=== PATIENT | female | born 1940 | race Caucasian/White ===

== ENCOUNTER → 2018-01-31 10:32 | Outpatient (CLI) | payer OTHER, SELFPAY ==
[2018-01-31 10:51] LABS: Add Manual Diff / Slide Review NO; Basophils Percent Auto 0.5 % (0-2); Hematocrit 33.6 % (36-46); Hemoglobin 11.3 g/dL (12.0-16.0); Lymphocytes Percent Auto 32.7 % (25-40); Mean Corpuscular HGB Conc 33.8 % (30-36); Mean Corpuscular Volume 94.7 fL (80-100); Neutrophils Absolute Auto 1600 /uL (3000-5900); Neutrophils Percent Auto 50.8 % (50-75); Platelet Count 86 X10^3/uL (150-400); Red Blood Cell Count 3.54 X10^6/uL (4.0-5.2); Red Cell Distribution Width 16.9 % (11.6-14.8); White Blood Cell Count 3.1 X10^3/uL (4.5-11.0)
[2018-01-31 10:58] LABS: Prothrombin Time 22.2 SECONDS (10.1-12.7)
[2018-01-31 11:03] LABS: Alanine Aminotransferase 43 IU/L (9-52); Albumin Globulin Ratio 1.6 (1.0-2.8); Alkaline Phosphatase 77 U/L (38-126); Aspartate Aminotransferase 31 IU/L (14-36); Bilirubin Total 0.5 mg/dL (0.2-1.3); Blood Urea Nitrogen 23 mg/dL (7-17); Calcium 9.4 mg/dL (8.4-10.2); Carbon Dioxide 28 mmol/L (22-32); Chloride 105 mmol/L (98-107); Estimated Glomerular Filt Rate 53.5 mL/min (>60); Globulin 2.5 g/dL (1.7-4.1); Glucose 138 mg/dL (80-110); HEMOLYSIS < 15 (0-50); Potassium 4.8 mmol/L (3.4-5.1); Sodium 140 mmol/L (137-145); Total Protein 6.5 g/dL (6.3-8.2)
== END ==
PROVIDERS: Visit Provider Nurse Practitioner Gerontology
DX: I82.409 Acute embolism and thrombosis of unspecified deep veins of unspecified lower extremity (principal); D69.6 Thrombocytopenia, unspecified
CPT/HCPCS: 36415; 80053; 85025; 85610

== ENCOUNTER → 2018-07-03 14:33 | Outpatient (CLI) | payer OTHER, SELFPAY | PROVIDERS: Family Provider Student in an Organized Health Care Education/Training Program; PCP Student in an Organized Health Care Education/Training Program; Visit Provider Student in an Organized Health Care Education/Training Program | DX: Z13.820 Encounter for screening for osteoporosis (principal); Z78.0 Asymptomatic menopausal state; E07.9 Disorder of thyroid, unspecified; Z85.6 Personal history of leukemia; Z87.891 Personal history of nicotine dependence | CPT/HCPCS: 77080 ==

== ENCOUNTER 2018-09-08 17:57 | Emergency (ER) | payer OTHER, SELFPAY ==
[2018-09-08 18:03] VITALS: BP 189/75; PULSE 70; RESP 18; TEMP 36.8; O2SAT 97; BMI 39.1
--- NOTE | 2018-09-08 18:33 | ED_ITS ---
HPI - Female Genitourinary General Chief complaint: Urogenital-Female Stated complaint: blood in urine Time Seen by Provider: 09/08/18 18:22 Source: patient and old records reviewed Mode of arrival: ambulatory Limitations: no limitations History of Present Illness HPI Narrative: Patient is an 78-year-old female who presents with hematuria. She said she woke up from a nap she had some very mild left lower quadrant pain is went to the restroom and noticed some hematuria. She is on Coumadin and has a history of ITP and DVT. She no longer has left lower quadrant pain. She said she felt a little nauseous when she urinated but did not vomit. She has not had any fever body aches. She was feeling well until about an hour ago. With her history of ITP and Coumadin as she wanted to be checked. Onset (ago): hour(s) (1) Related Data Home Medications Medication Instructions Recorded Confirmed cholecalciferol (vitamin D3) 2,000 unit PO Q DAY #0 cap 03/24/16 07/26/18 [Vitamin D3] blood sugar diagnostic [Blood 12/20/17 07/26/18 Glucose Test] multivitamin tablet 1 tab PO DAILY 06/26/18 07/26/18 Disabled Parking Permit 1 ea MISCELLANEOUS DAILY 07/26/18 07/26/18 warfarin [Coumadin] 5.5 mg PO QDAY 07/26/18 07/26/18 Previous Rx's Medication Instructions Recorded pioglitazone 30 mg tablet 30 mg PO DAILY #30 tab 07/15/18 carvedilol 6.25 mg tablet 6.25 mg PO BID #180 tab 07/23/18 warfarin [Coumadin] 0.5 mg PO DAILY #15 tab 07/26/18 glipizide 10 mg tablet 10 mg PO BID #180 tab 08/13/18 pioglitazone 30 mg tablet 30 mg PO DAILY #90 tab 08/19/18 losartan 50 mg tablet 50 mg PO BID #180 tab 08/23/18 levothyroxine 100 mcg tablet 100 mcg PO QAM #90 tab 08/29/18 Allergies Allergy/AdvReac Type Severity Reaction Status Date / Time barium sulfate Allergy Severe SENSITIVITY Verified 09/08/18 18:03 TO ELECTRICAL CURRENT, SEIZURES Sulfa (Sulfonamide Allergy Intermediate HIVES Verified 09/08/18 18:03 Antibiotics) adhesive Allergy Mild RASH Verified 09/08/18 18:03 Review of Systems Review of Systems ROS Unobtainable: All systems reviewed & are unremarkable except as noted in HPI and below Constitutional Denies chills, Denies fever(s), Denies lethargy and Denies weakness Eyes Denies change in vision, Denies eye discharge, Denies irritation and Denies loss of vision ENT Ears, Nose, Mouth, and Throat: Denies change in voice, Denies neck pain and Denies sore throat Cardiovascular Denies dyspnea and Denies dyspnea on exertion Respiratory Denies cough, Denies dyspnea, Denies dyspnea on exertion and Denies wheezing Gastrointestinal Gastrointestinal: Reports abdominal pain (Now resolved) and Reports nausea Genitourinary Reports as per HPI and Reports hematuria Musculoskeletal Denies neck pain Integumentary/Breasts Denies pruritus, Denies erythema, Denies rash and Denies wounds Neurologic Denies loss of vision and Denies weakness Allergic/Immunologic Denies wheezing PFSH Medical History Chronic ITP (idiopathic thrombocytopenic purpura) (Acute) Hypothyroid (Acute) DVT (deep venous thrombosis) (Resolved) Surgical History Status post appendectomy Status post tonsillectomy and adenoidectomy Social History Smoking Status: Former smoker Social History Smoking Status: Former smoker Exam Initial Vital Signs Initial Vital Signs: Vital Signs Temperature 98.3 F 09/08/18 18:03 Pulse Rate 70 09/08/18 18:03 Respiratory Rate 18 09/08/18 18:03 Blood Pressure 189/75 H 09/08/18 18:03 Pulse Oximetry 97 09/08/18 18:03 GENERAL: Alert overweight female well-appearing no acute distress HEENT: Head atraumatic,EOMI, pupils reactive, face symmetric, [moist] mucous membranes CARDIOVASCULAR: Regular rate and rhythm without murmurs, rubs or gallops. RESPIRATORY: Breath sounds equal bilaterally, no wheezes rales or rhonchi. ABDOMEN: Soft, nontender. Normoactive bowel sounds all 4 quadrants. No guarding or rebound. : No CVA tenderness EXTREMITIES: Normal range of motion, no clubbing or edema. Neurovascularly intact NEUROLOGICAL: Alert and oriented x4.Normal gait and speech. SKIN: Warm, dry, no laceration, no petechiae, no rashes or lesions. Course Orders Ordered: ED Orders 09/08/18 18:40 Basic Metabolic Panel Stat Complete Blood Count AUTO DIFF Stat Partial Thromboplastin Time Stat Prothrombin Time INR Stat 09/08/18 19:10 Urinalysis and Microscopic Stat Vital Signs - 8 hr 09/08/18 18:03 09/08/18 19:55 Temperature 98.3 F Pulse Rate 70 88 Respiratory Rate 18 16 Blood Pressure 189/75 H Blood Pressure [Right Arm] 172/86 H Pulse Oximetry 97 98 MDM - Female Genitourinary Medical Records Attestation: I reviewed the patient's medical records. Lab Data Attestation: I reviewed the patient's lab results. Result diagrams: 09/08/18 18:40 09/08/18 18:40 Lab Results 09/08/18 09/08/18 09/08/18 Range/Units 18:40 18:40 18:40 WBC 2.7 L (4.5-11.0) X10^3/uL RBC 3.46 L (4.0-5.2) X10^6/uL Hgb 10.6 L (12.0-16.0) g/dL Hct 32.9 L (36-46) % MCV 94.9 (80-100) fL MCH 30.5 (26-34) PG MCHC 32.1 (30-36) % RDW 18.1 H (11.6-14.8) % Plt Count 66 L (150-400) X10^3/uL Neut % (Auto) Not Reportable Lymph % (Auto) Not Reportable [place] % (Auto) Not Reportable Eos % (Auto) Not Reportable Baso % (Auto) Not Reportable Lymph # (Auto) Not Reportable [place] # (Auto) Not Reportable Baso # (Auto) Not Reportable Total Counted 100 Seg Neutrophils % 45.0 (38-70) % Band Neutrophils % 3.0 (3-7) % Lymphocytes % (Manual) 33.0 (25-45) % Atypical Lymphs % 3.0 H ( - 0) % Monocytes % (Manual) 16.0 H (2-11) % Neutrophils # (Manual) 1296 L (9543-7055) /uL RBC Morphology See below Poikilocytosis 1+ H Anisocytosis 1+ H Schistocytes 1+ H PT 18.7 H (10.1-12.7) SECONDS INR 1.6 H (0.9-1.3) APTT 32 (26.4-36.2) SECONDS Sodium 136 L (137-145) mmol/L Potassium 4.5 (3.4-5.1) mmol/L Chloride 101 (98-107) mmol/L Carbon Dioxide 26 (22-32) mmol/L BUN 28 H (7-17) mg/dL Creatinine 1.10 H (0.52-1.04) mg/dL Estimated GFR 47.8 L (>60) mL/min BUN/Creatinine Ratio 25.5 H (6-22) Glucose 100 (80-110) mg/dL Calcium 9.0 (8.4-10.2) mg/dL Urine Color Urine Appearance Urine pH (4.5-8.0) Ur Specific [place] (1.000-1.035) Urine Protein (Negative) Urine Glucose (UA) (Negative) g/dL Urine Ketones (NEGATIVE) Urine Occult Blood (Negative) Urine Nitrate (Negative) Urine Bilirubin (NEGATIVE) Urine Urobilinogen (0.2) E.U./dL Ur Leukocyte Esterase (NEGATIVE) Urine RBC (0-5/HPF) Urine WBC (0-5/HPF) Ur Squamous Epith Cells Urine Bacteria (None) Ur Culture Indicated? 09/08/18 Range/Units 19:10 WBC (4.5-11.0) X10^3/uL RBC (4.0-5.2) X10^6/uL Hgb (12.0-16.0) g/dL Hct (36-46) % MCV (80-100) fL MCH (26-34) PG MCHC (30-36) % RDW (11.6-14.8) % Plt Count (150-400) X10^3/uL Neut % (Auto) Lymph % (Auto) [place] % (Auto) Eos % (Auto) Baso % (Auto) Lymph # (Auto) [place] # (Auto) Baso # (Auto) Total Counted Seg Neutrophils % (38-70) % Band Neutrophils % (3-7) % Lymphocytes % (Manual) (25-45) % Atypical Lymphs % ( - 0) % Monocytes % (Manual) (2-11) % Neutrophils # (Manual) (5521-4170) /uL RBC Morphology Poikilocytosis Anisocytosis Schistocytes PT (10.1-12.7) SECONDS INR (0.9-1.3) APTT (26.4-36.2) SECONDS Sodium (137-145) mmol/L Potassium (3.4-5.1) mmol/L Chloride (98-107) mmol/L Carbon Dioxide (22-32) mmol/L BUN (7-17) mg/dL Creatinine (0.52-1.04) mg/dL Estimated GFR (>60) mL/min BUN/Creatinine Ratio (6-22) Glucose (80-110) mg/dL Calcium (8.4-10.2) mg/dL Urine Color Yellow Urine Appearance Clear Urine pH 5.0 (4.5-8.0) Ur Specific [place] 1.015 (1.000-1.035) Urine Protein Negative (Negative) Urine Glucose (UA) Negative (Negative) g/dL Urine Ketones Negative (NEGATIVE) Urine Occult Blood 3+ H (Negative) Urine Nitrate Negative (Negative) Urine Bilirubin Negative (NEGATIVE) Urine Urobilinogen 0.2 (0.2) E.U./dL Ur Leukocyte Esterase Negative (NEGATIVE) Urine RBC 5-10/hpf H (0-5/HPF) Urine WBC None seen (0-5/HPF) Ur Squamous Epith Cells 0-1 /hpf Urine Bacteria None seen (None) Ur Culture Indicated? Cult not indicated MDM Narrative Medical decision making narrative: At this time the patient has no sign of a UTI. She does have hematuria his platelets are 66 slightly lower than her normal. INR is actually subtherapeutic. at this time she is will be discha rged. I think hematuria is likely from thrombocytopenia Not infection. sHe has appointment with her oncologist tomorrow. Discharge Plan Departure Patient Disposition: Home Clinical Impression: Benign hematuria Discharge Date/Time: 09/08/18 20:04 Interventions: ED Discharge Assessment Last Done: 09/08/18 20:03 Instructions: Blood in Urine Activity Restrictions/Additional Instructions: *You have been diagnosed with hematuria *What to do: Platelets are 66, INR 1.6. At this time there is no sign of infection. *Continue to take medications as directed *Follow up with your primary care provider in 2-3 days *Return to ER if you should have fever, painful or frequent urination, gross of blood, blood clots in urine or any new, worsening or concerning symptoms Prescriptions: No Action cholecalciferol (vitamin D3) [Vitamin D3] 2,000 UNIT capsule 2,000 unit PO Q DAY Qty: 0 RF: 0 pioglitazone 30 mg tablet 30 mg PO DAILY Qty: 30 RF: 0 carvedilol 6.25 mg tablet 6.25 mg PO BID Qty: 180 RF: 3 glipizide 10 mg tablet 10 mg PO BID Qty: 180 RF: 1 pioglitazone [Actos] 30 mg tablet 30 mg PO DAILY Qty: 90 RF: 1 losartan 50 mg tablet 50 mg PO BID Qty: 180 RF: 3 levothyroxine 100 mcg tablet 100 mcg PO QAM Qty: 90 RF: 3 multivitamin [Daily Multi-Vitamin] tablet 1 tab PO DAILY RF: 0 Blood Glucose Test strip .ROUTE .MEDSUPPLY RF: 0 warfarin [Coumadin] 5 mg tablet 5.5 mg PO QDAY RF: 0 Disabled Parking Permit sheet 1 ea miscellaneous DAILY RF: 0 warfarin [Coumadin] 1 mg Tablet 0.5 mg PO DAILY Qty: 15 RF: 0 Referrals: Gamal Orosco MD [Primary Care Provider] -
[2018-09-08 18:50] LABS: Hematocrit 32.9 % (36-46); Hemoglobin 10.6 g/dL (12.0-16.0); Mean Corpuscular HGB Conc 32.1 % (30-36); Mean Corpuscular Hemoglobin 30.5 PG (26-34); Mean Corpuscular Volume 94.9 fL (80-100); Platelet Count 66 X10^3/uL (150-400); Red Blood Cell Count 3.46 X10^6/uL (4.0-5.2); Red Cell Distribution Width 18.1 % (11.6-14.8); White Blood Cell Count 2.7 X10^3/uL (4.5-11.0)
[2018-09-08 18:54] LABS: INR 1.6 (0.9-1.3); Prothrombin Time 18.7 SECONDS (10.1-12.7)
[2018-09-08 18:57] LABS: PTT Partial Thromboplastin Tim 32 SECONDS (26.4-36.2)
[2018-09-08 18:58] LABS: BUN Creatinine Ratio 25.5 (6-22); Blood Urea Nitrogen 28 mg/dL (7-17); Carbon Dioxide 26 mmol/L (22-32); Chloride 101 mmol/L (98-107); Estimated Glomerular Filt Rate 47.8 mL/min (>60); Glucose 100 mg/dL (80-110); HEMOLYSIS < 15 (0-50); Potassium 4.5 mmol/L (3.4-5.1); Sodium 136 mmol/L (137-145)
[2018-09-08 19:10] LABS: Add Manual Diff / Slide Review YES
[2018-09-08 19:16] LABS: Neutrophils Absolute Manual 1296 /uL (3000-5900); Total Cells Counted 100
[2018-09-08 19:18] LABS: Bacteria Urine None Seen; WBC Urine None Seen (0-5/HPF)
[2018-09-08 19:18] LABS: Poikilocytosis 1+
[2018-09-08 19:19] LABS: Anisocytosis 1+; Schistocytes 1+
[2018-09-08 19:19] LABS: Appearance Urine UA CLEAR; Bilirubin Urine UA NEGATIVE (NEGATIVE); Color Urine UA YELLOW; Glucose Urine UA NEGATIVE (Negative); Ketones Urine UA NEGATIVE (NEGATIVE); Leukocyte Esterase Urine UA NEGATIVE (NEGATIVE); Nitrite Urine UA NEGATIVE (Negative); Occult Blood Urine UA 3+ (Negative); Protein Urine UA NEGATIVE (Negative); Specific Gravity Urine UA 1.015 (1.000-1.035); Urobilinogen Urine UA 0.2 E.U./dL (0.2)
[2018-09-08 19:39] LABS: RBC Urine 5-10/HPF (0-5/HPF); Squamous Epithelial Cell Urine 0-1 /HPF
[2018-09-08 19:40] LABS: Culture Indicated Urine Cult Not Indicated
--- NOTE | 2018-09-08 19:52 | PC.NURSE ---
Pt requested that we look at void because she felt that it was more red than the previous void. this is true the pt's urine did apeer to be red colored
[2018-09-08 19:55] VITALS: BP 172/86; PULSE 88; RESP 16; O2SAT 98
== END 2018-09-08 20:04 | disposition home or self-care (01) ==
PROVIDERS: Emergency Provider Emergency Medicine; Family Provider Student in an Organized Health Care Education/Training Program; PCP Student in an Organized Health Care Education/Training Program
DX: N02.9 Recurrent and persistent hematuria with unspecified morphologic changes (principal)
CPT/HCPCS: 36591; 80048; 81001; 85025; 85610; 85730; 99283

== ENCOUNTER → 2018-09-23 09:26 | Outpatient (CLI) | payer OTHER, SELFPAY ==
--- NOTE | 2018-09-23 09:39 | DI.CT.S_ITS ---
PROCEDURE: CT ABDOMEN PELVIS WO CON INDICATIONS: hematuria TECHNIQUE: Noncontrast 5 mm thick sections acquired from the diaphragms to the symphysis. 5 mm thick coronal and sagittal reformats were then performed. For radiation dose reduction, the following was used: automated exposure control, adjustment of mA and/or kV according to patient size. COMPARISON: [facility], [place], ABDOMEN COMPLETE, 03/07/2016, 10:10. [facility], CT, CHEST/ABD/PEL WITHOUT CONTRAST, 03/08/2016, 7:19. [facility], CT, CHEST/ABD/PEL WITHOUT CONTRAST, 08/01/2016, 13:21. FINDINGS: Image quality: Excellent. Lung bases: There is mild linear scarring in the lung bases. Heart size is normal. Urinary system: There is a small nonobstructing stone within the left kidney measuring up to 2 mm. No hydronephrosis. There is mild nonspecific left perinephric stranding. Both ureters appear non-dilated throughout their expected courses. Bladder wall thickness is normal; no calcified bladder stones. Other solid organs: Noncontrast evaluation of the liver demonstrates no focal hepatic lesions. There is nondistention and wall thickening of the gallbladder fundus redemonstrated with indistinct increased attenuation in the gallbladder lumen more proximally. No pericholecystic fat stranding or fluid. Pancreas is normal in contours. Spleen is normal in size. There is a stable small left adrenal nodule measuring up to 2.3 x 1.5 cm with attenuation values of less than 0. 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 Peritoneum and bowel: Unenhanced bowel loops demonstrate normal wall thickness and caliber. No evidence of appendicitis. There is colonic diverticulosis without acute diverticulitis. No free fluid or air. Nodes and vessels: No retroperitoneal or mesenteric adenopathy by size criteria. Aorta and inferior vena cava are normal in caliber. An IVC filter is noted within the inferior vena cava. Abdominal wall: No ventral hernias. Pelvis: No free pelvic fluid. No inguinal hernias or adenopathy. Bones: No suspicious bony lesions. No vertebral body compression fractures. IMPRESSION: 1. Left nephrolithiasis without evidence of hydronephrosis. 2. Nondistended gallbladder fundus with gallbladder wall thickening and suggestion of an internal filling defect in the lumen. The findings are similar to the prior studies and the differential includes adenomyomatosis or a possible phrygian cap. 3. Colonic diverticulosis without acute diverticulitis. Dictated by: Aaron Verdugo M.D. on 09/23/2018 at 14:01 Approved by: Aaron Verdugo M.D. on 09/23/2018 at 14:10
[2018-09-23 09:58] LABS: INR 2.3 (0.9-1.3); Prothrombin Time 27.4 SECONDS (10.1-12.7)
== END ==
PROVIDERS: Internal Medicine Hematology & Oncology; Family Provider Student in an Organized Health Care Education/Training Program; PCP Student in an Organized Health Care Education/Training Program; Visit Provider Internal Medicine
DX: D46.9 Myelodysplastic syndrome, unspecified (principal)
CPT/HCPCS: 36415; 74176; 85610

== ENCOUNTER → 2018-10-07 13:21 | Outpatient (CLI) | payer OTHER, SELFPAY ==
[2018-10-07 14:13] LABS: INR 2.5 (0.9-1.3); Prothrombin Time 29.7 SECONDS (10.1-12.7)
== END ==
PROVIDERS: PCP Student in an Organized Health Care Education/Training Program; Visit Provider Internal Medicine Hematology & Oncology
DX: D46.9 Myelodysplastic syndrome, unspecified (principal); D69.3 Immune thrombocytopenic purpura
CPT/HCPCS: 36415; 85610

== ENCOUNTER → 2018-11-25 07:40 | Outpatient (CLI) | payer OTHER, SELFPAY ==
[2018-11-25 09:06] LABS: Hematocrit 32.1 % (36-46); Hemoglobin 10.6 g/dL (12.0-16.0); Mean Corpuscular Hemoglobin 31.2 PG (26-34); Mean Corpuscular Volume 94.4 fL (80-100); Platelet Count 69 X10^3/uL (150-400); White Blood Cell Count 2.3 X10^3/uL (4.5-11.0)
[2018-11-25 09:15] LABS: Add Manual Diff / Slide Review YES
[2018-11-25 09:26] LABS: Alanine Aminotransferase 16 IU/L (9-52); Albumin 3.8 g/dL (3.5-5.0); Albumin Globulin Ratio 1.4 (1.0-2.8); Alkaline Phosphatase 68 U/L (38-126); Aspartate Aminotransferase 25 IU/L (14-36); Bilirubin Total 0.5 mg/dL (0.2-1.3); Blood Urea Nitrogen 27 mg/dL (7-17); Calcium 9.4 mg/dL (8.4-10.2); Carbon Dioxide 28 mmol/L (22-32); Chloride 105 mmol/L (98-107); Estimated Glomerular Filt Rate 53.3 mL/min (>60); Globulin 2.7 g/dL (1.7-4.1); Glucose 96 mg/dL (80-110); HEMOLYSIS < 15 (0-50); Potassium 4.5 mmol/L (3.4-5.1); Sodium 138 mmol/L (137-145); Total Protein 6.5 g/dL (6.3-8.2)
[2018-11-25 09:30] LABS: Neutrophils Absolute Manual 1173 /uL (3000-5900); Total Cells Counted 100
[2018-11-25 09:35] LABS: Anisocytosis 1+; Poikilocytosis 1+
[2018-11-25 09:59] LABS: Prothrombin Time 23.5 SECONDS (10.1-12.7)
== END ==
PROVIDERS: Family Provider Student in an Organized Health Care Education/Training Program; PCP Student in an Organized Health Care Education/Training Program; Visit Provider Internal Medicine Hematology & Oncology
DX: D46.9 Myelodysplastic syndrome, unspecified (principal); Z95.828 Presence of other vascular implants and grafts
CPT/HCPCS: 36415; 80053; 85025; 85610

== ENCOUNTER → 2018-12-23 11:19 | Outpatient (CLI) | payer OTHER, SELFPAY ==
[2018-12-23 12:11] LABS: Add Manual Diff / Slide Review NO; Basophils Absolute Auto 0 /uL (0-100); Basophils Percent Auto 0.1 % (0-2); Eosinophils Absolute Auto 0 /uL (0-450); Hematocrit 31.7 % (36-46); Hemoglobin 10.4 g/dL (12.0-16.0); Lymphocytes Absolute Auto 900 /uL (1100-4500); Lymphocytes Percent Auto 36.5 % (25-40); Mean Corpuscular Hemoglobin 31.2 PG (26-34); Mean Corpuscular Volume 94.6 fL (80-100); Monocytes Absolute Auto 400 /uL (0-900); Monocytes Percent Auto 17.3 % (3-14); Neutrophils Absolute Auto 1100 /uL (1500-7000); Neutrophils Percent Auto 46.1 % (50-75); Platelet Count 62 X10^3/uL (150-400); Red Blood Cell Count 3.35 X10^6/uL (4.0-5.2); Red Cell Distribution Width 17.7 % (11.6-14.8); White Blood Cell Count 2.4 X10^3/uL (4.5-11.0)
[2018-12-23 12:17] LABS: INR 1.6 (0.9-1.3); Prothrombin Time 18.5 SECONDS (10.1-12.7)
[2018-12-23 12:22] LABS: Alanine Aminotransferase 16 IU/L (9-52); Albumin 3.9 g/dL (3.5-5.0); Albumin Globulin Ratio 1.4 (1.0-2.8); Alkaline Phosphatase 101 U/L (38-126); Aspartate Aminotransferase 24 IU/L (14-36); Bilirubin Total 0.4 mg/dL (0.2-1.3); Blood Urea Nitrogen 32 mg/dL (7-17); Carbon Dioxide 25 mmol/L (22-32); Chloride 104 mmol/L (98-107); Estimated Glomerular Filt Rate 53.3 mL/min (>60); Globulin 2.8 g/dL (1.7-4.1); Glucose 139 mg/dL (80-110); HEMOLYSIS < 15 (0-50); Potassium 4.8 mmol/L (3.4-5.1); Sodium 138 mmol/L (137-145); Total Protein 6.7 g/dL (6.3-8.2)
[2018-12-23 12:24] LABS: Hemoglobin A1C% w Est Avg Glu 6.5 % (4.0-6.0)
== END ==
PROVIDERS: PCP Student in an Organized Health Care Education/Training Program; Visit Provider Internal Medicine Hematology & Oncology
DX: Z95.828 Presence of other vascular implants and grafts (principal); E11.9 Type 2 diabetes mellitus without complications; D46.9 Myelodysplastic syndrome, unspecified
CPT/HCPCS: 80053; 83036; 85025; 85610

== ENCOUNTER → 2019-01-06 10:56 | Outpatient (CLI) | payer OTHER, SELFPAY ==
[2019-01-06 12:03] LABS: Prothrombin Time 23.7 SECONDS (10.1-12.7)
== END ==
PROVIDERS: PCP Student in an Organized Health Care Education/Training Program; Visit Provider Student in an Organized Health Care Education/Training Program
DX: Z95.828 Presence of other vascular implants and grafts (principal)
CPT/HCPCS: 36415; 85610

== ENCOUNTER → 2019-01-27 11:27 | Outpatient (CLI) | payer OTHER, SELFPAY ==
[2019-01-27 12:30] LABS: INR 2.7 (0.9-1.3); Prothrombin Time 32.5 SECONDS (10.1-12.7)
== END ==
PROVIDERS: Family Provider Student in an Organized Health Care Education/Training Program; PCP Student in an Organized Health Care Education/Training Program; Visit Provider Student in an Organized Health Care Education/Training Program
DX: Z95.828 Presence of other vascular implants and grafts (principal)
CPT/HCPCS: 36415; 85610

== ENCOUNTER → 2019-02-10 11:30 | Outpatient (CLI) | payer OTHER, SELFPAY ==
[2019-02-10 12:15] LABS: INR 3.3 (0.9-1.3); Prothrombin Time 38.6 SECONDS (10.1-12.7)
== END ==
PROVIDERS: PCP Student in an Organized Health Care Education/Training Program; Visit Provider Student in an Organized Health Care Education/Training Program
DX: Z51.81 Encounter for therapeutic drug level monitoring (principal); Z79.01 Long term (current) use of anticoagulants; Z86.718 Personal history of other venous thrombosis and embolism
CPT/HCPCS: 36415; 85610

== ENCOUNTER → 2019-02-25 13:32 | Outpatient (CLI) | payer OTHER, SELFPAY ==
[2019-02-25 14:33] LABS: Add Manual Diff / Slide Review NO; Basophils Absolute Auto 0 /uL (0-100); Basophils Percent Auto 0.4 % (0-2); Eosinophils Absolute Auto 0 /uL (0-450); Hematocrit 29.6 % (36-46); Lymphocytes Absolute Auto 800 /uL (1100-4500); Lymphocytes Percent Auto 28.9 % (25-40); Mean Corpuscular HGB Conc 33.7 % (30-36); Mean Corpuscular Hemoglobin 31.6 PG (26-34); Mean Corpuscular Volume 93.6 fL (80-100); Monocytes Absolute Auto 400 /uL (0-900); Monocytes Percent Auto 16.6 % (3-14); Neutrophils Absolute Auto 1400 /uL (1500-7000); Neutrophils Percent Auto 54.1 % (50-75); Platelet Count 72 X10^3/uL (150-400); Red Blood Cell Count 3.17 X10^6/uL (4.0-5.2); Red Cell Distribution Width 18.4 % (11.6-14.8); White Blood Cell Count 2.6 X10^3/uL (4.5-11.0)
[2019-02-25 14:37] LABS: INR 3.3 (0.9-1.3); Prothrombin Time 39.3 SECONDS (10.1-12.7)
[2019-02-25 14:52] LABS: Alanine Aminotransferase 10 IU/L (9-52); Albumin 3.6 g/dL (3.5-5.0); Albumin Globulin Ratio 1.2 (1.0-2.8); Alkaline Phosphatase 64 U/L (38-126); Aspartate Aminotransferase 25 IU/L (14-36); BUN Creatinine Ratio 31.1 (6-22); Bilirubin Total 0.4 mg/dL (0.2-1.3); Blood Urea Nitrogen 28 mg/dL (7-17); Calcium 9.2 mg/dL (8.4-10.2); Carbon Dioxide 25 mmol/L (22-32); Chloride 107 mmol/L (98-107); Estimated Glomerular Filt Rate > 60.0 mL/min (>60); Globulin 2.9 g/dL (1.7-4.1); Glucose 117 mg/dL (80-110); HEMOLYSIS < 15 (0-50); Potassium 4.1 mmol/L (3.4-5.1); Sodium 140 mmol/L (137-145); Total Protein 6.5 g/dL (6.3-8.2)
== END ==
PROVIDERS: Internal Medicine Hematology & Oncology; PCP Student in an Organized Health Care Education/Training Program; Visit Provider Student in an Organized Health Care Education/Training Program
DX: D46.9 Myelodysplastic syndrome, unspecified (principal); Z51.81 Encounter for therapeutic drug level monitoring; Z79.01 Long term (current) use of anticoagulants; Z95.828 Presence of other vascular implants and grafts
CPT/HCPCS: 36415; 80053; 85025; 85610

== ENCOUNTER → 2019-03-10 13:53 | Outpatient (CLI) | payer OTHER, SELFPAY ==
[2019-03-10 14:26] LABS: Add Manual Diff / Slide Review NO; Basophils Absolute Auto 0 /uL (0-100); Basophils Percent Auto 0.2 % (0-2); Eosinophils Absolute Auto 0 /uL (0-450); Hematocrit 30.1 % (36-46); Hemoglobin 10.2 g/dL (12.0-16.0); Lymphocytes Absolute Auto 700 /uL (1100-4500); Lymphocytes Percent Auto 30.7 % (25-40); Mean Corpuscular HGB Conc 33.8 % (30-36); Mean Corpuscular Hemoglobin 31.6 PG (26-34); Mean Corpuscular Volume 93.4 fL (80-100); Monocytes Absolute Auto 300 /uL (0-900); Monocytes Percent Auto 14.6 % (3-14); Neutrophils Absolute Auto 1200 /uL (1500-7000); Neutrophils Percent Auto 54.5 % (50-75); Platelet Count 77 X10^3/uL (150-400); Red Blood Cell Count 3.23 X10^6/uL (4.0-5.2); Red Cell Distribution Width 18.2 % (11.6-14.8); White Blood Cell Count 2.3 X10^3/uL (4.5-11.0)
[2019-03-10 14:29] LABS: INR 2.8 (0.9-1.3); Prothrombin Time 32.8 SECONDS (10.1-12.7)
[2019-03-10 14:32] LABS: HEMOLYSIS < 15 (0-50); Sodium 140 mmol/L (137-145)
[2019-03-10 14:35] LABS: Alanine Aminotransferase 20 IU/L (9-52); Albumin 3.8 g/dL (3.5-5.0); Albumin Globulin Ratio 1.4 (1.0-2.8); Alkaline Phosphatase 60 U/L (38-126); Aspartate Aminotransferase 27 IU/L (14-36); BUN Creatinine Ratio 24.4 (6-22); Bilirubin Total 0.6 mg/dL (0.2-1.3); Blood Urea Nitrogen 22 mg/dL (7-17); Calcium 9.2 mg/dL (8.4-10.2); Carbon Dioxide 26 mmol/L (22-32); Chloride 104 mmol/L (98-107); Estimated Glomerular Filt Rate > 60.0 mL/min (>60); Globulin 2.8 g/dL (1.7-4.1); Glucose 208 mg/dL (80-110); Potassium 4.3 mmol/L (3.4-5.1); Total Protein 6.6 g/dL (6.3-8.2)
== END ==
PROVIDERS: Internal Medicine Hematology & Oncology; PCP Student in an Organized Health Care Education/Training Program; Visit Provider Student in an Organized Health Care Education/Training Program
DX: I48.91 Unspecified atrial fibrillation (principal); Z79.01 Long term (current) use of anticoagulants; D46.9 Myelodysplastic syndrome, unspecified
CPT/HCPCS: 80053; 85025; 85610

== ENCOUNTER → 2019-03-24 11:41 | Outpatient (CLI) | payer OTHER, SELFPAY ==
[2019-03-24 12:46] LABS: INR 3.6 (0.9-1.3)
== END ==
PROVIDERS: PCP Student in an Organized Health Care Education/Training Program; Visit Provider Student in an Organized Health Care Education/Training Program
DX: I48.91 Unspecified atrial fibrillation (principal); Z79.01 Long term (current) use of anticoagulants
CPT/HCPCS: 36415; 85610

== ENCOUNTER → 2019-04-07 11:15 | Outpatient (CLI) | payer OTHER, SELFPAY ==
[2019-04-07 12:32] LABS: INR 1.9 (0.9-1.3); Prothrombin Time 22.4 SECONDS (10.1-12.7)
== END ==
PROVIDERS: PCP Student in an Organized Health Care Education/Training Program; Visit Provider Student in an Organized Health Care Education/Training Program
DX: Z79.01 Long term (current) use of anticoagulants (principal); Z95.828 Presence of other vascular implants and grafts
CPT/HCPCS: 36415; 85610

== ENCOUNTER → 2019-04-21 12:10 | Outpatient (CLI) | payer OTHER, SELFPAY ==
[2019-04-21 12:33] LABS: INR 2.1 (0.9-1.3)
== END ==
PROVIDERS: PCP Student in an Organized Health Care Education/Training Program; Visit Provider Student in an Organized Health Care Education/Training Program
DX: Z79.01 Long term (current) use of anticoagulants (principal); Z86.718 Personal history of other venous thrombosis and embolism
CPT/HCPCS: 36415; 85610

== ENCOUNTER → 2019-05-12 08:58 | Outpatient (CLI) | payer OTHER, SELFPAY ==
[2019-05-12 09:42] LABS: INR 2.6 (0.9-1.3)
[2019-05-12 09:47] LABS: Hematocrit 29.6 % (36-46); Hemoglobin 9.9 g/dL (12.0-16.0); Mean Corpuscular HGB Conc 33.3 % (30-36); Mean Corpuscular Hemoglobin 31.9 PG (26-34); Mean Corpuscular Volume 95.6 fL (80-100); Platelet Count 66 X10^3/uL (150-400); Red Blood Cell Count 3.09 X10^6/uL (4.0-5.2); White Blood Cell Count 2.6 X10^3/uL (4.5-11.0)
[2019-05-12 09:48] LABS: Alanine Aminotransferase 16 IU/L (<35); Albumin 3.9 g/dL (3.5-5.0); Albumin Globulin Ratio 1.4 (1.0-2.8); Alkaline Phosphatase 67 U/L (38-126); Aspartate Aminotransferase 26 IU/L (14-36); Bilirubin Total 0.5 mg/dL (0.2-1.3); Blood Urea Nitrogen 29 mg/dL (7-17); Calcium 9.1 mg/dL (8.4-10.2); Carbon Dioxide 28 mmol/L (22-32); Chloride 109 mmol/L (98-107); Estimated Glomerular Filt Rate 53.3 mL/min (>60); Globulin 2.7 g/dL (1.7-4.1); Glucose 118 mg/dL (80-110); HEMOLYSIS < 15 (0-50); Potassium 4.4 mmol/L (3.4-5.1); Sodium 144 mmol/L (137-145); Total Protein 6.6 g/dL (6.3-8.2)
[2019-05-12 09:49] LABS: Add Manual Diff / Slide Review YES
[2019-05-12 10:25] LABS: Neutrophils Absolute Manual 1638 /uL (3000-5900); Total Cells Counted 100
[2019-05-12 10:26] LABS: Anisocytosis 2+; Poikilocytosis 1+
== END ==
PROVIDERS: PCP Student in an Organized Health Care Education/Training Program; Visit Provider Internal Medicine Hematology & Oncology
DX: D46.9 Myelodysplastic syndrome, unspecified (principal); Z79.01 Long term (current) use of anticoagulants; Z86.718 Personal history of other venous thrombosis and embolism
CPT/HCPCS: 36415; 80053; 85025; 85610

== ENCOUNTER → 2019-06-09 11:43 | Outpatient (CLI) | payer OTHER, SELFPAY ==
[2019-06-09 12:19] LABS: INR 2.5 (0.9-1.3); Prothrombin Time 29.3 SECONDS (10.1-12.7)
[2019-06-09 12:23] LABS: Alanine Aminotransferase 16 IU/L (<35); Albumin 3.9 g/dL (3.5-5.0); Albumin Globulin Ratio 1.4 (1.0-2.8); Alkaline Phosphatase 65 U/L (38-126); Aspartate Aminotransferase 29 IU/L (14-36); BUN Creatinine Ratio 25.5 (6-22); Bilirubin Total 0.7 mg/dL (0.2-1.3); Blood Urea Nitrogen 28 mg/dL (7-17); Calcium 9.2 mg/dL (8.4-10.2); Carbon Dioxide 27 mmol/L (22-32); Chloride 108 mmol/L (98-107); Estimated Glomerular Filt Rate 47.8 mL/min (>60); Globulin 2.7 g/dL (1.7-4.1); Glucose 138 mg/dL (80-110); HEMOLYSIS < 15 (0-50); Potassium 4.8 mmol/L (3.4-5.1); Sodium 142 mmol/L (137-145); Total Protein 6.6 g/dL (6.3-8.2)
[2019-06-09 12:24] LABS: Add Manual Diff / Slide Review NO; Basophils Absolute Auto 0 /uL (0-100); Basophils Percent Auto 0.4 % (0-2); Eosinophils Absolute Auto 0 /uL (0-450); Hematocrit 30.3 % (36-46); Hemoglobin 10.2 g/dL (12.0-16.0); Lymphocytes Absolute Auto 700 /uL (1100-4500); Lymphocytes Percent Auto 28.9 % (25-40); Mean Corpuscular HGB Conc 33.5 % (30-36); Mean Corpuscular Hemoglobin 32.4 PG (26-34); Mean Corpuscular Volume 96.6 fL (80-100); Monocytes Absolute Auto 400 /uL (0-900); Monocytes Percent Auto 15.3 % (3-14); Neutrophils Absolute Auto 1400 /uL (1500-7000); Neutrophils Percent Auto 55.4 % (50-75); Platelet Count 59 X10^3/uL (150-400); Red Blood Cell Count 3.14 X10^6/uL (4.0-5.2); Red Cell Distribution Width 19.1 % (11.6-14.8); White Blood Cell Count 2.5 X10^3/uL (4.5-11.0)
--- NOTE | 2019-09-17 09:28 | DI.RAD.S_ITS ---
PROCEDURE: XR CHEST 2V INDICATIONS: Cough TECHNIQUE: 2 views of the chest were acquired. COMPARISON: [facility], CT, CHEST/ABD/PEL WITHOUT CONTRAST, 08/01/2016, 13:21. [facility], CR, CHEST 2 VIEW, 10/08/2012, 12:08. FINDINGS: Surgical changes and devices: None. Lungs and pleura: Lungs are clear aside from mild bibasilar airspace opacities. No pleural effusions or pneumothorax. Mediastinum: Mediastinal contours are normal. Heart size is normal. Bones and chest wall: No suspicious bony abnormalities. Soft tissues appear unremarkable. IMPRESSION: Bibasilar atelectasis versus aspiration or pneumonia. Correlate clinically. Dictated by: Rishi Viramontes RRA Interpreted: Sajan Cerda MD on 09/17/2019 at 9:54 Approved by: Sajan Cerda M.D. on 09/17/2019 at 11:00
== END ==
PROVIDERS: PCP Student in an Organized Health Care Education/Training Program; Visit Provider Internal Medicine Hematology & Oncology
DX: Z79.01 Long term (current) use of anticoagulants (principal); D46.9 Myelodysplastic syndrome, unspecified
CPT/HCPCS: 36415; 80053; 85025; 85610

== ENCOUNTER → 2019-10-28 10:45 | Outpatient (CLI) | payer OTHER, SELFPAY ==
[2019-10-28 11:06] LABS: Hematocrit 30.3 % (36-46); Mean Corpuscular HGB Conc 33.1 % (30-36); Mean Corpuscular Hemoglobin 31.4 PG (26-34); Mean Corpuscular Volume 94.9 fL (80-100); Platelet Count 79 X10^3/uL (150-400); Red Blood Cell Count 3.19 X10^6/uL (4.0-5.2); Red Cell Distribution Width 19.2 % (11.6-14.8); White Blood Cell Count 2.5 X10^3/uL (4.5-11.0)
[2019-10-28 11:07] LABS: Add Manual Diff / Slide Review YES
[2019-10-28 11:13] LABS: Alanine Aminotransferase 14 IU/L (<35); Albumin 3.7 g/dL (3.5-5.0); Albumin Globulin Ratio 1.2 (1.0-2.8); Alkaline Phosphatase 70 U/L (38-126); Aspartate Aminotransferase 28 IU/L (14-36); BUN Creatinine Ratio 31.9 (6-22); Bilirubin Total 0.5 mg/dL (0.2-1.3); Blood Urea Nitrogen 29 mg/dL (7-17); Calcium 8.8 mg/dL (8.4-10.2); Carbon Dioxide 24 mmol/L (22-32); Chloride 107 mmol/L (98-107); Estimated Glomerular Filt Rate 59.3 mL/min (>60); Globulin 3.1 g/dL (1.7-4.1); Glucose 141 mg/dL (80-110); HEMOLYSIS < 15 (0-50); Lactate Dehydrogenase 852 U/L (313-618); Potassium 4.8 mmol/L (3.4-5.1); Sodium 137 mmol/L (137-145); Total Protein 6.8 g/dL (6.3-8.2)
[2019-10-28 11:40] LABS: INR 2.3 (0.9-1.3); Prothrombin Time 25.9 SECONDS (10.1-12.7)
[2019-10-28 11:49] LABS: Neutrophils Absolute Manual 1500 /uL (3000-5900); Total Cells Counted 100
[2019-10-28 11:51] LABS: Anisocytosis 1+; Ovalocytes 1+; Platelet Estimate Decreased on smear
== END ==
PROVIDERS: PCP Student in an Organized Health Care Education/Training Program; Referring Provider Internal Medicine Hematology & Oncology; Visit Provider Internal Medicine Hematology & Oncology
DX: I82.409 Acute embolism and thrombosis of unspecified deep veins of unspecified lower extremity (principal); D46.9 Myelodysplastic syndrome, unspecified
CPT/HCPCS: 36415; 80053; 83615; 85025; 85610

== ENCOUNTER → 2019-11-18 11:15 | Outpatient (CLI) | payer OTHER, SELFPAY ==
[2019-11-18 12:52] LABS: Platelet Count 76 X10^3/uL (150-400)
== END ==
PROVIDERS: Internal Medicine Hematology & Oncology; PCP Student in an Organized Health Care Education/Training Program; Referring Provider Internal Medicine Hematology & Oncology; Visit Provider Internal Medicine Hematology & Oncology
DX: D46.9 Myelodysplastic syndrome, unspecified (principal)
CPT/HCPCS: 36415; 85049

== ENCOUNTER → 2019-12-02 09:54 | Outpatient (CLI) | payer OTHER, SELFPAY ==
[2019-12-02 10:32] LABS: Add Manual Diff / Slide Review NO; Basophils Absolute Auto 0 /uL (0-100); Basophils Percent Auto 0.2 % (0-2); Eosinophils Absolute Auto 0 /uL (0-450); Hematocrit 30.2 % (36-46); Hemoglobin 10.1 g/dL (12.0-16.0); Lymphocytes Absolute Auto 700 /uL (1100-4500); Lymphocytes Percent Auto 29.4 % (25-40); Mean Corpuscular HGB Conc 33.4 % (30-36); Mean Corpuscular Hemoglobin 31.6 PG (26-34); Mean Corpuscular Volume 94.6 fL (80-100); Monocytes Absolute Auto 500 /uL (0-900); Monocytes Percent Auto 21.7 % (3-14); Neutrophils Absolute Auto 1200 /uL (1500-7000); Neutrophils Percent Auto 48.7 % (50-75); Platelet Count 83 X10^3/uL (150-400); Red Cell Distribution Width 18.6 % (11.6-14.8); White Blood Cell Count 2.4 X10^3/uL (4.5-11.0)
== END ==
PROVIDERS: PCP Student in an Organized Health Care Education/Training Program; Referring Provider Internal Medicine Hematology & Oncology; Visit Provider Internal Medicine Hematology & Oncology
DX: D46.9 Myelodysplastic syndrome, unspecified (principal)
CPT/HCPCS: 36415; 85025

== ENCOUNTER → 2019-12-09 10:02 | Outpatient (CLI) | payer OTHER, SELFPAY ==
[2019-12-09 10:19] LABS: Hematocrit 31.7 % (36-46); Hemoglobin 10.7 g/dL (12.0-16.0); Mean Corpuscular HGB Conc 33.6 % (30-36); Mean Corpuscular Hemoglobin 31.9 PG (26-34); Mean Corpuscular Volume 94.8 fL (80-100); Platelet Count 83 X10^3/uL (150-400); Red Blood Cell Count 3.35 X10^6/uL (4.0-5.2); Red Cell Distribution Width 18.2 % (11.6-14.8); White Blood Cell Count 2.5 X10^3/uL (4.5-11.0)
[2019-12-09 10:20] LABS: Add Manual Diff / Slide Review YES
[2019-12-09 10:42] LABS: Neutrophils Absolute Manual 1200 /uL (3000-5900); Total Cells Counted 100
[2019-12-09 10:43] LABS: Anisocytosis 2+; Poikilocytosis 1+
== END ==
PROVIDERS: PCP Student in an Organized Health Care Education/Training Program; Referring Provider Internal Medicine Hematology & Oncology; Visit Provider Internal Medicine Hematology & Oncology
DX: D46.9 Myelodysplastic syndrome, unspecified (principal)
CPT/HCPCS: 36415; 85025

== ENCOUNTER → 2019-12-22 09:50 | Outpatient (CLI) | payer OTHER, SELFPAY ==
[2019-12-22 10:52] LABS: Hematocrit 31.9 % (36-46); Hemoglobin 10.6 g/dL (12.0-16.0); Mean Corpuscular HGB Conc 33.1 % (30-36); Mean Corpuscular Hemoglobin 31.6 PG (26-34); Mean Corpuscular Volume 95.5 fL (80-100); Platelet Count 87 X10^3/uL (150-400); Red Blood Cell Count 3.34 X10^6/uL (4.0-5.2); Red Cell Distribution Width 18.6 % (11.6-14.8); White Blood Cell Count 2.4 X10^3/uL (4.5-11.0)
[2019-12-22 10:54] LABS: INR 1.6 (0.9-1.3); Prothrombin Time 18.6 SECONDS (10.1-12.7)
[2019-12-22 10:55] LABS: Add Manual Diff / Slide Review YES
[2019-12-22 10:59] LABS: Alanine Aminotransferase 13 IU/L (<35); Albumin 3.7 g/dL (3.5-5.0); Albumin Globulin Ratio 1.4 (1.0-2.8); Alkaline Phosphatase 61 U/L (38-126); Aspartate Aminotransferase 28 IU/L (14-36); BUN Creatinine Ratio 29.2 (6-22); Bilirubin Total 0.5 mg/dL (0.2-1.3); Blood Urea Nitrogen 26 mg/dL (7-17); Calcium 9.4 mg/dL (8.4-10.2); Carbon Dioxide 28 mmol/L (22-32); Chloride 105 mmol/L (98-107); Estimated Glomerular Filt Rate > 60.0 mL/min (>60); Globulin 2.7 g/dL (1.7-4.1); Glucose 109 mg/dL (80-110); HEMOLYSIS < 15 (0-50); Lactate Dehydrogenase 810 U/L (313-618); Potassium 4.9 mmol/L (3.4-5.1); Sodium 137 mmol/L (137-145); Total Protein 6.4 g/dL (6.3-8.2)
[2019-12-22 11:37] LABS: Anisocytosis 1+; Basophilic Stippling 1+; Macrocytosis 1+; Neutrophils Absolute Manual 1008 /uL (3000-5900); Platelet Estimate Decreased on smear; Polychromasia 1+; Total Cells Counted 100
== END ==
PROVIDERS: PCP Student in an Organized Health Care Education/Training Program; Referring Provider Internal Medicine Hematology & Oncology; Visit Provider Student in an Organized Health Care Education/Training Program
DX: I82.409 Acute embolism and thrombosis of unspecified deep veins of unspecified lower extremity (principal); D46.9 Myelodysplastic syndrome, unspecified
CPT/HCPCS: 36415; 80053; 83615; 85025; 85610

== ENCOUNTER → 2020-01-05 11:57 | Outpatient (CLI) | payer OTHER, SELFPAY ==
[2020-01-05 13:04] LABS: INR 2.3 (0.9-1.3); Prothrombin Time 26.8 SECONDS (10.1-12.7)
== END ==
PROVIDERS: PCP Student in an Organized Health Care Education/Training Program; Referring Provider Student in an Organized Health Care Education/Training Program; Visit Provider Student in an Organized Health Care Education/Training Program
DX: I82.409 Acute embolism and thrombosis of unspecified deep veins of unspecified lower extremity (principal)
CPT/HCPCS: 36415; 85610

== ENCOUNTER → 2020-03-02 07:10 | Outpatient (CLI) | payer OTHER, SELFPAY ==
[2020-03-02 08:44] LABS: INR 2.5 (0.9-1.3); Prothrombin Time 28.1 SECONDS (10.1-12.7)
== END ==
PROVIDERS: PCP Student in an Organized Health Care Education/Training Program; Referring Provider Student in an Organized Health Care Education/Training Program; Visit Provider Student in an Organized Health Care Education/Training Program
DX: I82.409 Acute embolism and thrombosis of unspecified deep veins of unspecified lower extremity (principal); Z79.01 Long term (current) use of anticoagulants
CPT/HCPCS: 36415; 85610

== ENCOUNTER → 2020-06-14 10:54 | Outpatient (CLI) | payer OTHER, SELFPAY ==
[2020-06-14 11:18] LABS: Hemoglobin 10.1 g/dL (12.0-16.0)
[2020-06-14 11:23] LABS: Hematocrit 30.7 % (36-46); Mean Corpuscular HGB Conc 32.9 % (30-36); Mean Corpuscular Volume 94.4 fL (80-100); Platelet Count 94 X10^3/uL (150-400); Red Blood Cell Count 3.25 X10^6/uL (4.0-5.2); Red Cell Distribution Width 19.3 % (11.6-14.8); White Blood Cell Count 3.1 X10^3/uL (4.5-11.0)
[2020-06-14 11:24] LABS: Add Manual Diff / Slide Review YES
[2020-06-14 11:48] LABS: INR 2.7 (0.9-1.3); Prothrombin Time 30.4 SECONDS (10.1-12.7)
[2020-06-14 12:05] LABS: Neutrophils Absolute Manual 1395 /uL (3000-5900); Total Cells Counted 100
[2020-06-14 12:06] LABS: Anisocytosis 2+
[2020-06-14 12:07] LABS: Poikilocytosis 1+
== END ==
PROVIDERS: Internal Medicine Hematology & Oncology; PCP Student in an Organized Health Care Education/Training Program; Referring Provider Student in an Organized Health Care Education/Training Program; Visit Provider Student in an Organized Health Care Education/Training Program
DX: I82.409 Acute embolism and thrombosis of unspecified deep veins of unspecified lower extremity (principal); D46.9 Myelodysplastic syndrome, unspecified
CPT/HCPCS: 36415; 85007; 85025; 85610

== ENCOUNTER → 2020-07-12 11:04 | Outpatient (CLI) | payer OTHER, SELFPAY ==
[2020-07-12 11:28] LABS: Hematocrit 33.4 % (36-46); Hemoglobin 10.9 g/dL (12.0-16.0); Mean Corpuscular HGB Conc 32.7 % (30-36); Mean Corpuscular Hemoglobin 31.2 PG (26-34); Mean Corpuscular Volume 95.3 fL (80-100); Red Cell Distribution Width 19.5 % (11.6-14.8); White Blood Cell Count 3.2 X10^3/uL (4.5-11.0)
[2020-07-12 11:30] LABS: Add Manual Diff / Slide Review YES
[2020-07-12 11:38] LABS: INR 2.2 (0.9-1.3); Prothrombin Time 25.7 SECONDS (10.1-12.7)
[2020-07-12 11:40] LABS: Hemoglobin A1C% w Est Avg Glu 6.7 % (4.0-6.0)
[2020-07-12 11:54] LABS: Neutrophils Absolute Manual 1824 /uL (3000-5900); Total Cells Counted 100
[2020-07-12 11:55] LABS: Anisocytosis 2+; Poikilocytosis 2+
[2020-07-12 11:56] LABS: Microcytosis 1+
[2020-07-12 11:57] LABS: Platelet Count 87 X10^3/uL (150-400)
[2020-07-12 12:02] LABS: Creatinine Urine Random 102.9 mg/dL
[2020-07-12 12:07] LABS: Microalbumin Urine Random < 0.6 mg/dL (0-1.6)
== END ==
PROVIDERS: Internal Medicine Hematology & Oncology; PCP Student in an Organized Health Care Education/Training Program; Referring Provider Student in an Organized Health Care Education/Training Program; Visit Provider Student in an Organized Health Care Education/Training Program
DX: E11.9 Type 2 diabetes mellitus without complications (principal); I82.409 Acute embolism and thrombosis of unspecified deep veins of unspecified lower extremity; D46.9 Myelodysplastic syndrome, unspecified
CPT/HCPCS: 36415; 82043; 82570; 83036; 85007; 85025; 85610

== ENCOUNTER → 2020-11-08 10:44 | Outpatient (CLI) | payer OTHER, SELFPAY ==
[2020-11-08 11:29] LABS: Hematocrit 29.1 % (36-46); Hemoglobin 9.4 g/dL (12.0-16.0); Mean Corpuscular HGB Conc 32.4 % (30-36); Mean Corpuscular Volume 92.4 fL (80-100); Platelet Count 106 X10^3/uL (150-400); Red Blood Cell Count 3.15 X10^6/uL (4.0-5.2); Red Cell Distribution Width 19.6 % (11.6-14.8); White Blood Cell Count 3.3 X10^3/uL (4.5-11.0)
[2020-11-08 11:35] LABS: Add Manual Diff / Slide Review YES
[2020-11-08 11:36] LABS: INR 3.1 (0.9-1.3); Prothrombin Time 35.4 SECONDS (10.1-12.7)
[2020-11-08 11:53] LABS: Neutrophils Absolute Manual 1848 /uL (3000-5900); Total Cells Counted 50
[2020-11-08 11:54] LABS: Anisocytosis 1+; Ovalocytes 1+
== END ==
PROVIDERS: PCP Student in an Organized Health Care Education/Training Program; Referring Provider Internal Medicine Hematology & Oncology; Visit Provider Internal Medicine Hematology & Oncology
DX: D69.3 Immune thrombocytopenic purpura (principal)
CPT/HCPCS: 36415; 85007; 85025; 85610

== ENCOUNTER → 2020-11-15 15:09 | Outpatient (CLI) | payer OTHER, SELFPAY ==
[2020-11-15 15:58] LABS: INR 3.3 (0.9-1.3); Prothrombin Time 38.7 SECONDS (10.1-12.7)
== END ==
PROVIDERS: PCP Student in an Organized Health Care Education/Training Program; Referring Provider Student in an Organized Health Care Education/Training Program; Visit Provider Student in an Organized Health Care Education/Training Program
DX: I82.409 Acute embolism and thrombosis of unspecified deep veins of unspecified lower extremity (principal); Z79.01 Long term (current) use of anticoagulants
CPT/HCPCS: 36415; 85610

== ENCOUNTER → 2020-11-17 13:20 | Outpatient (CLI) | payer OTHER, SELFPAY ==
--- NOTE | 2020-11-17 13:20 | DI.RAD.S_ITS ---
PROCEDURE: XR DEXA AXIAL SKELETON INDICATIONS: SCREENING DEXA COMPARISON: [facility], CR, XR DEXA AXIAL SKELETON, 07/03/2018, 14:59. FINDINGS: This blank DEXA report has been sent in error by the PACS system. The correct and complete report will be forthcoming in 1-2 days. Thank you for your patience and understanding. Dictated by: Helga Leahy MD, PhD on 11/18/2020 at 7:01 Approved by: Helga Leahy MD, PhD on 11/18/2020 at 7:01
== END ==
PROVIDERS: PCP Student in an Organized Health Care Education/Training Program; Referring Provider Student in an Organized Health Care Education/Training Program; Visit Provider Student in an Organized Health Care Education/Training Program
DX: Z78.0 Asymptomatic menopausal state (principal); Z91.89 Other specified personal risk factors, not elsewhere classified; E11.9 Type 2 diabetes mellitus without complications; E07.9 Disorder of thyroid, unspecified; Z87.891 Personal history of nicotine dependence
CPT/HCPCS: 77080

== ENCOUNTER → 2020-11-23 14:47 | Outpatient (CLI) | payer OTHER, SELFPAY ==
[2020-11-23 16:15] LABS: INR 2.8 (0.9-1.3); Prothrombin Time 32.5 SECONDS (10.1-12.7)
== END ==
PROVIDERS: PCP Student in an Organized Health Care Education/Training Program; Referring Provider Student in an Organized Health Care Education/Training Program; Visit Provider Student in an Organized Health Care Education/Training Program
DX: I82.409 Acute embolism and thrombosis of unspecified deep veins of unspecified lower extremity (principal); Z79.01 Long term (current) use of anticoagulants
CPT/HCPCS: 36415; 85610

== ENCOUNTER → 2020-11-29 15:22 | Outpatient (CLI) | payer OTHER, SELFPAY ==
[2020-11-29 16:22] LABS: INR 2.6 (0.9-1.3); Prothrombin Time 30.2 SECONDS (10.1-12.7)
== END ==
PROVIDERS: PCP Student in an Organized Health Care Education/Training Program; Referring Provider Student in an Organized Health Care Education/Training Program; Visit Provider Student in an Organized Health Care Education/Training Program
DX: D69.3 Immune thrombocytopenic purpura (principal)
CPT/HCPCS: 36415; 85610

== ENCOUNTER → 2020-12-20 13:03 | Outpatient (CLI) | payer OTHER, SELFPAY ==
[2020-12-20 15:22] LABS: Prothrombin Time 22.1 SECONDS (10.1-12.7)
== END ==
PROVIDERS: PCP Student in an Organized Health Care Education/Training Program; Referring Provider Student in an Organized Health Care Education/Training Program; Visit Provider Student in an Organized Health Care Education/Training Program
DX: I82.409 Acute embolism and thrombosis of unspecified deep veins of unspecified lower extremity (principal); Z79.01 Long term (current) use of anticoagulants
CPT/HCPCS: 36415; 85610

== ENCOUNTER → 2021-01-10 11:58 | Outpatient (CLI) | payer OTHER, SELFPAY ==
[2021-01-10 13:01] LABS: INR 4.2 (0.9-1.3); Prothrombin Time 48.1 SECONDS (10.1-12.7)
== END ==
PROVIDERS: PCP Student in an Organized Health Care Education/Training Program; Referring Provider Student in an Organized Health Care Education/Training Program; Visit Provider Student in an Organized Health Care Education/Training Program
DX: Z79.01 Long term (current) use of anticoagulants (principal)
CPT/HCPCS: 36415; 85610

== ENCOUNTER → 2021-01-17 11:29 | Outpatient (CLI) | payer OTHER, SELFPAY ==
[2021-01-17 11:51] LABS: INR 2.2 (0.9-1.3); Prothrombin Time 25.5 SECONDS (10.1-12.7)
[2021-01-17 11:52] LABS: Hematocrit 29.5 % (36-46); Hemoglobin 9.5 g/dL (12.0-16.0); Mean Corpuscular HGB Conc 32.2 % (30-36); Mean Corpuscular Hemoglobin 29.2 PG (26-34); Mean Corpuscular Volume 90.7 fL (80-100); Platelet Count 129 X10^3/uL (150-400); Red Blood Cell Count 3.25 X10^6/uL (4.0-5.2); Red Cell Distribution Width 21.5 % (11.6-14.8); White Blood Cell Count 4.5 X10^3/uL (4.5-11.0)
[2021-01-17 11:55] LABS: Add Manual Diff / Slide Review YES
[2021-01-17 12:57] LABS: Neutrophils Absolute Manual 2250 /uL (3000-5900); Total Cells Counted 100
[2021-01-17 12:58] LABS: Anisocytosis 3+
== END ==
PROVIDERS: Internal Medicine Hematology & Oncology; PCP Student in an Organized Health Care Education/Training Program; Referring Provider Student in an Organized Health Care Education/Training Program; Visit Provider Student in an Organized Health Care Education/Training Program
DX: Z79.01 Long term (current) use of anticoagulants (principal); D46.9 Myelodysplastic syndrome, unspecified
CPT/HCPCS: 36415; 85007; 85025; 85610

== ENCOUNTER → 2021-01-31 10:14 | Outpatient (CLI) | payer OTHER, SELFPAY ==
[2021-01-31 12:04] LABS: INR 2.3 (0.9-1.3); Prothrombin Time 27.2 SECONDS (10.1-12.7)
== END ==
PROVIDERS: PCP Student in an Organized Health Care Education/Training Program; Referring Provider Student in an Organized Health Care Education/Training Program; Visit Provider Student in an Organized Health Care Education/Training Program
DX: Z79.01 Long term (current) use of anticoagulants (principal)
CPT/HCPCS: 36415; 85610

== ENCOUNTER → 2021-03-01 11:44 | Outpatient (CLI) | payer OTHER, SELFPAY ==
[2021-03-01 12:36] LABS: INR 1.8 (0.9-1.3); Prothrombin Time 20.3 SECONDS (10.1-12.7)
== END ==
PROVIDERS: PCP Student in an Organized Health Care Education/Training Program; Referring Provider Student in an Organized Health Care Education/Training Program; Visit Provider Student in an Organized Health Care Education/Training Program
DX: Z79.01 Long term (current) use of anticoagulants (principal)
CPT/HCPCS: 36415; 85610

== ENCOUNTER → 2021-03-07 11:32 | Outpatient (CLI) | payer OTHER, SELFPAY ==
[2021-03-07 12:46] LABS: INR 1.8 (0.9-1.3); Prothrombin Time 20.6 SECONDS (10.1-12.7)
== END ==
PROVIDERS: PCP Student in an Organized Health Care Education/Training Program; Referring Provider Student in an Organized Health Care Education/Training Program; Visit Provider Student in an Organized Health Care Education/Training Program
DX: Z79.01 Long term (current) use of anticoagulants (principal)
CPT/HCPCS: 36415; 85610

== ENCOUNTER → 2021-03-14 14:21 | Outpatient (CLI) | payer OTHER, SELFPAY ==
[2021-03-14 15:38] LABS: INR 1.9 (0.9-1.3); Prothrombin Time 21.4 SECONDS (10.1-12.7)
[2021-03-14 15:44] LABS: BUN Creatinine Ratio 30.1 (6-22); Blood Urea Nitrogen 47 mg/dL (7-17); Estimated Glomerular Filt Rate 31.8 mL/min (>60)
== END ==
PROVIDERS: PCP Student in an Organized Health Care Education/Training Program; Referring Provider Student in an Organized Health Care Education/Training Program; Visit Provider Student in an Organized Health Care Education/Training Program
DX: E11.9 Type 2 diabetes mellitus without complications (principal); Z79.01 Long term (current) use of anticoagulants; I10 Essential (primary) hypertension
CPT/HCPCS: 36415; 82565; 83036; 84520; 85610

== ENCOUNTER → 2021-03-28 12:10 | Outpatient (CLI) | payer OTHER, SELFPAY ==
[2021-03-28 13:38] LABS: INR 3.6 (0.9-1.3)
[2021-03-28 14:32] LABS: Appearance Urine UA SL CLOUDY; Bilirubin Urine UA NEGATIVE (NEGATIVE); Color Urine UA YELLOW; Glucose Urine UA NEGATIVE (Negative); Ketones Urine UA NEGATIVE (NEGATIVE); Leukocyte Esterase Urine UA TRACE (NEGATIVE); Nitrite Urine UA NEGATIVE (Negative); Occult Blood Urine UA NEGATIVE (Negative); Protein Urine UA NEGATIVE (Negative); Urobilinogen Urine UA 0.2 E.U./dL (0.2)
[2021-03-28 14:54] LABS: pH Urine UA 5.5 (4.5-8.0)
[2021-03-28 14:55] LABS: Bacteria Urine Many (>30); Culture Indicated Urine Specimen Cultured; RBC Urine 0-1/HPF (0-5/HPF); Squamous Epithelial Cell Urine 1-5 /HPF (0-5/HPF); WBC Urine 10-30/HPF (0-5/HPF)
== END ==
PROVIDERS: PCP Student in an Organized Health Care Education/Training Program; Referring Provider Student in an Organized Health Care Education/Training Program; Visit Provider Student in an Organized Health Care Education/Training Program
DX: Z79.01 Long term (current) use of anticoagulants (principal); N39.0 Urinary tract infection, site not specified
CPT/HCPCS: 36415; 81001; 85610; 87077; 87086; 87186

== ENCOUNTER → 2021-04-04 12:36 | Outpatient (CLI) | payer OTHER, SELFPAY ==
[2021-04-04 13:14] LABS: INR 2.3 (0.9-1.3); Prothrombin Time 25.7 SECONDS (10.1-12.7)
== END ==
PROVIDERS: PCP Student in an Organized Health Care Education/Training Program; Referring Provider Student in an Organized Health Care Education/Training Program; Visit Provider Student in an Organized Health Care Education/Training Program
DX: Z79.01 Long term (current) use of anticoagulants (principal)
CPT/HCPCS: 36415; 85610

== ENCOUNTER → 2021-04-25 09:53 | Outpatient (CLI) | payer OTHER, SELFPAY ==
[2021-04-25 11:37] LABS: Prothrombin Time 22.6 SECONDS (10.1-12.7)
== END ==
PROVIDERS: PCP Student in an Organized Health Care Education/Training Program; Referring Provider Student in an Organized Health Care Education/Training Program; Visit Provider Student in an Organized Health Care Education/Training Program
DX: Z79.01 Long term (current) use of anticoagulants (principal)
CPT/HCPCS: 36415; 85610

== ENCOUNTER → 2021-04-27 11:34 | Outpatient (CLI) | payer OTHER, SELFPAY ==
[2021-04-27 12:56] LABS: Hematocrit 25.5 % (36-46); Hemoglobin 8.3 g/dL (12.0-16.0)
[2021-04-27 13:22] LABS: BUN Creatinine Ratio 24.5 (6-22); Blood Urea Nitrogen 27 mg/dL (7-17); Calcium 8.9 mg/dL (8.4-10.2); Carbon Dioxide 26 mmol/L (22-32); Chloride 103 mmol/L (98-107); Estimated Glomerular Filt Rate 47.6 mL/min (>60); Glucose 46 mg/dL (80-110); HEMOLYSIS < 15 (0-50); Potassium 4.7 mmol/L (3.4-5.1); Sodium 135 mmol/L (137-145)
[2021-04-27 15:21] LABS: Creatinine Urine Random 82.1 mg/dL; Protein (Total) Urine Random 7 mg/dL (0-12); Protein Creatinine Ratio Urine 0.08 GRAM/24H
== END ==
PROVIDERS: PCP Student in an Organized Health Care Education/Training Program; Referring Provider Student in an Organized Health Care Education/Training Program; Visit Provider Student in an Organized Health Care Education/Training Program
DX: N05.9 Unspecified nephritic syndrome with unspecified morphologic changes (principal); D64.9 Anemia, unspecified
CPT/HCPCS: 36415; 80048; 82570; 84156; 85014; 85018

== ENCOUNTER → 2021-05-30 10:10 | Outpatient (CLI) | payer OTHER, SELFPAY ==
--- NOTE | 2021-05-30 | DI.US.S_ITS ---
PROCEDURE: US RENAL COMPLETE INDICATIONS: Chronic kidney disease, stage 3a TECHNIQUE: Real-time scanning was performed of the kidneys and bladder, with image documentation. COMPARISON: [facility], CT, CT ABDOMEN PELVIS WO CON, 09/23/2018, 9:38. [facility], US, RENAL COMPLETE, 07/17/2011, 13:11. FINDINGS: Kidneys: Kidneys are normal in size. Right kidney measures 11.6 cm long; left kidney measures 10.7 cm long. Right renal cortical thickness is 1.2 cm; left renal cortical thickness is 1.1 cm. Renal cortical echotexture is normal. No hydronephrosis or nephrolithiasis. No suspicious solid mass lesions. Multiple right cortical hypoechoic lesions are seen, measuring up to 2.3 cm, most consistent with cysts. Bladder: Not well distended. Pre-void bladder volume is 35 mL. Post-void residual is 0 mL. Pre-void images demonstrate no intraluminal masses or stones. On pre-void images, left ureteral jet is noted with color Doppler interrogation. (Of note, ureteral jets may not be detectable in up to 25% of cases due to insufficient differences in specific gravity between ureteral and bladder urine). Miscellaneous: No free pelvic fluid. IMPRESSION: No significant abnormality. Dictated by: Solomon Fairbanks M.D. on 05/30/2021 at 11:16 Approved by: Solomon Fairbanks M.D. on 05/30/2021 at 11:21
== END ==
PROVIDERS: PCP Student in an Organized Health Care Education/Training Program; Referring Provider Student in an Organized Health Care Education/Training Program; Visit Provider Student in an Organized Health Care Education/Training Program
DX: N18.31 Chronic kidney disease, stage 3a (principal)
CPT/HCPCS: 76770

== ENCOUNTER → 2021-06-13 10:15 | Outpatient (CLI) | payer OTHER, SELFPAY ==
[2021-06-13 12:11] LABS: INR 2.1 (0.9-1.3); Prothrombin Time 24.3 SECONDS (10.1-12.7)
[2021-06-13 12:18] LABS: Hematocrit 25.9 % (36-46); Hemoglobin 8.5 g/dL (12.0-16.0); Mean Corpuscular HGB Conc 32.8 % (30-36); Mean Corpuscular Hemoglobin 28.9 PG (26-34); Mean Corpuscular Volume 88.1 fL (80-100); Red Blood Cell Count 2.94 X10^6/uL (4.0-5.2); Red Cell Distribution Width 23.5 % (11.6-14.8); White Blood Cell Count 6.4 X10^3/uL (4.5-11.0)
[2021-06-13 12:19] LABS: Add Manual Diff / Slide Review YES
[2021-06-13 12:24] LABS: Hemoglobin A1C% w Est Avg Glu 5.8 % (4.0-6.0)
[2021-06-13 13:19] LABS: Neutrophils Absolute Manual 3456 /uL (3000-5900); Total Cells Counted 100
[2021-06-13 13:21] LABS: Anisocytosis 3+; Poikilocytosis 2+; Tear Drop Cells 2+
[2021-06-13 13:22] LABS: Hypochromasia 1+; Platelet Count 87 X10^3/uL (150-400)
== END ==
PROVIDERS: Internal Medicine Hematology & Oncology; PCP Student in an Organized Health Care Education/Training Program; Referring Provider Student in an Organized Health Care Education/Training Program; Visit Provider Student in an Organized Health Care Education/Training Program
DX: D46.9 Myelodysplastic syndrome, unspecified (principal); E11.9 Type 2 diabetes mellitus without complications; I82.409 Acute embolism and thrombosis of unspecified deep veins of unspecified lower extremity; Z79.01 Long term (current) use of anticoagulants
CPT/HCPCS: 36415; 83036; 85007; 85025; 85610

== ENCOUNTER → 2021-06-15 08:36 | Outpatient (CLI) | payer OTHER, SELFPAY ==
--- NOTE | 2021-06-15 08:38 | DI.RAD.S_ITS ---
PROCEDURE: XR FOOT LT MIN 3V INDICATIONS: foot infection TECHNIQUE: 3 views of the foot were acquired. COMPARISON: None. FINDINGS: Bones: No fractures or dislocations. No suspicious bony lesions. Soft tissues: No tibiotalar joint effusion. Achilles tendon appears normal. There is a metallic linear radiodensity within the plantar soft tissues between the proximal 1st and 2nd digits. IMPRESSION: 1. Radiopaque foreign body. 2. No acute fracture. No osseous lesion. If symptoms and/or clinical suspicion for pathology persist, further assessment with repeat, or advanced imaging (e.g., CT, MRI, or bone scan) may be helpful for further assessment. Dictated by: Tam Gaona M.D. on 06/15/2021 at 9:10 Approved by: Tam Gaona M.D. on 06/15/2021 at 9:12
== END ==
PROVIDERS: PCP Student in an Organized Health Care Education/Training Program; Referring Provider Nurse Practitioner Family; Visit Provider Nurse Practitioner Family
DX: L03.90 Cellulitis, unspecified (principal); M79.5 Residual foreign body in soft tissue
CPT/HCPCS: 73630

== ENCOUNTER 2021-06-16 11:35 | Inpatient (IN) | payer OTHER, SELFPAY ==
[2021-06-16 11:40] VITALS: BP 131/62; PULSE 65; RESP 17; TEMP 36.8; O2SAT 98; BMI 33.9
--- NOTE | 2021-06-16 11:53 | ED_ITS ---
HPI - Wound/Laceration General Chief Complaint: Wound/Laceration Stated Complaint: Left foot injury Time Seen by Provider: 06/16/21 11:40 Source: patient Mode of arrival: Wheelchair History of Present Illness HPI narrative: 80F former smoker diabetic coma history of DVT, chronic kidney disease, on anticoagulation presents with family in the chief complaint of a presumed infection to her left foot. She has neuropathy and denies any known injury but had been having increasing pain, redness and swelling over the past few days and went to see the walk-in clinic. They evaluated her and ordered an x-ray that was performed upon leaving. Later last evening she received a call stating there was a foreign body noted on the x-ray. She states a wound on her foot started spontaneously draining blood and purulence material and since then she feels much better. She talked with her primary care office today and was encouraged to come see us for definitive management. She denies any systemic findings such as fever, chills nor nausea or vomiting. She last ate about 2 hours prior to her arrival. Related Data Home Medications Medication Instructions Recorded Confirmed cholecalciferol (vitamin D3) 50 2,000 unit PO Q OTHER DAY #0 cap 01/13/21 06/16/21 mcg (2,000 unit) capsule (Vitamin D3) methylsulfonylmethane 1,000 mg 1,000 mg PO DAILY cap 01/13/21 06/16/21 capsule (MSM) multivitamin (Daily Multi-Vitamin) 1 tab PO Q OTHER DAY tab 01/13/21 06/16/21 ascorbic acid (vitamin C) 250 mg 282 mg PO DAILY 02/21/21 06/16/21 tablet losartan 50 mg tablet 25 mg PO DAILY 05/09/21 06/16/21 vit C 250 mg-vit E 90 mg-zinc 40 1 tab PO BID 05/16/21 06/16/21 mg-copper 1 [id number] capsule (PreserVision AREDS-2) carvedilol 3.125 mg tablet 3.125 mg PO BID 06/13/21 06/16/21 glipizide 5 mg tablet 5 mg PO DAILY tab 06/13/21 06/16/21 Previous Rx's Medication Instructions Recorded blood sugar diagnostic (OneTouch See Rx Instructions .ROUTE 08/07/19 Verio test strips) .COMPLEX #100 each warfarin 5 mg tablet 5 mg PO DAILY #30 tab 01/13/21 furosemide 20 mg tablet (Lasix) 20 mg PO DAILY #1 tab 05/05/21 levothyroxine 100 mcg tablet 100 mcg PO QAM #90 tab 05/23/21 warfarin 6 mg tablet 6 mg PO DAILY #100 tab 05/25/21 clindamycin HCl 300 mg capsule 300 mg PO TID 7 Days #21 cap 06/15/21 mupirocin 2 % topical ointment 1 applic TOPICAL TID #22 g 06/15/21 Allergies Allergy/AdvReac Type Severity Reaction Status Date / Time barium sulfate Allergy Severe SENSITIVITY Verified 06/16/21 11:44 TO ELECTRICAL CURRENT, SEIZURES Sulfa (Sulfonamide Allergy Intermediate HIVES Verified 06/16/21 11:44 Antibiotics) adhesive Allergy Mild RASH Verified 06/16/21 11:44 Review of Systems Review of Systems Narrative: GENERAL: Denies chills, fatigue, malaise, fever, sweats. HEENT: Denies sinus pain, ear pain, sore throat, difficulty swallowing, dizziness. RESPIRATORY: Denies dyspnea, cough, wheezing, hemoptysis, sputum. CARDIOVASCULAR: Denies chest pain, palpitations, orthopnea, edema, GASTROINTESTINAL: Denies nausea, vomiting, abdominal pain, diarrhea, constipation, melena. : Denies dysuria, frequency, incontinence, hematuria, urinary retention. MUSCULOSKELETAL: See HPI SKIN: See HPI NEUROLOGIC: Denies weakness, headache, numbness, change in speech, confusion, seizures, incoordination. PSYCHIATRIC: No concerning psychosocial issues. 12 point review of systems is negative except for those stated above Patient History Medical History Chronic ITP (idiopathic thrombocytopenic purpura) DVT (deep venous thrombosis) Essential hypertension Hypothyroid Type II diabetes mellitus Warfarin anticoagulation Surgical History Status post appendectomy (~2005) Status post tonsillectomy and adenoidectomy (~1942) Social History household members: none Smoking Status: Former smoker Smoking Status: Former smoker alcohol intake frequency: holidays/special occasions only Substance Use Type: does not use Exam Narrative Exam Narrative: GENERAL: [80] year old patient appears stated age. Well-developed patient, in mild distress. HEAD: Atraumatic. Normocephalic. EYES: Pupils equal round and reactive. Extraocular motions intact. No scleral icterus. No injection or drainage. ENT: Nose without bleeding, purulent drainage. Throat without erythema, tonsillar hypertrophy or exudate. Airway patent. NECK: Trachea midline. Non tender CARDIOVASCULAR: Regular rate and rhythm without murmurs, gallops, or rubs. RESPIRATORY: Clear to auscultation. Breath sounds equal bilaterally. No wheezes, rales, or rhonchi. GASTROINTESTINAL: Abdomen soft, non-tender, nondistended. EXTREMITIES: Pain, swelling and redness of left anterior forefoot largely at the base of the 2nd toe with some discoloration, there is an open minimally draining lesion that has been cultured. There is a puncture wound noted on the plantar surface overlying the 2nd metatarsophalangeal joint. There is minimal lymphangitis. BACK: Nontender without deformity or crepitance. No flank tenderness. NEURO: AOx3. SKIN: No rash or erythema of visible areas Initial Vital Signs Initial Vital Signs: Vital Signs Temperature 98.2 F 06/16/21 11:40 Pulse Rate 65 06/16/21 11:40 Respiratory Rate 17 06/16/21 11:40 Blood Pressure 131/62 06/16/21 11:40 Pulse Oximetry 98 06/16/21 11:40 Course Orders Ordered: ED Orders 06/16/21 11:45 Wound Culture and Gram Stain Stat 06/16/21 12:00 Basic Metabolic Panel Stat Complete Blood Count AUTO DIFF Stat 06/16/21 12:11 COVID19 - ADMIT (TUBE BLOWER swab/PCR) Stat 06/16/21 13:07 Blood Culture Stat Acetaminophen (Acetaminophen 325 Mg Tablet) 650 mg PO Q6HR PRN PRN Reason: Fever/Mild Pain (1-3) Last Admin: 06/16/21 13:43 Dose: 650 mg Documented by: SHERRY Ascorbic Acid (Ascorbic Acid 500 Mg Tablet) 250 mg PO DAILY HUGO Carvedilol (Carvedilol 3.125 Mg Tablet) 3.125 mg PO BID HUGO Dextrose (Dextrose 50 % In Water 25 Gm/50 Ml Syringe) 25 gm IV PRN PRN; Protocol PRN Reason: Hypoglycemia Famotidine (Famotidine 20 Mg Tablet) 20 mg PO DAILY HUGO Glipizide (Glipizide 5 Mg Tablet) 5 mg PO DAILY [facility] Hydralazine HCl (Hydralazine 20 Mg/Ml Vial) 10 mg IV Q6HR PRN PRN Reason: Hypertension; SBP>170 Ampicillin Sodium/Sulbactam (Sodium 3 gm/ Sodium Chloride) 100 mls @ 100 mls/hr IV Q8H [facility] Last Infusion: 06/16/21 15:04 Dose: 0 mls/hr Documented by: Admin: 06/16/21 13:11 Dose: 100 mls/hr Documented by: COY Sodium Chloride (Normal Saline 0.9%) 1,000 mls @ 50 mls/hr IV CONT HUGO Last Infusion: 06/16/21 15:04 Dose: 0 mls/hr Documented by: Admin: 06/16/21 13:09 Dose: 40 mls/hr Documented by: COY Doxycycline Hyclate 100 mg/ (Sodium Chloride) 100 mls @ 100 mls/hr IV Q12H [facility] Last Admin: 06/16/21 16:25 Dose: 100 mls/hr Documented by: COY Insulin Human Lispro (Insulin Lispro 100 Unit/Ml 3ml Vial) 0 unit SUBCUT ACHS [facility]; Protocol Last Admin: 06/16/21 16:28 Dose: Not Given Documented by: SHERRY Lactobacillus Acidophilus (Lactobacillus Acidophilus Tablet) 1 each PO TIDWM [facility] Levothyroxine Sodium (Levothyroxine 100 Mcg Tablet) 100 mcg PO DAILY@0600 [facility] Losartan Potassium (Losartan 50 Mg Tablet) 25 mg PO DAILY [facility] Lutein (Vit C/E/Zn/Coppr/Lutein/Zeaxan Capsule) 1 cap PO BID [facility] Morphine Sulfate (Morphine 2 Mg/Ml Inj) 2 mg IV Q4HR PRN PRN Reason: Pain, Moderate (4-6) Mupirocin (Mupirocin 22 Gm Oint) 1 applic TOP TID [facility] Last Admin: 06/16/21 16:00 Dose: 1 applic Documented by: COY Naloxone HCl (Naloxone 0.4 Mg/Ml Vial) 0.2 mg IV Q2MIN PRN PRN Reason: Opiate Reversal Ondansetron HCl (Ondansetron 4 Mg/2 Ml Inj) 4 mg IV Q4HR [facility] Vitamin D (Cholecalciferol (Vitamin D3) 1,000 Unit Tablet) 2,000 unit PO QOD [facility] Discontinued Medications Famotidine (Famotidine 20 Mg Tablet) 40 mg PO BID HUGO Ondansetron HCl (Ondansetron 4 Mg/2 Ml Inj) 4 mg IV Q8HR PRN PRN Reason: Nausea And Vomiting Consultations Consultation #1: Discussed with on-call Orthopedics, they have reviewed imaging and I have evaluated patient at the bedside. Given her NPO and complexity of her medical history status they request patient be admitted to the hospitalist for medical management, request for MRI antibiotics to hospitalist. Consultation #2: Hospitalist happy to accept Vital Signs Vital signs: Vital Signs - 8 hr 06/16/21 11:40 Temperature 98.2 F Pulse Rate 65 Respiratory Rate 17 Blood Pressure 131/62 Pulse Oximetry 98 MDM - Wound/Laceration Lab Data Result diagrams: 06/16/21 12:00 06/16/21 12:00 Labs: Lab Results 06/16/21 06/16/21 06/16/21 Range/Units 12:00 12:00 12:11 WBC 15.0 H (4.5-11.0) X10^3/uL RBC 2.77 L (4.0-5.2) X10^6/uL Hgb 7.8 L (12.0-16.0) g/dL Hct 23.8 L (36-46) % MCV 86.0 (80-100) fL MCH 28.1 (26-34) PG MCHC 32.7 (30-36) % RDW 23.1 H (11.6-14.8) % Plt Count 88 L (150-400) X10^3/uL Neut % (Auto) Not Reportable Lymph % (Auto) Not Reportable [place] % (Auto) Not Reportable Eos % (Auto) Not Reportable Baso % (Auto) Not Reportable Lymph # (Auto) Not Reportable [place] # (Auto) Not Reportable Baso # (Auto) Not Reportable Total Counted 100 Seg Neutrophils % 79.0 H (38-70) % Band Neutrophils % 5.0 (3-7) % Lymphocytes % (Manual) 6.0 L (25-45) % Monocytes % (Manual) 10.0 (2-11) % Neutrophils # (Manual) 28889 H (2243-8300) /uL RBC Morphology See below Poikilocytosis 4+ H D Anisocytosis 2+ H Tear Drop Cells 1+ H Ovalocytes 2+ H Acanthocytes (Spur) 1+ H Schistocytes 1+ H Sodium 130 L (137-145) mmol/L Potassium 3.6 (3.4-5.1) mmol/L Chloride 100 (98-107) mmol/L Carbon Dioxide 24 (22-32) mmol/L BUN 38 H (7-17) mg/dL Creatinine 1.31 H (0.52-1.04) mg/dL Estimated GFR 38.9 L (>60) mL/min BUN/Creatinine Ratio 29.0 H (6-22) Glucose 62 L (80-110) mg/dL Calcium 8.3 L (8.4-10.2) mg/dL SARS-CoV-2 (PCR) Negative (Negative) Imaging Data Extremity x-ray #1: Radiologist's Impression: [address] [address] XRay Report Signed Patient: Catarina Charles MR#: [id number] : 1940 Acct:[id number] Age/Sex: 80 / F Date of Service: 06/15/21 Loc: [facility] Accession Number: [id number] ?? Procedure: XR foot LT min 3V Ordering Provider: Marci Telles PROCEDURE:? XR FOOT LT MIN 3V ? INDICATIONS:? foot infection ? TECHNIQUE:? 3 views of the foot were acquired.? ? COMPARISON:? None. ? FINDINGS:? ? Bones:? No fractures or dislocations.? No suspicious bony lesions.? ? Soft tissues:? No tibiotalar joint effusion.? Achilles tendon appears normal.? There is a metallic linear radiodensity within the plantar soft tissues between the proximal 1st and 2nd digits. ? ? IMPRESSION:? 1. Radiopaque foreign body. 2. No acute fracture. No osseous lesion. If symptoms and/or clinical suspicion for pathology persist, further assessment with repeat, or advanced imaging (e.g., CT, MRI, or bone scan) may be helpful for further assessment. ? ? Dictated by: Tam Gaona M.D. on 06/15/2021 at 9:10 ? ? Approved by: Tam Gaona M.D. on 06/15/2021 at 9:12? Discharge Plan Departure Patient Disposition: Admitted As Inpatient Clinical Impression: Abscess of left foot, Retained foreign body Admit Date/Time: 06/16/21 12:24 Admit Provider: Aidan Pradhan
[2021-06-16 12:18] LABS: Hemoglobin 7.8 g/dL (12.0-16.0); Mean Corpuscular HGB Conc 32.7 % (30-36); Mean Corpuscular Hemoglobin 28.1 PG (26-34); Red Blood Cell Count 2.77 X10^6/uL (4.0-5.2); Red Cell Distribution Width 23.1 % (11.6-14.8)
[2021-06-16 12:20] LABS: Add Manual Diff / Slide Review YES; Hematocrit 23.8 % (36-46)
[2021-06-16 12:22] LABS: Blood Urea Nitrogen 38 mg/dL (7-17); Calcium 8.3 mg/dL (8.4-10.2); Carbon Dioxide 24 mmol/L (22-32); Chloride 100 mmol/L (98-107); Estimated Glomerular Filt Rate 38.9 mL/min (>60); Glucose 62 mg/dL (80-110); HEMOLYSIS < 15 (0-50); Potassium 3.6 mmol/L (3.4-5.1); Sodium 130 mmol/L (137-145)
[2021-06-16 12:34] LABS: Neutrophils Absolute Manual 12600 /uL (3000-5900); Total Cells Counted 100
[2021-06-16 12:35] LABS: Anisocytosis 2+; Ovalocytes 2+; Tear Drop Cells 1+
[2021-06-16 12:36] LABS: Poikilocytosis 4+; Schistocytes 1+
[2021-06-16 12:37] LABS: Acanthocytes 1+
[2021-06-16 12:39] LABS: Platelet Count 88 X10^3/uL (150-400)
--- NOTE | 2021-06-16 12:50 | DI.MRI.S_ITS ---
PROCEDURE: MR FOOT LT WO/W CON INDICATIONS: rule out osteomyelitis of left foot TECHNIQUE: Noncontrast sagittal T1 spin echo and T2 fast spin echo with fat saturation, long-axis T1 spin echo and T2 fast spin echo with fat saturation; short-axis T1 spin echo, proton density fast spin echo, and T2 fast spin echo with fat saturation through the forefoot. Post-contrast short axis, long axis, and sagittal T1 spin echo with fat saturation through the forefoot. COMPARISON: [facility], CR, XR FOOT LT MIN 3V, 06/15/2021, 8:33. FINDINGS: Image quality: Diagnostic. Patient motion is noted during the study. Bones and joints: Osteoarthritic changes are noted throughout midfoot and forefoot joints. No marrow edema is seen. No fracture or dislocation. No evidence of metatarsal stress fractures. There is no bony erosion or cortical destruction is seen to suggest osteomyelitis. Soft tissues: There is marked soft tissue swelling and edema over dorsum of midfoot and forefoot and show heterogeneous contrast enhancement consistent with extensive cellulitis. No discrete drainable abscess collection is seen. Atrophy of visualized left foot muscles are seen with fatty infiltration. No intramuscular mass or abnormal enhancement. Extensor and flexor tendons of forefoot and midfoot are grossly intact. Visualized portion of plantar fascia is also intact. IMPRESSION: 1. Suggestion of extensive cellulitis in midfoot and forefoot with significant dorsal soft tissue swelling and edema. No skin defect or discrete drainable abscess collection is seen. No enhancing soft tissue mass is seen. 2. Osteoarthritic changes are noted in midfoot and forefoot. No evidence of osteomyelitis. No fracture or dislocation. No abnormal intraosseous enhancement. Dictated by: Eligio Bell M.D. on 06/16/2021 at 16:47 Approved by: Eligio Bell M.D. on 06/16/2021 at 16:53
[2021-06-16 12:57] VITALS: BMI 33.9
[2021-06-16 13:00] VITALS: BP 126/47; PULSE 59; RESP 18; TEMP 35.7; O2SAT 98
[2021-06-16] MEDS: SODIUM CHLORIDE 0.9% 1,000 ML 40 ML IV (13:09)
[2021-06-16] MEDS: AMPICILLIN/SULBACTAM 3 GM 3 GM in SODIUM CHLORIDE 0.9% 100 ML IV ×2 (13:11→21:10)
[2021-06-16 13:17] LABS: COVID19 - ADMIT (NP swab/PCR) Negative (Negative)
--- NOTE | 2021-06-16 13:36 | OT.IPNOTE ---
Per nursing ok for OT to hold OT eval until after sx and to also await for any possible change in weight bearing status after sx.
[2021-06-16] MEDS: ACETAMINOPHEN 325 MG TABLET 650 MG PO (13:43)
--- NOTE | 2021-06-16 14:15 | P.HP_ITS ---
History of Present Illness History of Present Illness Date Patient Seen: 06/16/21 Chief complaint: Left foot injury Narrative: THIS IS A VERY PLEASANT 80-YEAR-OLD FEMALE WITH A PAST MEDICAL HISTORY SIGNIFICANT FOR NON INSULIN-DEPENDENT DIABETES TYPE 2. PATIENT ALSO IS ON CHRONIC ANTICOAGULANT THERAPY WITH COUMADIN. THIS IS REPORTEDLY PER PATIENT DUE TO HER ITP HOWEVER PER RECORDS FROM THE ONCOLOGY TEAM, SHE IS ON ANTICOAGULANT THERAPY DUE TO CHRONIC DVT. SHE ALSO HAS AN IVC FILTER IN ANY CASE, SHE PRESENTED TO THE HOSPITAL WITH PAIN TO THE LEFT LOWER EXTREMITY. THE LEFT 2ND TOE BEING HURTING HER FOR LAST FEW DAYS. SHE DENIES ANY INJURY TO THE FOOT. SHE DOES NOT RECALL STEPPING ON ANY SHARP OBJECTS HOWEVER SHE REPORTED SIGNIFICANT NEUROPATHY ALSO TO THE BILATERAL LOWER EXTREMITIES. DENIES ANY FEVER OR CHILLS. IN THE ER, WORKUP SO FAR SHOWING SIGNIFICANT LEUKOCYTOSIS. ANEMIA NOTED WELL. DECREASE KIDNEY FUNCTION APPRECIATED THE GFR OF 39 WITH A BASELINE NOTED TO BE AROUND 50 VITAL SIGNS FAIRLY STABLE FOOT X-RAY SHOWING A POSSIBLE FOR AN OBJECT. NO FRACTURE. MRI OR CT RECOMMENDED. Patient History Medical History (Updated 06/16/21 @ 12:26 by Jus Mcclain DO) Chronic ITP (idiopathic thrombocytopenic purpura) DVT (deep venous thrombosis) Essential hypertension Hypothyroid Type II diabetes mellitus Warfarin anticoagulation Surgical History Status post appendectomy (~2005) Status post tonsillectomy and adenoidectomy (~194) Family & Social History Social History: household members none Prior Living Arrangements House Safety & Behavioral: Feels Safe in Current Yes Environment Been Physically Hurt or No Threatened By a Person Tobacco & Substance use: Smoking Status Former smoker alcohol intake frequency holiday/special occasion Substance Use Type does not use Meds Home Medications and Allergies Home Medications Medication Instructions Recorded Confirmed Type blood sugar diagnostic (OneTouch See Rx Instructions .ROUTE 08/07/19 06/16/21 Rx Verio test strips) .COMPLEX #100 each cholecalciferol (vitamin D3) 50 2,000 unit PO Q OTHER DAY #0 cap 01/13/21 06/16/21 History mcg (2,000 unit) capsule (Vitamin D3) methylsulfonylmethane 1,000 mg 1,000 mg PO DAILY cap 01/13/21 06/16/21 History capsule (MSM) multivitamin (Daily Multi-Vitamin) 1 tab PO Q OTHER DAY tab 01/13/21 06/16/21 History warfarin 5 mg tablet 5 mg PO DAILY #30 tab 01/13/21 06/16/21 Rx ascorbic acid (vitamin C) 250 mg 282 mg PO DAILY 02/21/21 06/16/21 History tablet furosemide 20 mg tablet (Lasix) 20 mg PO DAILY #1 tab 05/05/21 06/16/21 Rx losartan 50 mg tablet 25 mg PO DAILY 05/09/21 06/16/21 History vit C 250 mg-vit E 90 mg-zinc 40 1 tab PO BID 05/16/21 06/16/21 History mg-copper 1 [id number] capsule (PreserVision AREDS-2) levothyroxine 100 mcg tablet 100 mcg PO QAM #90 tab 05/23/21 06/16/21 Rx warfarin 6 mg tablet 6 mg PO DAILY #100 tab 05/25/21 06/16/21 Rx carvedilol 3.125 mg tablet 3.125 mg PO BID 06/13/21 06/16/21 History glipizide 5 mg tablet 5 mg PO DAILY tab 06/13/21 06/16/21 History clindamycin HCl 300 mg capsule 300 mg PO TID 7 Days #21 cap 06/15/21 06/16/21 Rx mupirocin 2 % topical ointment 1 applic TOPICAL TID #22 g 06/15/21 06/16/21 Rx Allergies Allergy/AdvReac Type Severity Reaction Status Date / Time barium sulfate Allergy Severe SENSITIVITY Verified 06/16/21 11:44 TO ELECTRICAL CURRENT, SEIZURES Sulfa (Sulfonamide Allergy Intermediate HIVES Verified 06/16/21 11:44 Antibiotics) adhesive Allergy Mild RASH Verified 06/16/21 11:44 Review of Systems Review of Systems Narrative: ALL SYSTEM REVIEWED. NEGATIVE UNLESS NOTED ABOVE IN HPI Exam Vital Signs (past 8 hours): - 06/16/21 11:40 06/16/21 13:00 Temperature 98.2 F 96.2 F L Pulse Rate 65 59 L Respiratory Rate 17 18 Blood Pressure 131/62 126/47 L Pulse Oximetry 98 98 Oxygen Delivery Method Room Air Oxygen Flow Rate 0 Narrative Exam Narrative: NO ACUTE DISTRESS. PATIENT IS ALERT ORIENTED X3. OBESE VITAL SIGNS STABLE HEAD ATRAUMATIC NORMOCEPHALIC NECK : SUPPLE WITHOUT ADENOPATHY NO CAROTID BRUITS EYE: EOMI, PERRLA, NORMAL CONJUNCTIVA; NO JAUNDICE CHEST: REGULAR RATE. NO RUBS. PMI IS NON DISPLACED. NO MURMURS; NORMAL S1- S2 PULMONARY: DECREASED BS OVER THE BASES. MILD BIBASILAR CRACKLES NOTED; NO INCREASED DULLNESS TO PERCUSSION ABDOMEN: SOFT. NONTENDER. NONDISTENDED. BOWEL SOUNDS ARE PRESENT IN ALL 4 QUADRANTS. NO MASS. EXTREMITIES: 2+ PITTING EDEMA.. NO CYANOSIS CLUBBING NOTED. NEURO: CRANIAL NERVES 2-12 GROSSLY INTACT. NO FOCAL NEUROLOGICAL DEFICIT NOTED. MSK: NORMAL RANGE OF MOTION FOR AGE. NO JOINT EFFUSION. SKIN: NO OPEN WOUNDS. DARK AREA NOTED TO THE PLANTAR OF THE 2ND TOE ON THE LEFT. NO INCREASED REDNESS. SWELLING APPRECIATED. : NORMAL EXTERNAL GENITALIA. PSYCH : APPROPRIATE MOOD AND AFFECT. ALERT AWAKE ORIENTED X3 Objective Labs Result Diagrams: 06/16/21 12:00 06/16/21 12:00 Labs: Laboratory Results - last 24 hr 06/16/21 06/16/21 06/16/21 12:00 12:00 12:11 WBC 15.0 H RBC 2.77 L Hgb 7.8 L Hct 23.8 L MCV 86.0 MCH 28.1 MCHC 32.7 RDW 23.1 H Plt Count 88 L Neut % (Auto) Not Reportable Lymph % (Auto) Not Reportable [place] % (Auto) Not Reportable Eos % (Auto) Not Reportable Baso % (Auto) Not Reportable Lymph # (Auto) Not Reportable [place] # (Auto) Not Reportable Baso # (Auto) Not Reportable Total Counted 100 Seg Neutrophils % 79.0 H Band Neutrophils % 5.0 Lymphocytes % (Manual) 6.0 L Monocytes % (Manual) 10.0 Neutrophils # (Manual) 80575 H RBC Morphology See below Poikilocytosis 4+ H D Anisocytosis 2+ H Tear Drop Cells 1+ H Ovalocytes 2+ H Acanthocytes (Spur) 1+ H Schistocytes 1+ H Sodium 130 L Potassium 3.6 Chloride 100 Carbon Dioxide 24 BUN 38 H Creatinine 1.31 H Estimated GFR 38.9 L BUN/Creatinine Ratio 29.0 H Glucose 62 L Calcium 8.3 L SARS-CoV-2 (PCR) Negative Assessment & Plan Assessment & Plan narrative: PROBLEM LIST POSSIBLE LEFT 2ND TOE ABSCESS VERSUS GANGRENE RELATED TO DIABETES SEPSIS WITH ACUTE ORGAN DYSFUNCTION. ON ANTIBIOTICS ACUTE KIDNEY INJURY ON POSSIBLE CHRONIC KIDNEY DISEASE STAGE III LEUKOCYTOSIS ANEMIA CHRONIC DISEASE ITP FOR HISTORY/ WITH THROMBOCYTOPENIA EXHIBITED TODAY OBESITY. BMI OF 34 HYPONATREMIA. MILD. MONITOR FOR NOW DIABETES TYPE 2. [id number]. PATIENT REPORTED RECENT HEMOGLOBIN A1C OF 5.8 HYPOTHYROIDISM. ACQUIRED REPORTED CHRONIC DVT. STORY OF IVC FILTER HYPERLIPIDEMIA PER HISTORY COUMADIN COAGULOPATHY. HOLD COUMADIN FOR NOW PLAN PATIENT STATED THAT SHE HAS NOT TAKEN ANY OF HER MEDICATIONS SINCE SUNDAY LAST REPORTED COUMADIN DOSE WAS ON WEDNESDAY 06/13 RECHECK A PT- INR LAST PT AND INR WAS ON Mondays. 2.1 WAS REPORTED AROUND 2.1 HOLD ALL ANTICOAGULANT FOR NOW KARTHIK HOSE WILL BE ORDERED FOR LOWER EXTREMITIES ON ANY DUE TO SIGNIFICANT SWELLING NOTED ON EXAMINATION. AGAIN, PATIENT HAS AN IVC FILTER. PATIENT'S ANTIBIOTICS PER ORTHOPEDIC TEAM WHICH HAD BEEN CONSULTED SHE IS ON AMPICILLIN /SULBACTAM WILL ADD DOXYCYCLINE FOR NOW CONSIDER VANCOMYCIN WELL WATCH FOR C DIFF COLITIS ADDED ACIDOSIS STRICT BLOOD PRESSURE AND WAS SUGAR CONTROL PATIENT IS ON HOME MEDS WELL ISS AVOID ALL NEPHROTOXINS. WILL HOLD PATIENT'S LOSARTAN FOR NOW CONSIDER OTHER ANTIHYPERTENSIVE AGENT IF INDICATED PHARMACY TO DOSE ALL MEDICATIONS FOR GFR STRICT INPUT AND OUTPUT DAILY LAB TO FOLLOW PATIENT HAS AN OUTPATIENT CONSULT TO NEPHROLOGY NOTED IN THE CHART. ADDITIONAL WORK COULD BE DONE OUTPATIENT MONITOR INPUT OUTPUT CLOSELY DAILY WEIGHT WITH SAME SCALE ADDITIONAL MANAGEMENT PER CLINICAL COURSE DISCHARGE PER SURGICAL TEAM CLEARANCE STAY POSSIBLY BETWEEN 3-5 DAYS Time Spent With Patient Critical Care time: I spent a total of [] minutes of critical care time on this patient's care today; this time is exclusive of procedural time.
--- NOTE | 2021-06-16 15:15 | PT-IP ANOTE ---
Received PT eval. Reviewed EMR and talked with nurse Dominguez. pt admitted for L foot abscess and is scheduled for surgery tomorrow. Will d/c PT eval order at this time and will await for new PT eval order after pt has her surgery procedure for appropriateness for PT intervention and for other precautions needed for safe pt care. Nurse agreed and stated that he will let the doctor know.
[2021-06-16] MEDS: MUPIROCIN 22 GM OINT 1 APPLIC TOP ×2 (16:00→21:10)
[2021-06-16] MEDS: DOXYCYCLINE 100 MG in SODIUM CHLORIDE 0.9% 100 ML IV (16:25)
--- NOTE | 2021-06-16 16:30 | PC.NURSE ---
snacks given for cbg of 55 after MRI
[2021-06-16 16:58] LABS: Prothrombin Time 47.5 SECONDS (10.1-12.7)
[2021-06-16] MEDS: LACTOBACILLUS ACIDOPHILUS TABLET 1 EACH PO (17:49)
--- NOTE | 2021-06-16 18:14 | P.CONS_ITS ---
History of Present Illness Consult details Date Patient Seen: 06/16/21 Time Patient Seen: 18:14 Chief complaint: Left foot injury Reason for consult: Left foot diabetic foot infection and foreign body Requesting provider: Jus Mcclain Narrative: The patient is a pleasant 80-year-old woman with diabetes mellitus and peripheral neuropathy which is particularly pronounced in her left foot. She noticed swelling of the foot and redness yesterday and was seen in urgent care where radiographs were obtained. These showed soft tissue swelling and what appeared to be a small needle in the plantar aspect of the foot between the 1st and 2nd metatarsal heads. She was contacted and told to go to the emergency room to have the needle removed. The emergency room subsequently contacted me as the orthopedist material control supervisor to address this. Meds Home Medications and Allergies Home Medications Medication Instructions Recorded Confirmed Type blood sugar diagnostic (OneTouch See Rx Instructions .ROUTE 08/07/19 06/16/21 Rx Verio test strips) .COMPLEX #100 each cholecalciferol (vitamin D3) 50 2,000 unit PO Q OTHER DAY #0 cap 01/13/21 06/16/21 History mcg (2,000 unit) capsule (Vitamin D3) methylsulfonylmethane 1,000 mg 1,000 mg PO DAILY cap 01/13/21 06/16/21 History capsule (MSM) multivitamin (Daily Multi-Vitamin) 1 tab PO Q OTHER DAY tab 01/13/21 06/16/21 History warfarin 5 mg tablet 5 mg PO DAILY #30 tab 01/13/21 06/16/21 Rx ascorbic acid (vitamin C) 250 mg 282 mg PO DAILY 02/21/21 06/16/21 History tablet furosemide 20 mg tablet (Lasix) 20 mg PO DAILY #1 tab 05/05/21 06/16/21 Rx losartan 50 mg tablet 25 mg PO DAILY 05/09/21 06/16/21 History vit C 250 mg-vit E 90 mg-zinc 40 1 tab PO BID 05/16/21 06/16/21 History mg-copper 1 [id number] capsule (PreserVision AREDS-2) levothyroxine 100 mcg tablet 100 mcg PO QAM #90 tab 05/23/21 06/16/21 Rx warfarin 6 mg tablet 6 mg PO DAILY #100 tab 05/25/21 06/16/21 Rx carvedilol 3.125 mg tablet 3.125 mg PO BID 06/13/21 06/16/21 History glipizide 5 mg tablet 5 mg PO DAILY tab 06/13/21 06/16/21 History clindamycin HCl 300 mg capsule 300 mg PO TID 7 Days #21 cap 06/15/21 06/16/21 Rx mupirocin 2 % topical ointment 1 applic TOPICAL TID #22 g 06/15/21 06/16/21 Rx Allergies Allergy/AdvReac Type Severity Reaction Status Date / Time barium sulfate Allergy Severe SENSITIVITY Verified 06/16/21 11:44 TO ELECTRICAL CURRENT, SEIZURES Sulfa (Sulfonamide Allergy Intermediate HIVES Verified 06/16/21 11:44 Antibiotics) adhesive Allergy Mild RASH Verified 06/16/21 11:44 Review of Systems Review of Systems Narrative: She reports no changes in her health currently. Exam Vital Signs (past 8 hours): - 06/16/21 11:40 06/16/21 13:00 Temperature 98.2 F 96.2 F L Pulse Rate 65 59 L Respiratory Rate 17 18 Blood Pressure 131/62 126/47 L Pulse Oximetry 98 98 Oxygen Delivery Method Room Air Oxygen Flow Rate 0 Narrative Exam Narrative: Left foot is notable for swelling throughout the forefoot. The base of the 2nd toe is ringed with purulence subcutaneously. The tip of the toe is apparently vascular. There is a small ulcer between the 1st and 2nd metatarsal heads on the plantar aspect which does not appear to be infected but could potentially be the entrance wound from the foreign body. There is moderate swelling of the dorsum of the foot. She has trace positive dorsalis pedis and posterior tibial pulses. Objective Labs Result Diagrams: 06/16/21 12:00 06/16/21 12:00 Labs: Laboratory Results - last 24 hr 06/16/21 06/16/21 06/16/21 12:00 12:00 12:00 WBC 15.0 H RBC 2.77 L Hgb 7.8 L Hct 23.8 L MCV 86.0 MCH 28.1 MCHC 32.7 RDW 23.1 H Plt Count 88 L Neut % (Auto) Not Reportable Lymph % (Auto) Not Reportable [place] % (Auto) Not Reportable Eos % (Auto) Not Reportable Baso % (Auto) Not Reportable Lymph # (Auto) Not Reportable [place] # (Auto) Not Reportable Baso # (Auto) Not Reportable Total Counted 100 Seg Neutrophils % 79.0 H Band Neutrophils % 5.0 Lymphocytes % (Manual) 6.0 L Monocytes % (Manual) 10.0 Neutrophils # (Manual) 18717 H RBC Morphology See below Poikilocytosis 4+ H D Anisocytosis 2+ H Tear Drop Cells 1+ H Ovalocytes 2+ H Acanthocytes (Spur) 1+ H Schistocytes 1+ H PT 47.5 H D INR 4.0 H Sodium 130 L Potassium 3.6 Chloride 100 Carbon Dioxide 24 BUN 38 H Creatinine 1.31 H Estimated GFR 38.9 L BUN/Creatinine Ratio 29.0 H Glucose 62 L Calcium 8.3 L SARS-CoV-2 (PCR) 06/16/21 12:11 WBC RBC Hgb Hct MCV MCH MCHC RDW Plt Count Neut % (Auto) Lymph % (Auto) Morris % (Auto) Eos % (Auto) Baso % (Auto) Lymph # (Auto) Morris # (Auto) Baso # (Auto) Total Counted Seg Neutrophils % Band Neutrophils % Lymphocytes % (Manual) Monocytes % (Manual) Neutrophils # (Manual) RBC Morphology Poikilocytosis Anisocytosis Tear Drop Cells Ovalocytes Acanthocytes (Spur) Schistocytes PT INR Sodium Potassium Chloride Carbon Dioxide BUN Creatinine Estimated GFR BUN/Creatinine Ratio Glucose Calcium SARS-CoV-2 (PCR) Negative Radiographs from June 15, 2021 reviewed independently and interpreted. These show no signs of bony infection. They do show soft tissue swelling and a retained metallic foreign body in the plantar aspect of the foot in the 1st web space at the base of the proximal phalanges of the great and 2nd toe. The MRI scan from June 16, 2021 is reviewed and independently interpreted. This shows significant soft tissue edema around the forefoot consistent with cellulitis. There does not appear to be any evidence of osteomyelitis. [facility] Medical History Chronic ITP (idiopathic thrombocytopenic purpura) DVT (deep venous thrombosis) Essential hypertension Hypothyroid Type II diabetes mellitus Warfarin anticoagulation Surgical History Status post appendectomy (~2005) Status post tonsillectomy and adenoidectomy (~194) Social History household members: none caregiver/support person: Yes (She is accompanied by her daughter.) Tobacco & Substance Use Smoking Status: Former smoker Assessment & Plan Assessment & Plan narrative: The patient has a diabetic forefoot infection. This largely appears to be cellulitic but there may be a small abscess at the base of the 2nd toe. It is not clear on physical examination whether this communicates with the small metallic foreign body in the plantar aspect of the foot as most of the swelling and purulence is dorsal. The MRI does not show signs of infectious involvement of bone. The plan is to take her to the operating room tomorrow and drained the small purulent fluid collections around the base of the 2nd toe and determine whether there is communication with the plantar aspect of the foot. If it appears that the plantar aspect is involved, an incision in that region will be performed we will attempt to remove the small foreign body. She will then likely be returned to the floor for dressing changes and healing by secondary intention. She will eventually be referred to [facility] to complete this. She likely will need several days of IV antibiotics to start the chanel atment for the generalized diabetic cellulitis. I have discussed the risks benefits and alternatives of the incision and drainage with her. She agrees after this discussion. Risks discussed included but were not limited to: Failure to improve, stiffness, infection, nerve damage, deep venous thrombosis, pulmonary embolism, stroke, myocardial infarction, permanent paralysis and . In addition, we did discuss the possibility of later need for amputation. COVID-19 COVID-19 status: Negative Result date/Date tested (Pos, Neg/Pending): 06/16/21 Time Spent With Patient Critical Care time: I spent a total of [] minutes of critical care time on this patient's care today; this time is exclusive of procedural time.
[2021-06-16] MEDS: PHYTONADIONE (VIT K1) 5 MG TABLET PO (18:56)
[2021-06-16 20:45] VITALS: BP 138/43; PULSE 60; RESP 20; TEMP 37.2; O2SAT 96
[2021-06-16 21:00] VITALS: O2SAT 95
[2021-06-16 21:10] VITALS: BP 148/43; PULSE 60
[2021-06-16] MEDS: carvediloL 3.125 MG TABLET PO (21:10)
[2021-06-16] MEDS: VIT C/E/ZN/COPPR/LUTEIN/ZEAXAN CAPSULE 1 CAP PO (21:10)
[2021-06-16] MEDS: ONDANSETRON 4 MG/2 ML INJ IV (21:10)
[2021-06-17] VITALS (28 sets, daily range): BP systolic 110–151; BP diastolic 32–78; PULSE 54–88; RESP 12–20; TEMP 35.6–37.2; O2SAT 88–100; BMI 33.9
[2021-06-17] MEDS: DEXTROSE 50 % IN WATER 25 GM/50 ML SYRINGE IV (00:36)
[2021-06-17] MEDS: ONDANSETRON 4 MG/2 ML INJ IV (00:36)
[2021-06-17] MEDS: DEXTROSE 5%-0.9% NS 1,000 ML 50 ML IV (01:06)
[2021-06-17] MEDS: DOXYCYCLINE 100 MG in SODIUM CHLORIDE 0.9% 100 ML IV (03:24)
[2021-06-17] MEDS: AMPICILLIN/SULBACTAM 3 GM 3 GM in SODIUM CHLORIDE 0.9% 100 ML IV (04:53)
[2021-06-17 06:15] LABS: INR 2.6 (0.9-1.3)
[2021-06-17 06:21] LABS: Alanine Aminotransferase 12 IU/L (<35); Albumin 2.8 g/dL (3.5-5.0); Alkaline Phosphatase 65 U/L (38-126); Aspartate Aminotransferase 28 IU/L (14-36); BUN Creatinine Ratio 32.1 (6-22); Bilirubin Total 0.6 mg/dL (0.2-1.3); Blood Urea Nitrogen 34 mg/dL (7-17); Carbon Dioxide 24 mmol/L (22-32); Chloride 105 mmol/L (98-107); Estimated Glomerular Filt Rate 49.6 mL/min (>60); Globulin 2.7 g/dL (1.7-4.1); Glucose 88 mg/dL (80-110); HEMOLYSIS < 15 (0-50); Phosphorous 3.9 mg/dL (2.8-4.1); Potassium 3.6 mmol/L (3.4-5.1); Sodium 133 mmol/L (137-145); Total Protein 5.5 g/dL (6.3-8.2)
[2021-06-17 06:25] LABS: Hematocrit 22.6 % (36-46); Hemoglobin 7.5 g/dL (12.0-16.0); Mean Corpuscular HGB Conc 33.3 % (30-36); Mean Corpuscular Hemoglobin 28.8 PG (26-34); Mean Corpuscular Volume 86.6 fL (80-100); Platelet Count 73 X10^3/uL (150-400); Red Blood Cell Count 2.61 X10^6/uL (4.0-5.2); Red Cell Distribution Width 23.7 % (11.6-14.8); White Blood Cell Count 10.4 X10^3/uL (4.5-11.0)
[2021-06-17] MEDS: LEVOTHYROXINE 100 MCG TABLET PO (06:29)
[2021-06-17 06:50] LABS: Add Manual Diff / Slide Review YES
[2021-06-17 08:07] LABS: Neutrophils Absolute Manual 8528 /uL (3000-5900); Total Cells Counted 100
[2021-06-17 08:08] LABS: Anisocytosis 3+
[2021-06-17 08:09] LABS: Ovalocytes 2+; Schistocytes 1+; Tear Drop Cells 1+
[2021-06-17] MEDS: carvediloL 3.125 MG TABLET PO (08:17)
--- NOTE | 2021-06-17 08:33 | OT.IPNOTE ---
Pt to have surgery today, therefore to discharge OT eval order at this time. Nursing aware.
--- NOTE | 2021-06-17 09:28 | CM.DANOTE ---
Patient is an 80 yo female who was admitted on 06/16/21 for Left Foot Injury. Pt has [facility] ADV for insurance and her PCP is Dr. Gamal Orosco. EMR was reviewed. Per , pt with diabetes and chronic DVT at baseline and goes to [facility] at [facility] for infusion at baseline and admitted for foreign body in the foot, cellulitis and possible abscess but no sign of osteomyelitis. Per RN, pt scheduled for I&D today around 1245 and currently on IV-Abx and Ortho anticipates at least a couple days IV-Abx and pending progress possible transition to oral abx. SW met bedside with pt and adult Dtr/DPOA Ashley and explained role and pt confirms that she lives in [place] technically alone but Dtr Ashley has been staying with pt for assist for 10 months and can stay however long is needed. Dtr Ashley states she also has a home in [facility] but is primarily staying in [place] with pt as it seems to go better when I'm here helping out. Pt is alert and oriented and mostly independent with ADL's but has not been driving. Pt has once weekly (on Mondays) an outpt appointment at the [facility] due to her IVC for the past almost 5 years. Pt is aware that she will likely have outpt f/u with [facility] and is aware that it is located near Infusion Clinic as well. SW discussed potential for IV-Abx at d/c pending her progress and cultures and how I&D goes and potential option of HH, home infusion through her [facility], or SNF. Pt and Dtr confirm that their preference is home if possible with Dtr staying for assist. SW discussed likely PT/OT eval and recommendations after I&D and weight baring status recommendations for Ortho to determine mobility and needs. Dtr states she plans to go by [employer] today to get potential DME needed like walker, w/c in case pt non-weight baring, and bedside commode to prepare for plan of home at d/c. Pt and Dtr state house only has one step to enter and then all one level. Plan: SW to follow closely after I&D and eventual PT/OT eval and recommendations to determine if home with Dtr assist is feasible and r/o IV-Abx at d/c and if HH needed. ANU Fajardo Discharge Planning/Care Management CM Discharge Assessment Start: 06/17/21 09:24 Freq: Status: Active Protocol: Document 06/17/21 09:24 BF (Rec: 06/17/21 09:28 BF [id number]) Discharge Planning Assessment Assigned Rig Mechanic ANU Harrell DPOA/Assigned Designee Name Dtr Ashley Solorzano Contact Information [phone] Advance Directives? No Advance Directives on File No History Provided By Patient,Family Member,Medical Record Has Patient been admitted in last 30 No days? Prior Living Arrangements House Household Members children Comment Dtr Ashley stays with pt half the year and half year in [place] and is currently here and will stay as long as needed for assist at d/c Type of transporation used prior to Relies on Others admit Independent with ADL's Yes Is patient alert and oriented? Yes Needs Assistance With Meal Prep,Home Chores / Shopping Caregiver for Another No Community Services used prior to IV Therapy admission: Comment Established at [facility] for once a week infusion Patient/Family Preference Home with Home Health Comment Pending IV-Abx needs and mobility post I&D Barriers to Discharge No Discharge Plan Home with Home Health Community Services IV Therapy Transportation Arrangement Dtr bedside and agreeable with transport home when stable Additional Comment Pending eventual PT/OT eval and abx needs Whiteboard Updated in Patient Room with Yes name and ext. # of Rig Mechanic Review Status In Process Please Provide Date Initial DC 06/17/21 Assessment Was Performed Next Review Type Continued Stay Review
[2021-06-17] MEDS: PIPERACILLIN/TAZO 4.5 GM in SODIUM CHLORIDE 0.9% 100 ML 200 ML IV (10:13)
--- NOTE | 2021-06-17 10:58 | PC.NURSE ---
Patient taken to the OR.
--- NOTE | 2021-06-17 11:10 | PM.PREOP ---
Pre-operative Note COVID-19 COVID-19 status: Negative Result date/Date tested (Pos, Neg/Pending): 06/16/21 Interval Note History & Physical reviewed/Exam performed by Physician: Yes Changes to H&P: Yes H&P completed within 30 days and has changed as indicated here:: INR improved after vitamin K and FFP.
--- NOTE | 2021-06-17 11:12 | P.PN_ITS ---
Subjective Subjective Date Patient Seen: 06/17/21 Interval history: 81-year-old female with history of chronic ITP, chronic DVT of left lower extremity, on warfarin, history of IVC filter, type 2 diabetes with peripheral neuropathy, admitted due to left foot diabetic ulcer and cellulitis/abscess. Patient has minimal pain. She is NPO and going to OR today for incision and drainage. She got vitamin K and FFP to reverse warfarin. Exam Vital Signs (past 8 hours): - 06/17/21 06:00 06/17/21 07:00 06/17/21 07:55 Temperature 98.2 F 98.2 F Pulse Rate 61 64 Respiratory Rate 18 16 Blood Pressure 144/46 H 139/38 L Pulse Oximetry 92 96 96 06/17/21 07:57 06/17/21 08:13 06/17/21 08:30 Temperature 98.2 F 98.2 F Pulse Rate 64 71 Respiratory Rate 16 16 Blood Pressure 138/39 L 151/49 H Pulse Oximetry 97 06/17/21 08:55 Temperature 97.5 F L Pulse Rate 67 Respiratory Rate 18 Blood Pressure 145/36 H Pulse Oximetry Oxygen Delivery Method Room Air Oxygen Flow Rate 0 Narrative Exam Narrative: General: Alert well oriented and in no distress Lungs: Clear to auscultation Heart: Regular rhythm Extremities: Left foot is swollen and erythematous on the dorsum. The base of 2nd toe is purulent with small ulcer between 1st and 2nd metatarsal heads. Objective Labs Result Diagrams: 06/17/21 05:55 06/17/21 05:55 Labs: Laboratory Results - last 24 hr 06/16/21 06/16/21 06/16/21 12:00 12:00 12:00 WBC 15.0 H RBC 2.77 L Hgb 7.8 L Hct 23.8 L MCV 86.0 MCH 28.1 MCHC 32.7 RDW 23.1 H Plt Count 88 L Neut % (Auto) Not Reportable Lymph % (Auto) Not Reportable [place] % (Auto) Not Reportable Eos % (Auto) Not Reportable Baso % (Auto) Not Reportable Lymph # (Auto) Not Reportable [place] # (Auto) Not Reportable Baso # (Auto) Not Reportable Total Counted 100 Seg Neutrophils % 79.0 H Band Neutrophils % 5.0 Lymphocytes % (Manual) 6.0 L Atypical Lymphs % Monocytes % (Manual) 10.0 Metamyelocytes % Neutrophils # (Manual) 61530 H RBC Morphology See below Poikilocytosis 4+ H D Anisocytosis 2+ H Tear Drop Cells 1+ H Ovalocytes 2+ H Acanthocytes (Spur) 1+ H Schistocytes 1+ H PT 47.5 H D INR 4.0 H Sodium 130 L Potassium 3.6 Chloride 100 Carbon Dioxide 24 BUN 38 H Creatinine 1.31 H Estimated GFR 38.9 L BUN/Creatinine Ratio 29.0 H Glucose 62 L Calcium 8.3 L Phosphorus Total Bilirubin AST ALT Alkaline Phosphatase Total Protein Albumin Globulin Albumin/Globulin Ratio SARS-CoV-2 (PCR) Blood Type Antibody Screen 06/16/21 06/16/21 06/17/21 12:11 18:58 05:55 WBC 10.4 RBC 2.61 L Hgb 7.5 L Hct 22.6 L MCV 86.6 MCH 28.8 MCHC 33.3 RDW 23.7 H Plt Count 73 L Neut % (Auto) Not Reportable Lymph % (Auto) Not Reportable [place] % (Auto) Not Reportable Eos % (Auto) Not Reportable Baso % (Auto) Not Reportable Lymph # (Auto) Not Reportable [place] # (Auto) Not Reportable Baso # (Auto) Not Reportable Total Counted 100 Seg Neutrophils % 79.0 H Band Neutrophils % 3.0 Lymphocytes % (Manual) 5.0 L Atypical Lymphs % 1.0 H Monocytes % (Manual) 11.0 Metamyelocytes % 1.0 H Neutrophils # (Manual) 8528 H RBC Morphology See below Poikilocytosis Anisocytosis 3+ H Tear Drop Cells 1+ H Ovalocytes 2+ H Acanthocytes (Spur) Schistocytes 1+ H PT INR Sodium Potassium Chloride Carbon Dioxide BUN Creatinine Estimated GFR BUN/Creatinine Ratio Glucose Calcium Phosphorus Total Bilirubin AST ALT Alkaline Phosphatase Total Protein Albumin Globulin Albumin/Globulin Ratio SARS-CoV-2 (PCR) Negative Blood Type O Positive Antibody Screen Negative 06/17/21 06/17/21 05:55 05:55 WBC RBC Hgb Hct MCV MCH MCHC RDW Plt Count Neut % (Auto) Lymph % (Auto) [place] % (Auto) Eos % (Auto) Baso % (Auto) Lymph # (Auto) [place] # (Auto) Baso # (Auto) Total Counted Seg Neutrophils % Band Neutrophils % Lymphocytes % (Manual) Atypical Lymphs % Monocytes % (Manual) Metamyelocytes % Neutrophils # (Manual) RBC Morphology Poikilocytosis Anisocytosis Tear Drop Cells Ovalocytes Acanthocytes (Spur) Schistocytes PT 30.0 H D INR 2.6 H Sodium 133 L Potassium 3.6 Chloride 105 Carbon Dioxide 24 BUN 34 H Creatinine 1.06 H Estimated GFR 49.6 L BUN/Creatinine Ratio 32.1 H Glucose 88 Calcium 8.0 L Phosphorus 3.9 Total Bilirubin 0.6 AST 28 ALT 12 Alkaline Phosphatase 65 Total Protein 5.5 L Albumin 2.8 L Globulin 2.7 Albumin/Globulin Ratio 1.0 SARS-CoV-2 (PCR) Blood Type Antibody Screen COUNTS INCLUDE 234 BEDS AT THE [facility] Medical History Chronic ITP (idiopathic thrombocytopenic purpura) DVT (deep venous thrombosis) Essential hypertension Hypothyroid Type II diabetes mellitus Warfarin anticoagulation Surgical History Status post appendectomy (~2005) Status post tonsillectomy and adenoidectomy (~194) Social History household members: children caregiver/support person: Yes (She is accompanied by her daughter.) Smoking Status: Former smoker alcohol intake: never Assessment & Plan Assessment & Plan narrative: 1. Left foot cellulitis/abscess associated with diabetic foot ulcer -imaging showed possible subcutaneous needle between 1st and 2nd metatarsal heads -patient empirically now on Zosyn -appreciate ortho consult Dr. Ashraf 2. Sepsis with acute organ dysfunction, resolved -continue antibiotic management as above -cultures negative to date 3. Acute kidney injury, resolved -continue patient's carvedilol and losartan 4. Chronic ITP -monitor platelets -patient treated with romiplostim weekly on Mondays 5. Type 2 diabetes, well controlled -hold glipizide in hospital and use sliding scale 6. Chronic left lower extremity DVT -resume warfarin postop and check INR in 3 days -received vitamin K and FFP preop Time Spent With Patient Critical Care time: I spent a total of [] minutes of critical care time on this patient's care today; this time is exclusive of procedural time.
--- NOTE | 2021-06-17 12:06 | SUR.OPER ---
Supine on padded OR bed, head on pillow, arms secured on padded arm boards at <90 degrees abduction, legs uncrossed, safety belt at thigh, tape over blanket over lower legs.
--- NOTE | 2021-06-17 13:04 | P.OP_ITS ---
Operative Date/Time/Diagnoses Date of procedure: 06/17/21 Time of procedure: 12:45 Pre-op diagnosis: Left diabetic foot infection with foreign body Post-op diagnosis: same Procedure & Clinicians Procedure: Left foot incision and drainage with removal of foreign body Same procedure as scheduled: Yes Indications: The patient is a pleasant 80-year-old woman who has diabetes mellitus. She was seen 2 days ago for foot swelling in the urgent care. Radiographs were obtained but she was sent home. The radiographs reveal a foreign body. She was instructed to go to the emergency room the following day to have the foreign body removed. The emergency room staff called Orthopedics for definitive management. She has agreed to drainage of her foot infection with removal of foreign body if indicated after discussion the risks benefits and alternatives. Risks discussed included but were not limited to: Potential need for further surgery, potential for lack of improvement of infection, nerve damage, deep venous thrombosis, pulmonary embolism, stroke, myocardial infarction, permanent paralysis and . Surgeon: Erasmo Ashraf Click Yes if Unassisted: Yes Anesthesia Type: General Operative Notes Findings: The purulence on the top of the foot turned out to merely be epidermal lysis with infected bulla fluid. The small punctate hole on the plantar aspect of the foot between the 1st and 2nd metatarsal heads was deep and lead to a small cavity which contained a sliver of metal which was removed. Closure Type: not applicable Specimen(s): other (Two swabs of the deep cavity were sent for culture.) Estimated Blood Loss (mL): 5 Blood products transfused: none (Preoperatively she had received fresh frozen plasma due to her elevated international normalized ratio.) Tourniquet time (min): 25 Procedure in detail: Patient was seen in the preoperative area where she identified the left leg as the operative site and this was marked with my initials. She was already receiving preoperative antibiotics on the floor for treatment of her diabetic foot infections so no additional antibiotics were given. The patient was taken to the operating room and placed on the operating room table in the supine position. A tourniquet was placed around her proximal calf. A motion and time study teacher-out was performed. The leg was prepared with Betadine and draped through sterile drapes. She was administered a sedative as she had stated that she had minimal feeling in her feet. The leg was elevated to exsanguinate it and the tourniquet inflated to 250 mmHg. Immediately upon inflation of the tourniquet however it became obvious that she had enough sensation that a general anesthetic would be required and this was induced. Following the onset of satisfactory anesthesia, the skin on the dorsum of the foot overlying the purulent fluid was unroofed. There was no deep abscess. This continued down between the 1st and 2nd toe and the skin there was also removed with no deep tracking of the base. On the plantar aspect of the foot, what appeared to be a small ulceration was probed and it did go deep towards the metatarsal heads of the 1st and 2nd metatarsals. This was viewed on fluoroscopy and also confirmed to be the area of the small sliver of metal which was the foreign body. Cultures of this abscess cavity were taken. With the assistance of fluoroscopy, the small metal fragment was identified and removed with a mosquito clamp. The cavity was cleaned with both curettage and soft debridement with a sponge. The entire area including the cavity was copiously irrigated with sterile saline solution. A small gauze wick packing was moistened with the saline and placed in the deeper cavity. The area of unroofed blister bases was covered with Xeroform. Sterile gauze was applied followed by Kerlix. The tourniquet was deflated during dressing placement for a total tourniquet time of 25 minutes. The patient was then allowed to awaken from anesthetic and taken to the recovery room in good condition having tolerated the procedure well. Complications: none Post-operative Condition: stable Disposition: PACU Plan for aftercare: The patient will be maintained in the hospital for IV antibiotics due to her ongoing diabetic foot infection. The dressing placed surgery will remain in place until Sunday at which time it will be changed. She will then likely be referred for outpatient wound care at the wound center. Provided her generalized cellulitis of the foot improves with IV antibiotics she should be able to be discharged likely Sunday or Sunday.
[2021-06-17] MEDS: PIPERACILLIN/TAZO 3.375 GM in SODIUM CHLORIDE 0.9% 100 ML 25 ML IV ×2 (13:48→22:49)
[2021-06-17] MEDS: LACTOBACILLUS ACIDOPHILUS TABLET 1 EACH PO (17:31)
[2021-06-17] MEDS: VANCOMYCIN 2,000 MG/400 ML PIGGYBACK 200 MG IV (18:03)
[2021-06-17] MEDS: VIT C/E/ZN/COPPR/LUTEIN/ZEAXAN CAPSULE 1 CAP PO (21:46)
[2021-06-18] VITALS (10 sets, daily range): BP systolic 127–161; BP diastolic 32–56; PULSE 60–71; RESP 15–20; TEMP 36.2–36.8; O2SAT 91–97
[2021-06-18 05:43] LABS: INR 1.6 (0.9-1.3)
[2021-06-18 05:47] LABS: Alanine Aminotransferase 15 IU/L (<35); Albumin 3.2 g/dL (3.5-5.0); Albumin Globulin Ratio 1.1 (1.0-2.8); Alkaline Phosphatase 80 U/L (38-126); Aspartate Aminotransferase 28 IU/L (14-36); BUN Creatinine Ratio 23.9 (6-22); Bilirubin Total 0.6 mg/dL (0.2-1.3); Blood Urea Nitrogen 26 mg/dL (7-17); Calcium 8.3 mg/dL (8.4-10.2); Carbon Dioxide 24 mmol/L (22-32); Chloride 106 mmol/L (98-107); Estimated Glomerular Filt Rate 48.1 mL/min (>60); Globulin 2.9 g/dL (1.7-4.1); Glucose 149 mg/dL (80-110); HEMOLYSIS < 15 (0-50); Phosphorous 3.4 mg/dL (2.8-4.1); Potassium 3.7 mmol/L (3.4-5.1); Sodium 136 mmol/L (137-145); Total Protein 6.1 g/dL (6.3-8.2)
[2021-06-18 05:55] LABS: Hematocrit 22.3 % (36-46); Hemoglobin 7.2 g/dL (12.0-16.0); Mean Corpuscular HGB Conc 32.2 % (30-36); Mean Corpuscular Hemoglobin 28.3 PG (26-34); Platelet Count 101 X10^3/uL (150-400); Red Blood Cell Count 2.53 X10^6/uL (4.0-5.2); Red Cell Distribution Width 23.5 % (11.6-14.8); White Blood Cell Count 12.7 X10^3/uL (4.5-11.0)
[2021-06-18] MEDS: LEVOTHYROXINE 100 MCG TABLET PO (06:05)
[2021-06-18] MEDS: PIPERACILLIN/TAZO 3.375 GM in SODIUM CHLORIDE 0.9% 100 ML 25 ML IV ×3 (06:05→21:58)
[2021-06-18 06:06] LABS: Add Manual Diff / Slide Review YES
[2021-06-18 06:20] LABS: Neutrophils Absolute Manual 9525 /uL (3000-5900); Total Cells Counted 100
[2021-06-18 06:21] LABS: Anisocytosis 3+; Poikilocytosis 2+
[2021-06-18 06:22] LABS: Ovalocytes 2+; Schistocytes 1+; Tear Drop Cells 2+
[2021-06-18] MEDS: SODIUM CHLORIDE 0.9% FLUSH 10 ML IV ×2 (09:00→22:00)
[2021-06-18] MEDS: ASCORBIC ACID 500 MG TABLET 250 MG PO (09:07)
[2021-06-18] MEDS: LACTOBACILLUS ACIDOPHILUS TABLET 1 EACH PO ×3 (09:07→17:42)
[2021-06-18] MEDS: FAMOTIDINE 20 MG TABLET PO (09:07)
[2021-06-18] MEDS: carvediloL 3.125 MG TABLET PO (09:07)
[2021-06-18] MEDS: CHOLECALCIFEROL (VITAMIN D3) 1,000 UNIT TABLET 2000 UNIT PO (09:08)
[2021-06-18] MEDS: VIT C/E/ZN/COPPR/LUTEIN/ZEAXAN CAPSULE 1 CAP PO ×2 (09:08→21:59)
--- NOTE | 2021-06-18 09:29 | P.PN_ITS ---
Subjective Subjective Date Patient Seen: 06/18/21 Time Patient Seen: 09:29 Interval history: Postop day 1 I&D left foot diabetic foot infection with foreign body. Foreign body was removed. Patient on empiric Zosyn and vancomycin. Culture showing Staph aureus. Sensitivities pending. On chronic anticoagulation. Pain controlled. Has peripheral neuropathy. States foot was fine until a few days ago when onset of swelling pain and pressure was sudden States was seen by PCP Dr. Barrera on Sunday for unrelated issues and foot was fine at that time. Hemoglobin A1c was 5.8 Exam Vital Signs (past 8 hours): - 06/18/21 05:00 06/18/21 07:50 Temperature 98.1 F Pulse Rate 66 64 Respiratory Rate 18 15 Blood Pressure 136/37 L 127/32 L Pulse Oximetry 96 91 Oxygen Delivery Method Room Air Oxygen Flow Rate 0 Narrative Exam Narrative: Alert oriented female no acute distress. Pleasant answers questions appropriately Breathing unlabored on room air Left lower extremity dressing removed. Plantar wick maintained. Moderate eryt mckenna and swelling over the dorsum of the foot around the base of the 2nd toe. Areas of epidermolysis have been unroofed. Xeroform in place. No gross fluctuance or purulence. Dense stocking-glove neuropathy. Brisk capillary refill to all toes Objective Labs Result Diagrams: 06/18/21 04:55 06/18/21 04:55 Labs: Laboratory Results - last 24 hr 06/18/21 06/18/21 06/18/21 04:55 04:55 04:55 WBC 12.7 H RBC 2.53 L Hgb 7.2 L Hct 22.3 L MCV 88.0 MCH 28.3 MCHC 32.2 RDW 23.5 H Plt Count 101 L Neut % (Auto) Not Reportable Lymph % (Auto) Not Reportable [place] % (Auto) Not Reportable Eos % (Auto) Not Reportable Baso % (Auto) Not Reportable Lymph # (Auto) Not Reportable [place] # (Auto) Not Reportable Baso # (Auto) Not Reportable Total Counted 100 Seg Neutrophils % 68.0 Band Neutrophils % 7.0 Lymphocytes % (Manual) 4.0 L Atypical Lymphs % 6.0 H Monocytes % (Manual) 13.0 H Metamyelocytes % 2.0 H Neutrophils # (Manual) 9525 H RBC Morphology See below Poikilocytosis 2+ H D Anisocytosis 3+ H Tear Drop Cells 2+ H Ovalocytes 2+ H Schistocytes 1+ H PT 18.0 H D INR 1.6 H Sodium 136 L Potassium 3.7 Chloride 106 Carbon Dioxide 24 BUN 26 H Creatinine 1.09 H Estimated GFR 48.1 L BUN/Creatinine Ratio 23.9 H Glucose 149 H Calcium 8.3 L Phosphorus 3.4 Total Bilirubin 0.6 AST 28 ALT 15 Alkaline Phosphatase 80 Total Protein 6.1 L Albumin 3.2 L Globulin 2.9 Albumin/Globulin Ratio 1.1 PFSH Medical History Chronic ITP (idiopathic thrombocytopenic purpura) DVT (deep venous thrombosis) Essential hypertension Hypothyroid Type II diabetes mellitus Warfarin anticoagulation Surgical History Status post appendectomy (~2005) Status post tonsillectomy and adenoidectomy (~1941) Social History household members: children caregiver/support person: Yes (She is accompanied by her daughter.) Smoking Status: Former smoker alcohol intake: never Assessment & Plan Post-op Postoperative Procedures: Procedures Operation Date: 06/17/21 12:45 Actual Procedure Side Surgeon p I&D foot with removal of foreign body Left Erasmo Ashraf MD Postoperative day: 1 Postoperative status: doing well Postoperative status narrative: Doing well recommend continued IV antibiotics until cultures return. Will monitor for resolving cellulitis. Will keep packing wick in place. Will remove and change dressing tomorrow. Anticipate at least a few more days of IV antibiotics and transition to oral based on sensitivities and clinical improvement. Will evaluate wound again on dressing change tomorrow may require outpatient continued care with wound care. May heel weightbear in a Darco forefoot offloading wedge shoe or postop shoe if wedge shoe not available May restart regular Coumadin. No further surgical indication indicated at this time but will need to monitor for clinical improvement. Time Spent With Patient Time with patient: less than 15 minutes Quality VTE Deep Vein Thrombosis/Pulmonary Embolism Present on Admission: No
--- NOTE | 2021-06-18 10:49 | P.PN_ITS ---
Subjective Subjective Date Patient Seen: 06/18/21 Interval history: 81-year-old female with history of chronic ITP, chronic DVT of left lower extremity, on warfarin, history of IVC filter, type 2 diabetes with peripheral neuropathy, admitted due to left foot diabetic ulcer and cellulitis/abscess. Patient is postop day 1 I and D with removal of foreign body. Wound culture from admission growing Staph aureus. Intraop wound culture g stain with GPC. She is on vancomycin and Zosyn. She has no complaints. Exam Vital Signs (past 8 hours): - 06/18/21 05:00 06/18/21 07:50 06/18/21 09:35 Temperature 98.1 F 97.1 F L Pulse Rate 66 64 66 Respiratory Rate 18 15 16 Blood Pressure 136/37 L 127/32 L 161/56 H Pulse Oximetry 96 91 96 Oxygen Delivery Method Room Air Oxygen Flow Rate 0 Narrative Exam Narrative: General: Alert NAD Lungs: Clear Extremities: Left foot postop dressing in place Objective Labs Result Diagrams: 06/18/21 04:55 06/18/21 04:55 Labs: Laboratory Results - last 24 hr 06/18/21 06/18/21 06/18/21 04:55 04:55 04:55 WBC 12.7 H RBC 2.53 L Hgb 7.2 L Hct 22.3 L MCV 88.0 MCH 28.3 MCHC 32.2 RDW 23.5 H Plt Count 101 L Neut % (Auto) Not Reportable Lymph % (Auto) Not Reportable [place] % (Auto) Not Reportable Eos % (Auto) Not Reportable Baso % (Auto) Not Reportable Lymph # (Auto) Not Reportable [place] # (Auto) Not Reportable Baso # (Auto) Not Reportable Total Counted 100 Seg Neutrophils % 68.0 Band Neutrophils % 7.0 Lymphocytes % (Manual) 4.0 L Atypical Lymphs % 6.0 H Monocytes % (Manual) 13.0 H Metamyelocytes % 2.0 H Neutrophils # (Manual) 9525 H RBC Morphology See below Poikilocytosis 2+ H D Anisocytosis 3+ H Tear Drop Cells 2+ H Ovalocytes 2+ H Schistocytes 1+ H PT 18.0 H D INR 1.6 H Sodium 136 L Potassium 3.7 Chloride 106 Carbon Dioxide 24 BUN 26 H Creatinine 1.09 H Estimated GFR 48.1 L BUN/Creatinine Ratio 23.9 H Glucose 149 H Calcium 8.3 L Phosphorus 3.4 Total Bilirubin 0.6 AST 28 ALT 15 Alkaline Phosphatase 80 Total Protein 6.1 L Albumin 3.2 L Globulin 2.9 Albumin/Globulin Ratio 1.1 [facility] Medical History Chronic ITP (idiopathic thrombocytopenic purpura) DVT (deep venous thrombosis) Essential hypertension Hypothyroid Type II diabetes mellitus Warfarin anticoagulation Surgical History Status post appendectomy (~2005) Status post tonsillectomy and adenoidectomy (~194) Social History household members: children caregiver/support person: Yes (She is accompanied by her daughter.) Smoking Status: Former smoker alcohol intake: never Assessment & Plan Assessment & Plan narrative: 1. Left foot cellulitis/abscess associated with diabetic foot ulcer -s/p I & D 06/17 with removal metal sliver between plantar 1st and 2nd metatarsal heads -imaging showed possible subcutaneous needle between 1st and 2nd metatarsal heads -wound culture from admission growing Staph aureus -continue vancomycin and Zosyn for likely mixed garrison infection pending antibiotic sensitivities -per Ortho, patient may heel weightbear in a Darco forefoot offloading wedge shoe or postop shoe if wedge shoe not available -PT consult 2. Sepsis with acute organ dysfunction, resolved -initial so fall score of 3 based on low platelets and CLEO -continue antibiotic management as above 3. Acute kidney injury, resolved -initial serum creatinine 1.3 addressed with management of sepsis -continue patient's carvedilol and losartan 4. Chronic ITP -monitor platelets -patient treated with romiplostim weekly on Mondays 5. Type 2 diabetes, well controlled -hold glipizide in hospital and use sliding scale 6. Chronic left lower extremity DVT -resumed warfarin postop -received vitamin K and FFP preop -recheck INR 06/21 7. Acute on chronic anemia -hemoglobin drop to < 7.5 due to acute illness, inflammatory block without evidence of acute bleed -baseline hemoglobin is 8.2 -continue trending -transfusion not indicated at this time Time Spent With Patient Critical Care time: I spent a total of [] minutes of critical care time on this patient's care today; this time is exclusive of procedural time. Quality VTE Deep Vein Thrombosis/Pulmonary Embolism Present on Admission: No
[2021-06-18] MEDS: CEFAZOLIN 2 GM/20 ML SYRINGE IV ×2 (13:48→21:58)
--- NOTE | 2021-06-18 14:49 | PT.IIE ---
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 (06/16/21) Surgery Performed Operation Date: 06/17/21 12:45 Actual Procedures p I&D foot with removal of foreign body(Left) - Erasmo Ashraf MD Surgical History (Last Reviewed 06/17/21 @ 12:45 by Esha Moran RN) Status post appendectomy (~2005) Status post tonsillectomy and adenoidectomy (~1942) Medical History (Last Reviewed 06/17/21 @ 12:45 by Esha Moran RN) Chronic ITP (idiopathic thrombocytopenic purpura) DVT (deep venous thrombosis) Essential hypertension Hypothyroid Type II diabetes mellitus Warfarin anticoagulation Physical Therapy Inpatient Evaluation/Re-Eval M1 PT/OT-IP Prior Functional Status Start: 06/18/21 14:22 Freq: NEEDED Status: Active Protocol: Document 06/18/21 14:23 [facility] (Rec: 06/18/21 14:49 [facility] [id number]) Medical Review Prior Functional Status Medical History Reviewed Yes Diet/Fluid Consistency Regular Communication WNL Mobility and Gait pt reports using cane for the last few months to help her balance. Activities of Daily Living and IADL's Pt is indep with all ADLs and IADLs; stopped driving about 1 year ago d/t neuropathy in L foot and couldn't feel if foot was on the brake. Pt notes she always used L foot for the brake Prior Functional Level (Other details) Pt reports her L foot and progressively gotten swollen over last several months, making it more difficult to fit into a shoe. Social History Household Members none Living Arrangements House Number of Floors (Floors) One Floor Number of Stairs To Enter/Railing? 1 COURTNEY w/o rail Home Environment High Toilet,Tub/Shower Home Equipment Front Wheel Walker,Straight Cane,Grab Bars Near Toilet, Grab Bars In Shower Additional Social History Comment Pt has dgt who lives in [facility] and 2 others out of state. 1 of the out of state daughters is now going to be staying with her until she recovers and has gone to [employer] to get her some equipment, but pt unsure what all was gotten. M2 PT-IP Current Condition Start: 06/18/21 14:22 Freq: NEEDED Status: Active Protocol: Document 06/18/21 14:23 [facility] (Rec: 06/18/21 14:49 [facility] [id number]) Physical Therapy Current Condition Current Condition Evaluation Date 06/18/21 Treatment Diagnosis L diabetic foot infection s/p I&D and removal of foreign body Onset Date 06/17/21 M3 PT-IP Subjective Start: 06/18/21 14:22 Freq: NEEDED Status: Active Protocol: Document 06/18/21 14:23 [facility] (Rec: 06/18/21 14:49 [facility] [id number]) Subjective Physical Therapy Visit Type Type Initial Evaluation Visit Start Time 13:45 Visit Stop Time 14:30 Total Visit Minutes 45 Number of REHAB DIRECTOR OCCUPATIONAL THERAPIST Visits 0 Physical Therapy Visit Comments Patient Comments Pt very agreeable to work w/PT M4 PT-IP Mobility and Gait Start: 06/18/21 14:22 Freq: NEEDED Status: Active Protocol: Document 06/18/21 14:23 [facility] (Rec: 06/18/21 14:49 [facility] [id number]) PT-Bed Mobility Assessment Sit to Supine Sit to Supine Standby Assistance,Bedrails Scooting Scooting to Edge of Bed Standby Assistance Scooting Up and Down in Bed Standby Assistance PT-Transfer Assessment Sit to and From Stand Sit to and from Stand Contact Guard Assistance,Use of Upper Extremities Equipment Transfer Assistive Device Gait Belt,Front Wheeled Walker Orthotic/Prosthetic Devices or Brace: Yes Comments Mobility Comments Pt was walking around in room w/SPC upon PT arrival. Pt sat down for PT and was measured and set up for shoe that MD ordered. Pt was instructed on needing shoe for mobility and possible need for FWW also. Pt stood w/SPC CGA then felt unsteady w/new wedge shoe on LLE and her own shoe on RLE so was given FWW which made pt feel more steady. Pt then amb w/FWW and CGA about 10ft then sat at EOB while PT got pt a mask for out of room ambulation. Sit<>stand to/from bed CGA w/FWW . Pt then amb into paez about 140ft w/FWW and CGA then sat on EOB upon return and doffed B shoes SBA. Sit to supine SBA w/use of rails. Pt able to scoot herself in bed SBA. Pt lef twith call light in reach/bed alarm on and insturcted to call if getting up and not to get up alone d/t requiring boot and for safety. Gait Assessment Gait Gait Assistance Required: Contact Guard Assist Distance (Feet) 150 Able to Maintain Weight Bearing Status Yes During Gait Assistive Devices Assistive Device Gait Belt,Front Wheeled Walker Orthotic/Prosthetic Devices or Brace: Yes PT-Balance Assessment Sitting Balance and Reactions Static Sitting Balance Ability Good Dynamic Sitting Balance Ability Good Standing Balance and Reactions Static Standing Balance Ability Fair Dynamic Standing Balance Ability Fair Device Used FWW & L Wedge shoe M5 PT-IP Objective Assessments Start: 06/18/21 14:22 Freq: NEEDED Status: Active Protocol: Document 06/18/21 14:23 [facility] (Rec: 06/18/21 14:49 [facility] [id number]) Orientation Orientation/Cognition Level of Alertness Alert Language Function Ability No Deficits Noted Safety Awareness Understands Safety Issues Memory Description No Deficits Noted Strength Lower Extremity Strength Hip grossly 4/5 B Knee grossly 4/5 B M6 PT-IP Treatment Start: 06/18/21 14:22 Freq: NEEDED Status: Active Protocol: Document 06/18/21 14:23 [facility] (Rec: 06/18/21 14:49 [facility] [id number]) Physical Therapy Treatment Education Education Provided Precautions,Weight Bearing Status,Safety M7 PT-IP Assessment and Plan Start: 06/18/21 14:22 Freq: NEEDED Status: Active Protocol: Document 06/18/21 14:23 [facility] (Rec: 06/18/21 14:49 [facility] [id number]) PT Summary Assessment and Plan Potential Rehabilitation Potential Good Status of Condition at Evaluation Evolving Summary Impairments ROM,Strength,Balance,Bed Mobility,Transfers,Gait, Activity Tolerance Assessment Summary Pt presents 1 day s/p I&D and foreign body removal on L foot w/orders from doctor of WBAT w/wedge shoe. Pt had difficulty with balance once in wedge shoes and required cueing throughout gait activities. She showed unsteadiness and requied PT mod A d/t LOB w/in first few steps when walking w/wedge shoe. Pt is very motivated to recover and she has good family support with a dgt who will be staying with her as she recovers. She would benefit from skilled PT for cont gait training and education w/mobility and safety while hospitalized. Goals Bed Mobility Goal Independent Transfer Goal Standby Assistance Gait Goal Standby Assistance,Front Wheel Walker Gait Distance 150ft w/ L wedge shoe Other Goals up/down 1 step w/FWW SBA Days to Meet Goals 6 Frequency of Treatment Frequency Of Treatment Once a Day Treatment Plan Physical Therapy Treatment Plan Bed Mobility Training,Transfer Training,Gait Training, Therapeutic Exercise,Balance Retraining,Neuromuscular Re-ed Weight Bearing Status Weight Bearing Status Weight Bear as Tolerated Allowed Weight Bearing Amount (enter % w/wedge shoe LLE or #) (%) Recommendations To Nursing Amount of Assist Needed 1 Person Assist Discharge Recommendations PT Discharge Recommendations Home with Assistance,Home Health Transportation Needs at Discharge Private Vehicle
[2021-06-18] MEDS: WARFARIN 5 MG TABLET PO (17:42)
[2021-06-18] MEDS: INSULIN LISPRO 100 UNIT/ML 3ML VIAL SUBCUT (17:42)
[2021-06-19] VITALS (10 sets, daily range): BP systolic 142–177; BP diastolic 38–76; PULSE 62–94; RESP 16–20; TEMP 36.5–37.3; O2SAT 89–99
[2021-06-19 04:55] LABS: Alanine Aminotransferase 15 IU/L (<35); Albumin 3.3 g/dL (3.5-5.0); Albumin Globulin Ratio 1.1 (1.0-2.8); Alkaline Phosphatase 84 U/L (38-126); Aspartate Aminotransferase 31 IU/L (14-36); BUN Creatinine Ratio 18.6 (6-22); Bilirubin Total 0.5 mg/dL (0.2-1.3); Blood Urea Nitrogen 18 mg/dL (7-17); Calcium 8.7 mg/dL (8.4-10.2); Carbon Dioxide 25 mmol/L (22-32); Chloride 107 mmol/L (98-107); Glucose 138 mg/dL (80-110); HEMOLYSIS < 15 (0-50); Potassium 3.6 mmol/L (3.4-5.1); Sodium 138 mmol/L (137-145); Total Protein 6.3 g/dL (6.3-8.2)
[2021-06-19 05:01] LABS: Hematocrit 23.6 % (36-46); Hemoglobin 7.5 g/dL (12.0-16.0); Mean Corpuscular HGB Conc 31.8 % (30-36); Mean Corpuscular Hemoglobin 28.2 PG (26-34); Mean Corpuscular Volume 88.6 fL (80-100); Platelet Count 125 X10^3/uL (150-400); Red Blood Cell Count 2.66 X10^6/uL (4.0-5.2); Red Cell Distribution Width 24.3 % (11.6-14.8); White Blood Cell Count 12.8 X10^3/uL (4.5-11.0)
[2021-06-19 05:05] LABS: Add Manual Diff / Slide Review YES
[2021-06-19 05:25] LABS: Neutrophils Absolute Manual 9088 /uL (3000-5900); Total Cells Counted 100
[2021-06-19 05:26] LABS: Anisocytosis 3+; Poikilocytosis 1+; Tear Drop Cells 2+
[2021-06-19 05:27] LABS: Ovalocytes 1+; Schistocytes 1+
[2021-06-19] MEDS: CEFAZOLIN 2 GM/20 ML SYRINGE IV ×3 (05:37→21:32)
[2021-06-19] MEDS: LEVOTHYROXINE 100 MCG TABLET PO (05:37)
[2021-06-19] MEDS: PIPERACILLIN/TAZO 3.375 GM in SODIUM CHLORIDE 0.9% 100 ML 25 ML IV ×3 (05:37→21:56)
[2021-06-19] MEDS: LACTOBACILLUS ACIDOPHILUS TABLET 1 EACH PO ×3 (08:55→18:54)
[2021-06-19] MEDS: ASCORBIC ACID 500 MG TABLET 250 MG PO (08:55)
[2021-06-19] MEDS: FAMOTIDINE 20 MG TABLET PO (08:55)
[2021-06-19] MEDS: VIT C/E/ZN/COPPR/LUTEIN/ZEAXAN CAPSULE 1 CAP PO ×2 (08:55→20:27)
[2021-06-19] MEDS: SODIUM CHLORIDE 0.9% FLUSH 10 ML IV ×2 (09:11→20:30)
--- NOTE | 2021-06-19 10:34 | P.PN_ITS ---
Subjective Subjective Date Patient Seen: 06/19/21 Time Patient Seen: 10:35 Interval history: 80-year-old female with left foot forefoot infection and metallic foreign body and plantar foot status post I&D and removal of foreign body by Dr. Ashraf on 06/17/2021. Doing okay this morning. Cultures with Staph aureus pansensitive. She was talar down to Ancef Q 8. Has neuropathy. No specific pain. Still some swelling. Has improved some after surgery. Exam Vital Signs (past 8 hours): - 06/19/21 04:00 06/19/21 07:00 06/19/21 07:36 Temperature 97.7 F 97.9 F Pulse Rate 74 67 Respiratory Rate 20 18 Blood Pressure 145/38 H 142/42 H Pulse Oximetry 89 L 94 95 Oxygen Delivery Method Room Air Oxygen Flow Rate 0 Narrative Exam Narrative: Alert oriented female no acute distress sitting at the bedside chair. Left foot is on wrapped. Continues to have dorsal swelling over the forefoot centered over the 2nd metatarsal. A today there is fluctuance in the area of epidermal lysis. No gross drainage. The gauze wick is removed from the plantar wound without any obvious additional purulence. Mild cellulitis over the dorsum of the foot nothing above the ankle. Objective Labs Result Diagrams: 06/19/21 04:20 06/19/21 04:20 Labs: Laboratory Results - last 24 hr 06/19/21 06/19/21 04:20 04:20 WBC 12.8 H RBC 2.66 L Hgb 7.5 L Hct 23.6 L MCV 88.6 MCH 28.2 MCHC 31.8 RDW 24.3 H Plt Count 125 L Neut % (Auto) Not Reportable Lymph % (Auto) Not Reportable [place] % (Auto) Not Reportable Eos % (Auto) Not Reportable Baso % (Auto) Not Reportable Lymph # (Auto) Not Reportable [place] # (Auto) Not Reportable Baso # (Auto) Not Reportable Total Counted 100 Seg Neutrophils % 57.0 Band Neutrophils % 14.0 H Lymphocytes % (Manual) 8.0 L Atypical Lymphs % 3.0 H Monocytes % (Manual) 11.0 Metamyelocytes % 7.0 H Neutrophils # (Manual) 9088 H Plt Morphology Comment . RBC Morphology See below Poikilocytosis 1+ H Anisocytosis 3+ H Tear Drop Cells 2+ H Ovalocytes 1+ H Schistocytes 1+ H Sodium 138 Potassium 3.6 Chloride 107 Carbon Dioxide 25 BUN 18 H Creatinine 0.97 Estimated GFR 55.0 L BUN/Creatinine Ratio 18.6 Glucose 138 H Calcium 8.7 Total Bilirubin 0.5 AST 31 ALT 15 Alkaline Phosphatase 84 Total Protein 6.3 Albumin 3.3 L Globulin 3.0 Albumin/Globulin Ratio 1.1 PFSH Medical History Chronic ITP (idiopathic thrombocytopenic purpura) DVT (deep venous thrombosis) Essential hypertension Hypothyroid Type II diabetes mellitus Warfarin anticoagulation Surgical History Status post appendectomy (~2005) Status post tonsillectomy and adenoidectomy (~194) Social History household members: none caregiver/support person: Yes (She is accompanied by her daughter.) Smoking Status: Former smoker alcohol intake: never Assessment & Plan Post-op Postoperative Procedures: Procedures Operation Date: 06/17/21 12:45 Actual Procedure Side Surgeon p I&D foot with removal of foreign body Left Erasmo Ashraf MD Postoperative day: 2 Postoperative status: doing well Postoperative status narrative: Postop day 2 from left foot infection I&D. Based on the examination today I have a high suspicion for the formation of a dorsal abscess over the 2nd metatarsal. Previous MRI just demonstrated cellulitis in this area without drainable collection. On my exam today she is more fluctuance in this area than she was yesterday. Patient has baseline neuropathy we discussed options. I have recommended a bedside incision and drainage. Consent was obtained. The area was cleansed with chlorhexidine and a 15 blade was used to make a incision directly over the area of maximal fluctuance purulence was immediately encountered the incision was slightly extended. The abscess was drained the area was flushed with saline and then packed with iodoform gauze. An additional packing wick was placed back in the plantar wound. And the dressings replaced. Postoperative plan narrative: She will have daily packing changes. Recommend monitoring with IV antibiotics at least another day or to to make sure her dorsal the cellulitis is improving but I expect now that the abscess has been drained this should improve. Plan will likely include home nursing or wound care packing changes for the next few weeks while the wounds heal by secondary intention. Discussed if she has any worsening appearance may need additional operative debridement but will see how she does over the next couple days with IV antibiotics and daily floor packing changes. Time Spent With Patient Time with patient: less than 15 minutes Quality VTE Deep Vein Thrombosis/Pulmonary Embolism Present on Admission: No
--- NOTE | 2021-06-19 10:40 | P.PCN_ITS ---
Procedures Date/Time Date of procedure: 06/19/21 Time of procedure: 10:40 General Procedure description: Incision and drainage left dorsal foot abscess--area was cleansed with chlorhexidine. Fifteen blade was used to incise directly over the area of maximal fluctuance with the dorsum of the foot centered on the 2nd metatarsal just proximal to the MTP approximately 10 cc of thick purulence fluid was expressed and removed. The wound was then opened with a hemostat further and flushed with saline flushes. Once this was completed iodoform gauze was packed and a dressing was replaced. Patient tolerated the procedure well. There no i mmediate complications. Complications: none Abscess I/D Site: foot (Left foot dorsum) Side (if applicable): left Sedation/analgesia: none Technique: other (Incised with 15 blade) Amount of fluid (mL): 10 Irrigation: Yes Packing used?: iodoform
--- NOTE | 2021-06-19 11:48 | PT.IPTN ---
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) Surgery Performed Operation Date: 06/17/21 12:45 Actual Procedures p I&D foot with removal of foreign body(Left) - Erasmo Ashraf MD Physical Therapy Treatment Note M2 PT-IP Current Condition Start: 06/18/21 14:22 Freq: NEEDED Status: Active Protocol: Document 06/18/21 14:23 [facility] (Rec: 06/18/21 14:49 [facility] [id number]) Physical Therapy Current Condition Current Condition Evaluation Date 06/18/21 Treatment Diagnosis L diabetic foot infection s/p I&D and removal of foreign body Onset Date 06/17/21 M3 PT-IP Subjective Start: 06/18/21 14:22 Freq: NEEDED Status: Active Protocol: Document 06/19/21 10:58 AW (Rec: 06/19/21 11:48 AW [id number]) Subjective Physical Therapy Visit Type Type Treatment Note Visit Start Time 10:27 Visit Stop Time 10:58 Total Visit Minutes 31 Notes Pt's daughter was present throughout this encounter Physical Therapy Visit Comments Patient Comments Pt is willing to participate with PT. Dr. Garcia just cleaned up my dressing. Patient Goals Return home when stable M4 PT-IP Mobility and Gait Start: 06/18/21 14:22 Freq: NEEDED Status: Active Protocol: Document 06/19/21 10:58 AW (Rec: 06/19/21 11:48 AW [id number]) PT-Transfer Assessment Sit to and From Stand Sit to and from Stand Contact Guard Assistance,Use of Upper Extremities Equipment Transfer Assistive Device Gait Belt,Front Wheeled Walker Orthotic/Prosthetic Devices or Brace: Yes Transfers Transfer Destination Bed,Toilet Transfer Technique Stand Step Pivot Transfer Ability Level of Assist Contact Guard Assistance Comments Mobility Comments Pt was sitting up in the chair as PT arrived. PT assisted to don the offloading shoe LLE and pt's own shoe RLE. She stood CGA and used the FWW to ambulate around the room and into the halls 120 feet SBA. Pt needed cues for small steps and to keep her weight on her left heel. Pt agreed to trial platform step with FWW. She needed min assist and cues as well as assist to stabilized the walker. Pt's daughter was attentive but deferred on assisting today. Pt then used FWW to ambulate 120 feet back to her room SBA. She went to the bathroom, transferring to the toilet with heavy use of grab bars and cues to keep the walker in front of her until ready to sit. In standing, she was able to manage her briefs with CGA for balance. In sitting, she needed assist, to change her briefs. Pt stood and ambulated with FWW to the sink, again needing cues to square the walker up with her task. She then walked to the bed, transferring with HOB elevated CGA. She was positioned in bed with call light and tray table in reach. Gait Assessment Gait Gait Assistance Required: Standby Assistance,Contact Guard Assist Distance (Feet) 240 Able to Maintain Weight Bearing Status Yes During Gait Assistive Devices Assistive Device Gait Belt,Front Wheeled Walker Orthotic/Prosthetic Devices or Brace: Yes Gait Deviations General Gait Pattern Antalgic,Decreased Stride Length,Decreased Feet Clearance,Step-to Gait Comments Gait Comments Pt feels more comfortable with the offloading shoe today. PT recommended wearing a shoe on the right foot with a thicker sole if possible. Stair Climbing Assessment Evaluation Level of Assist On Stairs Minimal Assistance,1 Person Assistance Devices Stair Climbing Assistive Devices Front Wheel Walker Technique/Endurance Stair Climbing Direction Ascend and Descend Stair Climbing Technique Step to Step Number of Steps Climbed 1 Stair Climbing Set # Repetitions (reps) 1 Comments Stair Climbing Comments See mobility comments for details. Pt's daughter to provide assist at next visit. PT-Balance Assessment Sitting Balance and Reactions Static Sitting Balance Ability Good Dynamic Sitting Balance Ability Good Standing Balance and Reactions Static Standing Balance Ability Fair Dynamic Standing Balance Ability Fair Device Used FWW & L Wedge shoe M5 PT-IP Objective Assessments Start: 06/18/21 14:22 Freq: NEEDED Status: Active Protocol: Document 06/18/21 14:23 [facility] (Rec: 06/18/21 14:49 [facility] [id number]) Orientation Orientation/Cognition Level of Alertness Alert Language Function Ability No Deficits Noted Safety Awareness Understands Safety Issues Memory Description No Deficits Noted Strength Lower Extremity Strength Hip grossly 4/5 B Knee grossly 4/5 B M6 PT-IP Treatment Start: 06/18/21 14:22 Freq: NEEDED Status: Active Protocol: Document 06/19/21 10:58 AW (Rec: 06/19/21 11:48 AW [id number]) Physical Therapy Treatment Education Education Provided Precautions,Weight Bearing Status,Safety M7 PT-IP Assessment and Plan Start: 06/18/21 14:22 Freq: NEEDED Status: Active Protocol: Document 06/19/21 10:58 AW (Rec: 06/19/21 11:48 AW [id number]) PT Summary Assessment and Plan Summary Progress Towards Goals Progressing Toward Goals Assessment Summary Pt presents with improved stability using wedge shoe LLE and FWW today. Initiated stair training. Will conduct further training with pt's daughter providing assist prior to discharge. Pt anticipates need for outpatient wound care at discharge and would also benefit from outpatient PT for balance and gait training. Goals Bed Mobility Goal Independent Transfer Goal Standby Assistance Gait Goal Standby Assistance,Front Wheel Walker Gait Distance 150ft w/ L wedge shoe Other Goals up/down 1 step w/FWW SBA Days to Meet Goals 6 Frequency of Treatment Frequency Of Treatment Once a Day Treatment Plan Physical Therapy Treatment Plan Bed Mobility Training,Transfer Training,Gait Training, Therapeutic Exercise,Balance Retraining,Neuromuscular Re-ed Weight Bearing Status Weight Bearing Status Weight Bear as Tolerated Allowed Weight Bearing Amount (enter % w/wedge shoe LLE or #) (%) Recommendations To Nursing Amount of Assist Needed 1 Person Assist Discharge Recommendations PT Discharge Recommendations Home with Assistance,Home Health,Outpatient PT Transportation Needs at Discharge Private Vehicle
--- NOTE | 2021-06-19 13:08 | PM.PN.1 ---
Subjective Subjective Date Patient Seen: 06/19/21 Time Patient Seen: 10:00 Interval history: Earlier today she was seen by ortho. She was noted to have a area on the foot with greater fluctuance. This was drained by surgery at bedside. A wick was placed in the wound and dressings were replaced. When I saw her she was feeling well. She had no pain. Exam Vital Signs (past 8 hours): - 06/19/21 07:00 06/19/21 07:36 Temperature 97.9 F Pulse Rate 67 Respiratory Rate 18 Blood Pressure 142/42 H Pulse Oximetry 94 95 Oxygen Delivery Method Room Air Oxygen Flow Rate 0 Narrative Exam Narrative: General:? Alert NAD Lungs:? Clear Extremities:? Left foot dressing in place Objective Labs Result Diagrams: 06/19/21 04:20 06/19/21 04:20 Labs: Laboratory Results - last 24 hr 06/19/21 06/19/21 04:20 04:20 WBC 12.8 H RBC 2.66 L Hgb 7.5 L Hct 23.6 L MCV 88.6 MCH 28.2 MCHC 31.8 RDW 24.3 H Plt Count 125 L Neut % (Auto) Not Reportable Lymph % (Auto) Not Reportable [place] % (Auto) Not Reportable Eos % (Auto) Not Reportable Baso % (Auto) Not Reportable Lymph # (Auto) Not Reportable [place] # (Auto) Not Reportable Baso # (Auto) Not Reportable Total Counted 100 Seg Neutrophils % 57.0 Band Neutrophils % 14.0 H Lymphocytes % (Manual) 8.0 L Atypical Lymphs % 3.0 H Monocytes % (Manual) 11.0 Metamyelocytes % 7.0 H Neutrophils # (Manual) 9088 H Plt Morphology Comment . RBC Morphology See below Poikilocytosis 1+ H Anisocytosis 3+ H Tear Drop Cells 2+ H Ovalocytes 1+ H Schistocytes 1+ H Sodium 138 Potassium 3.6 Chloride 107 Carbon Dioxide 25 BUN 18 H Creatinine 0.97 Estimated GFR 55.0 L BUN/Creatinine Ratio 18.6 Glucose 138 H Calcium 8.7 Total Bilirubin 0.5 AST 31 ALT 15 Alkaline Phosphatase 84 Total Protein 6.3 Albumin 3.3 L Globulin 3.0 Albumin/Globulin Ratio 1.1 PFSH Medical History Chronic ITP (idiopathic thrombocytopenic purpura) DVT (deep venous thrombosis) Essential hypertension Hypothyroid Type II diabetes mellitus Warfarin anticoagulation Surgical History Status post appendectomy (~2005) Status post tonsillectomy and adenoidectomy (~194) Social History household members: none caregiver/support person: Yes (She is accompanied by her daughter.) Smoking Status: Former smoker alcohol intake: never Assessment & Plan Assessment & Plan narrative: 1. Left foot cellulitis/abscess associated with diabetic foot ulcer -s/p I & D 06/17 with removal metal sliver between plantar 1st and 2nd metatarsal heads -had bedside I&D of abscess on 06/19 as well -imaging showed possible subcutaneous needle between 1st and 2nd metatarsal heads -wound culture from admission growing Staph aureus that is pansensitive -vanco dc'd, now on cefazolin, continue zosyn until cultures finalized -per Ortho, patient may heel weightbear in a Darco forefoot offloading wedge shoe or postop shoe if wedge shoe not available -PT consult 2. Sepsis with acute organ dysfunction, resolved -initial so fall score of 3 based on low platelets and CLEO -continue antibiotic management as above 3. Acute kidney injury, resolved -initial serum creatinine 1.3 addressed with management of sepsis -continue patient's carvedilol and losartan 4. Chronic ITP -monitor platelets -patient treated with romiplostim weekly on Mondays 5. Type 2 diabetes, well controlled -hold glipizide in hospital and use sliding scale 6. Chronic left lower extremity DVT -resumed warfarin postop -received vitamin K and FFP preop -recheck INR 06/21 7. Acute on chronic anemia -hemoglobin drop to < 7.5 due to acute illness, inflammatory block without evidence of acute bleed -baseline hemoglobin is 8.2 -continue trending -transfusion not indicated at this time Time Spent With Patient Critical Care time: I spent a total of [] minutes of critical care time on this patient's care today; this time is exclusive of procedural time. Quality VTE Deep Vein Thrombosis/Pulmonary Embolism Present on Admission: No
[2021-06-19] MEDS: carvediloL 3.125 MG TABLET PO (18:53)
[2021-06-19] MEDS: WARFARIN 5 MG TABLET PO (18:54)
[2021-06-19] MEDS: LOSARTAN 50 MG TABLET 25 MG PO (21:56)
[2021-06-20] VITALS (9 sets, daily range): BP systolic 153–167; BP diastolic 43–58; PULSE 58–69; RESP 16–18; TEMP 35.6–37.3; O2SAT 92–98
[2021-06-20 05:20] LABS: Hemoglobin 7.3 g/dL (12.0-16.0); Mean Corpuscular HGB Conc 31.8 % (30-36); Mean Corpuscular Hemoglobin 28.2 PG (26-34); Mean Corpuscular Volume 88.6 fL (80-100); Platelet Count 132 X10^3/uL (150-400); Red Blood Cell Count 2.59 X10^6/uL (4.0-5.2); Red Cell Distribution Width 23.4 % (11.6-14.8); White Blood Cell Count 11.8 X10^3/uL (4.5-11.0)
[2021-06-20 05:22] LABS: Add Manual Diff / Slide Review YES
[2021-06-20 05:25] LABS: BUN Creatinine Ratio 15.9 (6-22); Blood Urea Nitrogen 13 mg/dL (7-17); Calcium 8.8 mg/dL (8.4-10.2); Carbon Dioxide 26 mmol/L (22-32); Chloride 107 mmol/L (98-107); Estimated Glomerular Filt Rate > 60.0 mL/min (>60); Glucose 132 mg/dL (80-110); HEMOLYSIS < 15 (0-50); Potassium 3.6 mmol/L (3.4-5.1); Sodium 137 mmol/L (137-145)
[2021-06-20 05:48] LABS: Neutrophils Absolute Manual 7316 /uL (3000-5900); Total Cells Counted 100
[2021-06-20 05:49] LABS: Anisocytosis 2+; Ovalocytes 2+; Schistocytes 1+; Tear Drop Cells 1+
[2021-06-20] MEDS: CEFAZOLIN 2 GM/20 ML SYRINGE IV ×3 (05:58→21:15)
[2021-06-20] MEDS: PIPERACILLIN/TAZO 3.375 GM in SODIUM CHLORIDE 0.9% 100 ML 25 ML IV ×3 (05:59→21:18)
[2021-06-20] MEDS: LEVOTHYROXINE 100 MCG TABLET PO (06:09)
--- NOTE | 2021-06-20 08:02 | P.PN_ITS ---
Subjective Subjective Date Patient Seen: 06/20/21 Time Patient Seen: 08:02 Interval history: 80-year-old female with left foot forefoot infection and metallic foreign body and plantar foot status post I&D and removal of foreign body by Dr. Ashraf on 06/17/2021.? She also underwent a bedside left foot dorsal I&D with Dr. Garcia on 06/19/21. Cultures with Staph aureus pansensitive.? Patient is complaining of mild left foot pain. She has baseline of neuropathy. Current knee on Ancef and person. She feels much improvement since surgery and her bedside I& D. She is concerned about going home since she lives alone. Exam Vital Signs (past 8 hours): - 06/20/21 06:04 06/20/21 07:09 Temperature 97.3 F L Pulse Rate 67 Respiratory Rate 16 Blood Pressure 161/50 H Pulse Oximetry 92 98 Oxygen Delivery Method Room Air Oxygen Flow Rate 0 Narrative Exam Narrative: Pleasant 80-year-old female, resting in bed, in no acute distress. Left foot is wrapped.? No gross drainage.? The gauze wick is removed from the plantar and dorsal wounds without any obvious additional purulence.? Mild cellulitis over the dorsum of the foot, but nothing above the ankle. The wound was repacked and re-bandaged. Objective Labs Result Diagrams: 06/20/21 04:40 06/20/21 04:40 Labs: Laboratory Results - last 24 hr 06/20/21 06/20/21 04:40 04:40 WBC 11.8 H RBC 2.59 L Hgb 7.3 L Hct 23.0 L MCV 88.6 MCH 28.2 MCHC 31.8 RDW 23.4 H Plt Count 132 L Neut % (Auto) Not Reportable Lymph % (Auto) Not Reportable [place] % (Auto) Not Reportable Eos % (Auto) Not Reportable Baso % (Auto) Not Reportable Lymph # (Auto) Not Reportable [place] # (Auto) Not Reportable Baso # (Auto) Not Reportable Total Counted 100 Seg Neutrophils % 47.0 Band Neutrophils % 15.0 H Lymphocytes % (Manual) 8.0 L Atypical Lymphs % 7.0 H Monocytes % (Manual) 11.0 Metamyelocytes % 9.0 H Myelocytes % 3.0 H Neutrophils # (Manual) 7316 H Plt Morphology Comment . RBC Morphology See below Anisocytosis 2+ H Tear Drop Cells 1+ H Ovalocytes 2+ H Schistocytes 1+ H Sodium 137 Potassium 3.6 Chloride 107 Carbon Dioxide 26 BUN 13 Creatinine 0.82 Estimated GFR > 60.0 BUN/Creatinine Ratio 15.9 Glucose 132 H Calcium 8.8 PFSH Medical History Chronic ITP (idiopathic thrombocytopenic purpura) DVT (deep venous thrombosis) Essential hypertension Hypothyroid Type II diabetes mellitus Warfarin anticoagulation Surgical History Status post appendectomy (~2005) Status post tonsillectomy and adenoidectomy (~194) Social History household members: none caregiver/support person: Yes (She is accompanied by her daughter.) Smoking Status: Former smoker alcohol intake: never Assessment & Plan Post-op Postoperative Procedures: Procedures Operation Date: 06/17/21 12:45 Actual Procedure Side Surgeon p I&D foot with removal of foreign body Left Erasmo Ashraf MD Postoperative day: 3 Postoperative status: doing well Postoperative status narrative: Stable status post left foot I &D with removal of foreign body, additional bedside dorsal I &D on 06/19 Postoperative plan: routine post-op care Postoperative plan narrative: -daily packing changes. -Recommend monitoring with IV antibiotics at least another day or two to make sure her dorsal the cellulitis is improving but I expect now that the abscess has been drained this should improve. -Disposition: [facility] [place] [facility] or daily wound care packing changes for the next few weeks while the wounds heal by secondary intention. -Discussed if she has any worsening appearance may need additional operative debridement but will see how she does over the next couple days with IV antibiotics and daily floor packing changes. Quality VTE Deep Vein Thrombosis/Pulmonary Embolism Present on Admission: No
[2021-06-20] MEDS: LACTOBACILLUS ACIDOPHILUS TABLET 1 EACH PO ×2 (08:27→18:21)
[2021-06-20] MEDS: ASCORBIC ACID 500 MG TABLET 250 MG PO (08:27)
[2021-06-20] MEDS: carvediloL 3.125 MG TABLET PO ×2 (08:28→21:15)
[2021-06-20] MEDS: FAMOTIDINE 20 MG TABLET PO (08:28)
[2021-06-20] MEDS: VIT C/E/ZN/COPPR/LUTEIN/ZEAXAN CAPSULE 1 CAP PO ×2 (08:28→21:15)
--- NOTE | 2021-06-20 09:37 | PM.PN.1 ---
Subjective Subjective Date Patient Seen: 06/20/21 Time Patient Seen: 08:00 Interval history: She had bandage change this morning by ortho. She feels well with no pain. Exam Vital Signs (past 8 hours): - 06/20/21 06:04 06/20/21 07:09 06/20/21 08:00 Temperature 97.3 F L 99.2 F Pulse Rate 67 69 Respiratory Rate 16 16 Blood Pressure 161/50 H 167/52 H Pulse Oximetry 92 98 94 06/20/21 08:28 Temperature Pulse Rate 67 Respiratory Rate Blood Pressure 161/50 H Pulse Oximetry Oxygen Delivery Method Room Air Oxygen Flow Rate 0 Narrative Exam Narrative: General:? Alert NAD Lungs:? Clear Extremities:? Left foot dressing in place Objective Labs Result Diagrams: 06/20/21 04:40 06/20/21 04:40 Labs: Laboratory Results - last 24 hr 06/20/21 06/20/21 04:40 04:40 WBC 11.8 H RBC 2.59 L Hgb 7.3 L Hct 23.0 L MCV 88.6 MCH 28.2 MCHC 31.8 RDW 23.4 H Plt Count 132 L Neut % (Auto) Not Reportable Lymph % (Auto) Not Reportable [place] % (Auto) Not Reportable Eos % (Auto) Not Reportable Baso % (Auto) Not Reportable Lymph # (Auto) Not Reportable [place] # (Auto) Not Reportable Baso # (Auto) Not Reportable Total Counted 100 Seg Neutrophils % 47.0 Band Neutrophils % 15.0 H Lymphocytes % (Manual) 8.0 L Atypical Lymphs % 7.0 H Monocytes % (Manual) 11.0 Metamyelocytes % 9.0 H Myelocytes % 3.0 H Neutrophils # (Manual) 7316 H Plt Morphology Comment . RBC Morphology See below Anisocytosis 2+ H Tear Drop Cells 1+ H Ovalocytes 2+ H Schistocytes 1+ H Sodium 137 Potassium 3.6 Chloride 107 Carbon Dioxide 26 BUN 13 Creatinine 0.82 Estimated GFR > 60.0 BUN/Creatinine Ratio 15.9 Glucose 132 H Calcium 8.8 PFSH Medical History Chronic ITP (idiopathic thrombocytopenic purpura) DVT (deep venous thrombosis) Essential hypertension Hypothyroid Type II diabetes mellitus Warfarin anticoagulation Surgical History Status post appendectomy (~2005) Status post tonsillectomy and adenoidectomy (~194) Social History household members: none caregiver/support person: Yes (She is accompanied by her daughter.) Smoking Status: Former smoker alcohol intake: never Assessment & Plan Assessment & Plan narrative: 1. Left foot cellulitis/abscess associated with diabetic foot ulcer -s/p I & D 06/17 with removal metal sliver between plantar 1st and 2nd metatarsal heads -had bedside I&D of abscess on 06/19 as well -imaging showed possible subcutaneous needle between 1st and 2nd metatarsal heads -wound culture from admission growing Staph aureus that is pansensitive -vanco dc'd, now on cefazolin, continue zosyn until cultures finalized -per Ortho, patient may heel weightbear in a [place] forefoot offloading wedge shoe or postop shoe if wedge shoe not available -PT consult 2. Sepsis with acute organ dysfunction, resolved -initial so fall score of 3 based on low platelets and CLEO -continue antibiotic management as above 3. Acute kidney injury, resolved -initial serum creatinine 1.3 addressed with management of sepsis -continue patient's carvedilol and losartan 4. Chronic ITP -monitor platelets -patient treated with romiplostim weekly on Mondays 5. Type 2 diabetes, well controlled -hold glipizide in hospital and use sliding scale 6. Chronic left lower extremity DVT -resumed warfarin postop -received vitamin K and FFP preop -recheck INR 06/21 7. Acute on chronic anemia -hemoglobin drop to < 7.5 due to acute illness, inflammatory block without evidence of acute bleed -baseline hemoglobin is 8.2 -continue trending -transfusion not indicated at this time Time Spent With Patient Critical Care time: I spent a total of [] minutes of critical care time on this patient's care today; this time is exclusive of procedural time. Quality VTE Deep Vein Thrombosis/Pulmonary Embolism Present on Admission: No
[2021-06-20] MEDS: ROMIPLOSTIM 250 MCG/0.5 ML 190 MCG SUBCUT (10:30)
[2021-06-20] MEDS: FUROSEMIDE 20 MG TABLET PO (11:06)
--- NOTE | 2021-06-20 11:15 | PT.IPTN ---
Current Diagnoses Puncture wound with foreign body, left foot, initial encounter (06/16/21) Surgery Performed Operation Date: 06/17/21 12:45 Actual Procedures p I&D foot with removal of foreign body(Left) - Erasmo Ashraf MD Physical Therapy Treatment Note M2 PT-IP Current Condition Start: 06/18/21 14:22 Freq: NEEDED Status: Active Protocol: Document 06/18/21 14:23 [facility] (Rec: 06/18/21 14:49 [facility] [id number]) Physical Therapy Current Condition Current Condition Evaluation Date 06/18/21 Treatment Diagnosis L diabetic foot infection s/p I&D and removal of foreign body Onset Date 06/17/21 M3 PT-IP Subjective Start: 06/18/21 14:22 Freq: NEEDED Status: Active Protocol: Document 06/20/21 11:15 AW (Rec: 06/20/21 13:13 AW [id number]) Subjective Physical Therapy Visit Type Type Treatment Note Visit Start Time 10:50 Visit Stop Time 11:15 Total Visit Minutes 25 Notes Pt's daughter was present throughout this encounter Physical Therapy Visit Comments Patient Comments Pt is willing to participate with PT. I feel really cold today and didn't sleep well last night. Patient Goals Return home when stable M4 PT-IP Mobility and Gait Start: 06/18/21 14:22 Freq: NEEDED Status: Active Protocol: Document 06/20/21 11:15 AW (Rec: 06/20/21 13:13 AW [id number]) PT-Bed Mobility Assessment Supine to Sit Supine to Sit Standby Assistance,Bedrails Sit to Supine Sit to Supine Standby Assistance,Bedrails PT-Transfer Assessment Sit to and From Stand Sit to and from Stand Contact Guard Assistance,Use of Upper Extremities Equipment Transfer Assistive Device Gait Belt,Front Wheeled Walker Orthotic/Prosthetic Devices or Brace: Yes Transfers Transfer Destination Bed,Toilet Transfer Technique Stand Step Pivot Transfer Ability Level of Assist Standby Assistance Comments Mobility Comments Pt was reclined in bed as PT arrived. She sat up EOB and PT assisted with donning offloading shoe LLE and pt's own shoe RLE. She stood and requested to use the toilet, ambulating with FWW SBA. She transferred SBA and was able to manage her briefs independently. She depended heavily on the grab bar to stand again and agreed to ambulate in the halls. On return to the room, she requested return to bed, completing sit to supine SBA. Pt was left with call light and tray table in reach. Gait Assessment Gait Gait Assistance Required: Standby Assistance,Contact Guard Assist Distance (Feet) 240 Able to Maintain Weight Bearing Status Yes During Gait Assistive Devices Assistive Device Gait Belt,Front Wheeled Walker Orthotic/Prosthetic Devices or Brace: Yes Gait Deviations General Gait Pattern Antalgic,Decreased Stride Length,Decreased Feet Clearance Factors Limiting Gait Function Factors Limiting Gait Function Decreased Sensation,Poor Balance Comments Gait Comments Pt required more frequent rest breaks during gait today. Standing rest breaks ~ every 50 feet with pt stating she was more tired today. Stair Climbing Assessment Evaluation Level of Assist On Stairs Minimal Assistance,1 Person Assistance Devices Stair Climbing Assistive Devices Front Wheel Walker Technique/Endurance Stair Climbing Direction Ascend and Descend Stair Climbing Technique Step to Step Number of Steps Climbed 1 Stair Climbing Set # Repetitions (reps) 1 Comments Stair Climbing Comments Pt's daughter provided min assist and stabilized the walker to go up/down platform step. PT-Balance Assessment Sitting Balance and Reactions Static Sitting Balance Ability Good Dynamic Sitting Balance Ability Good Standing Balance and Reactions Static Standing Balance Ability Fair Dynamic Standing Balance Ability Fair Device Used FWW & L Wedge shoe Comments Other Balance Tests/Deviations/Treatment Pt had one lateral LOB during : a turn after completing stair training but was able to recover without assist. M5 PT-IP Objective Assessments Start: 06/18/21 14:22 Freq: NEEDED Status: Active Protocol: Document 06/18/21 14:23 [facility] (Rec: 06/18/21 14:49 [facility] [id number]) Orientation Orientation/Cognition Level of Alertness Alert Language Function Ability No Deficits Noted Safety Awareness Understands Safety Issues Memory Description No Deficits Noted Strength Lower Extremity Strength Hip grossly 4/5 B Knee grossly 4/5 B M6 PT-IP Treatment Start: 06/18/21 14:22 Freq: NEEDED Status: Active Protocol: Document 06/20/21 11:15 AW (Rec: 06/20/21 13:13 AW [id number]) Physical Therapy Treatment Education Education Provided Precautions,Weight Bearing Status,Safety M7 PT-IP Assessment and Plan Start: 06/18/21 14:22 Freq: NEEDED Status: Active Protocol: Document 06/20/21 11:15 AW (Rec: 06/20/21 13:13 AW [id number]) PT Summary Assessment and Plan Potential Rehabilitation Potential Good Status of Condition at Evaluation Evolving Summary Progress Towards Goals Progressing Toward Goals Assessment Summary Pt able to complete stair training with daughter providing assist today. She is more easily fatigued today and had one LOB after stair training but did not need assist to recover. Pt anticipates need for outpatient wound care at discharge and would also benefit from outpatient PT for balance and gait training. Goals Bed Mobility Goal Independent Transfer Goal Standby Assistance Gait Goal Standby Assistance,Front Wheel Walker Gait Distance 150ft w/ L wedge shoe Other Goals up/down 1 step w/FWW SBA Days to Meet Goals 6 Frequency of Treatment Frequency Of Treatment Once a Day Treatment Plan Physical Therapy Treatment Plan Bed Mobility Training,Transfer Training,Gait Training, Therapeutic Exercise,Balance Retraining,Neuromuscular Re-ed Weight Bearing Status Weight Bearing Status Weight Bear as Tolerated Allowed Weight Bearing Amount (enter % w/wedge shoe LLE or #) (%) Recommendations To Nursing Amount of Assist Needed 1 Person Assist Discharge Recommendations PT Discharge Recommendations Home with Assistance,Home Health,Outpatient PT Transportation Needs at Discharge Private Vehicle
--- NOTE | 2021-06-20 14:14 | CM.DANOTE ---
DCP/continued: Reviewed chart. At this time patient requiring daily dressing changes on left foot. STUDENT RECORDS SPECIALIST met with patient explained CM/SW role. Patient reports that she believes that she will want to come to outpatient wound care for dressing changes however, she needs to discuss with her daughter/Ashley. Spoke with RN whom reports that wound care is daily and packing still involved. Patient reports that she has referral for outpatient therapy ordered by Dr. Asif. Patient reports that Dr. Asif unaware of current hospitalization and she will have her daughter notify her. Patient requesting FWW for home use. Will request order from provider. STUDENT RECORDS SPECIALIST will follow up with patient in AM on whether she would like home with home health or outpatient wound care f/u. Either way patient made aware that payor will most likely not pay for daily dressing changes. RN instructed to discuss with patient and daughter. It would be in patient's best interest to have family taught. P: Pending. CHARLIE
[2021-06-20] MEDS: WARFARIN 5 MG TABLET PO (18:20)
[2021-06-20] MEDS: LOSARTAN 50 MG TABLET 25 MG PO (21:16)
[2021-06-20] MEDS: SODIUM CHLORIDE 0.9% FLUSH 10 ML IV (21:18)
[2021-06-21] VITALS (12 sets, daily range): BP systolic 148–182; BP diastolic 40–66; PULSE 58–67; RESP 17–20; TEMP 36–36.6; O2SAT 93–95
[2021-06-21 05:34] LABS: INR 2.5 (0.9-1.3); Prothrombin Time 28.8 SECONDS (10.1-12.7)
[2021-06-21] MEDS: CEFAZOLIN 2 GM/20 ML SYRINGE IV ×3 (05:45→21:44)
[2021-06-21] MEDS: LEVOTHYROXINE 100 MCG TABLET PO (05:45)
[2021-06-21] MEDS: PIPERACILLIN/TAZO 3.375 GM in SODIUM CHLORIDE 0.9% 100 ML 25 ML IV (05:45)
--- NOTE | 2021-06-21 07:55 | P.PN_ITS ---
Subjective Subjective Date Patient Seen: 06/21/21 Time Patient Seen: 07:55 Interval history: 80-year-old female with left foot forefoot infection and metallic foreign body and plantar foot status post I&D and removal of foreign body by Dr. Ashraf on 06/17/2021.? She also underwent a bedside left foot dorsal I&D with Dr. Garcia on 06/19/21. ? Cultures with Staph aureus pansensitive.? Patient is complaining of mild left foot pain.? She is having some new shooting, electrical sensations. She has baseline of neuropathy.? Current knee on Ancef and pipercillin.? She feels much improvement since surgery, and her bedside I& D.? She is is feeling better and would like to be discharged home with daily outpatient wound therapy. Exam Vital Signs (past 8 hours): - 06/21/21 00:22 06/21/21 03:40 Temperature 97.6 F 97.6 F Pulse Rate 67 66 Respiratory Rate 18 17 Blood Pressure 154/64 H 150/40 H Pulse Oximetry 93 93 Oxygen Delivery Method Room Air Oxygen Flow Rate 0 Narrative Exam Narrative: Pleasant 80-year-old female, resting in bed, in no acute distress.? Left foot is wrapped.? Dressing is moderately soaked with serous drainage.? The gauze wick is removed from the plantar and dorsal wounds without any obvious additional purulence.? Mild cellulitis over the dorsum of the foot, but nothing above the ankle. There is new subcu darkening of the skin at the base of the 2nd toe, dorsal side. The wound was repacked and re-bandaged. Calves are soft and nontender to palpation. Objective Labs Result Diagrams: 06/20/21 04:40 06/20/21 04:40 Labs: Laboratory Results - last 24 hr 06/21/21 05:05 PT 28.8 H D INR 2.5 H PFSH Medical History Chronic ITP (idiopathic thrombocytopenic purpura) DVT (deep venous thrombosis) Essential hypertension Hypothyroid Type II diabetes mellitus Warfarin anticoagulation Surgical History Status post appendectomy (~2005) Status post tonsillectomy and adenoidectomy (~1942) Social History household members: none caregiver/support person: Yes (She is accompanied by her daughter.) Smoking Status: Former smoker alcohol intake: never Assessment & Plan Post-op Postoperative Procedures: Procedures Operation Date: 06/17/21 12:45 Actual Procedure Side Surgeon p I&D foot with removal of foreign body Left Erasmo Ashraf MD Postoperative day: 4 Postoperative status narrative: Stable status post left foot I &D with removal of foreign body, additional bedside dorsal I &D on 06/19 Postoperative plan narrative: -daily packing changes. -transition from IV antibiotics to p.o. antibiotics per Medicine recommendation -Disposition: likely detention or outpatient daily wound care packing changes for the next few weeks while the wounds heal by secondary intention. -Discussed if she has any worsening appearance may need additional operative debridement but will see how she does over the next couple days with IV antibiotics and daily floor packing changes. -wear postop shoe at all times when out of bed Quality VTE Deep Vein Thrombosis/Pulmonary Embolism Present on Admission: No
[2021-06-21] MEDS: carvediloL 3.125 MG TABLET PO ×2 (09:33→21:43)
[2021-06-21] MEDS: ASCORBIC ACID 500 MG TABLET 250 MG PO (09:33)
[2021-06-21] MEDS: LACTOBACILLUS ACIDOPHILUS TABLET 1 EACH PO ×3 (09:33→17:05)
[2021-06-21] MEDS: VIT C/E/ZN/COPPR/LUTEIN/ZEAXAN CAPSULE 1 CAP PO ×2 (09:33→21:42)
[2021-06-21] MEDS: FUROSEMIDE 20 MG TABLET PO (09:34)
[2021-06-21] MEDS: FAMOTIDINE 20 MG TABLET PO (09:34)
[2021-06-21] MEDS: INSULIN LISPRO 100 UNIT/ML 3ML VIAL SUBCUT ×3 (09:36→17:08)
[2021-06-21] MEDS: SODIUM CHLORIDE 0.9% FLUSH 10 ML IV ×3 (09:36→21:44)
--- NOTE | 2021-06-21 11:42 | PT.IPTN ---
Current Diagnoses Puncture wound with foreign body, left foot, initial encounter (06/16/21) Surgery Performed Operation Date: 06/17/21 12:45 Actual Procedures p I&D foot with removal of foreign body(Left) - Erasmo Ashraf MD Physical Therapy Treatment Note M2 PT-IP Current Condition Start: 06/18/21 14:22 Freq: NEEDED Status: Active Protocol: Document 06/21/21 09:28 SP (Rec: 06/21/21 11:46 SP [id number]) Physical Therapy Current Condition Current Condition Evaluation Date 06/18/21 Treatment Diagnosis L diabetic foot infection s/p I&D and removal of foreign body Onset Date 06/17/21 M3 PT-IP Subjective Start: 06/18/21 14:22 Freq: NEEDED Status: Active Protocol: Document 06/21/21 09:28 SP (Rec: 06/21/21 11:46 SP [id number]) Subjective Physical Therapy Visit Type Type Treatment Note Visit Start Time 09:28 Visit Stop Time 09:42 Total Visit Minutes 14 Number of SCIENTIFIC INFORMATICS LEADER Visits 1 Physical Therapy Visit Comments Patient Comments Pt willing to work with therapy. Therapy Pain Assessment Pain Present Pain Present Denied Pain M4 PT-IP Mobility and Gait Start: 06/18/21 14:22 Freq: NEEDED Status: Active Protocol: Document 06/21/21 09:28 SP (Rec: 06/21/21 11:46 SP [id number]) PT-Transfer Assessment Sit to and From Stand Sit to and from Stand Standby Assistance,Use of Upper Extremities Equipment Transfer Assistive Device Gait Belt,Front Wheeled Walker Orthotic/Prosthetic Devices or Brace: Yes Transfers Transfer Destination Chair Transfer Technique ambulated using FWW Transfer Ability Level of Assist Standby Assistance Comments Mobility Comments Pt was reclined in chair when arrived. Completed leg rest down with assist. Pt able support own LLE down itself w/ L wedge shoe donned. Sit> stand LLE positioned in front with BUE push from chair arms SBA usign FWW, progressed gait into hallway approx 20 ft sBA , completed ascend/descend 1 PF step usign fWW, CGA- 5% A for trunk stability and cues for patterning FWW and BLE lead RLE up/ LLE down. Pt progressed gait 120 ft total using FWW in hallway SBA with 1 stop stand rest for tiring recovery and decrease slightly elevated breath rate approx 20 sec and returned to chair, stand>sit SBA. Pt requested to assist with dispensed FWW for use at home due to unable to acquire one from [facility] being closed for 2 weeks. SCIENTIFIC INFORMATICS LEADER also requested DME form for recommendations how to accquire transfer bench to assist with showering and will start calling today. Pt seated in chair with call light and all needs in reach before left. SCIENTIFIC INFORMATICS LEADER dispensed FWW for home use once received order. Gait Assessment Gait Gait Assistance Required: Standby Assistance,Contact Guard Assist Distance (Feet) 140 Able to Maintain Weight Bearing Status Yes During Gait Assistive Devices Assistive Device Gait Belt,Front Wheeled Walker Orthotic/Prosthetic Devices or Brace: Yes Gait Deviations General Gait Pattern Antalgic,Decreased Stride Length,Decreased Feet Clearance Factors Limiting Gait Function Factors Limiting Gait Function Decreased Activity Tolerance, Decreased Strength Comments Gait Comments Pt required decrease to 1 stand rest break during gait but 1/2 the distance today after completing PF step. Stair Climbing Assessment Evaluation Level of Assist On Stairs Minimal Assistance,1 Person Assistance Devices Stair Climbing Assistive Devices Front Wheel Walker Technique/Endurance Stair Climbing Direction Ascend and Descend Stair Climbing Technique Step to Step Number of Steps Climbed 1 Stair Climbing Set # Repetitions (reps) 1 Comments Stair Climbing Comments pre required 5%A for trunk stability during ascend 1 PF step using FWW CGA for safety on/off step repositioning. No LOB, wt shift deviation but CGA assist recovered at top. PT-Balance Assessment Sitting Balance and Reactions Static Sitting Balance Ability Good Dynamic Sitting Balance Ability Good Standing Balance and Reactions Static Standing Balance Ability Fair Dynamic Standing Balance Ability Fair Device Used FWW & L Wedge shoe M5 PT-IP Objective Assessments Start: 06/18/21 14:22 Freq: NEEDED Status: Active Protocol: Document 06/18/21 14:23 [facility] (Rec: 06/18/21 14:49 [facility] [id number]) Orientation Orientation/Cognition Level of Alertness Alert Language Function Ability No Deficits Noted Safety Awareness Understands Safety Issues Memory Description No Deficits Noted Strength Lower Extremity Strength Hip grossly 4/5 B Knee grossly 4/5 B M6 PT-IP Treatment Start: 06/18/21 14:22 Freq: NEEDED Status: Active Protocol: Document 06/21/21 09:28 SP (Rec: 06/21/21 11:46 SP [id number]) Physical Therapy Treatment Education Education Provided Precautions,Weight Bearing Status,Safety M7 PT-IP Assessment and Plan Start: 06/18/21 14:22 Freq: NEEDED Status: Active Protocol: Document 06/21/21 09:28 SP (Rec: 06/21/21 11:46 SP [id number]) PT Summary Assessment and Plan Potential Rehabilitation Potential Good Status of Condition at Evaluation Evolving Summary Impairments ROM,Strength,Balance,Bed Mobility,Transfers,Gait, Activity Tolerance Progress Towards Goals Progressing Toward Goals Assessment Summary SBA for transfers, gait using FWW, CG- 5%A during stair mgt with FWW. Pt able to return home with daughter to assist her when medically cleared. SCIENTIFIC INFORMATICS LEADER dispensing FWW for home use and provided DME info hand out to acquire a transfer bench for safety during showers. Pt anticipates need for outpatient wound care at discharge and would also benefit from outpatient PT for balance and gait training. Goals Bed Mobility Goal Independent Transfer Goal Standby Assistance Gait Goal Standby Assistance,Front Wheel Walker Gait Distance 150ft w/ L wedge shoe Other Goals up/down 1 step w/FWW SBA Days to Meet Goals 6 Frequency of Treatment Frequency Of Treatment Once a Day Treatment Plan Physical Therapy Treatment Plan Bed Mobility Training,Transfer Training,Gait Training, Therapeutic Exercise,Balance Retraining,Neuromuscular Re-ed Other Recommendations and Next Treatment Gait using fWW Focus Weight Bearing Status Weight Bearing Status Weight Bear as Tolerated Allowed Weight Bearing Amount (enter % w/wedge shoe LLE or #) (%) Recommendations To Nursing Amount of Assist Needed Standby Assistance,1 Person Assist Discharge Recommendations PT Discharge Recommendations Home with Assistance, Outpatient PT Equipment Needed for Home Before Dispensed FWW (Unable to Discharge acquire one from [facility]), gave DME hand out to accquire transfer bench. Transportation Needs at Discharge Private Vehicle
--- NOTE | 2021-06-21 11:52 | PC.NURSE ---
0740 Dressing to left foot changed this morning by Geraldine VILLAVICENCIO. Old dressing and packing removed. New 1/2 Iodoform packing lightly tamped in place in dorsal and planter I & D openings, 4 x 4's covering top and bottom of foot over packed areas, 4 x 4's opened lengthwise and placed between each toe area and foot then wrapped with conform dressing to keep in place. Sock placed over dressing to further keep dressing in place. Boot to be worn any time Pt is up out of bed to protect foot. Pt tolerated well.
--- NOTE | 2021-06-21 12:18 | PM.PN.1 ---
Subjective Subjective Date Patient Seen: 06/21/21 Time Patient Seen: 08:00 Interval history: Today she feels improved. She has some foot pain, that is controlled. She did get another dressing change this morning. Exam Vital Signs (past 8 hours): - 06/21/21 07:35 06/21/21 08:00 06/21/21 09:33 Temperature 96.9 F L Pulse Rate 65 Respiratory Rate 20 Blood Pressure 169/66 H 169/66 H Pulse Oximetry 94 94 06/21/21 11:00 Temperature 96.8 F L Pulse Rate 58 L Respiratory Rate 20 Blood Pressure 148/42 H Pulse Oximetry 94 Oxygen Delivery Method Room Air Oxygen Flow Rate 0 Narrative Exam Narrative: General:? Alert NAD Lungs:? Clear Extremities:? Left foot dressing in place Objective Labs Result Diagrams: 06/20/21 04:40 06/20/21 04:40 Labs: Laboratory Results - last 24 hr 06/21/21 05:05 PT 28.8 H D INR 2.5 H PFSH Medical History Chronic ITP (idiopathic thrombocytopenic purpura) DVT (deep venous thrombosis) Essential hypertension Hypothyroid Type II diabetes mellitus Warfarin anticoagulation Surgical History Status post appendectomy (~2005) Status post tonsillectomy and adenoidectomy (~1941) Social History household members: none caregiver/support person: Yes (She is accompanied by her daughter.) Smoking Status: Former smoker alcohol intake: never Assessment & Plan Assessment & Plan narrative: 1. Left foot cellulitis/abscess associated with diabetic foot ulcer -s/p I & D 06/17 with removal metal sliver between plantar 1st and 2nd metatarsal heads -had bedside I&D of abscess on 06/19 as well -imaging showed possible subcutaneous needle between 1st and 2nd metatarsal heads -wound culture from admission growing Staph aureus that is pansensitive -bisi dc'd, now on cefazolin, continue zosyn until cultures finalized -per Ortho, patient may heel weightbear in a [place]co forefoot offloading wedge shoe or postop shoe if wedge shoe not available -PT consult 2. Sepsis with acute organ dysfunction, resolved -initial so fall score of 3 based on low platelets and CLEO -continue antibiotic management as above 3. Acute kidney injury, resolved -initial serum creatinine 1.3 addressed with management of sepsis -continue patient's carvedilol and losartan 4. Chronic ITP -monitor platelets -patient treated with romiplostim weekly on Mondays 5. Type 2 diabetes, well controlled -hold glipizide in hospital and use sliding scale 6. Chronic left lower extremity DVT -resumed warfarin postop -received vitamin K and FFP preop -recheck INR 06/21 7. Acute on chronic anemia -hemoglobin drop to < 7.5 due to acute illness, inflammatory block without evidence of acute bleed -baseline hemoglobin is 8.2 -continue trending -transfusion not indicated at this time Patient much improved. Plan for dc tomorrow after teaching family dressing changes. Appears medically stable will plan for discharged on oral antibiotics. Time Spent With Patient Critical Care time: I spent a total of [] minutes of critical care time on this patient's care today; this time is exclusive of procedural time. Quality VTE Deep Vein Thrombosis/Pulmonary Embolism Present on Admission: No
--- NOTE | 2021-06-21 12:19 | CM.DANOTE ---
DCP/continued: Reviewed chart. Spoke with provider and he reports that patient can d/c home once cleared by surgery. Orthopedics came this AM and did dressing change, during that time no family at bedside. LOG LOADER HELPER placed call to outpatient wound care whom reports that they would not be able to get patient in until next week. Furthermore, patient's copay with [employer] would be $250.00 per visit. LOG LOADER HELPER met with patient and daughter/Ashley at bedside. Confirmed with both that they would like home health. Patient has no preference in agencies but has heard of [facility]. Therefore, placed call to Saad at [facility]. He reports that they can accept referral and start on 06-24. Orders obtained and F2F signed. All faxed to [facility]. Start date confirmed. FWW ordered at [facility] to be delivered to room. Spoke with RN/Alysha and she reports that she will attempt to coordinate dressing change teaching with daughter and orthopedics in AM. P: Home with [facility] in AM. Teaching for daily dressing changes to be done in AM with daughter. CHARLIE
[2021-06-21] MEDS: WARFARIN 5 MG TABLET PO (17:05)
--- NOTE | 2021-06-21 17:19 | PC.NURSE ---
Received patient at approximately 1500. She is A&Ox3, pleasant. She denies pain. Daughter supportive at bedside. She acknowledges plan for dressing change teaching at 0600 on 06/22/21 plan for patient to d/c home in a.m. Dressing C/D/I. BP slightly elevated this afternoon however upon reassessment BP SBP 140-150 in B arms. BG 133. Noted good po intake.Continuous monitoring.
[2021-06-21] MEDS: LOSARTAN 50 MG TABLET 25 MG PO (21:42)
[2021-06-22 00:56] VITALS: BP 150/41; PULSE 82; RESP 18; TEMP 36.8; O2SAT 92
[2021-06-22 05:00] VITALS: BP 163/54; PULSE 76; RESP 18; TEMP 36.6; O2SAT 95
[2021-06-22] MEDS: CEFAZOLIN 2 GM/20 ML SYRINGE IV (05:19)
[2021-06-22] MEDS: LEVOTHYROXINE 100 MCG TABLET PO (05:27)
--- NOTE | 2021-06-22 06:47 | PM.PNPO.1 ---
Subjective Subjective Date Patient Seen: 06/22/21 Time Patient Seen: 06:47 Interval history: 80-year-old female with left foot forefoot infection and metallic foreign body and plantar foot status post I&D and removal of foreign body by Dr. Ashraf on 06/17/2021.? She also underwent a bedside left foot dorsal I&D with Dr. Garcia on 06/19/21. ? Cultures with Staph aureus pansensitive.? Patient is complaining of mild left foot pain.? Her daughter is at bedside today to learn how to pack her wounds. She has baseline of neuropathy.? Currently on Ancef and pipercillin.? She feels much improvement since surgery, and her bedside I& D.? She is is feeling better and would like to be discharged home with daily outpatient wound therapy. Exam Vital Signs (past 8 hours): - 06/22/21 00:56 Temperature 98.3 F Pulse Rate 82 Respiratory Rate 18 Blood Pressure 150/41 H Pulse Oximetry 92 Oxygen Delivery Method Room Air Oxygen Flow Rate 0 Narrative Exam Narrative: Pleasant 80-year-old female, resting in bed, in no acute distress.? Daughters at bedside. Left foot is wrapped.? Dressing is moderately soaked with serous drainage.? The gauze wick is removed from the plantar and dorsal wounds without any obvious additional purulence.? Mild cellulitis over the dorsum of the foot, but nothing above the ankle.? There is new serous filled blister on the 2nd toe of the 2nd toe, dorsal side.? The wound was repacked and re-bandaged with her daughter.? Calves are soft and nontender to palpation. Objective Labs Result Diagrams: 06/20/21 04:40 06/20/21 04:40 [facility] Medical History Chronic ITP (idiopathic thrombocytopenic purpura) DVT (deep venous thrombosis) Essential hypertension Hypothyroid Type II diabetes mellitus Warfarin anticoagulation Surgical History Status post appendectomy (~2005) Status post tonsillectomy and adenoidectomy (~194) Social History household members: none caregiver/support person: Yes (She is accompanied by her daughter.) Smoking Status: Former smoker alcohol intake: never Assessment & Plan Post-op Postoperative Procedures: Procedures Operation Date: 06/17/21 12:45 Actual Procedure Side Surgeon p I&D foot with removal of foreign body Left Erasmo Ashraf MD Postoperative day: 5 Postoperative status: doing well Postoperative status narrative: Stable status post left foot I and D with removal of foreign body, and bedside I and D Postoperative plan narrative: -Discussed if she has any worsening appearance may need additional operative debridement -transition from IV antibiotics to po antibiotics for home per Medicine recommendation -daily packing changes. -Disposition: dc home today when cleared by Hospitalist and PT, with outpatient daily wound care packing changes for the next few weeks while the wounds heal by secondary intention. -wear postop shoe at all times when out of bed -elevate LLE Quality VTE Deep Vein Thrombosis/Pulmonary Embolism Present on Admission: No
[2021-06-22 08:00] VITALS: O2SAT 93
[2021-06-22 08:27] VITALS: BP 141/47; PULSE 68; RESP 22; TEMP 36.6; O2SAT 93
[2021-06-22 08:30] VITALS: O2SAT 96
[2021-06-22] MEDS: LACTOBACILLUS ACIDOPHILUS TABLET 1 EACH PO (09:37)
[2021-06-22 09:38] VITALS: BP 141/47
[2021-06-22] MEDS: FAMOTIDINE 20 MG TABLET PO (09:38)
[2021-06-22] MEDS: VIT C/E/ZN/COPPR/LUTEIN/ZEAXAN CAPSULE 1 CAP PO (09:38)
[2021-06-22] MEDS: FUROSEMIDE 20 MG TABLET PO (09:38)
[2021-06-22] MEDS: ASCORBIC ACID 500 MG TABLET 250 MG PO (09:38)
[2021-06-22] MEDS: carvediloL 3.125 MG TABLET PO (09:38)
--- NOTE | 2021-06-22 10:20 | P.DS_ITS ---
History of Present Illness History of Present Illness Chief complaint: Left foot injury Narrative: Per Dr. Horton: THIS IS A VERY PLEASANT 80-YEAR-OLD FEMALE WITH A PAST MEDICAL HISTORY SIGNIFICANT FOR? NON INSULIN-DEPENDENT DIABETES TYPE 2. ?PATIENT ALSO IS ON CHRONIC ANTICOAGULANT THERAPY WITH COUMADIN.? THIS IS REPORTEDLY PER PATIENT DUE TO HER ITP ? HOWEVER PER RECORDS FROM THE ONCOLOGY TEAM, SHE IS ON ANTICOAGULANT THERAPY DUE TO CHRONIC DVT. ?SHE ALSO HAS AN IVC FILTER ?IN ANY CASE, SHE PRESENTED TO THE HOSPITAL WITH PAIN TO THE LEFT LOWER EXTREMITY.? THE LEFT 2ND TOE BEING HURTING HER FOR LAST FEW DAYS. ?SHE DENIES ANY INJURY TO THE FOOT. ? SHE DOES NOT RECALL STEPPING ON ANY? SHARP OBJECTS ?HOWEVER SHE REPORTED SIGNIFICANT NEUROPATHY ALSO TO THE BILATERAL LOWER EXTREMITIES. ? DENIES ANY FEVER OR CHILLS. ?IN THE ER, WORKUP? SO FAR SHOWING? SIGNIFICANT LEUKOCYTOSIS.? ANEMIA NOTED? WELL. ?DECREASE KIDNEY FUNCTION APPRECIATED THE GFR OF 39 WITH A BASELINE NOTED TO BE? AROUND 50 ? VITAL SIGNS FAIRLY STABLE ?FOOT X-RAY SHOWING A POSSIBLE FOR AN OBJECT.? NO FRACTURE.? MRI OR CT RECOMMENDED. Discharge Providers Provider Date of admission: 06/16/21 12:24 Discharge Date: 06/22/21 Primary care physician: Gamal Orosco MD Consults: 06/16/21 12:53 Consult to Orthopedic Surgery Routine Comment: Consulting Provider: Erasmo Ashraf Reason for consultation: DIABETIC FOOT ABSCESS Has provider been notified: Yes 06/16/21 12:57 Consult to Discharge Planning Routine Comment: Consult to Occupational Therapy Evaluate & Treat Comment: Physician Instructions: Evaluate and treat Consult to Physical Therapy Evaluate & Treat Comment: Physician Instructions: Evaluate and Treat 06/17/21 13:21 Consult to Discharge Planning Routine Comment: Consult to Physical Therapy Evaluate & Treat Comment: May weight bear on heel of left foot only. Physician Instructions: Evaluate and Treat 06/17/21 16:00 Consult to Respiratory Therapy Evaluate & Treat Comment: Physician Instructions: Evaluate and treat 06/21/21 11:42 Consult to Home Health Routine Comment: DX: Left foot I&D Reason For Exam: Please arrange FWW for home use. 06/21/21 11:43 Consult to Home Health Routine Comment: DX: S/P left foot I&D x2. Reason For Exam: Arrange home health for PT/OT/RN. Discharge provider: Eduardo Parks MD Summary Hospital Course Discharge Diagnosis: 1. Left foot cellulitis/abscess with diabetic foot ulcer 2. Sepsis 3. CLEO 4. Chronic ITP 5. Type 2 Diabetes 6. Chronic left lower extremity DVT 7. Chronic anemia Hospital Course: Ms. Charles was admitted with a left leg cellulitis and abscess. She was found on imaging to have a metal object in the foot, and on 06/17 underwent I+D to remove a metal sliver between the 1st and 2nd metatarsal head. She had further swelling in her foot and had I&D of abscess on 06/19. She was initially septic with CLEO but had good improvement with IV antibiotics and surgical intervention. She was placed in shoe and is ok to heel weightbear. Her cultures grew back pansensitive staph aureus. She was transitioned to IV vanc/zosyn, to then IV cefazolin. On discharge she was prescribed keflex for an additional week. She was setup for daily outpatient dressing changes. She is setup for follow up with ortho in 10- 14 days. She should follow up with her PCP within 1-2 weeks. She has chronic ITP and did get her dose of nplate on Sunday while in the hospital. She should continue her warfarin as previously prescribed and follow up with INR checks in clinic. Discharge time: 35 minutes Exam Vital Signs (past 8 hours): Oxygen Delivery Method Room Air Oxygen Flow Rate 0 Narrative Exam Narrative: General:? Alert NAD Lungs:? Clear Extremities:? Left foot dressing in place Objective Labs Result Diagrams: 06/20/21 04:40 06/20/21 04:40 [facility] Medical History Chronic ITP (idiopathic thrombocytopenic purpura) DVT (deep venous thrombosis) Essential hypertension Hypothyroid Type II diabetes mellitus Warfarin anticoagulation Surgical History Status post appendectomy (~2005) Status post tonsillectomy and adenoidectomy (~1941) Social History household members: none caregiver/support person: Yes (She is accompanied by her daughter.) Smoking Status: Former smoker alcohol intake: never Discharge Plan Discharge Plan Patient Disposition: Home Health Service Provider Discharge Comment: Ms. Charles came in to the hospital with a foot infection and abscess. The abscess was drained with surgery. She improved with antibiotics and will be given one more week of antibiotics. She will be setup for daily wound changes, and should follow up with surgery in 10 days. She should follow up with her PCP in 1-2 weeks. Discharge orders & Medications Prescriptions: New cephalexin 500 mg tablet 500 mg PO QID Qty: 28 0RF Continued mupirocin 2 % ointment 1 applic topical TID Qty: 22 0RF OneTouch Verio test strips Strip See Rx Instructions .ROUTE .COMPLEX Qty: 100 6RF Dose Instruction: USE TO TEST GLUCOSE TWICE DAILY Rx Instructions: USE TO TEST GLUCOSE TWICE DAILY cholecalciferol (vitamin D3) [Vitamin D3] 50 mcg (2,000 unit) capsule 2,000 unit PO Q OTHER DAY Qty: 0 0RF furosemide [Lasix] 20 mg tablet 20 mg PO DAILY Qty: 1 0RF levothyroxine 100 mcg tablet 100 mcg PO QAM Qty: 90 1RF multivitamin [Daily Multi-Vitamin] Tablet 1 tab PO Q OTHER DAY 0RF carvedilol 3.125 mg tablet 3.125 mg PO BID 0RF Rx Instructions: must administer with a meal/food glipizide 5 mg tablet 5 mg PO DAILY 0RF warfarin 5 mg tablet 5 mg PO DAILY Qty: 30 2RF Rx Instructions: Total dosing as directed by clinic On Fridays 5 mg MSM 1,000 mg capsule 1,000 mg PO DAILY 0RF ascorbic acid (vitamin C) 250 mg Tablet 282 mg PO DAILY 0RF losartan 50 mg tablet 25 mg PO DAILY 0RF PreserVision AREDS-2 250-90-40-1 mg Capsule 1 tab PO BID 0RF Discontinued clindamycin HCl 300 mg capsule 300 mg PO TID 7 Days Qty: 21 0RF warfarin 6 mg tablet 6 mg PO DAILY Qty: 100 3RF Rx Instructions: Please take 5mg tabs once per week and 6mg all other days; or as directed. Takes 6 mg everyday and 5 mg on Fridays. Follow up/Referrals: Gamal Orosco MD [Primary Care Provider] - Erasmo Ashraf MD [Physician] - (10-14 days for a follow up visit) Diet/Activity/Treatments Diet: Carb-consistent/Diabetic Other treatments: -Complete all oral antibiotic pills -wear postop shoe at all times when out of bed Dressing/Wound care: -daily packing changes -keep wound dry - No soaking or submerging until all the scabs fall off (approximately 6 weeks). -Please call the office if dressing becomes wet, soiled, or saturated. Activities: -Weight-bearing as tolerated with postoperative shoe. -Continue with home exercises as directed by your physical therapist. -Elevate ?toes above the nose if you have significant swelling in your lower leg. (A wedge pillow is easiest.) Follow-up: -Follow-up with your surgeon or PA in the office in 10-14 days after surgery. -Follow-up with your surgeon 6 weeks postoperatively. Call the office if you have chest pain, shortness of breath, significant swelling that will not resolve with elevating, fever over 101?, significantly worsening pain. [facility]: [phone] Skin/Wound/Dressing Care Report to your healthcare provider any signs of infection, such as:: chills, fever, night sweats, unusual drainage and unusual redness Other wound treatment: Daily packing changes with iodoform gauze Visit Report/Discharge Packet Instructions: How to Take Care of Your Feet If You Have Diabetes, Cephalexin, DI for Incision and Drainage, [facility]: Wound Care Stand Alone Forms: Surgery Discharge Discharge Data Primary Care Provider: Gamal Orosco [facility]TE Deep Vein Thrombosis/Pulmonary Embolism Present on Admission: No
--- NOTE | 2021-06-22 10:25 | PT.IPTN ---
Current Diagnoses Puncture wound with foreign body, left foot, initial encounter (06/16/21) Surgery Performed Operation Date: 06/17/21 12:45 Actual Procedures p I&D foot with removal of foreign body(Left) - Erasmo Ashraf MD Physical Therapy Treatment Note M2 PT-IP Current Condition Start: 06/18/21 14:22 Freq: NEEDED Status: Discharge Protocol: Document 06/22/21 10:08 SP (Rec: 06/22/21 18:18 SP [id number]) Physical Therapy Current Condition Current Condition Evaluation Date 06/18/21 Treatment Diagnosis L diabetic foot infection s/p I&D and removal of foreign body Onset Date 06/17/21 M3 PT-IP Subjective Start: 06/18/21 14:22 Freq: NEEDED Status: Discharge Protocol: Document 06/22/21 10:08 SP (Rec: 06/22/21 18:18 SP [id number]) Subjective Physical Therapy Visit Type Type Treatment Note Visit Start Time 10:08 Visit Stop Time 10:25 Total Visit Minutes 17 Number of [employer] Visits 2 Physical Therapy Visit Comments Patient Comments Pt willing to work with therapy. Patient Goals Return home with daughter to assist her Therapy Pain Assessment Pain Present Pain Present Denied Pain M4 PT-IP Mobility and Gait Start: 06/18/21 14:22 Freq: NEEDED Status: Discharge Protocol: Document 06/22/21 10:08 SP (Rec: 06/22/21 18:18 SP [id number]) PT-Transfer Assessment Sit to and From Stand Sit to and from Stand Standby Assistance,Use of Upper Extremities Equipment Transfer Assistive Device Gait Belt,Front Wheeled Walker Orthotic/Prosthetic Devices or Brace: Yes Transfers Transfer Destination Chair Transfer Technique ambulated using FWW Transfer Ability Level of Assist Standby Assistance Comments Mobility Comments Pt was reclined in chair when arrived with wedge shoe donned LLE (only heel WB allowed). Completed leg rest down with assist. Sit >Stand SBA using FWW, progressed gait in hallway approx 250 ft total with good heel WB on LLE not allowing RLE to pass LLE / small stable steps, required 3 brief stand rest breaks due to tiring. Pt returned to chair SPT and slow sit into chair using BUE on chair arms, sBA. Pt had call light and all needs in reach before left . [employer] discussed if haven't found a shower bench yet that heard [employer] should be open next Tues if feel want to wait vs purchasing one. Pt commented thinks one of her daughter's is buying on online and having shipped to her. Gait Assessment Gait Gait Assistance Required: Standby Assistance Distance (Feet) 220 Able to Maintain Weight Bearing Status Yes During Gait Assistive Devices Assistive Device Gait Belt,Front Wheeled Walker Orthotic/Prosthetic Devices or Brace: Yes Gait Deviations General Gait Pattern Antalgic,Narrow Based Gait Factors Limiting Gait Function Factors Limiting Gait Function Decreased Activity Tolerance, Decreased Strength Comments Gait Comments Pt required decrease to 3 stand rest break during gait 220ft distance, furthest has made to improve strength and endurance. PT-Balance Assessment Sitting Balance and Reactions Static Sitting Balance Ability Good Dynamic Sitting Balance Ability Good Standing Balance and Reactions Static Standing Balance Ability Fair Dynamic Standing Balance Ability Fair Device Used FWW & L Wedge shoe M5 PT-IP Objective Assessments Start: 06/18/21 14:22 Freq: NEEDED Status: Discharge Protocol: Document 06/18/21 14:23 [facility] (Rec: 06/18/21 14:49 [facility] [id number]) Orientation Orientation/Cognition Level of Alertness Alert Language Function Ability No Deficits Noted Safety Awareness Understands Safety Issues Memory Description No Deficits Noted Strength Lower Extremity Strength Hip grossly 4/5 B Knee grossly 4/5 B M6 PT-IP Treatment Start: 06/18/21 14:22 Freq: NEEDED Status: Discharge Protocol: Document 06/22/21 10:08 SP (Rec: 06/22/21 18:18 SP [id number]) Physical Therapy Treatment Education Education Provided Precautions,Weight Bearing Status,Safety M7 PT-IP Assessment and Plan Start: 06/18/21 14:22 Freq: NEEDED Status: Discharge Protocol: Document 06/22/21 10:08 SP (Rec: 06/22/21 18:18 SP [id number]) PT Summary Assessment and Plan Potential Rehabilitation Potential Good Status of Condition at Evaluation Evolving Summary Impairments ROM,Strength,Balance,Bed Mobility,Transfers,Gait, Activity Tolerance Progress Towards Goals Progressing Toward Goals Assessment Summary Pt is SBA during all mobiltiy using fWW and wedge shoe donned on LLE with demonstration proper heel WB. Gait 220 ft with 3 brief stand rest breaks. Recommending HHPT to improve strenghth and activitity tolerance and home with assist of familiy when medically cleared. Goals Bed Mobility Goal Independent Transfer Goal Standby Assistance Gait Goal Standby Assistance,Front Wheel Walker Gait Distance 150ft w/ L wedge shoe Other Goals up/down 1 step w/FWW SBA Days to Meet Goals 6 Frequency of Treatment Frequency Of Treatment Once a Day Treatment Plan Physical Therapy Treatment Plan Bed Mobility Training,Transfer Training,Gait Training, Therapeutic Exercise,Balance Retraining,Neuromuscular Re-ed Other Recommendations and Next Treatment gait with FWW, balance Focus activities with wedge shoe donned. Weight Bearing Status Weight Bearing Status Weight Bear as Tolerated Allowed Weight Bearing Amount (enter % w/wedge shoe LLE or #) (%) Recommendations To Nursing Amount of Assist Needed Standby Assistance Discharge Recommendations PT Discharge Recommendations Home with Assistance,Home Health Equipment Needed for Home Before Dispensed FWW, family getting Discharge her transfer bench for showering in sitting. Transportation Needs at Discharge Private Vehicle
--- NOTE | 2021-06-22 10:51 | PC.NURSE ---
Pt is dressed and ready for discharge home with Daughter Ashley who will be taking care of her. Ashley has observed and been instructed in how to perform dressing changes. Went over d/c instructions with Pt and Daughter-discussed d/c meds, time of last dose, reviewed stroke education, s/s of infection, encouraged Pt to drink plenty of fluids to prevent constipation or dehydration, recommended Pt continue with acidophilus since she will have another week of antibiotics, and discussed follow up appointments. Also reminded Pt that she must wear the ortho shoe whenever she is out of bed and use fww for safety as well as elevating lower extremity to reduce swelling. Pt and daughter denied further questions and were taken out via w/c by [employer] REPORTER to POV with Daughter and all belongings.
--- NOTE | 2021-06-22 11:01 | CM.DPNOTE ---
Called [facility] and spoke with Carmen. Said pt. being dc'd today and I will send DC summary as soon as it's available. She will pass this information on to the team. Kay Brady CM Asst.
== END 2021-06-22 10:57 | disposition home health service (06) | DRG 854 ==
LOC: ED 11:40 → AC 12:25
PROVIDERS: Internal Medicine; Orthopaedic Surgery; Admitting Provider Hospitalist; Emergency Provider Emergency Medicine; PCP Student in an Organized Health Care Education/Training Program; Referring Provider Emergency Medicine; Visit Provider Hospitalist
PROC: 30233K1 Transfusion of Nonautologous Frozen Plasma into Peripheral Vein, Percutaneous Approach (ICD-10-PCS; principal; 2021-06-17 12:45)
DX: A41.9 Sepsis, unspecified organism (principal); E87.1 Hypo-osmolality and hyponatremia; D69.3 Immune thrombocytopenic purpura; E11.52 Type 2 diabetes mellitus with diabetic peripheral angiopathy with gangrene; I96 Gangrene, not elsewhere classified; L03.116 Cellulitis of left lower limb; R65.20 Severe sepsis without septic shock; S91.342A Puncture wound with foreign body, left foot, initial encounter; E11.621 Type 2 diabetes mellitus with foot ulcer; E11.42 Type 2 diabetes mellitus with diabetic polyneuropathy; W45.8XXA Other foreign body or object entering through skin, initial encounter; E03.9 Hypothyroidism, unspecified; D63.1 Anemia in chronic kidney disease; I12.9 Hypertensive chronic kidney disease with stage 1 through stage 4 chronic kidney disease, or unspecified chronic kidney disease; E11.22 Type 2 diabetes mellitus with diabetic chronic kidney disease; B95.61 Methicillin susceptible Staphylococcus aureus infection as the cause of diseases classified elsewhere; N18.30 Chronic kidney disease, stage 3 unspecified; D64.89 Other specified anemias; Z87.891 Personal history of nicotine dependence; Z20.822 Contact with and (suspected) exposure to COVID-19; Z79.84 Long term (current) use of oral hypoglycemic drugs; Z86.718 Personal history of other venous thrombosis and embolism; Z79.01 Long term (current) use of anticoagulants
CPT/HCPCS: 36415; 36430; 73630; 73720; 80048; 80053; 82962; 84100; 85007; 85025; 85610; 86850; 86900; 86901; 86927; 87040; 87070; 87075; 87077; 87147; 87186; 87205; 87635; 94760; 97116; 97162; 97530; 99283; 99284; C9803; P9016; A9270; A9579; J0295; J0690; J1815; J2405; J2543; J2704; J2796; J3010

== ENCOUNTER → 2021-07-11 10:08 | Outpatient (CLI) | payer OTHER, SELFPAY ==
[2021-06-16 12:57] VITALS: BMI 33.9
[2021-07-11 10:57] LABS: Hematocrit 24.9 % (36-46); Hemoglobin 8.1 g/dL (12.0-16.0); Mean Corpuscular HGB Conc 32.6 % (30-36); Mean Corpuscular Hemoglobin 28.7 PG (26-34); Mean Corpuscular Volume 88.1 fL (80-100); Platelet Count 115 X10^3/uL (150-400); Red Blood Cell Count 2.82 X10^6/uL (4.0-5.2); Red Cell Distribution Width 24.8 % (11.6-14.8); White Blood Cell Count 5.6 X10^3/uL (4.5-11.0)
[2021-07-11 11:00] LABS: Add Manual Diff / Slide Review YES
[2021-07-11 12:14] LABS: Neutrophils Absolute Manual 2184 /uL (3000-5900); Nucleated Red Blood Cells 2 #/Diff; Total Cells Counted 100
[2021-07-11 12:15] LABS: Anisocytosis 3+; Schistocytes 1+
[2021-07-11 12:16] LABS: Macrocytosis 1+
[2021-07-11 12:48] LABS: INR 3.7 (0.9-1.3); Prothrombin Time 43.4 SECONDS (10.1-12.7)
== END ==
PROVIDERS: PCP Student in an Organized Health Care Education/Training Program; Referring Provider Student in an Organized Health Care Education/Training Program; Visit Provider Internal Medicine Hematology & Oncology
DX: D46.9 Myelodysplastic syndrome, unspecified (principal); Z79.01 Long term (current) use of anticoagulants
CPT/HCPCS: 36415; 85007; 85025; 85610

== ENCOUNTER → 2021-07-20 13:24 | Outpatient (CLI) | payer OTHER, SELFPAY ==
[2021-07-20 16:18] LABS: Clostridium Difficile Tox PCR Positive for C. diff (Negative)
[2021-07-21 13:18] LABS: C difficie Toxins A and B, EIA Positive (Negative)
== END ==
PROVIDERS: PCP Student in an Organized Health Care Education/Training Program; Referring Provider Student in an Organized Health Care Education/Training Program; Visit Provider Student in an Organized Health Care Education/Training Program
DX: R19.7 Diarrhea, unspecified (principal)
CPT/HCPCS: 87045; 87324; 87493; 87899

== ENCOUNTER → 2021-07-25 14:41 | Outpatient (CLI) | payer OTHER, SELFPAY ==
[2021-07-25 15:10] LABS: Prothrombin Time 119.9 SECONDS (10.1-12.7)
[2021-07-25 15:20] LABS: INR 9.9 (0.9-1.3)
== END ==
PROVIDERS: PCP Student in an Organized Health Care Education/Training Program; Referring Provider Student in an Organized Health Care Education/Training Program; Visit Provider Student in an Organized Health Care Education/Training Program
DX: Z79.01 Long term (current) use of anticoagulants (principal)
CPT/HCPCS: 36415; 85610

== ENCOUNTER 2021-07-26 09:20 | Emergency (ER) | payer OTHER, SELFPAY ==
[2021-07-26 09:25] VITALS: BP 131/58; PULSE 58; RESP 18; TEMP 36.8; O2SAT 99; BMI 33.0
--- NOTE | 2021-07-26 09:51 | ED_ITS ---
HPI - Skin/Abscess/Foreign Bdy General Chief complaint: Skin/Abscess/Foreign Body Stated complaint: 5wks post op, poss infection Time Seen by Provider: 07/26/21 09:39 Source: patient and family Mode of arrival: Wheelchair Limitations: no limitations History of Present Illness HPI narrative: Patient is a 80-year-old female. Approximately 1 month ago was seen in the emergency department and subsequently sent to the operating room admission the hospital for an abscess/infection of her left foot. Patient was placed on antibiotics. Has subsequently completed a course of antibiotics. Has been followed by Podiatry. Patient is a diabetic. She feels like the neuropathy that she was having her foot has actually improved somewhat. She was also recently diagnosed with C diff. most likely from the antibiotics that was given to her for her foot infection. She is on oral vancomycin currently. She only has a couple days left of this medication. There has been no new trauma however the past 24-36 hours she has noticed increased redness and swelling to the top of her left foot there was a concern about a repeat infection. Was told to come to the emergency department by her supervisor print line. Related Data Home Medications Medication Instructions Recorded Confirmed cholecalciferol (vitamin D3) 50 2,000 unit PO Q OTHER DAY #0 cap 01/13/21 07/19/21 mcg (2,000 unit) capsule (Vitamin D3) multivitamin (Daily Multi-Vitamin) 1 tab PO Q OTHER DAY tab 01/13/21 07/19/21 ascorbic acid (vitamin C) 250 mg 282 mg PO DAILY 02/21/21 07/19/21 tablet losartan 50 mg tablet 25 mg PO DAILY 05/09/21 07/19/21 vit C 250 mg-vit E 90 mg-zinc 40 1 tab PO BID 05/16/21 07/19/21 mg-copper 1 [id number] capsule (PreserVision AREDS-2) glipizide 5 mg tablet 5 mg PO DAILY tab 06/13/21 07/19/21 methylsulfonylmethane 1,000 mg 1,000 mg PO DAILY cap 07/11/21 07/19/21 capsule (MSM) Previous Rx's Medication Instructions Recorded furosemide 20 mg tablet (Lasix) 20 mg PO DAILY #1 tab 05/05/21 levothyroxine 100 mcg tablet 100 mcg PO QAM #90 tab 05/23/21 mupirocin 2 % topical ointment 1 applic TOPICAL TID #22 g 06/15/21 blood sugar diagnostic (OneTouch 1 strip MISCELLANEOUS BID #200 ea 06/28/21 Verio test strips) carvedilol 3.125 mg tablet 3.125 mg PO BID #180 tab 07/20/21 vancomycin 125 mg capsule 125 mg PO QID 10 Days #40 cap 07/20/21 warfarin 5 mg tablet 5 mg PO 3XW #30 tab 07/20/21 Allergies Allergy/AdvReac Type Severity Reaction Status Date / Time barium sulfate Allergy Severe SENSITIVITY Verified 07/19/21 15:12 TO ELECTRICAL CURRENT, SEIZURES Sulfa (Sulfonamide Allergy Intermediate HIVES Verified 07/19/21 15:12 Antibiotics) adhesive Allergy Mild RASH Verified 07/19/21 15:12 Review of Systems Constitutional Constitutional: Denies fever(s) Musculoskeletal Musculoskeletal: Reports system reviewed and no additional complaints, except as documented and Reports as per HPI Integumentary/Breasts Skin/Breast: Reports system reviewed and no additional complaints, except as documented and Reports as per HPI Neurologic Neurologic: Reports system reviewed and no additional complaints, except as documented and Reports as per HPI Hematologic/Lymphatic On Anticoagulants: No Patient History Medical History Chronic ITP (idiopathic thrombocytopenic purpura) DVT (deep venous thrombosis) Essential hypertension Hypothyroid Type II diabetes mellitus Warfarin anticoagulation Surgical History Status post appendectomy (~2005) Status post tonsillectomy and adenoidectomy (~1942) Social History household members: none caregiver/support person: Yes (She is accompanied by her daughter.) Smoking Status: Former smoker alcohol intake: never Smoking Status: Former smoker alcohol intake frequency: holidays/special occasions only Substance Use Type: does not use Exam Initial Vital Signs Initial Vital Signs: Vital Signs Temperature 98.3 F 07/26/21 09:25 Pulse Rate 58 L 07/26/21 09:25 Respiratory Rate 18 07/26/21 09:25 Blood Pressure 131/58 L 07/26/21 09:25 Pulse Oximetry 99 07/26/21 09:25 HENMT Head: normal to inspection and normocephalic Resp Effort & Inspection: normal respiratory effort Cardio Rate: regular rate Pulses: dorsalis pedis present on the left Skin Other: Patient does have a 2 cm x 2 cm area of fluctuance on the dorsum of the left midfoot. There is surrounding erythema however it is not warm to the touch. Is not tender to palpation. There are 2 areas of healing granulation at the distal forefoot at the base of the 2nd 3rd toes. No surrounding erythema. Neuro Other: Decreased sensation to light touch left foot however she states that this is baseline. Extrem Other: Left foot swelling on the dorsum the left foot Procedures Abscess I/D I&D #1: Time of procedure: 10:12 Site: foot Side (if applicable): left Local Anesthetic: lidocaine 1% and with bicarb Amount of anesthesia used (mL): 2 Technique: incised with #11 blade Irrigation: No Packing used?: none Course Orders Ordered: ED Orders 07/26/21 10:07 Wound Culture and Gram Stain Stat 07/26/21 10:20 Basic Metabolic Panel Stat C-Reactive Protein Quant Stat Complete Blood Count AUTO DIFF Stat Erythrocyte Sedimentation Rate Stat Lactate (Lactic Acid) Stat Prothrombin Time INR Stat Discontinued Medications Lidocaine/Sodium Bicarbonate (Lido 1%/Sod Bicarb 8.4% (10ml) 10 Ml Syringe) 10 ml INJ NOW ONE Stop: 07/26/21 09:53 Last Admin: 07/26/21 10:44 Dose: 10 ml Documented by: NERIS Vital Signs Vital signs: Vital Signs - 8 hr 07/26/21 09:25 07/26/21 11:41 Temperature 98.3 F Pulse Rate 58 L 58 L Respiratory Rate 18 20 Blood Pressure 131/58 L 192/80 H Pulse Oximetry 99 97 MDM - Skin/Abscess/Foreign Bdy Lab Data Result diagrams: 07/26/21 10:20 07/26/21 10:20 Labs: Lab Results 07/26/21 07/26/21 07/26/21 Range/Units 10:20 10:20 10:20 WBC 27.3 H (4.5-11.0) X10^3/uL RBC 2.84 L (4.0-5.2) X10^6/uL Hgb 7.8 L (12.0-16.0) g/dL Hct 24.7 L (36-46) % MCV 87.1 (80-100) fL MCH 27.5 (26-34) PG MCHC 31.6 (30-36) % RDW 24.2 H (11.6-14.8) % Plt Count 160 (150-400) X10^3/uL Neut % (Auto) Not Reportable Lymph % (Auto) Not Reportable [place] % (Auto) Not Reportable Eos % (Auto) Not Reportable Baso % (Auto) Not Reportable Lymph # (Auto) Not Reportable [place] # (Auto) Not Reportable Baso # (Auto) Not Reportable Total Counted 100 Seg Neutrophils % 56.0 (38-70) % Band Neutrophils % 9.0 H (3-7) % Lymphocytes % (Manual) 9.0 L (25-45) % Atypical Lymphs % 1.0 H ( - 0) % Monocytes % (Manual) 12.0 H (2-11) % Metamyelocytes % 5.0 H (-0) % Myelocytes % 8.0 H (-0) % Neutrophils # (Manual) 33618 H (4458-1596) /uL Plt Morphology Comment ... RBC Morphology See below Poikilocytosis 1+ H Anisocytosis 3+ H Tear Drop Cells 1+ H Ovalocytes 1+ H ESR 46 H (0-20) MM/HR PT 110.2 H D (10.1-12.7) SECONDS INR 9.1 H* (0.9-1.3) Sodium 133 L (137-145) mmol/L Potassium 4.3 (3.4-5.1) mmol/L Chloride 103 (98-107) mmol/L Carbon Dioxide 25 (22-32) mmol/L BUN 24 H (7-17) mg/dL Creatinine 1.12 H (0.52-1.04) mg/dL Estimated GFR 46.6 L (>60) mL/min BUN/Creatinine Ratio 21.4 (6-22) Glucose 159 H (80-110) mg/dL Lactate (0.7-2.1) mmol/L Calcium 8.6 (8.4-10.2) mg/dL C-Reactive Protein 5.7 H (<1.0) mg/dL 07/26/21 Range/Units 10:20 WBC (4.5-11.0) X10^3/uL RBC (4.0-5.2) X10^6/uL Hgb (12.0-16.0) g/dL Hct (36-46) % MCV (80-100) fL MCH (26-34) PG MCHC (30-36) % RDW (11.6-14.8) % Plt Count (150-400) X10^3/uL Neut % (Auto) Lymph % (Auto) [place] % (Auto) Eos % (Auto) Baso % (Auto) Lymph # (Auto) [place] # (Auto) Baso # (Auto) Total Counted Seg Neutrophils % (38-70) % Band Neutrophils % (3-7) % Lymphocytes % (Manual) (25-45) % Atypical Lymphs % ( - 0) % Monocytes % (Manual) (2-11) % Metamyelocytes % (-0) % Myelocytes % (-0) % Neutrophils # (Manual) (1527-5367) /uL Plt Morphology Comment RBC Morphology Poikilocytosis Anisocytosis Tear Drop Cells Ovalocytes ESR (0-20) MM/HR PT (10.1-12.7) SECONDS INR (0.9-1.3) Sodium (137-145) mmol/L Potassium (3.4-5.1) mmol/L Chloride (98-107) mmol/L Carbon Dioxide (22-32) mmol/L BUN (7-17) mg/dL Creatinine (0.52-1.04) mg/dL Estimated GFR (>60) mL/min BUN/Creatinine Ratio (6-22) Glucose (80-110) mg/dL Lactate 1.0 (0.7-2.1) mmol/L Calcium (8.4-10.2) mg/dL C-Reactive Protein (<1.0) mg/dL MDM Narrative Medical decision making narrative: Patient is nontoxic appearing. Has afebrile. Does not have tachycardia. Has an obvious abscess that was drained on the dorsum of the left foot. She does have leukocytosis but she is also being treated for C diff. culture was obtained the purulent material. Given her history of C diff in prior recent antibiotics and her allergies decision was made to hold on any addition antibiotics for now. Her foot abscess may actually improve with the drainage of the abscess. She understands this. If the culture is positive and if her symptoms are not improving by the time the culture results we will contact her and start her on an oral antibiotic. This is an attempt to try to avoid complications related to the C diff. her INR is elevated. It was elevated yesterday. Will have her hold on her Coumadin for now. She does not have any signs of active bleeding. She was given strict return precautions and follow-up instructions and care in structions. She expressed understanding and agreement. Discharge Plan Departure Patient Disposition: Home Clinical Impression: Abscess of left foot Instructions: DI for Incision and Drainage of a Skin Abscess Activity Restrictions/Additional Instructions: Continue all of your medications as directed. I would expect some drainage from the area and keep it covered and change the bandage as needed. A culture was obtained we will contact you when this results. Keep all of your scheduled med [facility] appointments. Return to the emergency department for any new or worsening symptoms. Prescriptions: No Action mupirocin 2 % ointment 1 applic topical TID Qty: 22 0RF cholecalciferol (vitamin D3) [Vitamin D3] 50 mcg (2,000 unit) capsule 2,000 unit PO Q OTHER DAY Qty: 0 0RF furosemide [Lasix] 20 mg tablet 20 mg PO DAILY Qty: 1 0RF levothyroxine 100 mcg tablet 100 mcg PO QAM Qty: 90 1RF OneTouch Verio test strips Strip 1 strip miscellaneous BID Qty: 200 6RF Rx Instructions: Use to test blood sugars twice daily. MSM 1,000 mg capsule 1,000 mg PO DAILY 0RF Rx Instructions: takes three tabs daily carvedilol 3.125 mg tablet 3.125 mg PO BID Qty: 180 3RF Rx Instructions: must administer with a meal/food warfarin 5 mg tablet 5 mg PO 3XW Qty: 30 2RF Rx Instructions: Takes 1 tab PO on Sunday, Sunday, and Sunday vancomycin 125 mg capsule 125 mg PO QID 10 Days Qty: 40 0RF multivitamin [Daily Multi-Vitamin] Tablet 1 tab PO Q OTHER DAY 0RF glipizide 5 mg tablet 5 mg PO DAILY 0RF ascorbic acid (vitamin C) 250 mg Tablet 282 mg PO DAILY 0RF losartan 50 mg tablet 25 mg PO DAILY 0RF PreserVision AREDS-2 250-90-40-1 mg Capsule 1 tab PO BID 0RF Referrals: Gamal Orosco MD [Primary Care Provider] -
[2021-07-26] MEDS: LIDO 1%/SOD BICARB 8.4% (10ML) 10 ML SYRINGE INJ (10:44)
[2021-07-26 10:57] LABS: Hematocrit 24.7 % (36-46); Hemoglobin 7.8 g/dL (12.0-16.0); Mean Corpuscular HGB Conc 31.6 % (30-36); Mean Corpuscular Hemoglobin 27.5 PG (26-34); Mean Corpuscular Volume 87.1 fL (80-100); Red Blood Cell Count 2.84 X10^6/uL (4.0-5.2); Red Cell Distribution Width 24.2 % (11.6-14.8); White Blood Cell Count 27.3 X10^3/uL (4.5-11.0)
[2021-07-26 11:00] LABS: Add Manual Diff / Slide Review YES
[2021-07-26 11:09] LABS: Prothrombin Time 110.2 SECONDS (10.1-12.7)
[2021-07-26 11:11] LABS: BUN Creatinine Ratio 21.4 (6-22); Blood Urea Nitrogen 24 mg/dL (7-17); C-Reactive Protein Quant 5.7 mg/dL (<1.0); Calcium 8.6 mg/dL (8.4-10.2); Carbon Dioxide 25 mmol/L (22-32); Chloride 103 mmol/L (98-107); Estimated Glomerular Filt Rate 46.6 mL/min (>60); Glucose 159 mg/dL (80-110); HEMOLYSIS 20 (0-50); Potassium 4.3 mmol/L (3.4-5.1); Sodium 133 mmol/L (137-145)
[2021-07-26 11:12] LABS: INR 9.1 (0.9-1.3)
[2021-07-26 11:24] LABS: Erythrocyte Sedimentation Rate 46 MM/HR (0-20)
[2021-07-26 11:28] LABS: Platelet Count 160 X10^3/uL (150-400)
[2021-07-26 11:33] LABS: Neutrophils Absolute Manual 17745 /uL (3000-5900); Total Cells Counted 100
[2021-07-26 11:35] LABS: Anisocytosis 3+; Ovalocytes 1+
[2021-07-26 11:36] LABS: Poikilocytosis 1+; Tear Drop Cells 1+
[2021-07-26 11:41] VITALS: BP 192/80; PULSE 58; RESP 20; O2SAT 97
== END 2021-07-26 11:57 | disposition home or self-care (01) ==
PROVIDERS: Emergency Provider Emergency Medicine; PCP Student in an Organized Health Care Education/Training Program
DX: L02.612 Cutaneous abscess of left foot (principal); B95.61 Methicillin susceptible Staphylococcus aureus infection as the cause of diseases classified elsewhere
CPT/HCPCS: 10060; 36415; 80048; 83605; 85007; 85025; 85610; 85651; 86140; 87070; 87077; 87147; 87185; 87186; 87205; 99283

== ENCOUNTER → 2021-07-28 12:33 | Outpatient (CLI) | payer OTHER, SELFPAY ==
[2021-07-28 14:01] LABS: INR 3.2 (0.9-1.3); Prothrombin Time 37.5 SECONDS (10.1-12.7)
== END ==
PROVIDERS: PCP Student in an Organized Health Care Education/Training Program; Referring Provider Student in an Organized Health Care Education/Training Program; Visit Provider Student in an Organized Health Care Education/Training Program
DX: Z79.01 Long term (current) use of anticoagulants (principal)
CPT/HCPCS: 36415; 85610

== ENCOUNTER → 2021-08-17 17:03 | Outpatient (CLI) | payer OTHER, SELFPAY ==
[2021-08-18 13:36] LABS: C difficie Toxins A and B, EIA Positive (Negative)
== END ==
PROVIDERS: Family Medicine; PCP Student in an Organized Health Care Education/Training Program; Referring Provider Student in an Organized Health Care Education/Training Program; Visit Provider Student in an Organized Health Care Education/Training Program
DX: A04.72 Enterocolitis due to Clostridium difficile, not specified as recurrent (principal); A09 Infectious gastroenteritis and colitis, unspecified
CPT/HCPCS: 87045; 87324; 87899

== ENCOUNTER 2021-08-26 15:28 | Emergency (ER) | payer OTHER, SELFPAY ==
[2021-08-26 15:35] VITALS: BP 139/66; PULSE 78; RESP 14; TEMP 36.3; O2SAT 98; BMI 30.7
[2021-08-26 16:25] LABS: Add Manual Diff / Slide Review NO; Basophils Absolute Auto 100 /uL (0-100); Basophils Percent Auto 0.5 % (0-2); Eosinophils Absolute Auto 0 /uL (0-450); Hemoglobin 8.5 g/dL (12.0-16.0); Lymphocytes Absolute Auto 1300 /uL (1100-4500); Lymphocytes Percent Auto 12.3 % (25-40); Mean Corpuscular HGB Conc 32.5 % (30-36); Mean Corpuscular Volume 86.2 fL (80-100); Monocytes Absolute Auto 1700 /uL (0-900); Monocytes Percent Auto 15.9 % (3-14); Neutrophils Absolute Auto 7800 /uL (1500-7000); Neutrophils Percent Auto 71.3 % (50-75); Platelet Count 135 X10^3/uL (150-400); Red Blood Cell Count 3.02 X10^6/uL (4.0-5.2); Red Cell Distribution Width 25.1 % (11.6-14.8)
[2021-08-26 16:33] LABS: BUN Creatinine Ratio 23.9 (6-22); Blood Urea Nitrogen 22 mg/dL (7-17); Calcium 8.7 mg/dL (8.4-10.2); Carbon Dioxide 24 mmol/L (22-32); Chloride 106 mmol/L (98-107); Estimated Glomerular Filt Rate 58.4 mL/min (>60); Glucose 231 mg/dL (80-110); HEMOLYSIS < 15 (0-50); Potassium 3.8 mmol/L (3.4-5.1); Sodium 136 mmol/L (137-145)
[2021-08-26 16:39] LABS: Anisocytosis 3+; Microcytosis 1+; Ovalocytes 2+; Poikilocytosis 3+; Schistocytes 1+; Tear Drop Cells 1+
[2021-08-26 16:48] LABS: Erythrocyte Sedimentation Rate 42 MM/HR (0-20)
[2021-08-26 16:49] LABS: Procalcitonin 0.09 ng/mL (<0.5)
--- NOTE | 2021-08-26 17:02 | ED.EXTPRO ---
HPI - Extremity Problem General Chief complaint: Extremity Problem,Nontraumatic Stated complaint: emergency MRI Time Seen by Provider: 08/26/21 15:41 Source: patient and family Mode of arrival: Wheelchair Related Data Home Medications Medication Instructions Recorded Confirmed cholecalciferol (vitamin D3) 50 2,000 unit PO Q OTHER DAY #0 cap 01/13/21 08/02/21 mcg (2,000 unit) capsule (Vitamin D3) multivitamin (Daily Multi-Vitamin) 1 tab PO Q OTHER DAY tab 01/13/21 08/02/21 ascorbic acid (vitamin C) 250 mg 282 mg PO DAILY 02/21/21 08/02/21 tablet losartan 50 mg tablet 25 mg PO DAILY 05/09/21 08/02/21 vit C 250 mg-vit E 90 mg-zinc 40 1 tab PO BID 05/16/21 08/02/21 mg-copper 1 [id number] capsule (PreserVision AREDS-2) glipizide 5 mg tablet 5 mg PO DAILY tab 06/13/21 08/02/21 methylsulfonylmethane 1,000 mg 1,000 mg PO DAILY cap 07/11/21 08/02/21 capsule (MSM) Previous Rx's Medication Instructions Recorded furosemide 20 mg tablet (Lasix) 20 mg PO DAILY #1 tab 05/05/21 levothyroxine 100 mcg tablet 100 mcg PO QAM #90 tab 05/23/21 blood sugar diagnostic (OneTouch 1 strip MISCELLANEOUS BID #200 ea 06/28/21 Verio test strips) carvedilol 3.125 mg tablet 3.125 mg PO BID #180 tab 07/20/21 warfarin 5 mg tablet 5 mg PO 3XW #30 tab 07/20/21 vancomycin 125 mg capsule 125 mg PO QID 15 Days #60 cap 08/18/21 Allergies Allergy/AdvReac Type Severity Reaction Status Date / Time barium sulfate Allergy Severe SENSITIVITY Verified 08/26/21 15:35 TO ELECTRICAL CURRENT, SEIZURES Sulfa (Sulfonamide Allergy Intermediate HIVES Verified 08/26/21 15:35 Antibiotics) adhesive Allergy Mild RASH Verified 08/26/21 15:35 Review of Systems Review of Systems ROS Unobtainable: All systems reviewed & are unremarkable except as noted in HPI and below Patient History Medical History Chronic ITP (idiopathic thrombocytopenic purpura) DVT (deep venous thrombosis) Essential hypertension Hypothyroid Type II diabetes mellitus Warfarin anticoagulation Surgical History Status post appendectomy (~2005) Status post tonsillectomy and adenoidectomy (~194) Social History household members: none caregiver/support person: Yes (She is accompanied by her daughter.) Smoking Status: Former smoker alcohol intake: never Smoking Status: Former smoker alcohol intake frequency: holidays/special occasions only Substance Use Type: does not use Exam Initial Vital Signs Initial Vital Signs: Vital Signs Temperature 97.4 F L 08/26/21 15:35 Pulse Rate 78 08/26/21 15:35 Respiratory Rate 14 08/26/21 15:35 Blood Pressure 139/66 08/26/21 15:35 Pulse Oximetry 98 08/26/21 15:35 Course Orders Ordered: ED Orders 08/26/21 15:41 COVID19 -Nasal swab/Pre-Proc Stat 08/26/21 16:00 BMP [Basic Metabolic Panel] Stat CBC Auto Diff [Complete Blood Count AUTO DIFF] Stat CRP [C-Reactive Protein Quant] Stat ESR [Erythrocyte Sedimentation Rate] Stat Procalcitonin Stat Vital Signs Vital signs: Vital Signs - 8 hr 08/26/21 15:35 Temperature 97.4 F L Pulse Rate 78 Respiratory Rate 14 Blood Pressure 139/66 Pulse Oximetry 98 MDM - Extremity (Nontraumatic) Lab Data Result diagrams: 08/26/21 16:00 08/26/21 16:00 Labs: Lab Results 08/26/21 08/26/21 Range/Units 16:00 16:00 WBC 11.0 (4.5-11.0) X10^3/uL RBC 3.02 L (4.0-5.2) X10^6/uL Hgb 8.5 L (12.0-16.0) g/dL Hct 26.0 L (36-46) % MCV 86.2 (80-100) fL MCH 28.0 (26-34) PG MCHC 32.5 (30-36) % RDW 25.1 H (11.6-14.8) % Plt Count 135 L (150-400) X10^3/uL Neut % (Auto) 71.3 (50-75) % Lymph % (Auto) 12.3 L (25-40) % [place] % (Auto) 15.9 H (3-14) % Eos % (Auto) 0.0 L (2-4) % Baso % (Auto) 0.5 (0-2) % Neut # (Auto) 7800 H (2971-5489) /uL Lymph # (Auto) 1300 (8409-1653) /uL [place] # (Auto) 1700 H (0-900) /uL Eos # (Auto) 0 (0-450) /uL Baso # (Auto) 100 (0-100) /uL RBC Morphology See below Poikilocytosis 3+ H Anisocytosis 3+ H Microcytosis 1+ H Tear Drop Cells 1+ H Ovalocytes 2+ H Schistocytes 1+ H ESR 42 H (0-20) MM/HR Sodium 136 L (137-145) mmol/L Potassium 3.8 (3.4-5.1) mmol/L Chloride 106 (98-107) mmol/L Carbon Dioxide 24 (22-32) mmol/L BUN 22 H (7-17) mg/dL Creatinine 0.92 (0.52-1.04) mg/dL Estimated GFR 58.4 L (>60) mL/min BUN/Creatinine Ratio 23.9 H (6-22) Glucose 231 H (80-110) mg/dL Calcium 8.7 (8.4-10.2) mg/dL Procalcitonin 0.09 (<0.5) ng/mL ECG Data Attestation EKG: I personally reviewed and interpreted this ECG as follows: Prior ECG tracings: not available for review Interpretation: Sinus bradycardia first-degree AV block. Rate of 50 6p are 214 QRS of 94 and QTC 424. No acute ST changes appreciated. No priors available. Discharge Plan Departure Prescriptions: No Action cholecalciferol (vitamin D3) [Vitamin D3] 50 mcg (2,000 unit) capsule 2,000 unit PO Q OTHER DAY Qty: 0 0RF furosemide [Lasix] 20 mg tablet 20 mg PO DAILY Qty: 1 0RF levothyroxine 100 mcg tablet 100 mcg PO QAM Qty: 90 1RF Orthopaedic SynergyTouch Verio test strips Strip 1 strip miscellaneous BID Qty: 200 6RF Rx Instructions: Use to test blood sugars twice daily. MSM 1,000 mg capsule 1,000 mg PO DAILY 0RF Rx Instructions: takes three tabs daily carvedilol 3.125 mg tablet 3.125 mg PO BID Qty: 180 3RF Rx Instructions: must administer with a meal/food warfarin 5 mg tablet 5 mg PO 3XW Qty: 30 2RF Rx Instructions: Takes 1 tab PO on Sunday, Sunday, and Sunday vancomycin 125 mg capsule 125 mg PO QID 15 Days Qty: 60 0RF multivitamin [Daily Multi-Vitamin] Tablet 1 tab PO Q OTHER DAY 0RF glipizide 5 mg tablet 5 mg PO DAILY 0RF ascorbic acid (vitamin C) 250 mg Tablet 282 mg PO DAILY 0RF losartan 50 mg tablet 25 mg PO DAILY 0RF PreserVision AREDS-2 250-90-40-1 mg Capsule 1 tab PO BID 0RF Referrals: Gamal Orosco MD [Primary Care Provider] -
[2021-08-26 17:10] LABS: C-Reactive Protein Quant 0.9 mg/dL (<1.0)
[2021-08-26 17:46] LABS: COVID19 -Nasal RAPID Negative (Negative)
--- NOTE | 2021-08-26 18:19 | DI.MRI.S_ITS ---
PROCEDURE: MR FOOT LT WO/W CON INDICATIONS: eval for osteo TECHNIQUE: Noncontrast sagittal T1 spin echo and T2 fast spin echo with fat saturation, long-axis T1 spin echo and T2 fast spin echo with fat saturation; short-axis T1 spin echo, proton density fast spin echo, and T2 fast spin echo with fat saturation through the forefoot. Post-contrast short axis, long axis, and sagittal T1 spin echo with fat saturation through the forefoot. COMPARISON: [facility], , MR FOOT LT WO/W CON, 06/16/2021, 15:34. FINDINGS: Image quality: Excellent. Bones and joints: No suspicious osseous enhancement. No bone marrow contusions or metatarsal stress fractures. There is mild, presumably degenerative marrow edema within the 1st metatarsal and medial cuneiform adjacent to the 1st tarsometatarsal joint. The sesamoid bones appear in expected positions, without internal edema. No metatarsophalangeal joint degeneration. No intraosseous lesions. Soft tissues: There is moderate subcutaneous and deep T2 signal elevation within the dorsal and plantar aspects of the midfoot and forefoot, without focal fluid collection. plate tears. IMPRESSION: 1. Subcutaneous edema versus cellulitis. 2. No evidence of osteomyelitis. Dictated by: Tam Gaona M.D. on 08/26/2021 at 20:08 Approved by: Tam Gaona M.D. on 08/26/2021 at 20:10
--- NOTE | 2021-08-26 19:06 | ED.EXTPRO ---
HPI - Extremity Problem General Chief complaint: Extremity Problem,Nontraumatic Stated complaint: emergency MRI Time Seen by Provider: 08/26/21 15:41 Source: patient and family Mode of arrival: Wheelchair History of Present Illness HPI Narrative: 81-year-old female. She has a known left foot infection. Is currently on oral vancomycin because she developed C diff after receiving antibiotics for this infection. She saw her infectious disease provider today for the 1st time. Patient is with family. They have been doing home dressing changes. They stated that they recently probed the wound on the top of her foot does they are instructed by a wound care and had foot apparently was purulent material coming from the area. Was also reported that patient had labs performed at an outpatient clinic which showed a white blood cell count of 13 and 15% bands. Gross concerned about osteomyelitis in the were sent to the emergency department for further evaluation and treatment. Related Data Home Medications Medication Instructions Recorded Confirmed cholecalciferol (vitamin D3) 50 2,000 unit PO Q OTHER DAY #0 cap 01/13/21 08/02/21 mcg (2,000 unit) capsule (Vitamin D3) multivitamin (Daily Multi-Vitamin) 1 tab PO Q OTHER DAY tab 01/13/21 08/02/21 ascorbic acid (vitamin C) 250 mg 282 mg PO DAILY 02/21/21 08/02/21 tablet losartan 50 mg tablet 25 mg PO DAILY 05/09/21 08/02/21 vit C 250 mg-vit E 90 mg-zinc 40 1 tab PO BID 05/16/21 08/02/21 mg-copper 1 [id number] capsule (PreserVision AREDS-2) glipizide 5 mg tablet 5 mg PO DAILY tab 06/13/21 08/02/21 methylsulfonylmethane 1,000 mg 1,000 mg PO DAILY cap 07/11/21 08/02/21 capsule (MSM) Previous Rx's Medication Instructions Recorded furosemide 20 mg tablet (Lasix) 20 mg PO DAILY #1 tab 05/05/21 levothyroxine 100 mcg tablet 100 mcg PO QAM #90 tab 05/23/21 blood sugar diagnostic (OneTouch 1 strip MISCELLANEOUS BID #200 ea 06/28/21 Verio test strips) carvedilol 3.125 mg tablet 3.125 mg PO BID #180 tab 07/20/21 warfarin 5 mg tablet 5 mg PO 3XW #30 tab 07/20/21 vancomycin 125 mg capsule 125 mg PO QID 15 Days #60 cap 08/18/21 Allergies Allergy/AdvReac Type Severity Reaction Status Date / Time barium sulfate Allergy Severe SENSITIVITY Verified 08/26/21 15:35 TO ELECTRICAL CURRENT, SEIZURES Sulfa (Sulfonamide Allergy Intermediate HIVES Verified 08/26/21 15:35 Antibiotics) adhesive Allergy Mild RASH Verified 08/26/21 15:35 Review of Systems Constitutional Constitutional: Denies fever(s) Musculoskeletal Musculoskeletal: Reports system reviewed and no additional complaints, except as documented and Reports as per HPI Integumentary/Breasts Skin/Breast: Reports system reviewed and no additional complaints, except as documented and Reports as per HPI Neurologic Neurologic: Reports system reviewed and no additional complaints, except as documented Hematologic/Lymphatic On Anticoagulants: No Patient History Medical History Chronic ITP (idiopathic thrombocytopenic purpura) DVT (deep venous thrombosis) Essential hypertension Hypothyroid Type II diabetes mellitus Warfarin anticoagulation Surgical History Status post appendectomy (~2005) Status post tonsillectomy and adenoidectomy (~194) Social History household members: none caregiver/support person: Yes (She is accompanied by her daughter.) Smoking Status: Former smoker alcohol intake: never Smoking Status: Former smoker alcohol intake frequency: holidays/special occasions only Substance Use Type: does not use Exam Initial Vital Signs Initial Vital Signs: Vital Signs Temperature 97.4 F L 08/26/21 15:35 Pulse Rate 78 08/26/21 15:35 Respiratory Rate 14 08/26/21 15:35 Blood Pressure 139/66 08/26/21 15:35 Pulse Oximetry 98 08/26/21 15:35 Const General: No ill appearing HENMI Head: normal to inspection and normocephalic Cardio Pulses: dorsalis pedis present on the left Skin Other: Patient with a 0.5 cm incision on the dorsum/lateral up the left forefoot. There is packing in place. There is minimal erythema around the area. She does have a small amount of swelling to her 2nd 3rd toes. No fluctuance. No drainage. Neuro General: patient alert, patient awake and moves all extremities Extrem General: capillary refill normal and No edema Course Orders Ordered: ED Orders 08/26/21 18:19 MR foot LT wo/w con Stat 08/26/21 18:40 Blood Culture Stat Vital Signs Vital signs: Vital Signs - 8 hr 08/26/21 20:00 08/26/21 20:46 Pulse Rate 67 64 Respiratory Rate 16 Blood Pressure 204/83 H 185/71 H Pulse Oximetry 99 96 MDM - Extremity (Nontraumatic) Lab Data Attestation: I reviewed the patient's lab results. Result diagrams: 08/26/21 16:00 08/26/21 16:00 Labs: Lab Results 08/26/21 08/26/21 08/26/21 Range/Units 16:00 16:00 16:05 WBC 11.0 (4.5-11.0) X10^3/uL RBC 3.02 L (4.0-5.2) X10^6/uL Hgb 8.5 L (12.0-16.0) g/dL Hct 26.0 L (36-46) % MCV 86.2 (80-100) fL MCH 28.0 (26-34) PG MCHC 32.5 (30-36) % RDW 25.1 H (11.6-14.8) % Plt Count 135 L (150-400) X10^3/uL Neut % (Auto) 71.3 (50-75) % Lymph % (Auto) 12.3 L (25-40) % Coffee % (Auto) 15.9 H (3-14) % Eos % (Auto) 0.0 L (2-4) % Baso % (Auto) 0.5 (0-2) % Neut # (Auto) 7800 H (3451-7015) /uL Lymph # (Auto) 1300 (3715-8061) /uL Coffee # (Auto) 1700 H (0-900) /uL Eos # (Auto) 0 (0-450) /uL Baso # (Auto) 100 (0-100) /uL RBC Morphology See below Poikilocytosis 3+ H Anisocytosis 3+ H Microcytosis 1+ H Tear Drop Cells 1+ H Ovalocytes 2+ H Schistocytes 1+ H ESR 42 H (0-20) MM/HR Sodium 136 L (137-145) mmol/L Potassium 3.8 (3.4-5.1) mmol/L Chloride 106 (98-107) mmol/L Carbon Dioxide 24 (22-32) mmol/L BUN 22 H (7-17) mg/dL Creatinine 0.92 (0.52-1.04) mg/dL Estimated GFR 58.4 L (>60) mL/min BUN/Creatinine Ratio 23.9 H (6-22) Glucose 231 H (80-110) mg/dL Calcium 8.7 (8.4-10.2) mg/dL C-Reactive Protein 0.9 (<1.0) mg/dL Procalcitonin 0.09 (<0.5) ng/mL SARS-CoV-2 (PCR) Negative (Negative) Imaging Data MRI foot: Radiologist's Impression: [address] [address] Magnetic Resonance Report Signed Patient: Catarina Charles MR#: [id number] : 1940 Acct:[id number] Age/Sex: 80 / F Date of Service: 08/26/21 Loc: ED Accession Number: [id number] ?? Procedure: MR foot LT wo/w con Ordering Provider: Jeremias Rodriguez D.O. PROCEDURE:? MR FOOT LT WO/W CON ? INDICATIONS:? eval for osteo ? TECHNIQUE:? Noncontrast sagittal T1 spin echo and T2 fast spin echo with fat saturation, long-axis T1 spin echo and T2 fast spin echo with fat saturation; short-axis T1 spin echo, proton density fast spin echo, and T2 fast spin echo with fat saturation through the forefoot.? Post-contrast short axis, long axis, and sagittal T1 spin echo with fat saturation through the forefoot.? ? COMPARISON:? [facility], MR, MR FOOT LT WO/W CON, 06/16/2021, 15:34. ? FINDINGS:? Image quality:? Excellent.? ? Bones and joints:? No suspicious osseous enhancement.? No bone marrow contusions or metatarsal stress fractures.? There is mild, presumably degenerative marrow edema within the 1st metatarsal and medial cuneiform adjacent to the 1st tarsometatarsal joint.? The sesamoid bones appear in expected positions, without internal edema.? No metatarsophalangeal joint degeneration.? No intraosseous lesions.? ? Soft tissues:? There is moderate subcutaneous and deep T2 signal elevation within the dorsal and plantar aspects of the midfoot and forefoot, without focal fluid collection.? plate tears.? ? IMPRESSION:? 1. Subcutaneous edema versus cellulitis. 2. No evidence of osteomyelitis.? ? ? Dictated by: Tam Gaona M.D. on 08/26/2021 at 20:08 ? ? Approved by: Tam Gaona M.D. on 08/26/2021 at 20:10? ECG Data Attestation EKG: I personally reviewed and interpreted this ECG as follows: Interpretation: Sinus bradycardia Ventricular rate of 56 First degree AV block the. Or interval of 214 milliseconds Normal axis Normal QRS Normal QTC No ST T wave changes MDM Narrative Medical decision making narrative: Patient's labs performed at this department her very reassuring. She has no leukocytosis. Slightly elevated ESR but normal CRP. The wound on the top left foot actually looks very well. There is minimal surrounding erythema. Her MRI shows no signs of abscess or osteomyelitis. I did discuss the case with on-call infectious disease who was able to review the note from earlier today. There is a only mention of changing antibiotics if there was signs of osteomyelitis or abscess which does not appear to be the case today. She is on oral vancomycin ready. A culture from 1 month ago shows a pansensitive MSSA. Patient is nontoxic appearing. In order to avoid adding complication to the patient's situation we all hold on making any changes to her antibiotic regimen for now. They will continue to do wound dressing changes at home. They will contact their infectious disease provider on Sunday for follow-up. She was given return precautions. She expressed understanding and agreement. Discharge Plan Departure Patient Disposition: Home Clinical Impression: Cellulitis Instructions: DI for Cellulitis -- Adult Activity Restrictions/Additional Instructions: Continue to take the oral vancomycin. Contact Dr. Alfaro office on Sunday for follow-up. Continue all of the wound care that you have been doing. Return to the emergency department for any new or worsening symptoms. Prescriptions: No Action cholecalciferol (vitamin D3) [Vitamin D3] 50 mcg (2,000 unit) capsule 2,000 unit PO Q OTHER DAY Qty: 0 0RF furosemide [Lasix] 20 mg tablet 20 mg PO DAILY Qty: 1 0RF levothyroxine 100 mcg tablet 100 mcg PO QAM Qty: 90 1RF OneTouch Verio test strips Strip 1 strip miscellaneous BID Qty: 200 6RF Rx Instructions: Use to test blood sugars twice daily. MSM 1,000 mg capsule 1,000 mg PO DAILY 0RF Rx Instructions: takes three tabs daily carvedilol 3.125 mg tablet 3.125 mg PO BID Qty: 180 3RF Rx Instructions: must administer with a meal/food warfarin 5 mg tablet 5 mg PO 3XW Qty: 30 2RF Rx Instructions: Takes 1 tab PO on Sunday, Sunday, and Sunday vancomycin 125 mg capsule 125 mg PO QID 15 Days Qty: 60 0RF multivitamin [Daily Multi-Vitamin] Tablet 1 tab PO Q OTHER DAY 0RF glipizide 5 mg tablet 5 mg PO DAILY 0RF ascorbic acid (vitamin C) 250 mg Tablet 282 mg PO DAILY 0RF losartan 50 mg tablet 25 mg PO DAILY 0RF PreserVision AREDS-2 250-90-40-1 mg Capsule 1 tab PO BID 0RF Referrals: Gamal Orosco MD [Primary Care Provider] -
[2021-08-26 20:00] VITALS: BP 204/83; PULSE 67; RESP 16; O2SAT 99
[2021-08-26 20:46] VITALS: BP 185/71; PULSE 64; O2SAT 96
== END 2021-08-26 20:46 | disposition home or self-care (01) ==
PROVIDERS: Emergency Medicine; Emergency Provider Emergency Medicine; PCP Student in an Organized Health Care Education/Training Program
DX: L03.116 Cellulitis of left lower limb (principal); Z87.891 Personal history of nicotine dependence; Z88.2 Allergy status to sulfonamides; Z20.822 Contact with and (suspected) exposure to COVID-19
CPT/HCPCS: 36415; 73720; 80048; 84145; 85025; 85651; 86140; 87040; 87635; 93005; 99284; C9803; A9579

== ENCOUNTER → 2021-09-12 14:45 | Outpatient (CLI) | payer OTHER, SELFPAY ==
[2021-09-12 16:20] LABS: INR 1.7 (0.9-1.3); Prothrombin Time 19.6 SECONDS (10.1-12.7)
[2021-09-12 16:59] LABS: Hemoglobin A1C% w Est Avg Glu 6.4 % (4.0-6.0)
== END ==
PROVIDERS: PCP Student in an Organized Health Care Education/Training Program; Referring Provider Student in an Organized Health Care Education/Training Program; Visit Provider Student in an Organized Health Care Education/Training Program
DX: Z79.01 Long term (current) use of anticoagulants (principal); E11.9 Type 2 diabetes mellitus without complications
CPT/HCPCS: 36415; 83036; 85610

== ENCOUNTER → 2021-09-29 10:57 | Outpatient (CLI) | payer OTHER, SELFPAY ==
[2021-09-29 11:34] LABS: Appearance Urine UA CLEAR; Bilirubin Urine UA NEGATIVE (NEGATIVE); Color Urine UA YELLOW; Glucose Urine UA NEGATIVE (Negative); Ketones Urine UA NEGATIVE (NEGATIVE); Leukocyte Esterase Urine UA 1+ (NEGATIVE); Nitrite Urine UA NEGATIVE (Negative); Occult Blood Urine UA NEGATIVE (Negative); Protein Urine UA NEGATIVE (Negative); Specific Gravity Urine UA 1.015 (1.000-1.035); Urobilinogen Urine UA 0.2 E.U./dL (0.2)
[2021-09-29 11:47] LABS: RBC Urine None Seen (0-5/HPF)
[2021-09-29 11:48] LABS: Bacteria Urine Moderate (10-30); Culture Indicated Urine Specimen Cultured; WBC Urine 10-30/HPF (0-5/HPF)
== END ==
PROVIDERS: PCP Student in an Organized Health Care Education/Training Program; Referring Provider Internal Medicine Infectious Disease; Visit Provider Internal Medicine Infectious Disease
DX: N39.0 Urinary tract infection, site not specified (principal)
CPT/HCPCS: 81001; 87077; 87086; 87186

== ENCOUNTER → 2021-10-24 11:52 | Outpatient (CLI) | payer OTHER, SELFPAY ==
[2021-10-24 13:35] LABS: Prothrombin Time 58.7 SECONDS (10.1-12.7)
[2021-10-24 13:49] LABS: INR 4.9 (0.9-1.3)
== END ==
PROVIDERS: PCP Student in an Organized Health Care Education/Training Program; Referring Provider Student in an Organized Health Care Education/Training Program; Visit Provider Student in an Organized Health Care Education/Training Program
DX: Z79.01 Long term (current) use of anticoagulants (principal)
CPT/HCPCS: 36415; 85610

== ENCOUNTER → 2021-10-31 08:54 | Outpatient (CLI) | payer OTHER, SELFPAY ==
[2021-10-31 09:19] LABS: Alanine Aminotransferase 8 IU/L (<35); Albumin 3.7 g/dL (3.5-5.0); Albumin Globulin Ratio 1.2 (1.0-2.8); Alkaline Phosphatase 79 U/L (38-126); Aspartate Aminotransferase 24 IU/L (14-36); BUN Creatinine Ratio 21.4 (6-22); Bilirubin Total 0.6 mg/dL (0.2-1.3); Blood Urea Nitrogen 18 mg/dL (7-17); Calcium 8.5 mg/dL (8.4-10.2); Carbon Dioxide 28 mmol/L (22-32); Chloride 107 mmol/L (98-107); Estimated Glomerular Filt Rate > 60 mL/min (>60); Globulin 3.1 g/dL (1.7-4.1); Glucose 101 mg/dL (80-110); HEMOLYSIS < 15 (0-50); Potassium 4.5 mmol/L (3.4-5.1); Sodium 139 mmol/L (137-145); Total Protein 6.8 g/dL (6.3-8.2)
[2021-10-31 09:31] LABS: HEMOLYSIS < 15 (0-50); Iron 45 ug/dL (37-170)
[2021-10-31 09:42] LABS: Percent Iron Saturation 18 % (15-50); Total Iron Binding Capacity 248 ug/dL (265-497); Transferrin 165 mg/dL (206-381)
[2021-10-31 09:56] LABS: Ferritin 302 ng/mL (11-264)
[2021-10-31 10:17] LABS: INR 2.9 (0.9-1.3); Prothrombin Time 33.6 SECONDS (10.1-12.7)
== END ==
PROVIDERS: Internal Medicine Hematology & Oncology; PCP Student in an Organized Health Care Education/Training Program; Referring Provider Student in an Organized Health Care Education/Training Program; Visit Provider Student in an Organized Health Care Education/Training Program
DX: D46.9 Myelodysplastic syndrome, unspecified; Z79.01 Long term (current) use of anticoagulants
CPT/HCPCS: 36415; 80053; 82728; 83540; 83550; 85610

== ENCOUNTER → 2021-11-07 12:55 | Outpatient (CLI) | payer OTHER, SELFPAY ==
[2021-11-07 14:45] LABS: INR 3.3 (0.9-1.3); Prothrombin Time 39.1 SECONDS (10.1-12.7)
== END ==
PROVIDERS: PCP Student in an Organized Health Care Education/Training Program; Referring Provider Student in an Organized Health Care Education/Training Program; Visit Provider Student in an Organized Health Care Education/Training Program
DX: Z79.01 Long term (current) use of anticoagulants (principal)
CPT/HCPCS: 36415; 85610

== ENCOUNTER → 2021-11-14 14:47 | Outpatient (CLI) | payer OTHER, SELFPAY ==
[2021-11-14 16:33] LABS: INR 3.6 (0.9-1.3); Prothrombin Time 42.1 SECONDS (10.1-12.7)
== END ==
PROVIDERS: PCP Student in an Organized Health Care Education/Training Program; Referring Provider Student in an Organized Health Care Education/Training Program; Visit Provider Student in an Organized Health Care Education/Training Program
DX: Z79.01 Long term (current) use of anticoagulants (principal); I82.409 Acute embolism and thrombosis of unspecified deep veins of unspecified lower extremity
CPT/HCPCS: 36415; 85610

== ENCOUNTER → 2021-11-16 11:16 | Outpatient (CLI) | payer OTHER, SELFPAY ==
[2021-11-16 15:23] LABS: Clostridium Difficile Tox PCR Positive for C. diff (Negative)
[2021-11-17 15:57] LABS: C difficie Toxins A and B, EIA Positive (Negative)
== END ==
PROVIDERS: PCP Student in an Organized Health Care Education/Training Program; Referring Provider Student in an Organized Health Care Education/Training Program; Visit Provider Student in an Organized Health Care Education/Training Program
DX: A04.72 Enterocolitis due to Clostridium difficile, not specified as recurrent (principal)
CPT/HCPCS: 87324; 87493

== ENCOUNTER → 2021-11-22 15:02 | Outpatient (CLI) | payer OTHER, SELFPAY ==
[2021-11-22 17:00] LABS: INR 2.4 (0.9-1.3); Prothrombin Time 28.3 SECONDS (10.1-12.7)
[2021-11-22 17:07] LABS: Hematocrit 25.3 % (36-46); Hemoglobin 8.4 g/dL (12.0-16.0)
[2021-11-22 17:09] LABS: BUN Creatinine Ratio 20.5 (6-22); Blood Urea Nitrogen 17 mg/dL (7-17); Calcium 8.6 mg/dL (8.4-10.2); Carbon Dioxide 27 mmol/L (22-32); Chloride 106 mmol/L (98-107); Estimated Glomerular Filt Rate > 60 mL/min (>60); Glucose 51 mg/dL (80-110); HEMOLYSIS < 15 (0-50); Potassium 4.1 mmol/L (3.4-5.1); Sodium 141 mmol/L (137-145)
[2021-11-22 17:17] LABS: NT-proBNP (BNP-Adult 18+) 1870 pg/mL (<450)
[2021-11-22 17:20] LABS: HEMOLYSIS < 15 (0-50); Iron 59 ug/dL (37-170)
[2021-11-22 17:43] LABS: Ferritin 258 ng/mL (11-264)
[2021-11-22 17:52] LABS: TSH w/ Reflex to FT4 0.49 uIU/mL (0.47-4.68)
[2021-11-22 18:43] LABS: Percent Iron Saturation 22 % (15-50); Total Iron Binding Capacity 265 ug/dL (265-497)
[2021-11-22 20:05] LABS: Transferrin 168 mg/dL (206-381)
== END ==
PROVIDERS: PCP Student in an Organized Health Care Education/Training Program; Referring Provider Student in an Organized Health Care Education/Training Program; Visit Provider Student in an Organized Health Care Education/Training Program
DX: N05.9 Unspecified nephritic syndrome with unspecified morphologic changes (principal); E03.9 Hypothyroidism, unspecified; I50.32 Chronic diastolic (congestive) heart failure; D50.0 Iron deficiency anemia secondary to blood loss (chronic); D64.9 Anemia, unspecified; Z79.01 Long term (current) use of anticoagulants
CPT/HCPCS: 36415; 80048; 82728; 83540; 83550; 83880; 84443; 85014; 85018; 85610

== ENCOUNTER → 2021-12-05 11:14 | Outpatient (CLI) | payer OTHER, SELFPAY ==
[2021-12-05 12:03] LABS: INR 2.3 (0.9-1.3); Prothrombin Time 25.8 SECONDS (10.1-12.7)
== END ==
PROVIDERS: PCP Student in an Organized Health Care Education/Training Program; Referring Provider Student in an Organized Health Care Education/Training Program; Visit Provider Student in an Organized Health Care Education/Training Program
DX: Z79.01 Long term (current) use of anticoagulants (principal)
CPT/HCPCS: 36415; 85610

== ENCOUNTER → 2021-12-19 10:12 | Outpatient (CLI) | payer OTHER, SELFPAY ==
[2021-12-19 11:19] LABS: INR 1.8 (0.9-1.3); Prothrombin Time 19.8 SECONDS (10.1-12.7)
== END ==
PROVIDERS: PCP Student in an Organized Health Care Education/Training Program; Referring Provider Student in an Organized Health Care Education/Training Program; Visit Provider Student in an Organized Health Care Education/Training Program
DX: Z79.01 Long term (current) use of anticoagulants (principal)
CPT/HCPCS: 36415; 85610

== ENCOUNTER → 2021-12-27 11:45 | Outpatient (CLI) | payer OTHER, SELFPAY ==
[2021-12-27 12:21] LABS: INR 2.2 (0.9-1.3)
[2021-12-27 14:33] LABS: Prothrombin Time 25.2 SECONDS (10.1-12.7)
== END ==
PROVIDERS: PCP Student in an Organized Health Care Education/Training Program; Referring Provider Student in an Organized Health Care Education/Training Program; Visit Provider Student in an Organized Health Care Education/Training Program
DX: Z79.01 Long term (current) use of anticoagulants (principal)
CPT/HCPCS: 85610

== ENCOUNTER → 2022-01-03 13:04 | Outpatient (CLI) | payer OTHER, SELFPAY ==
[2022-01-03 16:03] LABS: Clostridium Difficile Tox PCR Positive for C. diff (Negative)
[2022-01-04 14:20] LABS: C difficie Toxins A and B, EIA Positive (Negative)
== END ==
PROVIDERS: PCP Student in an Organized Health Care Education/Training Program; Referring Provider Internal Medicine Infectious Disease; Visit Provider Internal Medicine Infectious Disease
DX: A49.8 Other bacterial infections of unspecified site (principal)
CPT/HCPCS: 87324; 87493

== ENCOUNTER → 2022-01-09 10:33 | Outpatient (CLI) | payer OTHER, SELFPAY ==
[2022-01-09 12:22] LABS: Hematocrit 26.4 % (36-46); Hemoglobin 8.6 g/dL (12.0-16.0); Mean Corpuscular HGB Conc 32.5 % (30-36); Mean Corpuscular Hemoglobin 27.4 PG (26-34); Mean Corpuscular Volume 84.2 fL (80-100); Platelet Count 80 X10^3/uL (150-400); Red Blood Cell Count 3.13 X10^6/uL (4.0-5.2); Red Cell Distribution Width 24.4 % (11.6-14.8); White Blood Cell Count 13.1 X10^3/uL (4.5-11.0)
[2022-01-09 12:25] LABS: Add Manual Diff / Slide Review YES
[2022-01-09 12:26] LABS: INR 1.9 (0.9-1.3); Prothrombin Time 22.4 SECONDS (10.1-12.7)
[2022-01-09 12:45] LABS: Neutrophils Absolute Manual 5764 /uL (3000-5900); Total Cells Counted 100
[2022-01-09 12:46] LABS: Anisocytosis 3+
[2022-01-09 12:48] LABS: Schistocytes 1+; Tear Drop Cells 1+
[2022-01-09 12:50] LABS: Ovalocytes 1+; Poikilocytosis 2+
[2022-01-09 12:51] LABS: Platelet Estimate Decr; RBC Morphology See
== END ==
PROVIDERS: Internal Medicine Hematology & Oncology; PCP Student in an Organized Health Care Education/Training Program; Referring Provider Student in an Organized Health Care Education/Training Program; Visit Provider Student in an Organized Health Care Education/Training Program
DX: Z79.01 Long term (current) use of anticoagulants (principal); D69.3 Immune thrombocytopenic purpura
CPT/HCPCS: 36415; 85007; 85025; 85610

== ENCOUNTER → 2022-01-16 07:33 | Outpatient (CLI) | payer OTHER, SELFPAY ==
[2022-01-16 08:08] LABS: INR 2.1 (0.9-1.3); Prothrombin Time 24.2 SECONDS (10.1-12.7)
== END ==
PROVIDERS: PCP Student in an Organized Health Care Education/Training Program; Referring Provider Student in an Organized Health Care Education/Training Program; Visit Provider Student in an Organized Health Care Education/Training Program
DX: Z79.01 Long term (current) use of anticoagulants (principal)
CPT/HCPCS: 36415; 85610

== ENCOUNTER → 2022-01-30 07:02 | Outpatient (CLI) | payer OTHER, SELFPAY ==
[2022-01-30 07:22] LABS: Hematocrit 28.3 % (36-46); Hemoglobin 9.2 g/dL (12.0-16.0); Mean Corpuscular HGB Conc 32.5 % (30-36); Mean Corpuscular Hemoglobin 27.4 PG (26-34); Mean Corpuscular Volume 84.4 fL (80-100); Platelet Count 85 X10^3/uL (150-400); Red Blood Cell Count 3.35 X10^6/uL (4.0-5.2); Red Cell Distribution Width 24.9 % (11.6-14.8); White Blood Cell Count 11.3 X10^3/uL (4.5-11.0)
[2022-01-30 07:23] LABS: Add Manual Diff / Slide Review YES
[2022-01-30 07:24] LABS: INR 1.7 (0.9-1.3); Prothrombin Time 19.3 SECONDS (10.1-12.7)
[2022-01-30 07:50] LABS: Alanine Aminotransferase 10 IU/L (<35); Albumin 3.8 g/dL (3.5-5.0); Albumin Globulin Ratio 1.5 (1.0-2.8); Alkaline Phosphatase 112 U/L (38-126); Aspartate Aminotransferase 22 IU/L (14-36); BUN Creatinine Ratio 35.3 (6-22); Bilirubin Total 0.4 mg/dL (0.2-1.3); Blood Urea Nitrogen 36 mg/dL (7-17); Calcium 8.6 mg/dL (8.4-10.2); Carbon Dioxide 22 mmol/L (22-32); Chloride 109 mmol/L (98-107); Estimated Glomerular Filt Rate 55 mL/min (>60); Globulin 2.6 g/dL (1.7-4.1); Glucose 115 mg/dL (80-110); HEMOLYSIS < 15 (0-50); Potassium 4.7 mmol/L (3.4-5.1); Sodium 139 mmol/L (137-145); Total Protein 6.4 g/dL (6.3-8.2)
[2022-01-30 07:55] LABS: Neutrophils Absolute Manual 5311 /uL (3000-5900); Total Cells Counted 100
[2022-01-30 07:56] LABS: Anisocytosis 2+; Schistocytes 1+
== END ==
PROVIDERS: Internal Medicine Hematology & Oncology; PCP Student in an Organized Health Care Education/Training Program; Referring Provider Student in an Organized Health Care Education/Training Program; Visit Provider Student in an Organized Health Care Education/Training Program
DX: D69.3 Immune thrombocytopenic purpura (principal); Z79.01 Long term (current) use of anticoagulants
CPT/HCPCS: 36415; 80053; 85007; 85025; 85610

== ENCOUNTER → 2022-02-13 15:37 | Outpatient (CLI) | payer OTHER, SELFPAY ==
[2022-02-13 16:24] LABS: INR 1.9 (0.9-1.3); Prothrombin Time 21.7 SECONDS (10.1-12.7)
== END ==
PROVIDERS: PCP Student in an Organized Health Care Education/Training Program; Referring Provider Student in an Organized Health Care Education/Training Program; Visit Provider Student in an Organized Health Care Education/Training Program
DX: Z79.01 Long term (current) use of anticoagulants (principal)
CPT/HCPCS: 36415; 85610

== ENCOUNTER → 2022-02-28 08:41 | Outpatient (CLI) | payer OTHER, SELFPAY ==
[2022-02-28 09:16] LABS: Add Manual Diff / Slide Review YES; Hematocrit 25.8 % (36-46); Hemoglobin 8.5 g/dL (12.0-16.0); Mean Corpuscular Hemoglobin 28.1 PG (26-34); Platelet Count 67 X10^3/uL (150-400); Red Blood Cell Count 3.03 X10^6/uL (4.0-5.2); Red Cell Distribution Width 24.1 % (11.6-14.8); White Blood Cell Count 7.6 X10^3/uL (4.5-11.0)
[2022-02-28 09:21] LABS: INR 2.2 (0.9-1.3); Prothrombin Time 25.7 SECONDS (10.1-12.7)
[2022-02-28 09:43] LABS: Anisocytosis 3+; Neutrophils Absolute Manual 3876 /uL (3000-5900); Nucleated Red Blood Cells 1 #/Diff; Poikilocytosis 2+; Total Cells Counted 100
== END ==
PROVIDERS: Internal Medicine Hematology & Oncology; PCP Student in an Organized Health Care Education/Training Program; Referring Provider Student in an Organized Health Care Education/Training Program; Visit Provider Student in an Organized Health Care Education/Training Program
DX: Z79.01 Long term (current) use of anticoagulants (principal); D46.9 Myelodysplastic syndrome, unspecified
CPT/HCPCS: 36415; 85007; 85025; 85610

== ENCOUNTER → 2022-03-13 10:33 | Outpatient (CLI) | payer OTHER, SELFPAY ==
[2022-03-13 17:56] LABS: INR 2.7 (0.9-1.3); Prothrombin Time 31.5 SECONDS (10.1-12.7)
== END ==
PROVIDERS: PCP Student in an Organized Health Care Education/Training Program; Referring Provider Student in an Organized Health Care Education/Training Program; Visit Provider Student in an Organized Health Care Education/Training Program
DX: I82.502 Chronic embolism and thrombosis of unspecified deep veins of left lower extremity (principal); Z79.01 Long term (current) use of anticoagulants
CPT/HCPCS: 36415; 85610

== ENCOUNTER → 2022-04-10 07:45 | Outpatient (CLI) | payer OTHER, SELFPAY ==
[2022-04-10 09:53] LABS: INR 2.6 (0.9-1.3); Prothrombin Time 29.8 SECONDS (10.1-12.7)
== END ==
PROVIDERS: PCP Student in an Organized Health Care Education/Training Program; Referring Provider Student in an Organized Health Care Education/Training Program; Visit Provider Student in an Organized Health Care Education/Training Program
DX: I82.502 Chronic embolism and thrombosis of unspecified deep veins of left lower extremity (principal); Z79.01 Long term (current) use of anticoagulants
CPT/HCPCS: 36415; 85610

== ENCOUNTER → 2022-05-01 14:24 | Outpatient (CLI) | payer OTHER, SELFPAY ==
[2022-05-01 15:21] LABS: INR 3.2 (0.9-1.3); Prothrombin Time 36.8 SECONDS (10.1-12.7)
== END ==
PROVIDERS: PCP Student in an Organized Health Care Education/Training Program; Referring Provider Student in an Organized Health Care Education/Training Program; Visit Provider Student in an Organized Health Care Education/Training Program
DX: I82.502 Chronic embolism and thrombosis of unspecified deep veins of left lower extremity (principal); Z79.01 Long term (current) use of anticoagulants
CPT/HCPCS: 36415; 85610

== ENCOUNTER → 2022-05-15 08:37 | Outpatient (CLI) | payer OTHER, SELFPAY ==
[2022-05-05 13:08] VITALS: BMI 33.9
[2022-05-15 10:00] LABS: INR 2.4 (0.9-1.3); Prothrombin Time 28.1 SECONDS (10.1-12.7)
== END ==
PROVIDERS: PCP Student in an Organized Health Care Education/Training Program; Referring Provider Student in an Organized Health Care Education/Training Program; Visit Provider Student in an Organized Health Care Education/Training Program
DX: I82.502 Chronic embolism and thrombosis of unspecified deep veins of left lower extremity (principal); Z79.01 Long term (current) use of anticoagulants
CPT/HCPCS: 36415; 85610

== ENCOUNTER → 2022-05-22 09:49 | Outpatient (CLI) | payer OTHER, SELFPAY ==
[2022-05-05 13:08] VITALS: BMI 33.9
[2022-05-22 10:51] LABS: Hematocrit 28.1 % (36-46); Hemoglobin 9.4 g/dL (12.0-16.0)
[2022-05-22 11:10] LABS: BUN Creatinine Ratio 22.8 (6-22); Blood Urea Nitrogen 23 mg/dL (7-17); Calcium 8.6 mg/dL (8.4-10.2); Carbon Dioxide 26 mmol/L (22-32); Chloride 105 mmol/L (98-107); Estimated Glomerular Filt Rate 55 mL/min (>60); Glucose 122 mg/dL (80-110); HEMOLYSIS < 15 (0-50); Potassium 4.4 mmol/L (3.4-5.1); Sodium 139 mmol/L (137-145)
[2022-05-22 15:18] LABS: Creatinine Urine Random 126.7 mg/dL; Protein (Total) Urine Random 19 mg/dL (0-12); Protein Creatinine Ratio Urine 0.14 GRAM/24H
[2022-05-24 07:53] LABS: Parathyroid Hormone Int 54 pg/mL (15-65)
== END ==
PROVIDERS: PCP Student in an Organized Health Care Education/Training Program; Referring Provider Student in an Organized Health Care Education/Training Program; Visit Provider Student in an Organized Health Care Education/Training Program
DX: N05.9 Unspecified nephritic syndrome with unspecified morphologic changes (principal); D64.9 Anemia, unspecified; R80.9 Proteinuria, unspecified; N25.81 Secondary hyperparathyroidism of renal origin
CPT/HCPCS: 36415; 80048; 82570; 83970; 84156; 85014; 85018

== ENCOUNTER → 2022-05-29 10:13 | Outpatient (CLI) | payer OTHER, SELFPAY ==
[2022-05-05 13:08] VITALS: BMI 33.9
[2022-05-29 14:32] LABS: INR 2.9 (0.9-1.3)
== END ==
PROVIDERS: PCP Student in an Organized Health Care Education/Training Program; Referring Provider Student in an Organized Health Care Education/Training Program; Visit Provider Student in an Organized Health Care Education/Training Program
DX: I82.502 Chronic embolism and thrombosis of unspecified deep veins of left lower extremity (principal); Z79.01 Long term (current) use of anticoagulants
CPT/HCPCS: 36415; 85610

== ENCOUNTER → 2022-06-12 10:32 | Outpatient (CLI) | payer OTHER, SELFPAY ==
[2022-05-05 13:08] VITALS: BMI 33.9
[2022-06-12 12:11] LABS: INR 3.2 (0.9-1.3); Prothrombin Time 37.5 SECONDS (10.1-12.7)
== END ==
PROVIDERS: PCP Student in an Organized Health Care Education/Training Program; Referring Provider Student in an Organized Health Care Education/Training Program; Visit Provider Student in an Organized Health Care Education/Training Program
DX: Z79.01 Long term (current) use of anticoagulants (principal)
CPT/HCPCS: 36415; 85610

== ENCOUNTER → 2022-06-27 11:17 | Outpatient (CLI) | payer OTHER, SELFPAY ==
[2022-05-05 13:08] VITALS: BMI 33.9
[2022-06-27 13:40] LABS: INR 2.4 (0.9-1.3); Prothrombin Time 27.7 SECONDS (10.1-12.7)
== END ==
PROVIDERS: PCP Student in an Organized Health Care Education/Training Program; Referring Provider Student in an Organized Health Care Education/Training Program; Visit Provider Student in an Organized Health Care Education/Training Program
DX: Z79.01 Long term (current) use of anticoagulants (principal); I82.502 Chronic embolism and thrombosis of unspecified deep veins of left lower extremity
CPT/HCPCS: 36415; 85610

== ENCOUNTER → 2022-07-03 09:43 | Outpatient (CLI) | payer OTHER, SELFPAY ==
[2022-05-05 13:08] VITALS: BMI 33.9
[2022-07-03 10:39] LABS: Add Manual Diff / Slide Review YES; Hematocrit 28.9 % (36-46); Hemoglobin 9.4 g/dL (12.0-16.0); Mean Corpuscular HGB Conc 32.5 % (30-36); Mean Corpuscular Hemoglobin 27.6 PG (26-34); Mean Corpuscular Volume 85.1 fL (80-100); Platelet Count 74 X10^3/uL (150-400); Red Cell Distribution Width 22.4 % (11.6-14.8); White Blood Cell Count 11.7 X10^3/uL (4.5-11.0)
[2022-07-03 10:49] LABS: Hemoglobin A1C% w Est Avg Glu 7.1 % (4.0-6.0)
[2022-07-03 10:55] LABS: Neutrophils Absolute Manual 5148 /uL (3000-5900); Total Cells Counted 100
[2022-07-03 10:56] LABS: Anisocytosis 2+; Hypochromasia 1+; Poikilocytosis 1+
== END ==
PROVIDERS: Internal Medicine Hematology & Oncology; PCP Student in an Organized Health Care Education/Training Program; Referring Provider Student in an Organized Health Care Education/Training Program; Visit Provider Student in an Organized Health Care Education/Training Program
DX: E11.9 Type 2 diabetes mellitus without complications (principal); D69.3 Immune thrombocytopenic purpura
CPT/HCPCS: 36415; 83036; 85007; 85025

== ENCOUNTER → 2022-07-17 10:18 | Outpatient (CLI) | payer OTHER, SELFPAY ==
[2022-05-05 13:08] VITALS: BMI 33.9
[2022-07-17 11:20] LABS: INR 3.5 (0.9-1.3); Prothrombin Time 41.2 SECONDS (10.1-12.7)
== END ==
PROVIDERS: PCP Student in an Organized Health Care Education/Training Program; Referring Provider Student in an Organized Health Care Education/Training Program; Visit Provider Student in an Organized Health Care Education/Training Program
DX: Z79.01 Long term (current) use of anticoagulants (principal); I82.502 Chronic embolism and thrombosis of unspecified deep veins of left lower extremity
CPT/HCPCS: 36415; 85610

== ENCOUNTER → 2022-07-24 14:25 | Outpatient (CLI) | payer OTHER, SELFPAY ==
[2022-05-05 13:08] VITALS: BMI 33.9
[2022-07-24 15:24] LABS: INR 2.9 (0.9-1.3); Prothrombin Time 33.4 SECONDS (10.1-12.7)
== END ==
PROVIDERS: PCP Student in an Organized Health Care Education/Training Program; Referring Provider Student in an Organized Health Care Education/Training Program; Visit Provider Student in an Organized Health Care Education/Training Program
DX: I82.409 Acute embolism and thrombosis of unspecified deep veins of unspecified lower extremity (principal)
CPT/HCPCS: 36415; 85610

== ENCOUNTER → 2022-07-31 06:57 | Outpatient (CLI) | payer OTHER, SELFPAY ==
[2022-05-05 13:08] VITALS: BMI 33.9
[2022-07-31 07:54] LABS: INR 2.4 (0.9-1.3)
[2022-07-31 08:05] LABS: Hematocrit 26.4 % (36-46); Hemoglobin 8.8 g/dL (12.0-16.0); Mean Corpuscular HGB Conc 33.3 % (30-36); Mean Corpuscular Hemoglobin 28.1 PG (26-34); Mean Corpuscular Volume 84.4 fL (80-100); Platelet Count 71 X10^3/uL (150-400); Red Blood Cell Count 3.13 X10^6/uL (4.0-5.2); Red Cell Distribution Width 22.6 % (11.6-14.8); White Blood Cell Count 7.4 X10^3/uL (4.5-11.0)
[2022-07-31 08:07] LABS: Add Manual Diff / Slide Review YES
[2022-07-31 08:57] LABS: Neutrophils Absolute Manual 3108 /uL (3000-5900); Total Cells Counted 100
[2022-07-31 08:58] LABS: Anisocytosis 3+; Platelet Estimate Decr; Poikilocytosis 1+
== END ==
PROVIDERS: Internal Medicine Hematology & Oncology; PCP Student in an Organized Health Care Education/Training Program; Referring Provider Student in an Organized Health Care Education/Training Program; Visit Provider Student in an Organized Health Care Education/Training Program
DX: I82.502 Chronic embolism and thrombosis of unspecified deep veins of left lower extremity (principal); D69.3 Immune thrombocytopenic purpura
CPT/HCPCS: 36415; 85007; 85025; 85610

== ENCOUNTER → 2022-08-14 09:29 | Outpatient (CLI) | payer OTHER, SELFPAY ==
[2022-05-05 13:08] VITALS: BMI 33.9
[2022-08-14 11:36] LABS: Prothrombin Time 63.9 SECONDS (10.1-12.7)
[2022-08-14 11:40] LABS: INR 5.5 (0.9-1.3)
== END ==
PROVIDERS: PCP Student in an Organized Health Care Education/Training Program; Referring Provider Student in an Organized Health Care Education/Training Program; Visit Provider Student in an Organized Health Care Education/Training Program
DX: I82.409 Acute embolism and thrombosis of unspecified deep veins of unspecified lower extremity (principal)
CPT/HCPCS: 36415; 85610

== ENCOUNTER → 2022-08-17 07:42 | Outpatient (CLI) | payer OTHER, SELFPAY ==
[2022-05-05 13:08] VITALS: BMI 33.9
[2022-08-17 08:18] LABS: INR 3.1 (0.9-1.3); Prothrombin Time 35.7 SECONDS (10.1-12.7)
== END ==
PROVIDERS: PCP Student in an Organized Health Care Education/Training Program; Referring Provider Student in an Organized Health Care Education/Training Program; Visit Provider Student in an Organized Health Care Education/Training Program
DX: I82.409 Acute embolism and thrombosis of unspecified deep veins of unspecified lower extremity (principal)
CPT/HCPCS: 36415; 85610

== ENCOUNTER → 2022-08-21 07:47 | Outpatient (CLI) | payer OTHER, SELFPAY ==
[2022-05-05 13:08] VITALS: BMI 33.9
[2022-08-21 09:19] LABS: INR 4.1 (0.9-1.3); Prothrombin Time 48.2 SECONDS (10.1-12.7)
== END ==
PROVIDERS: PCP Student in an Organized Health Care Education/Training Program; Referring Provider Student in an Organized Health Care Education/Training Program; Visit Provider Student in an Organized Health Care Education/Training Program
DX: Z79.01 Long term (current) use of anticoagulants (principal); I82.502 Chronic embolism and thrombosis of unspecified deep veins of left lower extremity
CPT/HCPCS: 36415; 85610

== ENCOUNTER → 2022-08-24 09:30 | Outpatient (CLI) | payer OTHER, SELFPAY ==
[2022-05-05 13:08] VITALS: BMI 33.9
[2022-08-24 11:46] LABS: INR 1.9 (0.9-1.3); Prothrombin Time 21.8 SECONDS (10.1-12.7)
== END ==
PROVIDERS: PCP Student in an Organized Health Care Education/Training Program; Referring Provider Student in an Organized Health Care Education/Training Program; Visit Provider Student in an Organized Health Care Education/Training Program
DX: Z79.01 Long term (current) use of anticoagulants (principal)
CPT/HCPCS: 36415; 85610

== ENCOUNTER → 2022-09-04 07:02 | Outpatient (CLI) | payer OTHER, SELFPAY ==
[2022-05-05 13:08] VITALS: BMI 33.9
[2022-09-04 07:35] LABS: INR 3.1 (0.9-1.3); Prothrombin Time 36.3 SECONDS (10.1-12.7)
== END ==
PROVIDERS: PCP Student in an Organized Health Care Education/Training Program; Referring Provider Student in an Organized Health Care Education/Training Program; Visit Provider Student in an Organized Health Care Education/Training Program
DX: Z79.01 Long term (current) use of anticoagulants (principal); I82.502 Chronic embolism and thrombosis of unspecified deep veins of left lower extremity
CPT/HCPCS: 36415; 85610

== ENCOUNTER → 2022-09-15 08:17 | Outpatient (CLI) | payer OTHER, SELFPAY ==
[2022-05-05 13:08] VITALS: BMI 33.9
[2022-09-15 09:04] LABS: Appearance Urine UA CLEAR; Bilirubin Urine UA NEGATIVE (NEGATIVE); Color Urine UA YELLOW; Glucose Urine UA NEGATIVE (Negative); Ketones Urine UA NEGATIVE (NEGATIVE); Leukocyte Esterase Urine UA TRACE (NEGATIVE); Nitrite Urine UA NEGATIVE (Negative); Occult Blood Urine UA TRACE-INTACT (Negative); Protein Urine UA TRACE (Negative); Urobilinogen Urine UA 0.2 E.U./dL (0.2)
[2022-09-15 09:05] LABS: pH Urine UA 5.5 (4.5-8.0)
[2022-09-15 09:35] LABS: Bacteria Urine None Seen; Culture Indicated Urine Specimen Cultured; RBC Urine None Seen (0-5/HPF); Squamous Epithelial Cell Urine 1-5 /HPF (0-5/HPF); WBC Urine 10-30/HPF (0-5/HPF)
== END ==
PROVIDERS: PCP Student in an Organized Health Care Education/Training Program; Referring Provider Internal Medicine Infectious Disease; Visit Provider Internal Medicine Infectious Disease
DX: N39.0 Urinary tract infection, site not specified (principal)
CPT/HCPCS: 81001; 87077; 87086; 87186

== ENCOUNTER → 2022-09-18 09:40 | Outpatient (CLI) | payer OTHER, SELFPAY ==
[2022-05-05 13:08] VITALS: BMI 33.9
[2022-09-18 11:12] LABS: INR 3.2 (0.9-1.3); Prothrombin Time 36.9 SECONDS (10.1-12.7)
== END ==
PROVIDERS: PCP Student in an Organized Health Care Education/Training Program; Referring Provider Student in an Organized Health Care Education/Training Program; Visit Provider Student in an Organized Health Care Education/Training Program
DX: I82.502 Chronic embolism and thrombosis of unspecified deep veins of left lower extremity (principal); Z79.01 Long term (current) use of anticoagulants
CPT/HCPCS: 36415; 85610

== ENCOUNTER → 2022-10-02 07:50 | Outpatient (CLI) | payer OTHER, SELFPAY ==
[2022-05-05 13:08] VITALS: BMI 33.9
[2022-10-02 09:02] LABS: INR 2.5 (0.9-1.3); Prothrombin Time 28.4 SECONDS (10.1-12.7)
== END ==
PROVIDERS: PCP Student in an Organized Health Care Education/Training Program; Referring Provider Student in an Organized Health Care Education/Training Program; Visit Provider Student in an Organized Health Care Education/Training Program
DX: I82.409 Acute embolism and thrombosis of unspecified deep veins of unspecified lower extremity (principal)
CPT/HCPCS: 36415; 85610

== ENCOUNTER → 2022-10-16 10:38 | Outpatient (CLI) | payer OTHER, SELFPAY ==
[2022-05-05 13:08] VITALS: BMI 33.9
[2022-10-16 12:41] LABS: INR 2.1 (0.9-1.3); Prothrombin Time 24.7 SECONDS (10.1-12.7)
== END ==
PROVIDERS: PCP Student in an Organized Health Care Education/Training Program; Referring Provider Student in an Organized Health Care Education/Training Program; Visit Provider Student in an Organized Health Care Education/Training Program
DX: I82.409 Acute embolism and thrombosis of unspecified deep veins of unspecified lower extremity (principal)
CPT/HCPCS: 36415; 85610

== ENCOUNTER → 2022-11-13 07:29 | Outpatient (CLI) | payer OTHER, SELFPAY ==
[2022-05-05 13:08] VITALS: BMI 33.9
[2022-11-13 08:05] LABS: Prothrombin Time 23.3 SECONDS (10.1-12.7)
== END ==
PROVIDERS: PCP Student in an Organized Health Care Education/Training Program; Referring Provider Student in an Organized Health Care Education/Training Program; Visit Provider Student in an Organized Health Care Education/Training Program
DX: I82.409 Acute embolism and thrombosis of unspecified deep veins of unspecified lower extremity (principal)
CPT/HCPCS: 36415; 85610

== ENCOUNTER → 2022-11-22 13:11 | Outpatient (CLI) | payer OTHER, SELFPAY ==
[2022-05-05 13:08] VITALS: BMI 33.9
[2022-11-22 13:58] LABS: Hematocrit 27.2 % (36-46); Hemoglobin 9.2 g/dL (12.0-16.0)
[2022-11-22 14:17] LABS: BUN Creatinine Ratio 25.7 (6-22); Blood Urea Nitrogen 36 mg/dL (7-17); Calcium 8.4 mg/dL (8.4-10.2); Carbon Dioxide 24 mmol/L (22-32); Chloride 106 mmol/L (98-107); Estimated Glomerular Filt Rate 37 mL/min (>60); Glucose 156 mg/dL (80-110); HEMOLYSIS < 15 (0-50); Sodium 139 mmol/L (137-145)
[2022-11-22 16:07] LABS: Creatinine Urine Random 107.5 mg/dL; Protein (Total) Urine Random 31 mg/dL (0-12); Protein Creatinine Ratio Urine 0.28 GRAM/24H
[2022-11-24 08:09] LABS: Parathyroid Hormone Int 52 pg/mL (15-65)
== END ==
PROVIDERS: PCP Student in an Organized Health Care Education/Training Program; Referring Provider Student in an Organized Health Care Education/Training Program; Visit Provider Student in an Organized Health Care Education/Training Program
DX: N05.9 Unspecified nephritic syndrome with unspecified morphologic changes (principal); R80.9 Proteinuria, unspecified; D64.9 Anemia, unspecified; N25.81 Secondary hyperparathyroidism of renal origin
CPT/HCPCS: 36415; 80048; 82570; 83970; 84156; 85014; 85018

== ENCOUNTER → 2023-01-08 10:18 | Outpatient (CLI) | payer OTHER, SELFPAY ==
[2022-05-05 13:08] VITALS: BMI 33.9
[2023-01-08 11:00] LABS: INR 1.9 (0.9-1.3); Prothrombin Time 22.3 SECONDS (10.1-12.7)
== END ==
PROVIDERS: PCP Student in an Organized Health Care Education/Training Program; Referring Provider Pediatrics; Visit Provider Pediatrics
DX: I82.409 Acute embolism and thrombosis of unspecified deep veins of unspecified lower extremity (principal)
CPT/HCPCS: 36415; 85610

== ENCOUNTER → 2023-01-17 12:48 | Outpatient (CLI) | payer OTHER, SELFPAY ==
[2022-05-05 13:08] VITALS: BMI 33.9
[2023-01-17 14:50] LABS: BUN Creatinine Ratio 26.9 (6-22); Blood Urea Nitrogen 28 mg/dL (7-17); Calcium 8.5 mg/dL (8.4-10.2); Carbon Dioxide 25 mmol/L (22-32); Chloride 105 mmol/L (98-107); Estimated Glomerular Filt Rate 53 mL/min (>60); Glucose 97 mg/dL (80-110); HEMOLYSIS < 15 (0-50); Potassium 4.8 mmol/L (3.4-5.1); Sodium 138 mmol/L (137-145)
[2023-01-17 16:06] LABS: Creatinine Urine Random 62.1 mg/dL
[2023-01-17 16:08] LABS: Creatinine Urine Random 62.6 mg/dL; Protein (Total) Urine Random 29 mg/dL (0-12); Protein Creatinine Ratio Urine 0.46 GRAM/24H
[2023-01-17 16:10] LABS: Microalbumi Creatinin Ratio Ur 136.8 ug/mg CR (<30); Microalbumin Urine Random 8.5 mg/dL (0-1.6)
== END ==
PROVIDERS: Student in an Organized Health Care Education/Training Program; PCP Pediatrics; Referring Provider Student in an Organized Health Care Education/Training Program; Visit Provider Student in an Organized Health Care Education/Training Program
DX: N05.9 Unspecified nephritic syndrome with unspecified morphologic changes (principal); R80.9 Proteinuria, unspecified; E11.9 Type 2 diabetes mellitus without complications
CPT/HCPCS: 36415; 80048; 82043; 82570; 84156

== ENCOUNTER → 2023-02-12 08:26 | Outpatient (CLI) | payer OTHER, SELFPAY ==
[2022-05-05 13:08] VITALS: BMI 33.9
[2023-02-12 09:33] LABS: Prothrombin Time 23.5 SECONDS (10.1-12.7)
== END ==
PROVIDERS: PCP Pediatrics; Referring Provider Pediatrics; Visit Provider Pediatrics
DX: I82.409 Acute embolism and thrombosis of unspecified deep veins of unspecified lower extremity (principal)
CPT/HCPCS: 36415; 85610

== ENCOUNTER → 2023-02-21 08:30 | Outpatient (CLI) | payer OTHER, SELFPAY ==
[2022-05-05 13:08] VITALS: BMI 33.9
[2023-02-21 09:37] LABS: HEMOLYSIS < 15 (0-50); NT-proBNP (BNP-Adult 18+) 1240 pg/mL (<450)
[2023-02-21 09:38] LABS: BUN Creatinine Ratio 40.4 (6-22); Blood Urea Nitrogen 42 mg/dL (7-17); Calcium 8.6 mg/dL (8.4-10.2); Carbon Dioxide 23 mmol/L (22-32); Chloride 106 mmol/L (98-107); Estimated Glomerular Filt Rate 53 mL/min (>60); Glucose 118 mg/dL (80-110); Potassium 4.5 mmol/L (3.4-5.1); Sodium 138 mmol/L (137-145)
[2023-02-21 16:05] LABS: Creatinine Urine Random 46.3 mg/dL; Protein (Total) Urine Random 18 mg/dL (0-12); Protein Creatinine Ratio Urine 0.38 GRAM/24H
== END ==
PROVIDERS: PCP Pediatrics; Referring Provider Student in an Organized Health Care Education/Training Program; Visit Provider Student in an Organized Health Care Education/Training Program
DX: I50.32 Chronic diastolic (congestive) heart failure (principal); N05.9 Unspecified nephritic syndrome with unspecified morphologic changes; R80.9 Proteinuria, unspecified
CPT/HCPCS: 36415; 80048; 82570; 83880; 84156

== ENCOUNTER → 2023-03-12 07:40 | Outpatient (CLI) | payer OTHER, SELFPAY ==
[2022-05-05 13:08] VITALS: BMI 33.9
[2023-03-12 09:19] LABS: INR 2.2 (0.9-1.3); Prothrombin Time 25.5 SECONDS (10.1-12.7)
== END ==
PROVIDERS: PCP Pediatrics; Referring Provider Pediatrics; Visit Provider Pediatrics
DX: I82.409 Acute embolism and thrombosis of unspecified deep veins of unspecified lower extremity (principal)
CPT/HCPCS: 36415; 85610

== ENCOUNTER → 2023-03-28 13:30 | Outpatient (CLI) | payer OTHER, SELFPAY ==
[2022-05-05 13:08] VITALS: BMI 33.9
[2023-03-28 15:36] LABS: Creatinine Urine Random 59.4 mg/dL; Protein (Total) Urine Random 16 mg/dL (0-12); Protein Creatinine Ratio Urine 0.26 GRAM/24H
[2023-03-28 15:48] LABS: BUN Creatinine Ratio 29.5 (6-22); Blood Urea Nitrogen 38 mg/dL (7-17); Calcium 9.1 mg/dL (8.4-10.2); Carbon Dioxide 25 mmol/L (22-32); Chloride 104 mmol/L (98-107); Estimated Glomerular Filt Rate 41 mL/min (>60); Glucose 147 mg/dL (80-110); HEMOLYSIS < 15 (0-50); Potassium 3.9 mmol/L (3.4-5.1); Sodium 138 mmol/L (137-145)
[2023-03-28 15:50] LABS: NT-proBNP (BNP-Adult 18+) 836 pg/mL (<450)
== END ==
PROVIDERS: PCP Internal Medicine; Referring Provider Student in an Organized Health Care Education/Training Program; Visit Provider Student in an Organized Health Care Education/Training Program
DX: I50.32 Chronic diastolic (congestive) heart failure (principal); N05.9 Unspecified nephritic syndrome with unspecified morphologic changes; R80.9 Proteinuria, unspecified
CPT/HCPCS: 80048; 82570; 83880; 84156

== ENCOUNTER → 2023-04-09 07:55 | Outpatient (CLI) | payer OTHER, SELFPAY ==
[2022-05-05 13:08] VITALS: BMI 33.9
[2023-04-09 08:16] LABS: INR 2.9 (0.9-1.3)
[2023-04-09 08:43] LABS: Prothrombin Time 33.9 SECONDS (10.1-12.7)
== END ==
PROVIDERS: PCP Internal Medicine; Referring Provider Pediatrics; Visit Provider Pediatrics
DX: I82.502 Chronic embolism and thrombosis of unspecified deep veins of left lower extremity (principal)
CPT/HCPCS: 36415; 85610

== ENCOUNTER 2023-05-01 11:09 | Emergency (ER) | payer OTHER, SELFPAY ==
[2022-05-05 13:08] VITALS: BMI 33.9
--- NOTE | 2023-05-01 | DI.US.S_ITS ---
PROCEDURE: US PERIPH VENOUS LOW EXTREM RT INDICATIONS: RIGHT LOWER EXTREMITY REDNESS, PAIN, EDEMA TECHNIQUE: Real-time imaging, as well as color and pulse Doppler interrogation, were performed of the lower extremity deep veins from the inguinal ligament to the popliteal fossa, with documentation of the visualized calf veins. COMPARISON: None. FINDINGS: The common femoral, femoral, popliteal, and the visualized calf veins are normally compressible, and free of intraluminal thrombus. Color and pulse Doppler demonstrate normal phasic intraluminal flow. There is normal augmentation response to distal compression maneuver. There is a prominent indeterminate right groin lymph node measuring 1 cm in short axis. IMPRESSION: No findings of lower extremity deep venous thrombosis. Dictated by: Barrie Forbes M.D. on 05/01/2023 at 12:52 Approved by: Barrie Forbes M.D. on 05/01/2023 at 12:52
[2023-05-01 11:14] VITALS: BP 195/80; PULSE 55; RESP 18; TEMP 36.6; O2SAT 98; BMI 28.2
--- NOTE | 2023-05-01 11:21 | DI.RAD.S_ITS ---
PROCEDURE: XR TIBIA FUBULA RT 2V INDICATIONS: bruising/swelling TECHNIQUE: 2 views of the tibia and fibula were acquired. COMPARISON: None. FINDINGS: Bones: There is either chronic injury or acute fracture of the tip of the medial malleolus. Favor chronic injury. No comparison studies. No other fractures or dislocations identified. Soft tissues: No suspicious soft tissue calcifications or masses. IMPRESSION: Chronic injury versus acute fracture of the tip of the medial malleolus. Recommend clinical correlation for presence or absence of point tenderness. Ankle plain films may be helpful. Dictated by: Sajan Cerda M.D. on 05/01/2023 at 12:01 Approved by: Sajan Cerda M.D. on 05/01/2023 at 12:08
[2023-05-01 13:57] VITALS: PULSE 52; RESP 18; O2SAT 99
[2023-05-01 14:15] VITALS: BP 138/54; PULSE 53; RESP 16; O2SAT 97
--- NOTE | 2023-05-01 15:36 | ED_ITS ---
HPI - Extremity Problem <Tia Goodman PA-C - Last Filed: 05/01/23 17:48> General Chief complaint: Extremity Problem,Nontraumatic Stated complaint: R lower leg swelling/red/hot/discoloration T-4 Time Seen by Provider: 05/01/23 13:56 Source: patient Mode of arrival: Ambulatory History of Present Illness HPI Narrative: 82-year-old female with a history of hypertension hypothyroidism ITP and cellulitis, history of DVT on current warfarin therapy. presents for evaluation of right lower extremity swelling and erythema. She is brought in by her daughter. She reports going in for a bone marrow biopsy 1 week ago without incident. About 4 days later she noticed a bruising and swelling of the right lower leg mostly anteriorly. She has a complete blood count done once a week by her oncologist who is following her ITP. According to clinic at [facility] her white blood cell count yesterday was 19.0. She is not aware of a chronic high white blood cell count, and was not notified by her clinic. She does not remember any trauma to the area. The next couple of days got a little bit more swollen and it became tender circumferentially. She soaked the leg in Epsom salts and slept with it elevated and feels that today it has improved. She denies constitutional symptoms, and has had no fever no chest pain, no shortness of breath. Her DVT was approximately 3 years ago and she has been on oral warfarin since then and was told by a doctor she will likely be on it for life. Just over a year ago she was in the hospital for a foot injury and contracted C diff. She had what she calls a horrendous sequence of antibiotics that did not resolve the infection. 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 She is extremely hesitant to take antibiotics. Related Data Home Medications Medication Instructions Recorded Confirmed cholecalciferol (vitamin D3) 50 2,000 unit PO Q OTHER DAY #0 caps 01/13/21 11/15/22 mcg (2,000 unit) capsule (Vitamin D3) multivitamin (Daily Multi-Vitamin 1 tab PO Q OTHER DAY 01/13/21 11/15/22 tablet) Lactobacillus 3 cap PO DAILY 03/20/22 11/15/22 acidophilus-Bifidobac.animalis 2.5 billion cell capsule (Daily Probiotic) ascorbic acid (vitamin C) 250 mg 282 mg PO Q3-4D 05/08/22 11/15/22 tablet vit C 250 mg-vit E 90 mg-zinc 40 1 tab PO .Q3 days 05/08/22 11/15/22 mg-copper 1 [id number] capsule (PreserVision AREDS-2) magnesium 100 mg tablet 300 mg PO 10/23/22 11/15/22 Previous Rx's Medication Instructions Recorded furosemide 20 mg tablet (Lasix) 20 mg PO DAILY #1 tab 05/05/21 losartan 50 mg tablet 25 mg (1/2 x 50 mg) PO DAILY #90 12/12/21 tabs Disability Parking #1 ea 05/08/22 carvedilol 3.125 mg tablet 3.125 mg PO BID #180 tabs 07/17/22 levothyroxine 100 mcg tablet See Rx Instructions .Route 11/13/22 .COMPLEX #90 tabs blood sugar diagnostic (OneTouch 1 strip miscellaneous BID #200 ea 11/30/22 Verio test strips) warfarin 6 mg tablet See Rx Instructions .Route 12/18/22 .COMPLEX #120 tabs cephalexin 500 mg capsule 500 mg PO TID #15 caps 05/01/23 Allergies Allergy/AdvReac Type Severity Reaction Status Date / Time barium sulfate Allergy Severe SENSITIVITY Verified 11/15/22 13:54 TO ELECTRICAL CURRENT, SEIZURES Sulfa (Sulfonamide Allergy Intermediate HIVES Verified 11/15/22 13:54 Antibiotics) adhesive Allergy Mild RASH Verified 11/15/22 13:54 Review of Systems <Tia Goodman PA-C - Last Filed: 05/01/23 17:48> Review of Systems ROS Unobtainable: All systems reviewed & are unremarkable except as noted in HPI and below Patient History <Tia Goodman PA-C - Last Filed: 05/01/23 17:48> Medical History Warfarin anticoagulation Essential hypertension Type II diabetes mellitus Hypothyroid Chronic ITP (idiopathic thrombocytopenic purpura) DVT (deep venous thrombosis) Surgical History Status post appendectomy (~2005) Status post tonsillectomy and adenoidectomy (~194) Social History household members: none caregiver/support person: Yes (She is accompanied by her daughter.) Smoking Status: Former smoker alcohol intake: never Smoking Status: Former smoker alcohol intake frequency: holidays/special occasions only Substance Use Type: does not use Exam <Tia Goodman PA-C - Last Filed: 05/01/23 17:48> Initial Vital Signs Initial Vital Signs: Vital Signs Temperature 97.9 F 05/01/23 11:14 Pulse Rate 55 L 05/01/23 11:14 Respiratory Rate 18 05/01/23 11:14 Blood Pressure 195/80 H 05/01/23 11:14 Pulse Oximetry 98 05/01/23 11:14 Oxygen Delivery Method Room Air 05/01/23 11:14 Const General: cooperative HENMT Head: normocephalic and atraumatic Eyes Eyelids: eyelids normal Conjunctivae: conjunctivae normal Sclera: sclerae normal Pupils: PERRL EOM: EOM intact bilaterally Chest Chest: normal inspection of the chest Resp Effort & Inspection: normal respiratory effort, able to speak in complete sentences, no respiratory distress and no use of accessory muscles Auscultation: clear to auscultation bilaterally, no rales, no rhonchi and no wheezes Cardio Rate: regular rate Rhythm: regular rhythm Skin Other: Focal exam of lower extremities: Left lower extremity with mild swelling 1+ pitting edema and anterior erythema that runs from just below the knee to just above the ankle. This area diffusely tender without focal fluctuance or evidence of skin breakdown. One cm distal to the kneecap there is a focal ecchymotic swelling approximately 2.5 cm in circumference. The back of her calf is diffusely tender without cord tenderness. Right lower extremity has anterior brownish skin discoloration without erythema, no tenderness. Pedal pulses are 1+ bilaterally. Feet slightly cool dry, intact skin, decreased sensation in her toes secondary to peripheral neuropathy. Neuro General: patient alert, patient oriented x3, gait normal and no focal motor deficits Speech: speech normal Extrem Other: No bony tenderness to palpation. Psych Appearance: well kempt Mental Status: mental status grossly normal Attitude: cooperative <Pilar Lafleur DO - Last Filed: 05/02/23 12:20> Initial Vital Signs Initial Vital Signs: Vital Signs Temperature 97.9 F 05/01/23 11:14 Pulse Rate 55 L 05/01/23 11:14 Respiratory Rate 18 05/01/23 11:14 Blood Pressure 195/80 H 05/01/23 11:14 Pulse Oximetry 98 05/01/23 11:14 Oxygen Delivery Method Room Air 05/01/23 11:14 Scores <Tia Goodman PA-C - Last Filed: 05/01/23 17:48> Sidney' Criteria for DVT Active Cancer (Treatment within 6 months): No Bedridden recently >3 days or major surgery within 4 weeks: No Calf Swelling >3cm compared to other leg: Yes Collateral (nonvericose) superficial veins present: Yes Entire leg swollen: Yes Localized tenderness along the deep vein system: No Pitting edema, confined to symtomatic leg: Yes Paralysis, paresis, or recent plaster immobilization of ext: No Previously documented DVT: Yes Alternative dx to DVT as likely or more likely: No Rachael criteria for DVT: 5 <Pilar Lafleur DO - Last Filed: 05/02/23 12:20> Sidney' Criteria for DVT Wells' criteria for DVT: 5 Course <Tia Goodman PA-C - Last Filed: 05/01/23 17:48> Orders Ordered: ED Orders 05/01/23 11:21 XR tibia fibula RT 2V Stat 05/01/23 14:41 CBC Auto Diff [Complete Blood Count AUTO DIFF] Stat Comprehensive Metabolic Panel Stat 05/01/23 14:43 CRP [C-Reactive Protein Quant] Stat ESR [Erythrocyte Sedimentation Rate] Stat Vital Signs Vital signs: Vital Signs - 8 hr 05/01/23 11:14 05/01/23 13:57 05/01/23 14:15 Temperature 97.9 F Pulse Rate 55 L 52 L 53 L Respiratory Rate 18 18 16 Blood Pressure 195/80 H 138/54 L Pulse Oximetry 98 99 97 Oxygen Delivery Method Room Air Room Air 05/01/23 15:53 05/01/23 16:20 Temperature 98.3 F Pulse Rate 60 Respiratory Rate 18 Blood Pressure Pulse Oximetry 99 Oxygen Delivery Method Room Air <Pilar Lafleur DO - Last Filed: 05/02/23 12:20> Orders Ordered: ED Orders 05/01/23 11:21 XR tibia fibula RT 2V Stat 05/01/23 14:41 CBC Auto Diff [Complete Blood Count AUTO DIFF] Stat Comprehensive Metabolic Panel Stat 05/01/23 14:43 CRP [C-Reactive Protein Quant] Stat ESR [Erythrocyte Sedimentation Rate] Stat Vital Signs Vital signs: Vital Signs - 8 hr 05/01/23 11:14 05/01/23 13:57 05/01/23 14:15 Temperature 97.9 F Pulse Rate 55 L 52 L 53 L Respiratory Rate 18 18 16 Blood Pressure 195/80 H 138/54 L Pulse Oximetry 98 99 97 Oxygen Delivery Method Room Air Room Air 05/01/23 15:53 05/01/23 16:20 Temperature 98.3 F Pulse Rate 60 Respiratory Rate 18 Blood Pressure Pulse Oximetry 99 Oxygen Delivery Method Room Air MDM - Extremity (Nontraumatic) <Tia Goodman PA-C - Last Filed: 05/01/23 17:48> Differential Diagnosis Differential diagnosis: Likely cellulitis, superficial thrombophlebitis and deep vein thrombosis of lower extremity Condition is:: Improved Lab Data 05/01/23 16:15 05/01/23 16:15 Labs: Lab Results 05/01/23 Range/Units 16:15 WBC 14.6 H (4.5-11.0) X10^3/uL RBC 3.18 L (4.0-5.2) X10^6/uL Hgb 9.0 L (12.0-16.0) g/dL Hct 26.8 L (36-46) % MCV 84.3 (80-100) fL MCH 28.4 (26-34) PG MCHC 33.6 (30-36) % RDW 23.3 H (11.6-14.8) % Plt Count 97 L (150-400) X10^3/uL Neut % (Auto) Not Reportable Lymph % (Auto) Not Reportable [place] % (Auto) Not Reportable Eos % (Auto) Not Reportable Baso % (Auto) Not Reportable Lymph # (Auto) Not Reportable [place] # (Auto) Not Reportable Baso # (Auto) Not Reportable Total Counted 100 Seg Neutrophils % 48.0 (38-70) % Band Neutrophils % 8.0 H (3-7) % Lymphocytes % (Manual) 10.0 L (25-45) % Monocytes % (Manual) 26.0 H (2-11) % Metamyelocytes % 4.0 H (-0) % Myelocytes % 3.0 H (-0) % Promyelocytes % 1.0 H (-0) % Neutrophils # (Manual) 8176 H (6352-2597) /uL Platelet Estimate Decreased on smear RBC Morphology See below Poikilocytosis 2+ H Anisocytosis 3+ H Tear Drop Cells 1+ H Ovalocytes 1+ H Schistocytes 2+ H ESR 48 H (0-20) MM/HR Sodium 139 (137-145) mmol/L Potassium 3.7 (3.4-5.1) mmol/L Chloride 105 (98-107) mmol/L Carbon Dioxide 26 (22-32) mmol/L BUN 33 H (7-17) mg/dL Creatinine 1.06 H (0.52-1.04) mg/dL Estimated GFR 52 L (>60) mL/min BUN/Creatinine Ratio 31.1 H (6-22) Glucose 97 (80-110) mg/dL Calcium 9.0 (8.4-10.2) mg/dL Total Bilirubin 0.7 (0.2-1.3) mg/dL AST 24 (14-36) IU/L ALT 11 (<35) IU/L Alkaline Phosphatase 72 (38-126) U/L C-Reactive Protein 2.7 H (<1.0) mg/dL Total Protein 7.0 (6.3-8.2) g/dL Albumin 3.7 (3.5-5.0) g/dL Globulin 3.3 (1.7-4.1) g/dL Albumin/Globulin Ratio 1.1 (1.0-2.8) Imaging Data US - DVT: Radiologist's Impression: PROCEDURE: US PERIPH VENOUS LOW EXTREM RT INDICATIONS: RIGHT LOWER EXTREMITY REDNESS, PAIN, EDEMA TECHNIQUE: Real-time imaging, as well as color and pulse Doppler interrogation, were performed of the lower extremity deep veins from the inguinal ligament to the popliteal fossa, with documentation of the visualized calf veins. COMPARISON: None. FINDINGS: The common femoral, femoral, popliteal, and the visualized calf veins are normally compressible, and free of intraluminal thrombus. Color and pulse Doppler demonstrate normal phasic intraluminal flow. There is normal augmentation response to distal compression maneuver. There is a prominent indeterminate right groin lymph node measuring 1 cm in short axis. IMPRESSION: No findings of lower extremity deep venous thrombosis. Dictated by: Barrie Forbes M.D. on 05/01/2023 at 12:52 Approved by: Barrie Forbes M.D. on 05/01/2023 at 12:52 Extremity x-ray #1: Radiologist's Impression: PROCEDURE: XR TIBIA FUBULA RT 2V INDICATIONS: bruising/swelling TECHNIQUE: 2 views of the tibia and fibula were acquired. COMPARISON: None. FINDINGS: Bones: There is either chronic injury or acute fracture of the tip of the medial malleolus. Favor chronic injury. No comparison studies. No other fractures or dislocations identified. Soft tissues: No suspicious soft tissue calcifications or masses. IMPRESSION: Chronic injury versus acute fracture of the tip of the medial malleolus. Recommend clinical correlation for presence or absence of point tenderness. Ankle plain films may be helpful. Dictated by: Sajan Cerda M.D. on 05/01/2023 at 12:01 Approved by: Sajan Cerda M.D. on 05/01/2023 at 12:08 [facility] Narrative Medical decision making narrative: The right lower extremity appears to be cellulitic. However patient and her daughter report that the condition has improved considerably in the last 12 hours and are asking not to have to take antibiotics because of her past history with C diff. her white count has improved to 14.6. There is a question if this represents infection versus inflammatory process secondary to her autoimmune ITP. Because of the history of improvement over last 24 hours they can continue with Epsom salt soaks and elevation of the extremity. However if her condition worsens she is asked to start course of antibiotics that have called into the pharmacy. She is also asked to call her oncologist tomorrow to report her condition and seek advice regarding the significance of her white count in relation to her current treatment. She understands that the Keflex antibiotic is relatively low risk or triggering a repeat of her C difficile. <Pilar Lafleur, - Last Filed: 05/02/23 12:20> Lab Data Labs: Lab Results 05/01/23 Range/Units 16:15 WBC 14.6 H (4.5-11.0) X10^3/uL RBC 3.18 L (4.0-5.2) X10^6/uL Hgb 9.0 L (12.0-16.0) g/dL Hct 26.8 L (36-46) % MCV 84.3 (80-100) fL MCH 28.4 (26-34) PG MCHC 33.6 (30-36) % RDW 23.3 H (11.6-14.8) % Plt Count 97 L (150-400) X10^3/uL Neut % (Auto) Not Reportable Lymph % (Auto) Not Reportable [place] % (Auto) Not Reportable Eos % (Auto) Not Reportable Baso % (Auto) Not Reportable Lymph # (Auto) Not Reportable [place] # (Auto) Not Reportable Baso # (Auto) Not Reportable Total Counted 100 Seg Neutrophils % 48.0 (38-70) % Band Neutrophils % 8.0 H (3-7) % Lymphocytes % (Manual) 10.0 L (25-45) % Monocytes % (Manual) 26.0 H (2-11) % Metamyelocytes % 4.0 H (-0) % Myelocytes % 3.0 H (-0) % Promyelocytes % 1.0 H (-0) % Neutrophils # (Manual) 8176 H (9272-3886) /uL Platelet Estimate Decreased on smear RBC Morphology See below Poikilocytosis 2+ H Anisocytosis 3+ H Tear Drop Cells 1+ H Ovalocytes 1+ H Schistocytes 2+ H ESR 48 H (0-20) MM/HR Sodium 139 (137-145) mmol/L Potassium 3.7 (3.4-5.1) mmol/L Chloride 105 (98-107) mmol/L Carbon Dioxide 26 (22-32) mmol/L BUN 33 H (7-17) mg/dL Creatinine 1.06 H (0.52-1.04) mg/dL Estimated GFR 52 L (>60) mL/min BUN/Creatinine Ratio 31.1 H (6-22) Glucose 97 (80-110) mg/dL Calcium 9.0 (8.4-10.2) mg/dL Total Bilirubin 0.7 (0.2-1.3) mg/dL AST 24 (14-36) IU/L ALT 11 (<35) IU/L Alkaline Phosphatase 72 (38-126) U/L C-Reactive Protein 2.7 H (<1.0) mg/dL Total Protein 7.0 (6.3-8.2) g/dL Albumin 3.7 (3.5-5.0) g/dL Globulin 3.3 (1.7-4.1) g/dL Albumin/Globulin Ratio 1.1 (1.0-2.8) Discharge Plan Departure Patient Disposition: Home Clinical Impression: Cellulitis Qualifiers: Site of cellulitis: extremity Site of cellulitis of extremity: lower extremity Laterality: right Qualified Code(s): L03.115 - Cellulitis of right lower limb Instructions: DI for Cellulitis -- Adult Activity Restrictions/Additional Instructions: You appear to have a superficial skin infection that according to your history has been improving over the last 12 hours. However, I still have a high suspicion for infection that may require antibiotics, especially considering that your white blood cell count was elevated yesterday. I am going to call in a short course of antibiotics to your pharmacy and I will call you at home after your laboratory results are available here today. If the white cell count has risen, I want you to start the antibiotics even in the presence of improvement. If her white blood cell count is improved I still want you to take antibiotics if you see no improvement in the lower extremity tomorrow or if it becomes worse later today. Please check in with your oncologist to discuss these findings. If you become considerably more ill in the next few days I would like you to return to the ER. Prescriptions: New cephalexin 500 mg capsule 500 mg PO TID Qty: 15 0RF No Action cholecalciferol (vitamin D3) [Vitamin D3] 50 mcg (2,000 unit) capsule 2,000 unit PO Q OTHER DAY Qty: 0 furosemide [Lasix] 20 mg tablet 20 mg PO DAILY Qty: 1 0RF losartan 50 mg tablet 25 mg PO DAILY Qty: 90 3RF carvedilol 3.125 mg tablet 3.125 mg PO BID Qty: 180 3RF Rx Instructions: must administer with a meal/food levothyroxine 100 mcg tablet See Rx Instructions .ROUTE .COMPLEX Qty: 90 2RF Dose Instruction: TAKE 1 TABLET BY MOUTH EVERY MORNING Rx Instructions: TAKE 1 TABLET BY MOUTH EVERY MORNING OneTouch Verio test strips Strip 1 strip miscellaneous BID Qty: 200 6RF Rx Instructions: Use to test blood sugars twice daily. warfarin 6 mg tablet See Rx Instructions .ROUTE .COMPLEX Qty: 120 3RF Dose Instruction: TAKE 6MG WEDNESDAYS, SATURDAYS AND 9MG ALL OTHER DAYS, OR DIRECTED.; Rx Instructions: TAKE 6MG WEDNESDAYS, SATURDAYS AND 9MG ALL OTHER DAYS, OR DIRECTED.; multivitamin [Daily Multi-Vitamin] Tablet 1 tab PO Q OTHER DAY (DME) Disability Parking See Rx Instructions .Route .MEDSUPPLY Qty: 1 0RF Rx Instructions: As directed ascorbic acid (vitamin C) 250 mg tablet 282 mg PO Q3-4D PreserVision AREDS-2 250-90-40-1 mg capsule 1 tab PO .Q3 days Daily Probiotic 2.5 billion cell Capsule 3 cap PO DAILY magnesium 100 mg Tablet 300 mg PO Referrals: Reji Brasher MD [Primary Care Provider] - Stand Alone Forms: Patient Portal/API ED Sign-out <Pilar Lafleur, - Last Filed: 05/02/23 12:20> Cosign ED Attending Stephanieature Attestation: I was immediately available in the department for consultation.
--- NOTE | 2023-05-01 15:39 | PC.NURSE ---
Pt states she just had labwork done yesterday. [facility] was called and records requested for CBC. ER Provider updated and okayed securing these labs rather than draw patient today.
[2023-05-01 15:53] VITALS: TEMP 36.8
--- NOTE | 2023-05-01 15:58 | PC.NURSE ---
Labwork results from [facility] on 04/30/23 @9146 CBC: WBC: 19.0 RBC: 3.38 Hgb: 9.6 Hct 30.4 Platelets: 123 Fax copy kept in patient's chart.
[2023-05-01 16:20] VITALS: PULSE 60; RESP 18; O2SAT 99
[2023-05-01 16:31] LABS: Add Manual Diff / Slide Review YES; Hematocrit 26.8 % (36-46); Mean Corpuscular HGB Conc 33.6 % (30-36); Mean Corpuscular Hemoglobin 28.4 PG (26-34); Mean Corpuscular Volume 84.3 fL (80-100); Platelet Count 97 X10^3/uL (150-400); Red Blood Cell Count 3.18 X10^6/uL (4.0-5.2); Red Cell Distribution Width 23.3 % (11.6-14.8); White Blood Cell Count 14.6 X10^3/uL (4.5-11.0)
[2023-05-01 16:35] LABS: Alanine Aminotransferase 11 IU/L (<35); Albumin 3.7 g/dL (3.5-5.0); Albumin Globulin Ratio 1.1 (1.0-2.8); Alkaline Phosphatase 72 U/L (38-126); Aspartate Aminotransferase 24 IU/L (14-36); BUN Creatinine Ratio 31.1 (6-22); Bilirubin Total 0.7 mg/dL (0.2-1.3); Blood Urea Nitrogen 33 mg/dL (7-17); Carbon Dioxide 26 mmol/L (22-32); Chloride 105 mmol/L (98-107); Estimated Glomerular Filt Rate 52 mL/min (>60); Globulin 3.3 g/dL (1.7-4.1); Glucose 97 mg/dL (80-110); HEMOLYSIS < 15 (0-50); Potassium 3.7 mmol/L (3.4-5.1); Sodium 139 mmol/L (137-145)
[2023-05-01 16:48] LABS: C-Reactive Protein Quant 2.7 mg/dL (<1.0)
[2023-05-01 16:56] LABS: Neutrophils Absolute Manual 8176 /uL (3000-5900); Total Cells Counted 100
[2023-05-01 16:57] LABS: Anisocytosis 3+; Ovalocytes 1+; Platelet Estimate Decreased on smear; Schistocytes 2+; Tear Drop Cells 1+
[2023-05-01 16:58] LABS: Erythrocyte Sedimentation Rate 48 MM/HR (0-20); Poikilocytosis 2+
== END 2023-05-01 16:32 | disposition home or self-care (01) ==
PROVIDERS: Emergency Provider Physician Assistant; PCP Internal Medicine
DX: L03.115 Cellulitis of right lower limb (principal); Z79.01 Long term (current) use of anticoagulants; Z79.899 Other long term (current) drug therapy
CPT/HCPCS: 36415; 73590; 80053; 85007; 85025; 85651; 86140; 93971; 99283; 99284

== ENCOUNTER → 2023-05-07 06:54 | Outpatient (CLI) | payer OTHER, SELFPAY ==
[2022-05-05 13:08] VITALS: BMI 33.9
[2023-05-07 08:12] LABS: INR 3.9 (0.9-1.3); Prothrombin Time 45.9 SECONDS (10.1-12.7)
== END ==
PROVIDERS: PCP Internal Medicine; Referring Provider Internal Medicine; Visit Provider Internal Medicine
DX: Z79.01 Long term (current) use of anticoagulants (principal); I82.502 Chronic embolism and thrombosis of unspecified deep veins of left lower extremity
CPT/HCPCS: 36415; 85610

== ENCOUNTER → 2023-05-19 11:29 | Outpatient (CLI) | payer OTHER, SELFPAY ==
[2022-05-05 13:08] VITALS: BMI 33.9
[2023-05-19 11:49] LABS: INR 2.7 (0.9-1.3); Prothrombin Time 31.8 SECONDS (9.4-12.5)
== END ==
PROVIDERS: PCP Internal Medicine; Referring Provider Internal Medicine; Visit Provider Internal Medicine
DX: I82.502 Chronic embolism and thrombosis of unspecified deep veins of left lower extremity (principal); Z79.01 Long term (current) use of anticoagulants
CPT/HCPCS: 36415; 85610

== ENCOUNTER → 2023-06-04 11:39 | Outpatient (CLI) | payer OTHER, SELFPAY ==
[2022-05-05 13:08] VITALS: BMI 33.9
[2023-06-04 12:46] LABS: INR 2.1 (0.9-1.3); Prothrombin Time 24.7 SECONDS (9.4-12.5)
== END ==
PROVIDERS: PCP Internal Medicine; Referring Provider Internal Medicine; Visit Provider Internal Medicine
DX: I82.409 Acute embolism and thrombosis of unspecified deep veins of unspecified lower extremity (principal)
CPT/HCPCS: 36415; 85610

== ENCOUNTER → 2023-08-06 10:22 | Outpatient (CLI) | payer OTHER, SELFPAY ==
[2022-05-05 13:08] VITALS: BMI 33.9
[2023-08-06 11:18] LABS: Mean Corpuscular HGB Conc 33.4 % (30-36); Mean Corpuscular Hemoglobin 28.4 PG (26-34); Mean Corpuscular Volume 85.1 fL (80-100); Red Blood Cell Count 2.22 X10^6/uL (4.0-5.2); Red Cell Distribution Width 21.5 % (11.6-14.8)
[2023-08-06 11:21] LABS: Hematocrit 18.9 % (36-46); Hemoglobin 6.3 g/dL (12.0-16.0); Platelet Count 13 X10^3/uL (150-400); White Blood Cell Count 1.4 X10^3/uL (4.5-11.0)
[2023-08-06 12:02] LABS: INR 1.3 (0.9-1.3); Prothrombin Time 15.4 SECONDS (9.4-12.5)
[2023-08-06 12:27] LABS: Aspartate Aminotransferase 15 IU/L (14-36); BUN Creatinine Ratio 25.8 (6-22); Blood Urea Nitrogen 23 mg/dL (7-17); Calcium 8.2 mg/dL (8.4-10.2); Carbon Dioxide 23 mmol/L (22-32); Chloride 104 mmol/L (98-107); Cholesterol 88 mg/dL (140-199); Estimated Glomerular Filt Rate > 60 mL/min (>60); Glucose 119 mg/dL (80-110); HDL Cholesterol 19 mg/dL (40-60); HEMOLYSIS < 15 (0-50); LDL Cholesterol Calculated 51 mg/dL (<100); Potassium 4.3 mmol/L (3.4-5.1); Sodium 136 mmol/L (137-145); Triglycerides 89 mg/dL (35-150)
[2023-08-07 08:17] LABS: x Labcorp Estim. Avg Glu (eAG) 140 mg/dL (.); x Labcorp Hemoglobin A1c 6.5 % (4.8-5.6)
== END ==
LOC: LAB 10:24
PROVIDERS: PCP Internal Medicine; Referring Provider Internal Medicine; Visit Provider Internal Medicine
DX: C93.10 Chronic myelomonocytic leukemia not having achieved remission (principal); I82.409 Acute embolism and thrombosis of unspecified deep veins of unspecified lower extremity; N18.32 Chronic kidney disease, stage 3b; E11.319 Type 2 diabetes mellitus with unspecified diabetic retinopathy without macular edema
CPT/HCPCS: 36415; 80048; 80061; 83036; 84450; 85027; 85610

== ENCOUNTER 2024-07-09 16:52 | Emergency (ER) | payer OTHER, SELFPAY ==
[2022-05-05 13:08] VITALS: BMI 33.9
[2024-07-09] VITALS (15 sets, daily range): BP systolic 105–181; BP diastolic 58–82; PULSE 76–125; RESP 13–34; TEMP 36.5; O2SAT 92–99; BMI 29.5
--- NOTE | 2024-07-09 17:07 | EKG_ITS ---
[place] [id number] [place] [id number] Test Date: 2024-07-09 Pat Name: Catarina Charles Department: [facility] Room: Gender: Female Puppy Sitter: BRITTNI : 1940 Requested By: Order Number: [id number] Reading MD: Quentin Dillon MD Measurements Intervals [place] Rate: 124 P: [place]: QRS: -31 QRSD: 122 T: 116 QT: 360 QTc: 517 Interpretive Statements Wide QRS tachycardia Left axis deviation Left bundle branch block (new since prior tracing) Electronically Signed On 07-10-2024 11:58:34 PST by Quentin Dillon MD
--- NOTE | 2024-07-09 17:09 | DI.RAD.S_ITS ---
PROCEDURE: XR CHEST 1V INDICATIONS: chest pain TECHNIQUE: One view of the chest was acquired. COMPARISON: [facility], CR, XR CHEST 2V, 09/17/2019, 9:33. FINDINGS: Surgical changes and devices: None. Lungs and pleura: Lungs are clear. No pleural effusions or pneumothorax. Mediastinum: Aortic arch calcifications. Mediastinal contours appear normal. Heart size is normal. Bones and chest wall: No suspicious bony lesions. Overlying soft tissues appear unremarkable. IMPRESSION: No acute cardiothoracic process. Dictated by: Hema Barron M.D. on 07/09/2024 at 17:31 Approved by: Hema Barron M.D. on 07/09/2024 at 17:32
[2024-07-09 17:37] LABS: Red Blood Cell Count 3.27 X10^6/uL (4.0-5.2)
[2024-07-09 17:40] LABS: INR 1.1 (0.9-1.3)
[2024-07-09 17:43] LABS: PTT Partial Thromboplastin Tim 29 SECONDS (25.1-36.5)
[2024-07-09 17:44] LABS: Hematocrit 29.3 % (36-46); Hemoglobin 9.5 g/dL (12.0-16.0); Mean Corpuscular HGB Conc 32.3 % (30-36); Mean Corpuscular Hemoglobin 28.9 PG (26-34); Mean Corpuscular Volume 89.5 fL (80-100); Platelet Count 77 X10^3/uL (150-400); Red Cell Distribution Width 21.6 % (11.6-14.8); White Blood Cell Count 4.4 X10^3/uL (4.5-11.0)
[2024-07-09 17:48] LABS: Alanine Aminotransferase 12 IU/L (<35); Albumin Globulin Ratio 1.3 (1.0-2.8); Alkaline Phosphatase 85 U/L (38-126); Aspartate Aminotransferase 21 IU/L (14-36); BUN Creatinine Ratio 27.4 (6-22); Bilirubin Total 0.4 mg/dL (0.2-1.3); Blood Urea Nitrogen 29 mg/dL (7-17); Calcium 8.4 mg/dL (8.4-10.2); Carbon Dioxide 22 mmol/L (22-32); Chloride 110 mmol/L (98-107); Creatine Kinase < 20 U/L (30-135); Estimated Glomerular Filt Rate 51 mL/min (>60); Glucose 121 mg/dL (80-110); HEMOLYSIS < 15 (0-50); Lipase 105 U/L (23-300); Magnesium 2.1 mg/dL (1.6-2.3); Potassium 4.5 mmol/L (3.4-5.1); Sodium 139 mmol/L (137-145)
[2024-07-09 17:49] LABS: Add Manual Diff / Slide Review YES
[2024-07-09 17:54] LABS: Neutrophils Absolute Manual 1804 /uL (3000-5900); Total Cells Counted 100
[2024-07-09 17:55] LABS: Acanthocytes 2+; Anisocytosis 3+; Macrocytosis 1+; Microcytosis 1+; Ovalocytes 1+; Schistocytes 1+; Tear Drop Cells 1+
[2024-07-09 17:56] LABS: Rouleaux 1+
[2024-07-09 18:03] LABS: NT-proBNP (BNP-Adult 18+) 1370 pg/mL (<450); Troponin I < 0.012 ng/mL (0.01-0.034)
[2024-07-09 18:19] LABS: Bacteria Urine Many (>30); RBC Urine 0-1/HPF (0-5/HPF); Squamous Epithelial Cell Urine 1-5 /HPF (0-5/HPF); Urine Volume 10mL (spun); WBC Urine 10-30/HPF (0-5/HPF)
[2024-07-09 18:20] LABS: Culture Indicated Urine Specimen Cultured
--- NOTE | 2024-07-09 20:20 | ED.ARRPALP ---
HPI - Arrhythmia/Palpitations General Chief Complaint: Arrhythmia/Palpitations Stated Complaint: abnormal EKG, sent by MD Time Seen by Provider: 07/09/24 17:18 Source: patient, RN notes reviewed and old records reviewed Mode of arrival: Wheelchair Limitations: no limitations History of Present Illness HPI narrative: 83-year-old female history of CMML, prior DVT with IVC filter in place, hypertension, dyslipidemia, diabetes presents with complaint of EKG changes. Patient goes to [facility] weekly for cancer treatment she had ITP for 8 years and then Re diagnosed with CMML had low dose chemotherapy April which he states everything out in his currently getting endplate injections. Patient states they noted that her diastolic number was low and asked her to follow up with her primary care. She went today was found to be tachycardic with an EKG that shows a left bundle-branch block. She states no complaints herself. No chest pain or shortness of breath she notes a little bit of orthostatic where she will get dizzy just when she stands up but states this has been going on for awhile. She has had no syncope. She denies any nausea or vomiting. No issues with bowel movements no issues with urination no new swelling of extremities. She would some chest pain 2 weeks ago that lasted for an hour so and then resolved she has not had any more episodes. Related Data Home Medications Medication Instructions Recorded Confirmed cholecalciferol (vitamin D3) 50 2,000 unit PO Q OTHER DAY #0 caps 01/13/21 07/09/24 mcg (2,000 unit) capsule (Vitamin D3) multivitamin (Daily Multi-Vitamin 1 tab PO Q OTHER DAY 01/13/21 07/09/24 tablet) amlodipine 2.5 mg tablet 2.5 mg PO DAILY 07/09/23 07/09/24 ascorbic acid (vitamin C) 250 mg 500 mg PO 2XW 07/09/23 07/09/24 tablet blood sugar diagnostic (OneTouch 1 strip miscellaneous BID 07/09/23 07/09/24 Verio test strips) methylsulfonylmethane 1,000 mg 3,000 mg PO DAILY 07/09/23 07/09/24 tablet vit C 250 mg-vit E 90 mg-zinc 40 1 tab PO BID 07/09/23 07/09/24 mg-copper 1 [id number] capsule (PreserVision AREDS-2) latanoprost 0.005 % eye drops drp EYE-BOTH 07/09/24 07/09/24 Previous Rx's Medication Instructions Recorded Disability Parking #1 ea 05/08/22 carvedilol 3.125 mg tablet 3.125 mg PO BID #180 tabs 07/25/23 levothyroxine 100 mcg tablet 100 mcg PO DAILY #90 tabs 08/23/23 Allergies Allergy/AdvReac Type Severity Reaction Status Date / Time barium sulfate Allergy Severe SENSITIVITY Verified 07/09/24 15:57 TO ELECTRICAL CURRENT, SEIZURES Sulfa (Sulfonamide Allergy Intermediate HIVES Verified 07/09/24 15:57 Antibiotics) adhesive Allergy Mild RASH Verified 07/09/24 15:57 Review of Systems Review of Systems ROS Unobtainable: All systems reviewed & are unremarkable except as noted in HPI and below Patient History Medical History Immune thrombocytopenia Polyneuropathy, unspecified Gait instability General weakness Anticoagulation monitoring, INR range 2-3 Do not resuscitate CMML (chronic myelomonocytic leukemia) Stage 3b chronic kidney disease (CKD) Mixed hyperlipidemia 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 Chronic deep vein thrombosis (DVT) of left lower extremity Diabetic retinopathy Warfarin anticoagulation Essential hypertension Surgical History S/P IVC filter Status post tonsillectomy and adenoidectomy (~194) Status post appendectomy (~2005) Social History details: lives alone, two daughters household members: none caregiver/support person: Yes (She is accompanied by her daughter.) Smoking Status: Former smoker alcohol intake: never Smoking Status: Former smoker alcohol intake frequency: holidays/special occasions only Exam Narrative Exam Narrative: GENERAL: Alert and oriented x three, female in mild distress HEENT: Head normocephalic, atraumatic, EOMI, pupils reactive, face symmetric, moist mucous membranes NECK: Supple, full range of motion CARDIOVASCULAR: Regular rate and rhythm without murmurs, rubs or gallops. JVD. No edema. Patient does have some chronic venous stasis changes bilateral anterior shins. RESPIRATORY: Breath sounds equal bilaterally, no wheezes rales or rhonchi. No tachypnea or accessory muscle use ABDOMEN: Soft, nontender. Normoactive bowel sounds all 4 quadrants. No guarding or rebound, rigidity, no mass : No CVA tenderness EXTREMITIES: Normal range of motion, no clubbing or edema. Neurovascularly intact NEUROLOGICAL: Cranial nerves II through XII grossly intact. Moving all extremities SKIN: Warm, dry, no petechiae, no rashes or lesions. Initial Vital Signs Initial Vital Signs: Vital Signs Temperature 97.7 F 07/09/24 17:00 Pulse Rate 125 H 07/09/24 17:00 Respiratory Rate 20 07/09/24 17:00 Blood Pressure 105/58 L 07/09/24 17:00 Pulse Oximetry 99 07/09/24 17:00 Oxygen Delivery Method Room Air 07/09/24 17:00 Course Orders Ordered: ED Orders 07/09/24 16:59 EKG-12 Lead Stat 07/09/24 17:09 XR chest 1V Stat EKG-12 Lead Stat 07/09/24 17:25 Complete Blood Count AUTO DIFF Stat Comprehensive Metabolic Panel Stat Lipase Stat Magnesium Stat NT-proBNP (BNP-Adult 18+) Stat PTT Partial Thromboplastin Aly Stat Prothrombin Time INR Stat Troponin & CK Cardiac Panel Stat 07/09/24 17:54 Urine Culture Stat Urine Microscopic Stat 07/09/24 20:37 CT angio chest PE protocol Stat EKG-12 Lead Stat 07/09/24 20:42 Trop I [Troponin I] Stat Vital Signs Vital signs: Vital Signs - 8 hr 07/09/24 22:30 07/09/24 23:11 Pulse Rate 76 83 Respiratory Rate 22 20 Blood Pressure 163/74 H Pulse Oximetry 92 97 Oxygen Delivery Method Room Air MDM - Arrhythmia/Palpitations Lab Data 07/09/24 17:25 07/09/24 17:25 Labs: Lab Results 07/09/24 07/09/24 07/09/24 Range/Units 17:25 17:54 20:42 WBC 4.4 L (4.5-11.0) X10^3/uL RBC 3.27 L (4.0-5.2) X10^6/uL Hgb 9.5 L (12.0-16.0) g/dL Hct 29.3 L (36-46) % MCV 89.5 (80-100) fL MCH 28.9 (26-34) PG MCHC 32.3 (30-36) % RDW 21.6 H (11.6-14.8) % Plt Count 77 L (150-400) X10^3/uL Neut % (Auto) Not Reportable Lymph % (Auto) Not Reportable [place] % (Auto) Not Reportable Eos % (Auto) Not Reportable Baso % (Auto) Not Reportable Lymph # (Auto) Not Reportable [place] # (Auto) Not Reportable Baso # (Auto) Not Reportable Total Counted 100 Seg Neutrophils % 29.0 L (38-70) % Band Neutrophils % 12.0 H (3-7) % Lymphocytes % (Manual) 28.0 (25-45) % Monocytes % (Manual) 25.0 H (2-11) % Metamyelocytes % 5.0 H (-0) % Myelocytes % 1.0 H (-0) % Neutrophils # (Manual) 1804 L (3583-0548) /uL RBC Morphology See below Anisocytosis 3+ H Microcytosis 1+ H Macrocytosis 1+ H Tear Drop Cells 1+ H Ovalocytes 1+ H Acanthocytes (Spur) 2+ H Rouleaux 1+ H Schistocytes 1+ H PT 13.0 H (9.4-12.5) SECONDS INR 1.1 (0.9-1.3) APTT 29 (25.1-36.5) SECONDS Sodium 139 (137-145) mmol/L Potassium 4.5 (3.4-5.1) mmol/L Chloride 110 H (98-107) mmol/L Carbon Dioxide 22 (22-32) mmol/L BUN 29 H (7-17) mg/dL Creatinine 1.06 H (0.52-1.04) mg/dL Estimated GFR 51 L (>60) mL/min BUN/Creatinine Ratio 27.4 H (6-22) Glucose 121 H (80-110) mg/dL Calcium 8.4 (8.4-10.2) mg/dL Magnesium 2.1 (1.6-2.3) mg/dL Total Bilirubin 0.4 (0.2-1.3) mg/dL AST 21 (14-36) IU/L ALT 12 (<35) IU/L Alkaline Phosphatase 85 (38-126) U/L Total Creatine Kinase < 20 L (30-135) U/L Troponin I < 0.012 < 0.012 (0.01-0.034) ng/mL NT-Pro-B Natriuret Pep 1370 H (<450) pg/mL Total Protein 7.0 (6.3-8.2) g/dL Albumin 4.0 (3.5-5.0) g/dL Globulin 3.0 (1.7-4.1) g/dL Albumin/Globulin Ratio 1.3 (1.0-2.8) Lipase 105 (23-300) U/L Urine RBC 0-1/hpf (0-5/HPF) Urine WBC 10-30/hpf H (0-5/HPF) Ur Squamous Epith Cells 1-5 /hpf (0-5/HPF) Urine Bacteria Many (>30) H (None) Ur Culture Indicated? Specimen cultured Vol Urine Centrifuged 10ml (spun) Urine Dip Bedside Urine Glucose Negative Bedside Urine Bilirubin - Negative Bedside Urine Ketone - Negative Urine Specific [place] 1.025 Bedside Urine Occult Blood - Negative Bedside Urine pH 6.0 Bedside Urine Protein + 30 Bedside Urine Urobilinogen - Negative Bedside Urine Nitrite + Positive Bedside Urine Leukocytes - Negative Esterase Imaging Data Chest x-ray: Radiologist's Impresson: Catarina Charles?(Priyanka)??83??F??1940 ? Allergy/Adv: barium sulfate, Sulfa (Sulfonamide Antibiotics), adhesive (More??) Close Chest X-Ray (Signed) Hema Barron - 07/09/24 Tibia/Fibula X-Ray (Signed) Sajan Cerda - 05/01/23 Vascular Ultrasound (Signed) Barrie Forbes - 05/01/23 Foot MRI (Signed) Tam Gaona - 08/26/21 Foot MRI (Signed) Eligio Bell - 06/16/21 Telemetry Strips 06/16/21 Foot X-Ray (Signed) Tam Gaona - 06/15/21 Renal Ultrasound (Signed) Solomon Fairbanks - 05/30/21 DEXA Result 11/17/20 Bone Densitometry (Signed) Helga Leahy - 11/17/20 Chest X-Ray (Signed) Sajan Cerda - 09/17/19 Abdomen/Pelvis CT (Signed) Aaron Verdugo - 09/23/18 Bone Densitometry 07/03/18 DI Result 07/03/18 Vascular Ultrasound (Signed) Jass De Jesus - 10/31/17 Launch?Image [address] [address] XRay Report Signed Patient: Catarina Charles MR#: [id number] : 1940 Acct:[id number] Age/Sex: 83 / F Date of Service: 07/09/24 Loc: ED Accession Number: [id number] Procedure: XR chest 1V Ordering Provider: Halle Vega MD PROCEDURE: XR CHEST 1V INDICATIONS: chest pain TECHNIQUE: One view of the chest was acquired. COMPARISON: [facility], , XR CHEST 2V, 09/17/2019, 9:33. FINDINGS: Surgical changes and devices: None. Lungs and pleura: Lungs are clear. No pleural effusions or pneumothorax. Mediastinum: Aortic arch calcifications. Mediastinal contours appear normal. Heart size is normal. Bones and chest wall: No suspicious bony lesions. Overlying soft tissues appear unremarkable. IMPRESSION: No acute cardiothoracic process. Dictated by: Hema Barron M.D. on 07/09/2024 at 17:31 Approved by: Hema Barron M.D. on 07/09/2024 at 17:32 CT scan - chest: Radiologist's Impresson: [address] [address] [address] Scan Report Signed Patient: Catarina Charles MR#: [id number] : 1940 Acct:[id number] Age/Sex: 83 / F Date of Service: 07/09/24 Loc: ED Accession Number: [id number] Procedure: CT angio chest PE protocol Ordering Provider: Pilar Lafleur D.O. PROCEDURE: CT ANGIO CHEST PE PROTOCOL INDICATIONS: ekg changes, tachycardia, no other symptoms. hx cancer TECHNIQUE: After the administration of intravenous contrast, 2 mm thick sections acquired from the pulmonary apices to the posterior costophrenic angles. 3-dimensional maximum intensity projection (MIP) coronal and sagittal reformats were then acquired through the thorax. For radiation dose reduction, the following was used: automated exposure control, adjustment of mA and/or kV according to patient size. COMPARISON: [facility], CR, XR CHEST 1V, 07/09/2024, 17:09. FINDINGS: Image quality: Diagnostic Lungs and pleura: Scattered mild ground-glass opacities in the lungs. Diffuse bronchial wall thickening. Basal atelectasis. No dense airspace consolidation. No pleural effusions. There are calcified pleural plaques and mild pleural thickening. Mediastinum, heart, and esophagus: Distended pulmonary trunk at 3.3 cm, usually due to chronically high pulmonary pressures. No acute pulmonary embolism is seen. Atherosclerotic calcifications and coronary calcifications. Annular calcifications and valvular calcifications also present. Borderline cardiomegaly. No pathologic lymphadenopathy by size criteria. Prominent mediastinal lymph nodes are present, nonspecific and may be reactive, attention on follow-up given history of malignancy. There is nonspecific wall thickening of the right brachiocephalic artery. Chest wall and thyroid: Unremarkable Upper abdomen: Suspect splenomegaly partially seen. There is a 2.1 cm left adrenal low-density nodule. Bones: Degenerative changes. IMPRESSION: No acute pulmonary embolism. Distended pulmonary trunk at 3.3 cm usually due to chronically high pulmonary pressures. Atherosclerotic and coronary calcifications. Cardiomegaly. Cardiac valvular calcifications. Scattered pulmonary ground-glass opacities and bronchial wall thickening likely infectious/inflammatory. No dense consolidation or pleural effusion. Prominent mediastinal lymph nodes may be reactive. Attention on follow-up Partially seen splenomegaly and 2.1 cm left adrenal low-density nodule. The latter is probably an adenoma, which could be confirmed on adrenal protocol imaging if needed. Wall thickening of the brachiocephalic artery, possibly atherosclerotic versus vasculitis. Dictated by: Barrie Forbes M.D. on 07/09/2024 at 21:47 Approved by: Barrie Forbes M.D. on 07/09/2024 at 21:54 ECG Data Attestation: I personally reviewed and interpreted this ECG as follows: Prior ECG tracings: available for review Interpretation: Wide QRS tachycardia rate of 124 QRS of 122 QTC of 517 left axis deviation, left bundle-branch block. Patient has prior from 08/26/2021 that showed sinus bradycardia and a first-degree AV block. Repeat EKG shows sinus rhythm with first-degree AV block rate of 90, IN 274 QRS 88 QTC of 450. This appears more similar to patient's prior in 2021 MDM Narrative Medical decision making narrative: 83-year-old female seen by primary care for checkup and sent here for tachycardia with EKG change. Patient is asymptomatic with no complaints. Tachycardia patient has overall had 1 episode of hypotension but otherwise appropriate blood pressure. Labs show white count of 4.4 hemoglobin of 9.5 improved from July of 2023 platelets of 77 patient has anemic and low platelet counts in the past. 12% bands. Patient has had elevated bands at 26 and 21%. INR 1.1, creatinine 1.06 sodium is 139 potassium 4.5 chloride 110 CO2 is 22 with a BUN 29 glucose of 121 LFTs are negative total CK is less than 20 with a troponin less than 0.012 and a BNP of 13 70 lipase is 105. Troponin was less than 0.012 on repeat. Chest x-ray shows no acute change EKG shows regular wide complex tachycardia with a rate of 124 left bundle-branch block repeat EKG shows sinus rhythm with a first-degree AV block. Patient's has a plan of chest pain 2 weeks ago but none since she was tachycardic initially upon arrival with a left bundle-branch block not present on repeat EKG does have known cancer cell felt prudent to evaluate for PE as potential source CT angio was obtained this shows no acute pulmonary embolism distended pulmonary trunk at 3.3 cm usually due to chronically high pulmonary pressures atherosclerotic coronary calcifications cardiomegaly and cardiac valvular calcifications. Patient was scattered pulmonary ground-glass opacities and bronchial wall thickening likely infectious versus inflammatory no dense consolidation or pleural effusion prominent mediastinal lymph nodes maybe reactive tension on follow up. Partially seen splenomegaly and 2.1 cm left adrenal low-density nodule wall thickening of brachiocephalic artery atherosclerotic versus vasculitis. Point of care urine shows protein, positive for nitrates negative for leukocyte esterase Spoke with [facility] cardiology @ [id number]. Patient case reviewed including imaging EKGs were sent for review. 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 Outpatient event monitor and consult with cardiology and Dr. Yan or other new marketing assistant manager. Updated patient's findings return precautions all questions answered, reviewed all of patient's imaging findings labs recommendations from Cardiology. All questions answered patient feels comfortable with the plan. Discharge Plan Departure Patient Disposition: Home Clinical Impression: Splenomegaly, Adrenal nodule, AVNRT (AV prisca re-entry tachycardia) Instructions: Arrhythmias Activity Restrictions/Additional Instructions: Your imaging shows changes that could indicate you have chronically elevated pulmonary pressures you do have a lot of coronary and atherosclerotic calcifications as well as an enlarged heart and calcifications of your heart valves. There is a little bit of bronchial wall thickening which could be from recent infectious changes but no pneumonia appreciated follow up with your this finding with your physician it is also noticed that your spleen is enlarged and you has a left adrenal nodule share this with your oncologist they may already be aware of this. You did have a change on your EKG although on repeat it has resolved. I spoke with Cardiology about this. Dr. Plata she would like to follow up with electrophysiology suspect you are having AVNRT or a form of SVT with aberrancy. She would like you to follow up outpatient to have monitor and follow up to see the marketing assistant manager for potential ablation. Call their office to set up follow up if you have not heard from them by tomorrow afternoon. Contact is included below. Please return if you have any new or concerning symptoms chest pain, shortness of breath, lightheadedness or passing out, new swelling of your extremities, persistently fast or irregular heartbeat or other new or concerning changes. Prescriptions: No Action cholecalciferol (vitamin D3) [Vitamin D3] 50 mcg (2,000 unit) capsule 2,000 unit PO Q OTHER DAY Qty: 0 carvedilol 3.125 mg tablet 3.125 mg PO BID Qty: 180 3RF Rx Instructions: must administer with a meal/food levothyroxine 100 mcg tablet 100 mcg PO DAILY Qty: 90 3RF multivitamin [Daily Multi-Vitamin] Tablet 1 tab PO Q OTHER DAY (DME) Disability Parking See Rx Instructions .Route .MEDSUPPLY Qty: 1 0RF Rx Instructions: As directed ascorbic acid (vitamin C) 250 mg tablet 500 mg PO 2XW PreserVision AREDS-2 250-90-40-1 mg capsule 1 tab PO BID amlodipine 2.5 mg tablet 2.5 mg PO DAILY OneTouch Verio test strips Strip 1 strip miscellaneous BID Rx Instructions: Use to test blood sugars twice daily. Send to [facility] only methylsulfonylmethane 1,000 mg tablet 3,000 mg PO DAILY latanoprost 0.005 % drops EYE-BOTH Referrals: Jayjay Yan MD [Physician] - Reji Brasher MD [Primary Care Provider] - Stand Alone Forms: Patient Portal/API/Survey
--- NOTE | 2024-07-09 20:37 | DI.CT.S_ITS ---
PROCEDURE: CT ANGIO CHEST PE PROTOCOL INDICATIONS: ekg changes, tachycardia, no other symptoms. hx cancer TECHNIQUE: After the administration of intravenous contrast, 2 mm thick sections acquired from the pulmonary apices to the posterior costophrenic angles. 3-dimensional maximum intensity projection (MIP) coronal and sagittal reformats were then acquired through the thorax. For radiation dose reduction, the following was used: automated exposure control, adjustment of mA and/or kV according to patient size. COMPARISON: [facility], CR, XR CHEST 1V, 07/09/2024, 17:09. FINDINGS: Image quality: Diagnostic Lungs and pleura: Scattered mild ground-glass opacities in the lungs. Diffuse bronchial wall thickening. Basal atelectasis. No dense airspace consolidation. No pleural effusions. There are calcified pleural plaques and mild pleural thickening. Mediastinum, heart, and esophagus: Distended pulmonary trunk at 3.3 cm, usually due to chronically high pulmonary pressures. No acute pulmonary embolism is seen. Atherosclerotic calcifications and coronary calcifications. Annular calcifications and valvular calcifications also present. Borderline cardiomegaly. No pathologic lymphadenopathy by size criteria. Prominent mediastinal lymph nodes are present, nonspecific and may be reactive, attention on follow-up given history of malignancy. There is nonspecific wall thickening of the right brachiocephalic artery. Chest wall and thyroid: Unremarkable Upper abdomen: Suspect splenomegaly partially seen. There is a 2.1 cm left adrenal low-density nodule. Bones: Degenerative changes. IMPRESSION: No acute pulmonary embolism. Distended pulmonary trunk at 3.3 cm usually due to chronically high pulmonary pressures. Atherosclerotic and coronary calcifications. Cardiomegaly. Cardiac valvular calcifications. Scattered pulmonary ground-glass opacities and bronchial wall thickening likely infectious/inflammatory. No dense consolidation or pleural effusion. Prominent mediastinal lymph nodes may be reactive. Attention on follow-up Partially seen splenomegaly and 2.1 cm left adrenal low-density nodule. The latter is probably an adenoma, which could be confirmed on adrenal protocol imaging if needed. Wall thickening of the brachiocephalic artery, possibly atherosclerotic versus vasculitis. Dictated by: Barrie Forbes M.D. on 07/09/2024 at 21:47 Approved by: Barrie Forbes M.D. on 07/09/2024 at 21:54
--- NOTE | 2024-07-09 20:41 | EKG_ITS ---
[address] [address] Test Date: 2024-07-09 Pat Name: Catarina Charles Department: [facility] Room: Gender: Female Orthopedic Shoe Maker: : 1940 Requested By: Order Number: [id number] Reading MD: Quentin Dillon MD Measurements Intervals Alpha Rate: 90 P: -29 W[place]: 274 QRS: -29 QRSD: 88 T: 62 QT: 368 QTc: 450 Interpretive Statements Sinus rhythm with 1st degree AV block Electronically Signed On 07-10-2024 11:58:41 PST by Quentin Dillon MD
[2024-07-09 21:14] LABS: Troponin I < 0.012 ng/mL (0.01-0.034)
== END 2024-07-09 23:13 | disposition home or self-care (01) ==
PROVIDERS: Emergency Medicine; Emergency Provider Emergency Medicine; Family Provider Internal Medicine; PCP Internal Medicine
DX: I47.19 Other supraventricular tachycardia (principal); R16.1 Splenomegaly, not elsewhere classified; E27.9 Disorder of adrenal gland, unspecified; R07.9 Chest pain, unspecified; I44.7 Left bundle-branch block, unspecified; I44.0 Atrioventricular block, first degree; C93.10 Chronic myelomonocytic leukemia not having achieved remission
CPT/HCPCS: 36415; 71045; 71275; 80053; 81003; 81015; 82550; 83690; 83735; 83880; 84484; 85007; 85025; 85610; 85730; 87077; 87086; 87186; 93005; 93010; 99284; Q9967

== ENCOUNTER 2024-07-29 17:00 | Outpatient (RCR) | payer OTHER, SELFPAY ==
[2022-05-05 13:08] VITALS: BMI 33.9
--- NOTE | 2024-01-23 09:45 | PT.OPPOC ---
Physical, Occupational & Speech Therapy At [facility] Current Diagnoses Unsteadiness on feet (01/23/24) Other abnormalities of gait and mobility (01/23/24) Weakness (01/23/24) Visit Care Team Role Provider Type Reji Brasher MD Family Provider Physician Primary Care Provider Specialty: Internal Medicine Address: [address] [place] [address], [id number] Email: [email or web address] Vance MD Attending Provider Physician Referring Provider Specialty: Oncology Address: [address] [place] [address], [id number] Email: [email or web address] Plan Of Care PT-OP-B Current Condition Start: 01/23/24 15:28 Freq: Status: Active Protocol: Document 01/23/24 09:45 DCW (Rec: 01/23/24 17:54 DCW [id number]) Current Condition History of Current Condition Onset Date ~Seven month history Current Complaints Weakness, imbalance, deconditioning History of Current Condition Pt is an 83 year old female presenting with declining functional mobility, poor balance, decreased activity tolerance, and instability with gait. Pt admits she has been inactive recently. Symptoms worsened about seven months ago during most recent round of Chemo, which completely wiped me out. Notes her blood work has not been great, H&H very low, has received a few transfusions, helps for a short time. Using SPC when leaving the house. Does notes she gets light- headed when getting out of bed , I have to paise when I stand up so I don't go back down. PT-OP-T Assessment and Plan Start: 01/23/24 15:28 Freq: Status: Active Protocol: Document 01/23/24 09:45 DCW (Rec: 01/24/24 09:39 DCW [id number]) Physical Therapy Assessment Rehab Potential Rehabilitation Potential Fair Evaluation Complexity Number of Personal Factors/Comorbidities 3 or More Number of Body Systems Impaired 4 or More Clinical Presentation at Evaluation Unstable Impairments Impairments Activity Tolerance,Balance, Functional Activities, Functional Mobility,Strength Other Concerns Fall Risk Severe falls risk, per Haines ( ) and DGI (03/18) Goals Two Impairment Pt exhibits high falls risk, per Haines Balance score of 24 56 Cast Associate Goal (LTG) Pt to increase Haines Balance scale score by at least 10 points to 34/56 in order to demonstrate decreasing falls risk LTG Duration 04/22/24 One Impairment Pt does not have an appropriate home exercise program Short Term Goal (STG) Pt to be independent and compliant with an appropriate HEP STG Duration 02/23/24 Assessment Summary Assessment Pt presents with signs and symptoms consistent with referring diagnosis. Pt exhibits general deconditioning, very poor balance, increased fall risk secondary to decreased function following chemotherapy. Pt overall has fairly good LE strength, but decreased proprioception and neuropathy has negatively affected her ability to maintain balance without moderate assistance. Pt currently ambulates using a SPC or walker, but admits she does not get up much at home due to increased fear of falling. Pt should benefit from skilled therapeutic intervention focusing on improving both static and dynamic balance, decreasing falls risk, improving activity tolerance, and assisting to return to prior level of function. Physical Therapy Plan Frequency and Duration Frequency of Treatment 2x/Week Plan of Care Start Date 01/23/24 Plan of Care End Date 04/22/24 Therapeutic Interventions Therapeutic Interventions Balance Training,Gait Training ,Home Exercise Program,Manual Therapy,Neuromuscular Re- education,Patient/Caregiver Education,Self-Care/Home Management,Soft Tissue Mobilization,Therapeutic Activities,Therapeutic Exercises,Vestibular Rehabilitation Next Visit Focus/Plan Next Note Type Treatment Note Next Visit Plan Balance training, increased activity tolerance Plan of Care Dates Plan of Care Start Date 01/23/24 Plan of Care End Date 04/22/24 Electronically Signed by: Tony Higgins, PT 01/24/24 [id number] If you are in agreement with this Plan of Care, please return a signed and dated copy. I have reviewed this Plan of Care and certify that the skilled therapy services above are required to meet the patient?s needs. Physician Signature Date Printed Name and Credentials Clinical Instructor Signature Printed Name and Credentials
--- NOTE | 2024-01-23 10:30 | PT.OIE ---
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 Diabetic retinopathy Do not resuscitate Essential hypertension Gait instability General weakness Macular degeneration of both eyes Mixed hyperlipidemia Polyneuropathy, unspecified Stage 3b chronic kidney disease (CKD) Warfarin anticoagulation Past Surgical History (Last Reviewed 01/01/24 @ 13:04 by Reji Brasher MD) S/P IVC filter Status post appendectomy (~2005) Status post tonsillectomy and adenoidectomy (~1941) Visit Care Team Role Provider Type Reji Brasher MD Family Provider Physician Primary Care Provider Specialty: Internal Medicine Address: [address] [place] [address], [id number] Email: [email or web address] Lamberto Vnace MD Attending Provider Physician Referring Provider Specialty: Oncology Address: [address] [place] [address], [id number] Email: [email or web address] Physical Therapy Initial Evaluation PT-OP-A Visit Information Start: 01/23/24 15:28 Freq: Status: Active Protocol: Document 01/23/24 09:45 DCW (Rec: 01/23/24 15:31 DCW [id number]) Out-Patient Physical Therapy Visit Information Visit Information Visit Type Initial Evaluation Visit Start Time 09:45 Visit Stop Time 10:30 Visit Number 1 Number of REAL ESTATE MARKETING COORDINATOR Visits 0 Evaluation Information Evaluation Date 01/23/24 PT-OP-B Current Condition Start: 01/23/24 15:28 Freq: Status: Active Protocol: Document 01/23/24 09:45 DCW (Rec: 01/23/24 17:54 DCW [id number]) Current Condition History of Current Condition Onset Date ~Seven month history Current Complaints Weakness, imbalance, deconditioning History of Current Condition Pt is an 83 year old female presenting with declining functional mobility, poor balance, decreased activity tolerance, and instability with gait. Pt admits she has been inactive recently. Symptoms worsened about seven months ago during most recent round of Chemo, which completely wiped me out. Notes her blood work has not been great, H&H very low, has received a few transfusions, helps for a short time. Using SPC when leaving the house. Does notes she gets light- headed when getting out of bed , I have to paise when I stand up so I don't go back down. PT-OP-C Subjective Start: 01/23/24 15:28 Freq: Status: Active Protocol: Document 01/23/24 09:45 DCW (Rec: 01/23/24 15:31 DCW [id number]) OP-PT Subjective Patient Comments Patient Comments I've not had a fall, ever, but it takes all my attention to not fall. PT-OP-D Balance Start: 01/23/24 15:28 Freq: Status: Active Protocol: Document 01/23/24 09:45 DCW (Rec: 01/23/24 17:44 DCW [id number]) OP-PT Balance Assessment Sitting Balance Static Sitting Balance Ability Good Dynamic Sitting Balance Ability Good Standing Balance Static Standing Balance Ability Poor Dynamic Standing Balance Ability Poor Device Used SPC Balance Tests Haines Balance Test Haines Balance Test Score 24/56 Haines Balance Assessment Evaluation Sitting to Standing Ability Several Tries w/Hands Unsupported Stance Unable w/out Assistance Sitting Unsupported, Feet on Floor Safely- 2 minutes Standing to Sitting Ability Assist, Control w/Hands Transfer Ability Supervision, Verbal Cues Unsupported Stance- Eyes Closed Falls Without Assistance Unsupported Stance- Eyes Open Independent, <30 seconds Reaching Forward Standing Safely, 2 inches Pick- Up Object From Floor Supervision Look Behind Shoulder - Standing Supervision w/Turning Turning 360 Degrees Turns slowly, but safely Unsupported Stance, Alternating Feet on 2 Steps w/Minimum Assist Stair Unsupported Tandem Stance Assist to Step-15 seconds Unilateral Leg Stance Lifts Leg/Unable to Hold Total Score Haines Total Score (out of 56 points) 24 Haines Impairment Rating 40 to 59% Impaired (Score 23- 33) Mcdonald Fall Scale Copyright Permission PT-OP-E Functional Tests Start: 01/23/24 15:28 Freq: Status: Active Protocol: Document 01/23/24 09:45 DCW (Rec: 01/23/24 17:44 DCW [id number]) Functional Tests Dynamic Gait Index (DGI) Score 03/18 DGI Impairment Rating 60 to <80% Impaired (Score 5-9 ) PT-OP-M Strength Start: 01/23/24 15:28 Freq: Status: Active Protocol: Document 01/23/24 09:45 DCW (Rec: 01/23/24 17:44 DCW [id number]) Hip Strength Hip Manual Muscle Testing Right Flexion (L2) 4 Good Abduction 4 Good Adduction 4 Good External Rotation 5 Normal Internal Rotation 5 Normal Left Flexion (L2) 4 Good Abduction 4 Good Adduction 4 Good External Rotation 5 Normal Internal Rotation 5 Normal Knee Strength Knee Manual Muscle Testing Right Flexion (S2) 4 Good Extension (L3) 4 Good Left Flexion (S2) 4 Good Extension (L3) 4 Good Ankle/Foot Strength Ankle and Foot Manual Muscle Testing Right Dorsiflexion (L4) 4 Good Left Dorsiflexion (L4) 4 Good PT-OP-T Assessment and Plan Start: 01/23/24 15:28 Freq: Status: Active Protocol: Document 01/23/24 09:45 DCW (Rec: 01/24/24 09:39 DCW [id number]) Physical Therapy Assessment Rehab Potential Rehabilitation Potential Fair Evaluation Complexity Number of Personal Factors/Comorbidities 3 or More Number of Body Systems Impaired 4 or More Clinical Presentation at Evaluation Unstable Impairments Impairments Activity Tolerance,Balance, Functional Activities, Functional Mobility,Strength Other Concerns Fall Risk Severe falls risk, per Haines ( 24/56) and DGI (03/18) Goals Two Impairment Pt exhibits high falls risk, per Haines Balance score of 24/ 56 Union Contract Representative Goal (LTG) Pt to increase Haines Balance scale score by at least 10 points to 34/56 in order to demonstrate decreasing falls risk LTG Duration 04/22/24 One Impairment Pt does not have an appropriate home exercise program Short Term Goal (STG) Pt to be independent and compliant with an appropriate HEP STG Duration 02/23/24 Assessment Summary Assessment Pt presents with signs and symptoms consistent with referring diagnosis. Pt exhibits general deconditioning, very poor balance, increased fall risk secondary to decreased function following chemotherapy. Pt overall has fairly good LE strength, but decreased proprioception and neuropathy has negatively affected her ability to maintain balance without moderate assistance. Pt currently ambulates using a SPC or walker, but admits she does not get up much at home due to increased fear of falling. Pt should benefit from skilled therapeutic intervention focusing on improving both static and dynamic balance, decreasing falls risk, improving activity tolerance, and assisting to return to prior level of function. Physical Therapy Plan Frequency and Duration Frequency of Treatment 2x/Week Plan of Care Start Date 01/23/24 Plan of Care End Date 04/22/24 Therapeutic Interventions Therapeutic Interventions Balance Training,Gait Training ,Home Exercise Program,Manual Therapy,Neuromuscular Re- education,Patient/Caregiver Education,Self-Care/Home Management,Soft Tissue Mobilization,Therapeutic Activities,Therapeutic Exercises,Vestibular Rehabilitation Next Visit Focus/Plan Next Note Type Treatment Note Next Visit Plan Balance training, increased activity tolerance
--- NOTE | 2024-01-25 11:15 | PT.OTN ---
Current Diagnoses Unsteadiness on feet (01/25/24) Other abnormalities of gait and mobility (01/25/24) Weakness (01/25/24) Physical Therapy Treatment Note PT-OP-A Visit Information Start: 01/23/24 15:28 Freq: Status: Active Protocol: Document 01/25/24 10:30 DCW (Rec: 01/25/24 11:15 DCW [id number]) Out-Patient Physical Therapy Visit Information Visit Information Visit Type Treatment Note Visit Start Time 10:30 Visit Stop Time 11:15 Visit Number 2 Number of NEWS EDITOR Visits 0 Evaluation Information Evaluation Date 01/23/24 PT-OP-B Current Condition Start: 01/23/24 15:28 Freq: Status: Active Protocol: Document 01/23/24 09:45 DCW (Rec: 01/23/24 17:54 DCW [id number]) Current Condition History of Current Condition Onset Date ~Seven month history Current Complaints Weakness, imbalance, deconditioning History of Current Condition Pt is an 83 year old female presenting with declining functional mobility, poor balance, decreased activity tolerance, and instability with gait. Pt admits she has been inactive recently. Symptoms worsened about seven months ago during most recent round of Chemo, which completely wiped me out. Notes her blood work has not been great, H&H very low, has received a few transfusions, helps for a short time. Using SPC when leaving the house. Does notes she gets light- headed when getting out of bed , I have to paise when I stand up so I don't go back down. PT-OP-C Subjective Start: 01/23/24 15:28 Freq: Status: Active Protocol: Document 01/25/24 10:30 DCW (Rec: 01/25/24 11:15 DCW [id number]) OP-PT Subjective Patient Comments Patient Comments Pt reports she is feeling good this morning, a little bit stronger, maybe than yesterday. PT-OP-D Balance Start: 01/23/24 15:28 Freq: Status: Active Protocol: Document 01/23/24 09:45 DCW (Rec: 01/23/24 17:44 DCW [id number]) OP-PT Balance Assessment Sitting Balance Static Sitting Balance Ability Good Dynamic Sitting Balance Ability Good Standing Balance Static Standing Balance Ability Poor Dynamic Standing Balance Ability Poor Device Used SPC Balance Tests Haines Balance Test Haines Balance Test Score 24/56 Haines Balance Assessment Evaluation Sitting to Standing Ability Several Tries w/Hands Unsupported Stance Unable w/out Assistance Sitting Unsupported, Feet on Floor Safely- 2 minutes Standing to Sitting Ability Assist, Control w/Hands Transfer Ability Supervision, Verbal Cues Unsupported Stance- Eyes Closed Falls Without Assistance Unsupported Stance- Eyes Open Independent, <30 seconds Reaching Forward Standing Safely, 2 inches Pick- Up Object From Floor Supervision Look Behind Shoulder - Standing Supervision w/Turning Turning 360 Degrees Turns slowly, but safely Unsupported Stance, Alternating Feet on 2 Steps w/Minimum Assist Stair Unsupported Tandem Stance Assist to Step-15 seconds Unilateral Leg Stance Lifts Leg/Unable to Hold Total Score Haines Total Score (out of 56 points) 24 Haines Impairment Rating 40 to 59% Impaired (Score 23- 33) Mcdonald Fall Scale Copyright Permission PT-OP-E Functional Tests Start: 01/23/24 15:28 Freq: Status: Active Protocol: Document 01/23/24 09:45 DCW (Rec: 01/23/24 17:44 DCW [id number]) Functional Tests Dynamic Gait Index (DGI) Score 03/18 DGI Impairment Rating 60 to <80% Impaired (Score 5-9 ) PT-OP-M Strength Start: 01/23/24 15:28 Freq: Status: Active Protocol: Document 01/23/24 09:45 DCW (Rec: 01/23/24 17:44 DCW [id number]) Hip Strength Hip Manual Muscle Testing Right Flexion (L2) 4 Good Abduction 4 Good Adduction 4 Good External Rotation 5 Normal Internal Rotation 5 Normal Left Flexion (L2) 4 Good Abduction 4 Good Adduction 4 Good External Rotation 5 Normal Internal Rotation 5 Normal Knee Strength Knee Manual Muscle Testing Right Flexion (S2) 4 Good Extension (L3) 4 Good Left Flexion (S2) 4 Good Extension (L3) 4 Good Ankle/Foot Strength Ankle and Foot Manual Muscle Testing Right Dorsiflexion (L4) 4 Good Left Dorsiflexion (L4) 4 Good PT-OP-Q Treatments Start: 01/23/24 15:28 Freq: Status: Active Protocol: Document 01/25/24 10:30 DCW (Rec: 01/25/24 11:15 DCW [id number]) Cardio Equipment Recumbent Elliptical (Envis) Duration (Minutes) 5 Resistance 4 Seat Position 8 Therapeutic Exercises Other Exercises Toe taps Other Exercise Name Toe-taps Side bilateral Equipment Used 6 step Neuro Re-Education Treatment Balance Activities SLS Details SLS Equipment // bars Retro Ambulation Details Retro Ambulation Equipment // bars Tandem Details Tandem stance Equipment // bars Foam Details NBOS Equipment AirEx Comments Head turns, EO/EC Hurdles Details Hurdles Equipment // bars PT-OP-T Assessment and Plan Start: 01/23/24 15:28 Freq: Status: Active Protocol: Document 01/25/24 10:30 DCW (Rec: 01/25/24 11:15 DCW [id number]) Physical Therapy Assessment Impairments Impairments Activity Tolerance,Balance, Functional Activities, Functional Mobility,Strength Goals Two Impairment Pt exhibits high falls risk, per Haines Balance score of 24/ 56 Ram Press Operator Goal (LTG) Pt to increase Haines Balance scale score by at least 10 points to 34/56 in order to demonstrate decreasing falls risk LTG Duration 04/22/24 One Impairment Pt does not have an appropriate home exercise program Short Term Goal (STG) Pt to be independent and compliant with an appropriate HEP STG Duration 02/23/24 Assessment Summary Assessment Pt had obvious challenge with all balance activities, however did tolerate better than expected, no requests for rest breaks, noted she could see the benefit for everything that she performed today. Discussed practicing tandem stance at kitchen countertop. Physical Therapy Plan Frequency and Duration Frequency of Treatment 2x/Week Plan of Care Start Date 01/23/24 Plan of Care End Date 04/22/24 Therapeutic Interventions Therapeutic Interventions Balance Training,Gait Training ,Home Exercise Program,Manual Therapy,Neuromuscular Re- education,Patient/Caregiver Education,Self-Care/Home Management,Soft Tissue Mobilization,Therapeutic Activities,Therapeutic Exercises,Vestibular Rehabilitation Next Visit Focus/Plan Next Note Type Treatment Note Next Visit Plan Balance training, increased activity tolerance
--- NOTE | 2024-01-29 10:30 | PT.OTN ---
Current Diagnoses Unsteadiness on feet (01/29/24) Other abnormalities of gait and mobility (01/29/24) Weakness (01/29/24) Physical Therapy Treatment Note PT-OP-A Visit Information Start: 01/23/24 15:28 Freq: Status: Active Protocol: Document 01/29/24 09:52 SP (Rec: 01/29/24 10:36 SP [id number]) Out-Patient Physical Therapy Visit Information Visit Information Visit Type Treatment Note Visit Start Time 09:52 Visit Stop Time 10:30 Visit Number 3 Number of DEBRANDER Visits 1 Evaluation Information Evaluation Date 01/23/24 PT-OP-B Current Condition Start: 01/23/24 15:28 Freq: Status: Active Protocol: Document 01/23/24 09:45 DCW (Rec: 01/23/24 17:54 DCW [id number]) Current Condition History of Current Condition Onset Date ~Seven month history Current Complaints Weakness, imbalance, deconditioning History of Current Condition Pt is an 83 year old female presenting with declining functional mobility, poor balance, decreased activity tolerance, and instability with gait. Pt admits she has been inactive recently. Symptoms worsened about seven months ago during most recent round of Chemo, which completely wiped me out. Notes her blood work has not been great, H&H very low, has received a few transfusions, helps for a short time. Using SPC when leaving the house. Does notes she gets light- headed when getting out of bed , I have to paise when I stand up so I don't go back down. PT-OP-C Subjective Start: 01/23/24 15:28 Freq: Status: Active Protocol: Document 01/29/24 09:52 SP (Rec: 01/29/24 10:36 SP [id number]) OP-PT Subjective Patient Comments Patient Comments Pt reports PT-OP-D Balance Start: 01/23/24 15:28 Freq: Status: Active Protocol: Document 01/23/24 09:45 DCW (Rec: 01/23/24 17:44 DCW [id number]) OP-PT Balance Assessment Sitting Balance Static Sitting Balance Ability Good Dynamic Sitting Balance Ability Good Standing Balance Static Standing Balance Ability Poor Dynamic Standing Balance Ability Poor Device Used SPC Balance Tests Haines Balance Test Haines Balance Test Score 56 Haines Balance Assessment Evaluation Sitting to Standing Ability Several Tries w/Hands Unsupported Stance Unable w/out Assistance Sitting Unsupported, Feet on Floor Safely- 2 minutes Standing to Sitting Ability Assist, Control w/Hands Transfer Ability Supervision, Verbal Cues Unsupported Stance- Eyes Closed Falls Without Assistance Unsupported Stance- Eyes Open Independent, <30 seconds Reaching Forward Standing Safely, 2 inches Pick- Up Object From Floor Supervision Look Behind Shoulder - Standing Supervision w/Turning Turning 360 Degrees Turns slowly, but safely Unsupported Stance, Alternating Feet on 2 Steps w/Minimum Assist Stair Unsupported Tandem Stance Assist to Step-15 seconds Unilateral Leg Stance Lifts Leg/Unable to Hold Total Score Haines Total Score (out of 56 points) 24 Haines Impairment Rating 40 to 59% Impaired (Score 23- 33) Mcdonald Fall Scale Copyright Permission PT-OP-E Functional Tests Start: 01/23/24 15:28 Freq: Status: Active Protocol: Document 01/23/24 09:45 DCW (Rec: 01/23/24 17:44 DCW [id number]) Functional Tests Dynamic Gait Index (DGI) Score 03/18 DGI Impairment Rating 60 to <80% Impaired (Score 5-9 ) PT-OP-M Strength Start: 01/23/24 15:28 Freq: Status: Active Protocol: Document 01/23/24 09:45 DCW (Rec: 01/23/24 17:44 DCW [id number]) Hip Strength Hip Manual Muscle Testing Right Flexion (L2) 4 Good Abduction 4 Good Adduction 4 Good External Rotation 5 Normal Internal Rotation 5 Normal Left Flexion (L2) 4 Good Abduction 4 Good Adduction 4 Good External Rotation 5 Normal Internal Rotation 5 Normal Knee Strength Knee Manual Muscle Testing Right Flexion (S2) 4 Good Extension (L3) 4 Good Left Flexion (S2) 4 Good Extension (L3) 4 Good Ankle/Foot Strength Ankle and Foot Manual Muscle Testing Right Dorsiflexion (L4) 4 Good Left Dorsiflexion (L4) 4 Good PT-OP-Q Treatments Start: 01/23/24 15:28 Freq: Status: Active Protocol: Document 01/29/24 09:52 SP (Rec: 01/29/24 10:36 SP [id number]) Cardio Equipment Recumbent Elliptical (BiodCalmSea) Duration (Minutes) 6 Resistance 4 Seat Position 8 Other BUEs/BLEs, 30-35 RPMS Therapeutic Exercises Sitting Exercises sit stand Sitting Exercise Name initiated in PT and added to HEP Resistance AROM Equipment Used BUE> 1 UE support Reps/Minutes x5 reps (added 3x/day HEP) Comments cued hip hinge fwd asc/desc improved hip abd Sitting Exercise Name initiated for HEP /c HO Side bilateral Resistance TB #2 around thighs held with BUE cross hold at side thigh Equipment Used orange TB (didn't know if latex allergy) Reps/Minutes 5 SH x10 Comments good hip muscle tiring, pnfree LAQ Sitting Exercise Name initiated for HEP /c HO Side bilateral Resistance AROM Reps/Minutes 5 SH x10 Comments good quad tiring, pnfree Gait Training Gait Activity FWW Device Used FWW Level of Assistance SBA/Mod I Surface inside/outside pavement to car Distance/Duration 100 ft Treatment Focus midline stability, inc foot clearance, increase stride, prox to FWW Comments initially foot scuffing and smaller stride, improved stride/foot clearance and proximity with cued education. SPC Description off balance today needing therapist TICKET PULLER into gym Device Used SPC in RUE Level of Assistance TICKET PULLER CG- 5%A Distance/Duration 80ft, 25 ft within gym machines Comments off balance today, requested TICKET PULLER for support safety. Self-Care/Home Management Treatment Education Patient Education Body Mechanics,Fall Risk, Safety Other Education Time spent education needing TICKET PULLER /c SPC use suggesting use of FWW has home for safety wtih balance. Pt in agreement. Shown how adjust proper height to wrists/ arms draped at side. PT-OP-T Assessment and Plan Start: 01/23/24 15:28 Freq: Status: Active Protocol: Document 01/29/24 09:52 SP (Rec: 01/29/24 10:36 SP [id number]) Physical Therapy Assessment Goals Two Impairment Pt exhibits high falls risk, per Haines Balance score of 24/ 56 Vp Foundation Goal (LTG) Pt to increase Haines Balance scale score by at least 10 points to 34/56 in order to demonstrate decreasing falls risk LTG Duration 04/22/24 One Impairment Pt does not have an appropriate home exercise program Short Term Goal (STG) Pt to be independent and compliant with an appropriate HEP STG Duration 02/23/24 Assessment Summary Assessment Tx focused on BLE strengthen for HEP can do home carryover support improve balance progression with good response , muscle tiring but not affect mobiltiy. Time spent ed and gait better balance use of FWW at this time end tx vs TICKET PULLER and SPC arrival with not having someone with her, she drove here. Pt in agreement will find FWW home garage and use for now with not being as stable today. Physical Therapy Plan Frequency and Duration Frequency of Treatment 2x/Week Plan of Care Start Date 01/23/24 Plan of Care End Date 04/22/24 Therapeutic Interventions Therapeutic Interventions Balance Training,Gait Training ,Home Exercise Program,Manual Therapy,Neuromuscular Re- education,Patient/Caregiver Education,Self-Care/Home Management,Soft Tissue Mobilization,Therapeutic Activities,Therapeutic Exercises,Vestibular Rehabilitation Next Visit Focus/Plan Next Note Type Treatment Note Next Visit Plan Balance training, increased activity tolerance
--- NOTE | 2024-01-31 10:30 | PT.OTN ---
Current Diagnoses Unsteadiness on feet (01/31/24) Other abnormalities of gait and mobility (01/31/24) Weakness (01/31/24) Physical Therapy Treatment Note PT-OP-A Visit Information Start: 01/23/24 15:28 Freq: Status: Active Protocol: Document 01/31/24 09:45 DCW (Rec: 01/31/24 10:29 DCW [id number]) Out-Patient Physical Therapy Visit Information Visit Information Visit Type Treatment Note Visit Start Time 09:45 Visit Stop Time 10:30 Visit Number 4 Number of PROCESS DEVELOPER Visits 0 Evaluation Information Evaluation Date 01/23/24 PT-OP-B Current Condition Start: 01/23/24 15:28 Freq: Status: Active Protocol: Document 01/23/24 09:45 DCW (Rec: 01/23/24 17:54 DCW [id number]) Current Condition History of Current Condition Onset Date ~Seven month history Current Complaints Weakness, imbalance, deconditioning History of Current Condition Pt is an 83 year old female presenting with declining functional mobility, poor balance, decreased activity tolerance, and instability with gait. Pt admits she has been inactive recently. Symptoms worsened about seven months ago during most recent round of Chemo, which completely wiped me out. Notes her blood work has not been great, H&H very low, has received a few transfusions, helps for a short time. Using SPC when leaving the house. Does notes she gets light- headed when getting out of bed , I have to paise when I stand up so I don't go back down. PT-OP-C Subjective Start: 01/23/24 15:28 Freq: Status: Active Protocol: Document 01/31/24 09:45 DCW (Rec: 01/31/24 10:29 DCW [id number]) OP-PT Subjective Patient Comments Patient Comments Pt has returned to using her walker in her house, which has been helpful. Also notes that she may have overdid it with her HEP, woke up yesterday with very sore quads . PT-OP-D Balance Start: 01/23/24 15:28 Freq: Status: Active Protocol: Document 01/23/24 09:45 DCW (Rec: 01/23/24 17:44 DCW [id number]) OP-PT Balance Assessment Sitting Balance Static Sitting Balance Ability Good Dynamic Sitting Balance Ability Good Standing Balance Static Standing Balance Ability Poor Dynamic Standing Balance Ability Poor Device Used SPC Balance Tests Haines Balance Test Haines Balance Test Score 24/56 Haines Balance Assessment Evaluation Sitting to Standing Ability Several Tries w/Hands Unsupported Stance Unable w/out Assistance Sitting Unsupported, Feet on Floor Safely- 2 minutes Standing to Sitting Ability Assist, Control w/Hands Transfer Ability Supervision, Verbal Cues Unsupported Stance- Eyes Closed Falls Without Assistance Unsupported Stance- Eyes Open Independent, <30 seconds Reaching Forward Standing Safely, 2 inches Pick- Up Object From Floor Supervision Look Behind Shoulder - Standing Supervision w/Turning Turning 360 Degrees Turns slowly, but safely Unsupported Stance, Alternating Feet on 2 Steps w/Minimum Assist Stair Unsupported Tandem Stance Assist to Step-15 seconds Unilateral Leg Stance Lifts Leg/Unable to Hold Total Score Haines Total Score (out of 56 points) 24 Haines Impairment Rating 40 to 59% Impaired (Score 23- 33) Mcdonald Fall Scale Copyright Permission PT-OP-E Functional Tests Start: 01/23/24 15:28 Freq: Status: Active Protocol: Document 01/23/24 09:45 DCW (Rec: 01/23/24 17:44 DCW [id number]) Functional Tests Dynamic Gait Index (DGI) Score 03/18 DGI Impairment Rating 60 to <80% Impaired (Score 5-9 ) PT-OP-M Strength Start: 01/23/24 15:28 Freq: Status: Active Protocol: Document 01/23/24 09:45 DCW (Rec: 01/23/24 17:44 DCW [id number]) Hip Strength Hip Manual Muscle Testing Right Flexion (L2) 4 Good Abduction 4 Good Adduction 4 Good External Rotation 5 Normal Internal Rotation 5 Normal Left Flexion (L2) 4 Good Abduction 4 Good Adduction 4 Good External Rotation 5 Normal Internal Rotation 5 Normal Knee Strength Knee Manual Muscle Testing Right Flexion (S2) 4 Good Extension (L3) 4 Good Left Flexion (S2) 4 Good Extension (L3) 4 Good Ankle/Foot Strength Ankle and Foot Manual Muscle Testing Right Dorsiflexion (L4) 4 Good Left Dorsiflexion (L4) 4 Good PT-OP-Q Treatments Start: 01/23/24 15:28 Freq: Status: Active Protocol: Document 01/31/24 09:45 DCW (Rec: 01/31/24 10:29 DCW [id number]) Cardio Equipment Recumbent Elliptical (Biodex) Duration (Minutes) 5 Resistance 4 Seat Position 8 Therapeutic Exercises Supine Exercises Supine Clamshell Supine Exercise Name Supine Clamshell Side bilateral Resistance Lv 1 Comments Semi-reclined - Wedge SLR Supine Exercise Name SLR Side bilateral Comments Semi-reclined - Wedge Neuro Re-Education Treatment Balance Activities Retro Ambulation Details Retro Ambulation Equipment @ rail Tandem Details Tandem Ambulation Equipment @ rail Foam Details NBOS Equipment AirEx Comments Head turns, EO/EC Hurdles Details Hurdles Equipment @ rail Comments Fwd, Side-stepping PT-OP-T Assessment and Plan Start: 01/23/24 15:28 Freq: Status: Active Protocol: Document 01/31/24 09:45 DCW (Rec: 01/31/24 10:29 [facility] [id number]) Physical Therapy Assessment Impairments Impairments Activity Tolerance,Balance, Functional Activities, Functional Mobility,Strength Goals Two Impairment Pt exhibits high falls risk, per Haines Balance score of 24/ 56 Jail Goal (LTG) Pt to increase Haines Balance scale score by at least 10 points to 34/56 in order to demonstrate decreasing falls risk LTG Duration 04/22/24 One Impairment Pt does not have an appropriate home exercise program Short Term Goal (STG) Pt to be independent and compliant with an appropriate HEP STG Duration 02/23/24 Assessment Summary Assessment Pt tolerated treatment well today, good overall response. Notes she was shocked at how poor her balance has gotten, but is showing improvement with hurdles and foam stance. Attempted supine exercises, pt noted significant back pain, much improved with wedge under shoulders. Physical Therapy Plan Frequency and Duration Frequency of Treatment 2x/Week Plan of Care Start Date 01/23/24 Plan of Care End Date 04/22/24 Therapeutic Interventions Therapeutic Interventions Balance Training,Gait Training ,Home Exercise Program,Manual Therapy,Neuromuscular Re- education,Patient/Caregiver Education,Self-Care/Home Management,Soft Tissue Mobilization,Therapeutic Activities,Therapeutic Exercises,Vestibular Rehabilitation Next Visit Focus/Plan Next Note Type Treatment Note Next Visit Plan Balance training, increased activity tolerance
--- NOTE | 2024-02-05 17:29 | PT.OTN ---
Current Diagnoses Unsteadiness on feet (02/05/24) Other abnormalities of gait and mobility (02/05/24) Weakness (02/05/24) Physical Therapy Treatment Note PT-OP-A Visit Information Start: 01/23/24 15:28 Freq: Status: Active Protocol: Document 02/05/24 16:45 DCW (Rec: 02/05/24 17:29 DCW [id number]) Out-Patient Physical Therapy Visit Information Visit Information Visit Type Treatment Note Visit Start Time 16:45 Visit Stop Time 17:30 Visit Number 5 Number of CARPET CLEANER Visits 0 Evaluation Information Evaluation Date 01/23/24 PT-OP-B Current Condition Start: 01/23/24 15:28 Freq: Status: Active Protocol: Document 01/23/24 09:45 DCW (Rec: 01/23/24 17:54 DCW [id number]) Current Condition History of Current Condition Onset Date ~Seven month history Current Complaints Weakness, imbalance, deconditioning History of Current Condition Pt is an 83 year old female presenting with declining functional mobility, poor balance, decreased activity tolerance, and instability with gait. Pt admits she has been inactive recently. Symptoms worsened about seven months ago during most recent round of Chemo, which completely wiped me out. Notes her blood work has not been great, H&H very low, has received a few transfusions, helps for a short time. Using SPC when leaving the house. Does notes she gets light- headed when getting out of bed , I have to paise when I stand up so I don't go back down. PT-OP-C Subjective Start: 01/23/24 15:28 Freq: Status: Active Protocol: Document 02/05/24 16:45 DCW (Rec: 02/05/24 17:29 DCW [id number]) OP-PT Subjective Patient Comments Patient Comments Pt reports her left leg has been bleeding a little, has been an ongoing issue for a few months. Has gotten it under control, but I haven't been able to do my homework. PT-OP-D Balance Start: 01/23/24 15:28 Freq: Status: Active Protocol: Document 01/23/24 09:45 DCW (Rec: 01/23/24 17:44 DCW [id number]) OP-PT Balance Assessment Sitting Balance Static Sitting Balance Ability Good Dynamic Sitting Balance Ability Good Standing Balance Static Standing Balance Ability Poor Dynamic Standing Balance Ability Poor Device Used SPC Balance Tests Haines Balance Test Haines Balance Test Score 24/56 Haines Balance Assessment Evaluation Sitting to Standing Ability Several Tries w/Hands Unsupported Stance Unable w/out Assistance Sitting Unsupported, Feet on Floor Safely- 2 minutes Standing to Sitting Ability Assist, Control w/Hands Transfer Ability Supervision, Verbal Cues Unsupported Stance- Eyes Closed Falls Without Assistance Unsupported Stance- Eyes Open Independent, <30 seconds Reaching Forward Standing Safely, 2 inches Pick- Up Object From Floor Supervision Look Behind Shoulder - Standing Supervision w/Turning Turning 360 Degrees Turns slowly, but safely Unsupported Stance, Alternating Feet on 2 Steps w/Minimum Assist Stair Unsupported Tandem Stance Assist to Step-15 seconds Unilateral Leg Stance Lifts Leg/Unable to Hold Total Score Haines Total Score (out of 56 points) 24 Haines Impairment Rating 40 to 59% Impaired (Score 23- 33) Mcdonald Fall Scale Copyright Permission PT-OP-E Functional Tests Start: 01/23/24 15:28 Freq: Status: Active Protocol: Document 01/23/24 09:45 DCW (Rec: 01/23/24 17:44 DCW [id number]) Functional Tests Dynamic Gait Index (DGI) Score 03/18 DGI Impairment Rating 60 to <80% Impaired (Score 5-9 ) PT-OP-M Strength Start: 01/23/24 15:28 Freq: Status: Active Protocol: Document 01/23/24 09:45 DCW (Rec: 01/23/24 17:44 DCW [id number]) Hip Strength Hip Manual Muscle Testing Right Flexion (L2) 4 Good Abduction 4 Good Adduction 4 Good External Rotation 5 Normal Internal Rotation 5 Normal Left Flexion (L2) 4 Good Abduction 4 Good Adduction 4 Good External Rotation 5 Normal Internal Rotation 5 Normal Knee Strength Knee Manual Muscle Testing Right Flexion (S2) 4 Good Extension (L3) 4 Good Left Flexion (S2) 4 Good Extension (L3) 4 Good Ankle/Foot Strength Ankle and Foot Manual Muscle Testing Right Dorsiflexion (L4) 4 Good Left Dorsiflexion (L4) 4 Good PT-OP-Q Treatments Start: 01/23/24 15:28 Freq: Status: Active Protocol: Document 02/05/24 16:45 DCW (Rec: 02/05/24 17:29 DCW [id number]) Cardio Equipment Recumbent Elliptical (Biodex) Duration (Minutes) 5 Resistance 4 Seat Position 8 Therapeutic Exercises Other Exercises Resisted Ambulation Other Exercise Name Resisted Side-stepping Resistance Green @ feet Toe taps Other Exercise Name Toe-taps Side bilateral Equipment Used Cones Comments 3 cones each foot Neuro Re-Education Treatment Balance Activities SLS Details SLS Equipment @ rail Retro Ambulation Details Retro Ambulation Equipment @ rail Tandem Details Tandem Ambulation Equipment @ rail Foam Details NBOS Equipment AirEx Comments Head turns, EO/EC Hurdles Details Hurdles Equipment @ rail Comments Fwd, Side-stepping PT-OP-T Assessment and Plan Start: 01/23/24 15:28 Freq: Status: Active Protocol: Document 02/05/24 16:45 DCW (Rec: 02/05/24 17:29 [facility] [id number]) Physical Therapy Assessment Impairments Impairments Activity Tolerance,Balance, Functional Activities, Functional Mobility,Strength Goals Two Impairment Pt exhibits high falls risk, per Haines Balance score of 24/ 56 Fpc Goal (LTG) Pt to increase Haines Balance scale score by at least 10 points to 34/56 in order to demonstrate decreasing falls risk LTG Duration 04/22/24 One Impairment Pt does not have an appropriate home exercise program Short Term Goal (STG) Pt to be independent and compliant with an appropriate HEP STG Duration 02/23/24 Assessment Summary Assessment Pt noting surprise at difficulty with balance challenges. Still not very compliant with HEP. Continue to focus on strengthening and balance. Physical Therapy Plan Frequency and Duration Frequency of Treatment 2x/Week Plan of Care Start Date 01/23/24 Plan of Care End Date 04/22/24 Therapeutic Interventions Therapeutic Interventions Balance Training,Gait Training ,Home Exercise Program,Manual Therapy,Neuromuscular Re- education,Patient/Caregiver Education,Self-Care/Home Management,Soft Tissue Mobilization,Therapeutic Activities,Therapeutic Exercises,Vestibular Rehabilitation Next Visit Focus/Plan Next Note Type Treatment Note Next Visit Plan Balance training, increased activity tolerance
--- NOTE | 2024-02-07 12:14 | PT.OTN ---
Current Diagnoses Unsteadiness on feet (02/07/24) Other abnormalities of gait and mobility (02/07/24) Weakness (02/07/24) Physical Therapy Treatment Note PT-OP-A Visit Information Start: 01/23/24 15:28 Freq: Status: Active Protocol: Document 02/07/24 11:20 SW (Rec: 02/07/24 12:13 SW [id number]) Out-Patient Physical Therapy Visit Information Visit Information Visit Type Treatment Note Visit Start Time 11:16 Visit Stop Time 11:56 Visit Number 6 Number of HOTEL CUSTODIAN Visits 1 PT-OP-B Current Condition Start: 01/23/24 15:28 Freq: Status: Active Protocol: Document 01/23/24 09:45 DCW (Rec: 01/23/24 17:54 DCW [id number]) Current Condition History of Current Condition Onset Date ~Seven month history Current Complaints Weakness, imbalance, deconditioning History of Current Condition Pt is an 83 year old female presenting with declining functional mobility, poor balance, decreased activity tolerance, and instability with gait. Pt admits she has been inactive recently. Symptoms worsened about seven months ago during most recent round of Chemo, which completely wiped me out. Notes her blood work has not been great, H&H very low, has received a few transfusions, helps for a short time. Using SPC when leaving the house. Does notes she gets light- headed when getting out of bed , I have to paise when I stand up so I don't go back down. PT-OP-C Subjective Start: 01/23/24 15:28 Freq: Status: Active Protocol: Document 02/07/24 11:20 SW (Rec: 02/07/24 12:13 SW [id number]) OP-PT Subjective Patient Comments Patient Comments Pt reports tired today, platelets have been low, acknowledges they are at a safe level to exercise and feels ok to participate in skilled PT today. PT-OP-D Balance Start: 01/23/24 15:28 Freq: Status: Active Protocol: Document 01/23/24 09:45 DCW (Rec: 01/23/24 17:44 DCW [id number]) OP-PT Balance Assessment Sitting Balance Static Sitting Balance Ability Good Dynamic Sitting Balance Ability Good Standing Balance Static Standing Balance Ability Poor Dynamic Standing Balance Ability Poor Device Used SPC Balance Tests Haines Balance Test Haines Balance Test Score 24/56 Haines Balance Assessment Evaluation Sitting to Standing Ability Several Tries w/Hands Unsupported Stance Unable w/out Assistance Sitting Unsupported, Feet on Floor Safely- 2 minutes Standing to Sitting Ability Assist, Control w/Hands Transfer Ability Supervision, Verbal Cues Unsupported Stance- Eyes Closed Falls Without Assistance Unsupported Stance- Eyes Open Independent, <30 seconds Reaching Forward Standing Safely, 2 inches Pick- Up Object From Floor Supervision Look Behind Shoulder - Standing Supervision w/Turning Turning 360 Degrees Turns slowly, but safely Unsupported Stance, Alternating Feet on 2 Steps w/Minimum Assist Stair Unsupported Tandem Stance Assist to Step-15 seconds Unilateral Leg Stance Lifts Leg/Unable to Hold Total Score Haines Total Score (out of 56 points) 24 Haines Impairment Rating 40 to 59% Impaired (Score 23- 33) Mcdonald Fall Scale Copyright Permission PT-OP-E Functional Tests Start: 01/23/24 15:28 Freq: Status: Active Protocol: Document 01/23/24 09:45 DCW (Rec: 01/23/24 17:44 DCW [id number]) Functional Tests Dynamic Gait Index (DGI) Score 03/18 DGI Impairment Rating 60 to <80% Impaired (Score 5-9 ) PT-OP-M Strength Start: 01/23/24 15:28 Freq: Status: Active Protocol: Document 01/23/24 09:45 DCW (Rec: 01/23/24 17:44 DCW [id number]) Hip Strength Hip Manual Muscle Testing Right Flexion (L2) 4 Good Abduction 4 Good Adduction 4 Good External Rotation 5 Normal Internal Rotation 5 Normal Left Flexion (L2) 4 Good Abduction 4 Good Adduction 4 Good External Rotation 5 Normal Internal Rotation 5 Normal Knee Strength Knee Manual Muscle Testing Right Flexion (S2) 4 Good Extension (L3) 4 Good Left Flexion (S2) 4 Good Extension (L3) 4 Good Ankle/Foot Strength Ankle and Foot Manual Muscle Testing Right Dorsiflexion (L4) 4 Good Left Dorsiflexion (L4) 4 Good PT-OP-Q Treatments Start: 01/23/24 15:28 Freq: Status: Active Protocol: Document 02/07/24 11:20 SW (Rec: 02/07/24 12:13 SW [id number]) Cardio Equipment Recumbent Elliptical (Appticles) Duration (Minutes) 5 Resistance 4 Seat Position 8 Therapeutic Exercises Sitting Exercises sit stand Resistance AROM Equipment Used BUE> 1 UE support> No UE w/ black foam elevation Reps/Minutes x 8 Comments cued hip hinge fwd asc/desc improved, eccentric control LAQ Side bilateral Resistance AROM Reps/Minutes 5 SH x10 Comments good quad tiring, pnfree Other Exercises Resisted Ambulation Other Exercise Name Resisted Side-stepping Resistance Green @ feet Neuro Re-Education Treatment Balance Activities SLS Details SLS Equipment @ rail Comments CARDIOLOGY CLINICAL NURSE SPECIALIST required Retro Ambulation Details Retro Ambulation Equipment @ rail Tandem Details Tandem Ambulation Equipment @ rail Foam Details NBOS Equipment AirEx Comments Head turns, EO/EC Hurdles Details Hurdles Equipment @ rail Comments Fwd, Side-stepping PT-OP-T Assessment and Plan Start: 01/23/24 15:28 Freq: Status: Active Protocol: Document 02/07/24 11:20 SW (Rec: 02/07/24 12:13 SW [id number]) Physical Therapy Assessment Goals Two Impairment Pt exhibits high falls risk, per Haines Balance score of 24/ 56 Fpc Goal (LTG) Pt to increase Haines Balance scale score by at least 10 points to 34/56 in order to demonstrate decreasing falls risk LTG Duration 04/22/24 One Impairment Pt does not have an appropriate home exercise program Short Term Goal (STG) Pt to be independent and compliant with an appropriate HEP STG Duration 02/23/24 Assessment Summary Assessment Pt came into session fatigued today, at end of session pt noted felt an increase in energy. Continued focus on strength and balance this session. Seated rest breaks throughout session today. Pt did well with balance challenge today, hesitant at beginning with heavy UE reliance and progressed to challenging with min CARDIOLOGY CLINICAL NURSE SPECIALIST> without CARDIOLOGY CLINICAL NURSE SPECIALIST, CGA, ankle and hip strategies engaged. Pt challenged with eccentric control during STS, elevated with black foam on mesh chair, improved control, though still challenging, requiring cueing. Physical Therapy Plan Frequency and Duration Frequency of Treatment 2x/Week Plan of Care Start Date 01/23/24 Plan of Care End Date 04/22/24 Therapeutic Interventions Therapeutic Interventions Balance Training,Gait Training ,Home Exercise Program,Manual Therapy,Neuromuscular Re- education,Patient/Caregiver Education,Self-Care/Home Management,Soft Tissue Mobilization,Therapeutic Activities,Therapeutic Exercises,Vestibular Rehabilitation Next Visit Focus/Plan Next Note Type Treatment Note Next Visit Plan Balance training, increased activity tolerance
--- NOTE | 2024-02-13 10:27 | PT.OTN ---
Current Diagnoses Unsteadiness on feet (02/13/24) Other abnormalities of gait and mobility (02/13/24) Weakness (02/13/24) Physical Therapy Treatment Note PT-OP-A Visit Information Start: 01/23/24 15:28 Freq: Status: Active Protocol: Document 02/13/24 09:45 DCW (Rec: 02/13/24 10:27 DCW [id number]) Out-Patient Physical Therapy Visit Information Visit Information Visit Type Treatment Note Visit Start Time 09:45 Visit Stop Time 10:30 Visit Number 7 Number of STEREO EQUIPMENT REPAIRER Visits 0 Evaluation Information Evaluation Date 01/23/24 PT-OP-B Current Condition Start: 01/23/24 15:28 Freq: Status: Active Protocol: Document 01/23/24 09:45 DCW (Rec: 01/23/24 17:54 DCW [id number]) Current Condition History of Current Condition Onset Date ~Seven month history Current Complaints Weakness, imbalance, deconditioning History of Current Condition Pt is an 83 year old female presenting with declining functional mobility, poor balance, decreased activity tolerance, and instability with gait. Pt admits she has been inactive recently. Symptoms worsened about seven months ago during most recent round of Chemo, which completely wiped me out. Notes her blood work has not been great, H&H very low, has received a few transfusions, helps for a short time. Using SPC when leaving the house. Does notes she gets light- headed when getting out of bed , I have to paise when I stand up so I don't go back down. PT-OP-C Subjective Start: 01/23/24 15:28 Freq: Status: Active Protocol: Document 02/13/24 09:45 DCW (Rec: 02/13/24 10:27 DCW [id number]) OP-PT Subjective Patient Comments Patient Comments Pt feeling better today, notes her labs are looking better, admits she feels a little more peppy. PT-OP-D Balance Start: 01/23/24 15:28 Freq: Status: Active Protocol: Document 01/23/24 09:45 DCW (Rec: 01/23/24 17:44 DCW [id number]) OP-PT Balance Assessment Sitting Balance Static Sitting Balance Ability Good Dynamic Sitting Balance Ability Good Standing Balance Static Standing Balance Ability Poor Dynamic Standing Balance Ability Poor Device Used SPC Balance Tests Haines Balance Test Haines Balance Test Score 24/56 Haines Balance Assessment Evaluation Sitting to Standing Ability Several Tries w/Hands Unsupported Stance Unable w/out Assistance Sitting Unsupported, Feet on Floor Safely- 2 minutes Standing to Sitting Ability Assist, Control w/Hands Transfer Ability Supervision, Verbal Cues Unsupported Stance- Eyes Closed Falls Without Assistance Unsupported Stance- Eyes Open Independent, <30 seconds Reaching Forward Standing Safely, 2 inches Pick- Up Object From Floor Supervision Look Behind Shoulder - Standing Supervision w/Turning Turning 360 Degrees Turns slowly, but safely Unsupported Stance, Alternating Feet on 2 Steps w/Minimum Assist Stair Unsupported Tandem Stance Assist to Step-15 seconds Unilateral Leg Stance Lifts Leg/Unable to Hold Total Score Haines Total Score (out of 56 points) 24 Haines Impairment Rating 40 to 59% Impaired (Score 23- 33) Mcdonald Fall Scale Copyright Permission PT-OP-E Functional Tests Start: 01/23/24 15:28 Freq: Status: Active Protocol: Document 01/23/24 09:45 DCW (Rec: 01/23/24 17:44 DCW [id number]) Functional Tests Dynamic Gait Index (DGI) Score 03/18 DGI Impairment Rating 60 to <80% Impaired (Score 5-9 ) PT-OP-M Strength Start: 01/23/24 15:28 Freq: Status: Active Protocol: Document 01/23/24 09:45 DCW (Rec: 01/23/24 17:44 DCW [id number]) Hip Strength Hip Manual Muscle Testing Right Flexion (L2) 4 Good Abduction 4 Good Adduction 4 Good External Rotation 5 Normal Internal Rotation 5 Normal Left Flexion (L2) 4 Good Abduction 4 Good Adduction 4 Good External Rotation 5 Normal Internal Rotation 5 Normal Knee Strength Knee Manual Muscle Testing Right Flexion (S2) 4 Good Extension (L3) 4 Good Left Flexion (S2) 4 Good Extension (L3) 4 Good Ankle/Foot Strength Ankle and Foot Manual Muscle Testing Right Dorsiflexion (L4) 4 Good Left Dorsiflexion (L4) 4 Good PT-OP-Q Treatments Start: 01/23/24 15:28 Freq: Status: Active Protocol: Document 02/13/24 09:45 DCW (Rec: 02/13/24 10:27 DCW [id number]) Cardio Equipment Recumbent Elliptical ([employer]) Duration (Minutes) 5 Resistance 5 Seat Position 8 Gym Equipment Shuttle Recovery Unilateral Squats Resistance 25# Bilateral Squats Resistance 37# Therapeutic Exercises Standing Exercises Heel Raises Standing Exercise Name Heel Raises Side bilateral Other Exercises Resisted Ambulation Other Exercise Name Resisted Side-stepping Resistance Green @ feet Neuro Re-Education Treatment Balance Activities Tilt Board Details Lateral weight shift Surface Wooden tilt board Retro Ambulation Details Retro Ambulation Equipment @ rail Tandem Details Tandem Ambulation Equipment @ rail Foam Details NBOS Equipment AirEx Comments Head turns, EO/EC Hurdles Details Hurdles Equipment // bars Comments Fwd, Side-stepping PT-OP-T Assessment and Plan Start: 01/23/24 15:28 Freq: Status: Active Protocol: Document 02/13/24 09:45 DCW (Rec: 02/13/24 10:27 DCW [id number]) Physical Therapy Assessment Impairments Impairments Activity Tolerance,Balance, Functional Activities, Functional Mobility,Strength Goals Two Impairment Pt exhibits high falls risk, per Haines Balance score of 24/ 56 Practice Specialist Goal (LTG) Pt to increase Haines Balance scale score by at least 10 points to 34/56 in order to demonstrate decreasing falls risk LTG Duration 04/22/24 One Impairment Pt does not have an appropriate home exercise program Short Term Goal (STG) Pt to be independent and compliant with an appropriate HEP STG Duration 02/23/24 Assessment Summary Assessment Pt showing some progress with activity tolerance, balance, and strength. Did have difficulty with getting on/off of the leg press due to low back pain. Continue to work on balance and strengthening. Physical Therapy Plan Frequency and Duration Frequency of Treatment 2x/Week Plan of Care Start Date 01/23/24 Plan of Care End Date 04/22/24 Therapeutic Interventions Therapeutic Interventions Balance Training,Gait Training ,Home Exercise Program,Manual Therapy,Neuromuscular Re- education,Patient/Caregiver Education,Self-Care/Home Management,Soft Tissue Mobilization,Therapeutic Activities,Therapeutic Exercises,Vestibular Rehabilitation Next Visit Focus/Plan Next Note Type Treatment Note Next Visit Plan Balance training, increased activity tolerance
--- NOTE | 2024-02-22 12:26 | PT.OTN ---
Current Diagnoses Unsteadiness on feet (02/22/24) Other abnormalities of gait and mobility (02/22/24) Weakness (02/22/24) Physical Therapy Treatment Note PT-OP-A Visit Information Start: 01/23/24 15:28 Freq: Status: Active Protocol: Document 02/22/24 11:25 NBM (Rec: 02/22/24 12:26 [facility] [id number]) Out-Patient Physical Therapy Visit Information Visit Information Visit Type Treatment Note Visit Note shoes doffed for session per pt request. Visit Start Time 11:24 Visit Stop Time 12:04 Visit Number 8 Number of RADAR SYSTEMS ENGINEER Visits 1 PT-OP-B Current Condition Start: 01/23/24 15:28 Freq: Status: Active Protocol: Document 01/23/24 09:45 DCW (Rec: 01/23/24 17:54 DCW [id number]) Current Condition History of Current Condition Onset Date ~Seven month history Current Complaints Weakness, imbalance, deconditioning History of Current Condition Pt is an 83 year old female presenting with declining functional mobility, poor balance, decreased activity tolerance, and instability with gait. Pt admits she has been inactive recently. Symptoms worsened about seven months ago during most recent round of Chemo, which completely wiped me out. Notes her blood work has not been great, H&H very low, has received a few transfusions, helps for a short time. Using SPC when leaving the house. Does notes she gets light- headed when getting out of bed , I have to paise when I stand up so I don't go back down. PT-OP-C Subjective Start: 01/23/24 15:28 Freq: Status: Active Protocol: Document 02/22/24 11:25 NBM (Rec: 02/22/24 12:26 NB [id number]) OP-PT Subjective Patient Comments Patient Comments Priyanka reports low platelets and hasn't done her exercises all week. Her oncologist is going to put her back on weekly injection Emplate which she used in past to help raise platelets, starting next Sunday. She's been off of it for 10 months. She gets woozy and has to be careful not fall when standing up. Pt is barefoot at home. No falls. PT-OP-D Balance Start: 01/23/24 15:28 Freq: Status: Active Protocol: Document 01/23/24 09:45 DCW (Rec: 01/23/24 17:44 DCW [id number]) OP-PT Balance Assessment Sitting Balance Static Sitting Balance Ability Good Dynamic Sitting Balance Ability Good Standing Balance Static Standing Balance Ability Poor Dynamic Standing Balance Ability Poor Device Used SPC Balance Tests Haines Balance Test Haines Balance Test Score 24/56 Haines Balance Assessment Evaluation Sitting to Standing Ability Several Tries w/Hands Unsupported Stance Unable w/out Assistance Sitting Unsupported, Feet on Floor Safely- 2 minutes Standing to Sitting Ability Assist, Control w/Hands Transfer Ability Supervision, Verbal Cues Unsupported Stance- Eyes Closed Falls Without Assistance Unsupported Stance- Eyes Open Independent, <30 seconds Reaching Forward Standing Safely, 2 inches Pick- Up Object From Floor Supervision Look Behind Shoulder - Standing Supervision w/Turning Turning 360 Degrees Turns slowly, but safely Unsupported Stance, Alternating Feet on 2 Steps w/Minimum Assist Stair Unsupported Tandem Stance Assist to Step-15 seconds Unilateral Leg Stance Lifts Leg/Unable to Hold Total Score Haines Total Score (out of 56 points) 24 Haines Impairment Rating 40 to 59% Impaired (Score 23- 33) Mcdonald Fall Scale Copyright Permission PT-OP-E Functional Tests Start: 01/23/24 15:28 Freq: Status: Active Protocol: Document 01/23/24 09:45 DCW (Rec: 01/23/24 17:44 DC [id number]) Functional Tests Dynamic Gait Index (DGI) Score 03/18 DGI Impairment Rating 60 to <80% Impaired (Score 5-9 ) PT-OP-M Strength Start: 01/23/24 15:28 Freq: Status: Active Protocol: Document 01/23/24 09:45 DCW (Rec: 01/23/24 17:44 DCW [id number]) Hip Strength Hip Manual Muscle Testing Right Flexion (L2) 4 Good Abduction 4 Good Adduction 4 Good External Rotation 5 Normal Internal Rotation 5 Normal Left Flexion (L2) 4 Good Abduction 4 Good Adduction 4 Good External Rotation 5 Normal Internal Rotation 5 Normal Knee Strength Knee Manual Muscle Testing Right Flexion (S2) 4 Good Extension (L3) 4 Good Left Flexion (S2) 4 Good Extension (L3) 4 Good Ankle/Foot Strength Ankle and Foot Manual Muscle Testing Right Dorsiflexion (L4) 4 Good Left Dorsiflexion (L4) 4 Good PT-OP-Q Treatments Start: 01/23/24 15:28 Freq: Status: Active Protocol: Document 02/22/24 11:25 NB (Rec: 02/22/24 12:26 [facility] [id number]) Gym Equipment Shuttle Balance Red Details a/p stance: WBOS, Staggered Daron Comments stilling platform, a/p weightshifting Cues for distant focal point, upright posture, increase LE weightbearing w/ shifting. Pt progresses from 2HHA>1HHA> no UE support with each. Therapeutic Exercises Standing Exercises marching Side bilateral Equipment Used handrail 1 HANGER Reps/Minutes x10 ea Comments emphasis on high knee and eccentric control Heel Raises Standing Exercise Name Heel Raises Side bilateral Reps/Minutes 2x10 Comments vc for eccentric control, less a/p weightshifting Other Exercises Resisted Ambulation Other Exercise Name Resisted Side-stepping Resistance Green @ feet Equipment Used handrail Reps/Minutes 2x15 ft ea Comments cues for slower pacing and eccentric control Neuro Re-Education Treatment Balance Activities Retro Ambulation Details Retro Ambulation Equipment @ rail Reps/Duration x10 ft fwd/bwd Tandem Details Tandem Ambulation Equipment @ rail Reps/Duration 2x10 ft ea Comments fwd/bwd bwd improves w/ cues for slower pacing and allowing weight acceptance into stance leg. Hurdles Details Hurdles - pt declines d/t fatigue Equipment // bars Comments Fwd, Side-stepping PT-OP-T Assessment and Plan Start: 01/23/24 15:28 Freq: Status: Active Protocol: Document 02/22/24 11:25 [facility] (Rec: 02/22/24 12:26 [facility] [id number]) Physical Therapy Assessment Goals Two Impairment Pt exhibits high falls risk, per Haines Balance score of 24/ 56 Bottle Gauger Goal (LTG) Pt to increase Haines Balance scale score by at least 10 points to 34/56 in order to demonstrate decreasing falls risk LTG Duration 04/22/24 One Impairment Pt does not have an appropriate home exercise program Short Term Goal (STG) Pt to be independent and compliant with an appropriate HEP STG Duration 02/23/24 Assessment Summary Assessment Priyanka presents low platelets and fatigue, and with sandals which she doffs for treatment session to simulate home environment. She has toenails extended about 1/4-inch with pedacure scheduled for tomorrow and is educated on importance of foot hygiene to diminish fall risk. Treatment focus on LE strengthening with cues for eccentric control focus and balance. Pt improves forward and retro tandem ambulation w/ cueing for allowing stance leg to accept weight with slower pacing. Priyanka tolerates trial of Shuttle Balance today with red chains in wide base of support anterioposterior stance. She progresses from 2HHA>1HHA> no UE support balance challenge. Pt declines hurdles today due to fatigue and ongoing low platelet count. Physical Therapy Plan Frequency and Duration Frequency of Treatment 2x/Week Plan of Care Start Date 01/23/24 Plan of Care End Date 04/22/24 Therapeutic Interventions Therapeutic Interventions Balance Training,Gait Training ,Home Exercise Program,Manual Therapy,Neuromuscular Re- education,Patient/Caregiver Education,Self-Care/Home Management,Soft Tissue Mobilization,Therapeutic Activities,Therapeutic Exercises,Vestibular Rehabilitation Next Visit Focus/Plan Next Note Type Treatment Note Next Visit Plan Balance training, increased activity tolerance
--- NOTE | 2024-03-14 11:17 | PT.OTN ---
Current Diagnoses Unsteadiness on feet (03/14/24) Other abnormalities of gait and mobility (03/14/24) Weakness (03/14/24) Physical Therapy Treatment Note PT-OP-A Visit Information Start: 01/23/24 15:28 Freq: Status: Active Protocol: Document 03/14/24 10:30 DCW (Rec: 03/14/24 11:17 DCW [id number]) Out-Patient Physical Therapy Visit Information Visit Information Visit Type Progress Note Visit Start Time 10:30 Visit Stop Time 11:15 Visit Number 9 Number of ZIPPER LINING FOLDER Visits 0 Evaluation Information Evaluation Date 01/23/24 PT-OP-B Current Condition Start: 01/23/24 15:28 Freq: Status: Active Protocol: Document 01/23/24 09:45 DCW (Rec: 01/23/24 17:54 DCW [id number]) Current Condition History of Current Condition Onset Date ~Seven month history Current Complaints Weakness, imbalance, deconditioning History of Current Condition Pt is an 83 year old female presenting with declining functional mobility, poor balance, decreased activity tolerance, and instability with gait. Pt admits she has been inactive recently. Symptoms worsened about seven months ago during most recent round of Chemo, which completely wiped me out. Notes her blood work has not been great, H&H very low, has received a few transfusions, helps for a short time. Using SPC when leaving the house. Does notes she gets light- headed when getting out of bed , I have to paise when I stand up so I don't go back down. PT-OP-C Subjective Start: 01/23/24 15:28 Freq: Status: Active Protocol: Document 03/14/24 10:30 DCW (Rec: 03/14/24 11:17 DCW [id number]) OP-PT Subjective Patient Comments Patient Comments Pt feeling much better at the moment, much more confident with her balance and ability to ambulate. PT-OP-D Balance Start: 01/23/24 15:28 Freq: Status: Active Protocol: Document 03/14/24 10:30 DCW (Rec: 03/14/24 11:07 DCW [id number]) OP-PT Balance Assessment Sitting Balance Static Sitting Balance Ability Good Dynamic Sitting Balance Ability Good Standing Balance Static Standing Balance Ability Fair Dynamic Standing Balance Ability Fair Balance Tests Haines Balance Test Haines Balance Test Score 38/56 Haines Balance Assessment Evaluation Sitting to Standing Ability Independent w/Hands Unsupported Stance Safely- 2 minutes Sitting Unsupported, Feet on Floor Safely- 2 minutes Standing to Sitting Ability Safely, Minimal Hand Use Transfer Ability Safely, Hand Use Unsupported Stance- Eyes Closed Safely, With Eyes Open Unsupported Stance- Eyes Open Independent, 1 minute Reaching Forward Standing Safely, 5 inches Pick- Up Object From Floor Supervision Look Behind Shoulder - Standing Turns Sideways Only Turning 360 Degrees Turns slowly, but safely Unsupported Stance, Alternating Feet on 4 Steps w/Supervision Stair Unsupported Tandem Stance Small Step- 30 seconds Unilateral Leg Stance Lifts Leg/Unable to Hold Total Score Haines Total Score (out of 56 points) 38 Haines Impairment Rating 20 to 39% Impaired (Score 34- 44) Mcdonald Fall Scale Copyright Permission PT-OP-E Functional Tests Start: 01/23/24 15:28 Freq: Status: Active Protocol: Document 03/14/24 10:30 DCW (Rec: 03/14/24 11:07 DCW [id number]) Functional Tests Dynamic Gait Index (DGI) Score 17/24 DGI Impairment Rating 20 to <40% Impaired (Score 15- 19) PT-OP-M Strength Start: 01/23/24 15:28 Freq: Status: Active Protocol: Document 01/23/24 09:45 DCW (Rec: 01/23/24 17:44 DCW [id number]) Hip Strength Hip Manual Muscle Testing Right Flexion (L2) 4 Good Abduction 4 Good Adduction 4 Good External Rotation 5 Normal Internal Rotation 5 Normal Left Flexion (L2) 4 Good Abduction 4 Good Adduction 4 Good External Rotation 5 Normal Internal Rotation 5 Normal Knee Strength Knee Manual Muscle Testing Right Flexion (S2) 4 Good Extension (L3) 4 Good Left Flexion (S2) 4 Good Extension (L3) 4 Good Ankle/Foot Strength Ankle and Foot Manual Muscle Testing Right Dorsiflexion (L4) 4 Good Left Dorsiflexion (L4) 4 Good PT-OP-Q Treatments Start: 01/23/24 15:28 Freq: Status: Active Protocol: Document 03/14/24 10:30 DCW (Rec: 03/14/24 11:17 DCW [id number]) Neuro Re-Education Treatment Other Activities Testing Comments Haines, DGI PT-OP-T Assessment and Plan Start: 01/23/24 15:28 Freq: Status: Active Protocol: Document 03/14/24 10:30 DCW (Rec: 03/14/24 11:17 DCW [id number]) Physical Therapy Assessment Impairments Impairments Activity Tolerance,Balance, Functional Activities, Functional Mobility,Strength Goals Two Impairment Pt exhibits high falls risk, per Haines Balance score of 24/ 56 Short Term Goal (STG) Pt to increase Haines Balance scale score by at least 10 points to 34/56 in order to demonstrate decreasing falls risk STG Duration Met Crystal Gazer Goal (LTG) Pt to increase Haines Balance scale score by at least 7 points to 45/56 in order to demonstrate decreasing falls risk LTG Duration 05/14/24 One Impairment Pt does not have an appropriate home exercise program Short Term Goal (STG) Pt to be independent and compliant with an appropriate HEP STG Duration 04/13/24 Progress Towards Goals Progress Towards Goals Progressing Toward Goals Assessment Summary Assessment Pt demonstrating fantastic improvement so far with both dynamic and static balance. Haines score improved from 24/56 at eval to 38/56 today, and DGI score improved from 03/18 to . Pt still tests as an increased falls risk, but substantial improvement over the past nine visits. Pt will likely benefit from continued therapy focusing on balance, gait, and leg strength. Physical Therapy Plan Frequency and Duration Frequency of Treatment 2x/Week Plan of Care Start Date 03/14/24 Plan of Care End Date 05/14/24 Therapeutic Interventions Therapeutic Interventions Balance Training,Gait Training ,Home Exercise Program,Manual Therapy,Neuromuscular Re- education,Patient/Caregiver Education,Self-Care/Home Management,Soft Tissue Mobilization,Therapeutic Activities,Therapeutic Exercises,Vestibular Rehabilitation Next Visit Focus/Plan Next Note Type Treatment Note Next Visit Plan Balance training, increased activity tolerance
--- NOTE | 2024-03-14 11:17 | PT.OPPOC ---
Physical, Occupational & Speech Therapy At [facility] Current Diagnoses Unsteadiness on feet (03/14/24) Other abnormalities of gait and mobility (03/14/24) Weakness (03/14/24) Visit Care Team Role Provider Type Reji Brasher MD Family Provider Physician Primary Care Provider Specialty: Internal Medicine Address: [address] [place] [address], [id number] Email: [email or web address] Lamberto Vance MD Attending Provider Physician Referring Provider Specialty: Oncology Address: [address] [place] [address], [id number] Email: [email or web address] Plan Of Care PT-OP-B Current Condition Start: 01/23/24 15:28 Freq: Status: Active Protocol: Document 01/23/24 09:45 DCW (Rec: 01/23/24 17:54 DCW [id number]) Current Condition History of Current Condition Onset Date ~Seven month history Current Complaints Weakness, imbalance, deconditioning History of Current Condition Pt is an 83 year old female presenting with declining functional mobility, poor balance, decreased activity tolerance, and instability with gait. Pt admits she has been inactive recently. Symptoms worsened about seven months ago during most recent round of Chemo, which completely wiped me out. Notes her blood work has not been great, H&H very low, has received a few transfusions, helps for a short time. Using SPC when leaving the house. Does notes she gets light- headed when getting out of bed , I have to paise when I stand up so I don't go back down. PT-OP-T Assessment and Plan Start: 01/23/24 15:28 Freq: Status: Active Protocol: Document 03/14/24 10:30 DCW (Rec: 03/14/24 11:17 DCW [id number]) Physical Therapy Assessment Impairments Impairments Activity Tolerance,Balance, Functional Activities, Functional Mobility,Strength Goals Two Impairment Pt exhibits high falls risk, per Haines Balance score of 24/ 56 Short Term Goal (STG) Pt to increase Haines Balance scale score by at least 10 points to 34/56 in order to demonstrate decreasing falls risk STG Duration Met Packing Machine Operator Goal (LTG) Pt to increase Haines Balance scale score by at least 7 points to 45/56 in order to demonstrate decreasing falls risk LTG Duration 05/14/24 One Impairment Pt does not have an appropriate home exercise program Short Term Goal (STG) Pt to be independent and compliant with an appropriate HEP STG Duration 04/13/24 Progress Towards Goals Progress Towards Goals Progressing Toward Goals Assessment Summary Assessment Pt demonstrating fantastic improvement so far with both dynamic and static balance. Haines score improved from 24/56 at eval to 38/56 today, and DGI score improved from 03/18 to . Pt still tests as an increased falls risk, but substantial improvement over the past nine visits. Pt will likely benefit from continued therapy focusing on balance, gait, and leg strength. Physical Therapy Plan Frequency and Duration Frequency of Treatment 2x/Week Plan of Care Start Date 03/14/24 Plan of Care End Date 05/14/24 Therapeutic Interventions Therapeutic Interventions Balance Training,Gait Training ,Home Exercise Program,Manual Therapy,Neuromuscular Re- education,Patient/Caregiver Education,Self-Care/Home Management,Soft Tissue Mobilization,Therapeutic Activities,Therapeutic Exercises,Vestibular Rehabilitation Next Visit Focus/Plan Next Note Type Treatment Note Next Visit Plan Balance training, increased activity tolerance Plan of Care Dates Plan of Care Start Date 03/14/24 Plan of Care End Date 05/14/24 Electronically Signed by: Tony Higgins, PT 03/14/24 3420 If you are in agreement with this Plan of Care, please return a signed and dated copy. I have reviewed this Plan of Care and certify that the skilled therapy services above are required to meet the patient?s needs. Physician Signature Date Printed Name and Credentials Clinical Instructor Signature Printed Name and Credentials
--- NOTE | 2024-03-18 17:33 | PT.OTN ---
Current Diagnoses Unsteadiness on feet (03/18/24) Other abnormalities of gait and mobility (03/18/24) Weakness (03/18/24) Physical Therapy Treatment Note PT-OP-A Visit Information Start: 01/23/24 15:28 Freq: Status: Active Protocol: Document 03/18/24 16:45 DCW (Rec: 03/18/24 17:32 DCW [id number]) Out-Patient Physical Therapy Visit Information Visit Information Visit Type Treatment Note Visit Start Time 16:45 Visit Stop Time 17:30 Visit Number 10 Number of PARTS INSPECTOR Visits 0 Evaluation Information Evaluation Date 01/23/24 PT-OP-B Current Condition Start: 01/23/24 15:28 Freq: Status: Active Protocol: Document 01/23/24 09:45 DCW (Rec: 01/23/24 17:54 DCW [id number]) Current Condition History of Current Condition Onset Date ~Seven month history Current Complaints Weakness, imbalance, deconditioning History of Current Condition Pt is an 83 year old female presenting with declining functional mobility, poor balance, decreased activity tolerance, and instability with gait. Pt admits she has been inactive recently. Symptoms worsened about seven months ago during most recent round of Chemo, which completely wiped me out. Notes her blood work has not been great, H&H very low, has received a few transfusions, helps for a short time. Using SPC when leaving the house. Does notes she gets light- headed when getting out of bed , I have to paise when I stand up so I don't go back down. PT-OP-C Subjective Start: 01/23/24 15:28 Freq: Status: Active Protocol: Document 03/18/24 16:45 DCW (Rec: 03/18/24 17:33 DCW [id number]) OP-PT Subjective Patient Comments Patient Comments Pt notes she is doing well, but she tried to take off the bandaid on her hand, and it felt like the skin was ripping off with it. PT-OP-D Balance Start: 01/23/24 15:28 Freq: Status: Active Protocol: Document 03/14/24 10:30 DCW (Rec: 03/14/24 11:07 DCW [id number]) OP-PT Balance Assessment Sitting Balance Static Sitting Balance Ability Good Dynamic Sitting Balance Ability Good Standing Balance Static Standing Balance Ability Fair Dynamic Standing Balance Ability Fair Balance Tests Haines Balance Test Haines Balance Test Score 38/56 Haines Balance Assessment Evaluation Sitting to Standing Ability Independent w/Hands Unsupported Stance Safely- 2 minutes Sitting Unsupported, Feet on Floor Safely- 2 minutes Standing to Sitting Ability Safely, Minimal Hand Use Transfer Ability Safely, Hand Use Unsupported Stance- Eyes Closed Safely, With Eyes Open Unsupported Stance- Eyes Open Independent, 1 minute Reaching Forward Standing Safely, 5 inches Pick- Up Object From Floor Supervision Look Behind Shoulder - Standing Turns Sideways Only Turning 360 Degrees Turns slowly, but safely Unsupported Stance, Alternating Feet on 4 Steps w/Supervision Stair Unsupported Tandem Stance Small Step- 30 seconds Unilateral Leg Stance Lifts Leg/Unable to Hold Total Score Haines Total Score (out of 56 points) 38 Haines Impairment Rating 20 to 39% Impaired (Score 34- 44) Mcdonald Fall Scale Copyright Permission PT-OP-E Functional Tests Start: 01/23/24 15:28 Freq: Status: Active Protocol: Document 03/14/24 10:30 DCW (Rec: 03/14/24 11:07 DCW [id number]) Functional Tests Dynamic Gait Index (DGI) Score DGI Impairment Rating 20 to <40% Impaired (Score 15- 19) PT-OP-M Strength Start: 01/23/24 15:28 Freq: Status: Active Protocol: Document 01/23/24 09:45 DCW (Rec: 01/23/24 17:44 DCW [id number]) Hip Strength Hip Manual Muscle Testing Right Flexion (L2) 4 Good Abduction 4 Good Adduction 4 Good External Rotation 5 Normal Internal Rotation 5 Normal Left Flexion (L2) 4 Good Abduction 4 Good Adduction 4 Good External Rotation 5 Normal Internal Rotation 5 Normal Knee Strength Knee Manual Muscle Testing Right Flexion (S2) 4 Good Extension (L3) 4 Good Left Flexion (S2) 4 Good Extension (L3) 4 Good Ankle/Foot Strength Ankle and Foot Manual Muscle Testing Right Dorsiflexion (L4) 4 Good Left Dorsiflexion (L4) 4 Good PT-OP-Q Treatments Start: 01/23/24 15:28 Freq: Status: Active Protocol: Document 03/18/24 16:45 DCW (Rec: 03/18/24 17:32 DCW [id number]) Cardio Equipment Recumbent Elliptical (Biodex) Duration (Minutes) 5 Resistance 5 Seat Position 8 Gym Equipment Shuttle Recovery Unilateral Squats Resistance 25# Bilateral Squats Resistance 50# Therapeutic Exercises Other Exercises Resisted Ambulation Other Exercise Name Resisted Side-stepping Resistance Green @ feet Equipment Used // bars Reps/Minutes 10' x4 Manual Therapy Treatment Other Other Manual Treatments Spent time today assisting pt remove bandaid from hand which was strongly adhered and pt was worried about ripping off skin with removal. Neuro Re-Education Treatment Balance Activities SLS Details SLS Equipment // bars Comments PACKAGE LINE RELIEF OPERATOR required Retro Ambulation Details Retro Ambulation Equipment // bars Reps/Duration 10 ft x4 Tandem Details Tandem Ambulation Equipment // bars Reps/Duration 2x10' Foam Details NBOS Equipment AirEx Comments Head turns, EO/EC PT-OP-T Assessment and Plan Start: 01/23/24 15:28 Freq: Status: Active Protocol: Document 03/18/24 16:45 DCW (Rec: 03/18/24 17:32 DCW [id number]) Physical Therapy Assessment Impairments Impairments Activity Tolerance,Balance, Functional Activities, Functional Mobility,Strength Goals Two Impairment Pt exhibits high falls risk, per Haines Balance score of 24/ 56 Short Term Goal (STG) Pt to increase Haines Balance scale score by at least 10 points to 34/56 in order to demonstrate decreasing falls risk STG Duration Met Mcfp Goal (LTG) Pt to increase Haines Balance scale score by at least 7 points to 45/56 in order to demonstrate decreasing falls risk LTG Duration 05/14/24 One Impairment Pt does not have an appropriate home exercise program Short Term Goal (STG) Pt to be independent and compliant with an appropriate HEP STG Duration 04/13/24 Assessment Summary Assessment Continues to slowly progress with overall improvements in strength and balance, functional mobility improving. Continue to work on strength and balance Physical Therapy Plan Frequency and Duration Frequency of Treatment 2x/Week Plan of Care Start Date 03/14/24 Plan of Care End Date 05/14/24 Therapeutic Interventions Therapeutic Interventions Balance Training,Gait Training ,Home Exercise Program,Manual Therapy,Neuromuscular Re- education,Patient/Caregiver Education,Self-Care/Home Management,Soft Tissue Mobilization,Therapeutic Activities,Therapeutic Exercises,Vestibular Rehabilitation Next Visit Focus/Plan Next Note Type Treatment Note Next Visit Plan Balance training, increased activity tolerance
--- NOTE | 2024-03-24 12:01 | PT.OTN ---
Current Diagnoses Unsteadiness on feet (03/24/24) Other abnormalities of gait and mobility (03/24/24) Weakness (03/24/24) Physical Therapy Treatment Note PT-OP-A Visit Information Start: 01/23/24 15:28 Freq: Status: Active Protocol: Document 03/24/24 11:15 DCW (Rec: 03/24/24 12:01 DCW [id number]) Out-Patient Physical Therapy Visit Information Visit Information Visit Type Treatment Note Visit Start Time 11:15 Visit Stop Time 12:00 Visit Number 11 Number of GEAR LAPPER Visits 0 Evaluation Information Evaluation Date 01/23/24 PT-OP-B Current Condition Start: 01/23/24 15:28 Freq: Status: Active Protocol: Document 01/23/24 09:45 DCW (Rec: 01/23/24 17:54 DCW [id number]) Current Condition History of Current Condition Onset Date ~Seven month history Current Complaints Weakness, imbalance, deconditioning History of Current Condition Pt is an 83 year old female presenting with declining functional mobility, poor balance, decreased activity tolerance, and instability with gait. Pt admits she has been inactive recently. Symptoms worsened about seven months ago during most recent round of Chemo, which completely wiped me out. Notes her blood work has not been great, H&H very low, has received a few transfusions, helps for a short time. Using SPC when leaving the house. Does notes she gets light- headed when getting out of bed , I have to paise when I stand up so I don't go back down. PT-OP-C Subjective Start: 01/23/24 15:28 Freq: Status: Active Protocol: Document 03/24/24 11:15 DCW (Rec: 03/24/24 12:01 DCW [id number]) OP-PT Subjective Patient Comments Patient Comments Not quite as good as I have been feeling, I don't know why . Notes that she is heading over to the clinic following her PT appointment to have her blood checked to see is she needs a transfusion. PT-OP-D Balance Start: 01/23/24 15:28 Freq: Status: Active Protocol: Document 03/14/24 10:30 DCW (Rec: 03/14/24 11:07 DCW [id number]) OP-PT Balance Assessment Sitting Balance Static Sitting Balance Ability Good Dynamic Sitting Balance Ability Good Standing Balance Static Standing Balance Ability Fair Dynamic Standing Balance Ability Fair Balance Tests Haines Balance Test Haines Balance Test Score 38/56 Haines Balance Assessment Evaluation Sitting to Standing Ability Independent w/Hands Unsupported Stance Safely- 2 minutes Sitting Unsupported, Feet on Floor Safely- 2 minutes Standing to Sitting Ability Safely, Minimal Hand Use Transfer Ability Safely, Hand Use Unsupported Stance- Eyes Closed Safely, With Eyes Open Unsupported Stance- Eyes Open Independent, 1 minute Reaching Forward Standing Safely, 5 inches Pick- Up Object From Floor Supervision Look Behind Shoulder - Standing Turns Sideways Only Turning 360 Degrees Turns slowly, but safely Unsupported Stance, Alternating Feet on 4 Steps w/Supervision Stair Unsupported Tandem Stance Small Step- 30 seconds Unilateral Leg Stance Lifts Leg/Unable to Hold Total Score Haines Total Score (out of 56 points) 38 Haines Impairment Rating 20 to 39% Impaired (Score 34- 44) Mcdonald Fall Scale Copyright Permission PT-OP-E Functional Tests Start: 01/23/24 15:28 Freq: Status: Active Protocol: Document 03/14/24 10:30 DCW (Rec: 03/14/24 11:07 DCW [id number]) Functional Tests Dynamic Gait Index (DGI) Score DGI Impairment Rating 20 to <40% Impaired (Score 15- 19) PT-OP-M Strength Start: 01/23/24 15:28 Freq: Status: Active Protocol: Document 01/23/24 09:45 DCW (Rec: 01/23/24 17:44 DCW [id number]) Hip Strength Hip Manual Muscle Testing Right Flexion (L2) 4 Good Abduction 4 Good Adduction 4 Good External Rotation 5 Normal Internal Rotation 5 Normal Left Flexion (L2) 4 Good Abduction 4 Good Adduction 4 Good External Rotation 5 Normal Internal Rotation 5 Normal Knee Strength Knee Manual Muscle Testing Right Flexion (S2) 4 Good Extension (L3) 4 Good Left Flexion (S2) 4 Good Extension (L3) 4 Good Ankle/Foot Strength Ankle and Foot Manual Muscle Testing Right Dorsiflexion (L4) 4 Good Left Dorsiflexion (L4) 4 Good PT-OP-Q Treatments Start: 01/23/24 15:28 Freq: Status: Active Protocol: Document 03/24/24 11:15 DCW (Rec: 03/24/24 12:01 DCW [id number]) Cardio Equipment Recumbent Elliptical (Biodex) Duration (Minutes) 6 Resistance 5 Seat Position 8 Gym Equipment Shuttle Balance Red Details WBOS, Staggered Comments VCs to decrease reliance on UEs Therapeutic Exercises Standing Exercises Hip Extension Standing Exercise Name Hip Extension Side bilateral Resistance Green loop Other Exercises Resisted Ambulation Other Exercise Name Resisted Side-stepping Resistance Green @ feet Equipment Used // bars Reps/Minutes 10' x4 Toe taps Other Exercise Name Toe-taps Side bilateral Equipment Used Cones Comments 3 cones each foot Neuro Re-Education Treatment Balance Activities Foam Details NBOS Equipment AirEx Comments Head turns, EO/EC Hurdles Details Hurdles Equipment // bars Comments Fwd, Side-stepping PT-OP-T Assessment and Plan Start: 01/23/24 15:28 Freq: Status: Active Protocol: Document 03/24/24 11:15 DCW (Rec: 03/24/24 12:01 DCW [id number]) Physical Therapy Assessment Impairments Impairments Activity Tolerance,Balance, Functional Activities, Functional Mobility,Strength Goals Two Impairment Pt exhibits high falls risk, per Haines Balance score of 24/ 56 Short Term Goal (STG) Pt to increase Haines Balance scale score by at least 10 points to 34/56 in order to demonstrate decreasing falls risk STG Duration Met Skilled Nursing Goal (LTG) Pt to increase Haines Balance scale score by at least 7 points to 45/56 in order to demonstrate decreasing falls risk LTG Duration 05/14/24 One Impairment Pt does not have an appropriate home exercise program Short Term Goal (STG) Pt to be independent and compliant with an appropriate HEP STG Duration 04/13/24 Assessment Summary Assessment Pt did well today, tolerating increased work load. Did require multiple verbal cues to decrease use of upper extremities for most balance challenges. Is doing better with hurdles and foam stance. Physical Therapy Plan Frequency and Duration Frequency of Treatment 2x/Week Plan of Care Start Date 03/14/24 Plan of Care End Date 05/14/24 Therapeutic Interventions Therapeutic Interventions Balance Training,Gait Training ,Home Exercise Program,Manual Therapy,Neuromuscular Re- education,Patient/Caregiver Education,Self-Care/Home Management,Soft Tissue Mobilization,Therapeutic Activities,Therapeutic Exercises,Vestibular Rehabilitation Next Visit Focus/Plan Next Note Type Treatment Note Next Visit Plan Balance training, increased activity tolerance
--- NOTE | 2024-04-02 13:52 | PT.OTN ---
Current Diagnoses Unsteadiness on feet (04/02/24) Other abnormalities of gait and mobility (04/02/24) Weakness (04/02/24) Physical Therapy Treatment Note PT-OP-A Visit Information Start: 01/23/24 15:28 Freq: Status: Active Protocol: Document 04/02/24 13:10 NBM (Rec: 04/02/24 13:51 [facility] [id number]) Out-Patient Physical Therapy Visit Information Visit Information Visit Type Treatment Note Visit Note masks donned for treatment. Visit Start Time 13:05 Visit Stop Time 13:49 Visit Number 12 Number of LABORATORY CLERK Visits 1 Evaluation Information Evaluation Date 01/23/24 PT-OP-B Current Condition Start: 01/23/24 15:28 Freq: Status: Active Protocol: Document 01/23/24 09:45 DCW (Rec: 01/23/24 17:54 DCW [id number]) Current Condition History of Current Condition Onset Date ~Seven month history Current Complaints Weakness, imbalance, deconditioning History of Current Condition Pt is an 83 year old female presenting with declining functional mobility, poor balance, decreased activity tolerance, and instability with gait. Pt admits she has been inactive recently. Symptoms worsened about seven months ago during most recent round of Chemo, which completely wiped me out. Notes her blood work has not been great, H&H very low, has received a few transfusions, helps for a short time. Using SPC when leaving the house. Does notes she gets light- headed when getting out of bed , I have to paise when I stand up so I don't go back down. PT-OP-C Subjective Start: 01/23/24 15:28 Freq: Status: Active Protocol: Document 04/02/24 13:10 NBM (Rec: 04/02/24 13:51 [facility] [id number]) OP-PT Subjective Patient Comments Patient Comments Priyanka reports platelets went down from 73 to 39 so her energy is not as good as it was last week at 73. When the platelets go down I'm afraid of falling. I haven't actually fallen but I've had some lurching. She hasn't been doing ex's at home much and kind of forgets about them. PT-OP-D Balance Start: 01/23/24 15:28 Freq: Status: Active Protocol: Document 03/14/24 10:30 DCW (Rec: 03/14/24 11:07 DCW [id number]) OP-PT Balance Assessment Sitting Balance Static Sitting Balance Ability Good Dynamic Sitting Balance Ability Good Standing Balance Static Standing Balance Ability Fair Dynamic Standing Balance Ability Fair Balance Tests Haines Balance Test Haines Balance Test Score 38/56 Haines Balance Assessment Evaluation Sitting to Standing Ability Independent w/Hands Unsupported Stance Safely- 2 minutes Sitting Unsupported, Feet on Floor Safely- 2 minutes Standing to Sitting Ability Safely, Minimal Hand Use Transfer Ability Safely, Hand Use Unsupported Stance- Eyes Closed Safely, With Eyes Open Unsupported Stance- Eyes Open Independent, 1 minute Reaching Forward Standing Safely, 5 inches Pick- Up Object From Floor Supervision Look Behind Shoulder - Standing Turns Sideways Only Turning 360 Degrees Turns slowly, but safely Unsupported Stance, Alternating Feet on 4 Steps w/Supervision Stair Unsupported Tandem Stance Small Step- 30 seconds Unilateral Leg Stance Lifts Leg/Unable to Hold Total Score Haines Total Score (out of 56 points) 38 Haines Impairment Rating 20 to 39% Impaired (Score 34- 44) Mcdonald Fall Scale Copyright Permission PT-OP-E Functional Tests Start: 01/23/24 15:28 Freq: Status: Active Protocol: Document 03/14/24 10:30 DCW (Rec: 03/14/24 11:07 DCW [id number]) Functional Tests Dynamic Gait Index (DGI) Score 1724 DGI Impairment Rating 20 to <40% Impaired (Score 15- 19) PT-OP-M Strength Start: 01/23/24 15:28 Freq: Status: Active Protocol: Document 01/23/24 09:45 DCW (Rec: 01/23/24 17:44 DC [id number]) Hip Strength Hip Manual Muscle Testing Right Flexion (L2) 4 Good Abduction 4 Good Adduction 4 Good External Rotation 5 Normal Internal Rotation 5 Normal Left Flexion (L2) 4 Good Abduction 4 Good Adduction 4 Good External Rotation 5 Normal Internal Rotation 5 Normal Knee Strength Knee Manual Muscle Testing Right Flexion (S2) 4 Good Extension (L3) 4 Good Left Flexion (S2) 4 Good Extension (L3) 4 Good Ankle/Foot Strength Ankle and Foot Manual Muscle Testing Right Dorsiflexion (L4) 4 Good Left Dorsiflexion (L4) 4 Good PT-OP-Q Treatments Start: 01/23/24 15:28 Freq: Status: Active Protocol: Document 04/02/24 13:10 [facility] (Rec: 04/02/24 13:51 [facility] [id number]) Cardio Equipment Recumbent Elliptical (Biodex) Duration (Minutes) 7 Resistance 5 Seat Position 8 Therapeutic Exercises Other Exercises Toe taps Other Exercise Name Toe-taps: Cones only>on foam> w/ 1# Rikki Side bilateral Equipment Used Cones Reps/Minutes x5 ea Comments 3 cones each foot Neuro Re-Education Treatment Balance Activities SLS Details SLS Surface firm Equipment // bars Reps/Duration trials Comments 2 PRESCHOOL PRINCIPAL required Foam Details WBOS Equipment 2 AirEx, // bars Reps/Duration x30s ea Comments Head turns, EO/EC Hurdles Details Hurdles Equipment // bars Comments Fwd 10ft x4, Side-stepping x10ft ea PT-OP-T Assessment and Plan Start: 01/23/24 15:28 Freq: Status: Active Protocol: Document 04/02/24 13:10 [facility] (Rec: 04/02/24 13:51 [facility] [id number]) Physical Therapy Assessment Goals Two Impairment Pt exhibits high falls risk, per Haines Balance score of 24/ 56 Short Term Goal (STG) Pt to increase Haines Balance scale score by at least 10 points to 34/56 in order to demonstrate decreasing falls risk STG Duration Met Home Sales Consultant Goal (LTG) Pt to increase Haines Balance scale score by at least 7 points to 45/56 in order to demonstrate decreasing falls risk LTG Duration 05/14/24 One Impairment Pt does not have an appropriate home exercise program Short Term Goal (STG) Pt to be independent and compliant with an appropriate HEP STG Duration 04/13/24 Assessment Summary Assessment Priyanka presents with lower platelet count today which may contribute to decreased activity tolerance. Treatment focus on LE strengthening and balance today. She is challenged on foam in WBOS with Eyes closed and requires consistent cues for upright posture and distant focal point with balance. She is able to perform toe taps on 2 foam w/ 1# ankle weights x5 each side with upper extremity support as needed. Physical Therapy Plan Frequency and Duration Frequency of Treatment 2x/Week Plan of Care Start Date 03/14/24 Plan of Care End Date 05/14/24 Therapeutic Interventions Therapeutic Interventions Balance Training,Gait Training ,Home Exercise Program,Manual Therapy,Neuromuscular Re- education,Patient/Caregiver Education,Self-Care/Home Management,Soft Tissue Mobilization,Therapeutic Activities,Therapeutic Exercises,Vestibular Rehabilitation Next Visit Focus/Plan Next Note Type Treatment Note Next Visit Plan Balance training, increased activity tolerance
--- NOTE | 2024-05-14 12:17 | PT.OTN ---
Current Diagnoses Unsteadiness on feet (05/14/24) Other abnormalities of gait and mobility (05/14/24) Weakness (05/14/24) Physical Therapy Treatment Note PT-OP-A Visit Information Start: 01/23/24 15:28 Freq: Status: Active Protocol: Document 05/14/24 11:46 DCW (Rec: 05/14/24 12:17 DCW [id number]) Out-Patient Physical Therapy Visit Information Visit Information Visit Type Progress Note Visit Note Late arrival Visit Start Time 11:46 Visit Stop Time 12:15 Visit Number 13 Number of CRITICAL CARE TECHNICIAN Visits 0 Evaluation Information Evaluation Date 01/23/24 PT-OP-B Current Condition Start: 01/23/24 15:28 Freq: Status: Active Protocol: Document 01/23/24 09:45 DCW (Rec: 01/23/24 17:54 DCW [id number]) Current Condition History of Current Condition Onset Date ~Seven month history Current Complaints Weakness, imbalance, deconditioning History of Current Condition Pt is an 83 year old female presenting with declining functional mobility, poor balance, decreased activity tolerance, and instability with gait. Pt admits she has been inactive recently. Symptoms worsened about seven months ago during most recent round of Chemo, which completely wiped me out. Notes her blood work has not been great, H&H very low, has received a few transfusions, helps for a short time. Using SPC when leaving the house. Does notes she gets light- headed when getting out of bed , I have to paise when I stand up so I don't go back down. PT-OP-C Subjective Start: 01/23/24 15:28 Freq: Status: Active Protocol: Document 05/14/24 11:46 DCW (Rec: 05/14/24 12:17 DCW [id number]) OP-PT Subjective Patient Comments Patient Comments Pt worried about retesting today due to another dip in her platelet count PT-OP-D Balance Start: 01/23/24 15:28 Freq: Status: Active Protocol: Document 05/14/24 11:47 DCW (Rec: 05/14/24 12:12 DCW [id number]) Balance Tests Haines Balance Test Haines Balance Test Score 42/46 Haines Balance Assessment Evaluation Sitting to Standing Ability Independent w/Hands Unsupported Stance Safely- 2 minutes Sitting Unsupported, Feet on Floor Safely- 2 minutes Standing to Sitting Ability Safely, Minimal Hand Use Transfer Ability Safely, Minimal Hand Use Unsupported Stance- Eyes Closed Safely, With Eyes Open Unsupported Stance- Eyes Open Independent, 1 minute Reaching Forward Standing Safely, 5 inches Pick- Up Object From Floor Supervision Look Behind Shoulder - Standing Turns Sideways Only Turning 360 Degrees Turns Bilateral, < 4 secs Unsupported Stance, Alternating Feet on (I)- 8 Steps in > 20 secs Stair Unsupported Tandem Stance Small Step- 30 seconds Unilateral Leg Stance Lifts Leg/Unable to Hold Total Score Haines Total Score (out of 56 points) 42 Haines Impairment Rating 20 to 39% Impaired (Score 34- 44) PT-OP-E Functional Tests Start: 01/23/24 15:28 Freq: Status: Active Protocol: Document 05/14/24 11:47 DCW (Rec: 05/14/24 12:12 DCW [id number]) Functional Tests Dynamic Gait Index (DGI) Score DGI Impairment Rating 20 to <40% Impaired (Score 15- 19) PT-OP-M Strength Start: 01/23/24 15:28 Freq: Status: Active Protocol: Document 01/23/24 09:45 DCW (Rec: 01/23/24 17:44 DCW [id number]) Hip Strength Hip Manual Muscle Testing Right Flexion (L2) 4 Good Abduction 4 Good Adduction 4 Good External Rotation 5 Normal Internal Rotation 5 Normal Left Flexion (L2) 4 Good Abduction 4 Good Adduction 4 Good External Rotation 5 Normal Internal Rotation 5 Normal Knee Strength Knee Manual Muscle Testing Right Flexion (S2) 4 Good Extension (L3) 4 Good Left Flexion (S2) 4 Good Extension (L3) 4 Good Ankle/Foot Strength Ankle and Foot Manual Muscle Testing Right Dorsiflexion (L4) 4 Good Left Dorsiflexion (L4) 4 Good PT-OP-Q Treatments Start: 01/23/24 15:28 Freq: Status: Active Protocol: Document 05/14/24 11:46 DCW (Rec: 05/14/24 12:17 DCW [id number]) Neuro Re-Education Treatment Other Activities Testing Details Haines, DGI PT-OP-T Assessment and Plan Start: 01/23/24 15:28 Freq: Status: Active Protocol: Document 05/14/24 11:46 DCW (Rec: 05/14/24 12:17 [facility] [id number]) Physical Therapy Assessment Impairments Impairments Activity Tolerance,Balance, Functional Activities, Functional Mobility,Strength Goals Two Impairment Pt exhibits high falls risk, per Haines Balance score of 24/ 56 Short Term Goal (STG) Pt to increase Haines Balance scale score by at least 10 points to 34/56 in order to demonstrate decreasing falls risk STG Duration Met Quick Technician Goal (LTG) Pt to increase Haines Balance scale score by at least 7 points to 45/56 in order to demonstrate decreasing falls risk LTG Duration 07/14/24 - Improving One Impairment Pt does not have an appropriate home exercise program Short Term Goal (STG) Pt to be independent and compliant with an appropriate HEP STG Duration Met Assessment Summary Assessment Pt still continues to show fairly significant improvement since initial evaluation, however both Haines and DGI suggest pt still at an increased falls risk. Overall change in Haines score from eval is 18 points, from 24/ to 42/56. DGI similarly improved, from 03/18 to since eval . Pt should continue to work on LE strengthening, balance/ stabilization, activity tolerance, and functional mobility for safety. Physical Therapy Plan Frequency and Duration Frequency of Treatment 2x/Week Plan of Care Start Date 05/14/24 Plan of Care End Date 07/14/24 Therapeutic Interventions Therapeutic Interventions Balance Training,Gait Training ,Home Exercise Program,Manual Therapy,Neuromuscular Re- education,Patient/Caregiver Education,Self-Care/Home Management,Soft Tissue Mobilization,Therapeutic Activities,Therapeutic Exercises,Vestibular Rehabilitation Next Visit Focus/Plan Next Note Type Treatment Note Next Visit Plan Balance training, increased activity tolerance
--- NOTE | 2024-05-14 12:18 | PT.OPPOC ---
Physical, Occupational & Speech Therapy At [facility] Current Diagnoses Unsteadiness on feet (05/14/24) Other abnormalities of gait and mobility (05/14/24) Weakness (05/14/24) Visit Care Team Role Provider Type Reji Brasher MD Family Provider Physician Primary Care Provider Specialty: Internal Medicine Address: [address] [place] [address], [id number] Email: [email or web address] Lamberto Vance MD Attending Provider Physician Referring Provider Specialty: Oncology Address: [address] [place] [address], [id number] Email: [email or web address] Plan Of Care PT-OP-B Current Condition Start: 01/23/24 15:28 Freq: Status: Active Protocol: Document 01/23/24 09:45 DCW (Rec: 01/23/24 17:54 DCW [id number]) Current Condition History of Current Condition Onset Date ~Seven month history Current Complaints Weakness, imbalance, deconditioning History of Current Condition Pt is an 83 year old female presenting with declining functional mobility, poor balance, decreased activity tolerance, and instability with gait. Pt admits she has been inactive recently. Symptoms worsened about seven months ago during most recent round of Chemo, which completely wiped me out. Notes her blood work has not been great, H&H very low, has received a few transfusions, helps for a short time. Using SPC when leaving the house. Does notes she gets light- headed when getting out of bed , I have to paise when I stand up so I don't go back down. PT-OP-T Assessment and Plan Start: 01/23/24 15:28 Freq: Status: Active Protocol: Document 05/14/24 11:46 DCW (Rec: 05/14/24 12:17 DCW [id number]) Physical Therapy Assessment Impairments Impairments Activity Tolerance,Balance, Functional Activities, Functional Mobility,Strength Goals Two Impairment Pt exhibits high falls risk, per Haines Balance score of 24/ 56 Short Term Goal (STG) Pt to increase Haines Balance scale score by at least 10 points to 34/56 in order to demonstrate decreasing falls risk STG Duration Met Batter Scaler Goal (LTG) Pt to increase Haines Balance scale score by at least 7 points to 45/56 in order to demonstrate decreasing falls risk LTG Duration 07/14/24 - Improving One Impairment Pt does not have an appropriate home exercise program Short Term Goal (STG) Pt to be independent and compliant with an appropriate HEP STG Duration Met Assessment Summary Assessment Pt still continues to show fairly significant improvement since initial evaluation, however both Haines and DGI suggest pt still at an increased falls risk. Overall change in Haines score from eval is 18 points, from / to 42/56. DGI similarly improved, from 03/18 to since eval . Pt should continue to work on LE strengthening, balance/ stabilization, activity tolerance, and functional mobility for safety. Physical Therapy Plan Frequency and Duration Frequency of Treatment 2x/Week Plan of Care Start Date 05/14/24 Plan of Care End Date 07/14/24 Therapeutic Interventions Therapeutic Interventions Balance Training,Gait Training ,Home Exercise Program,Manual Therapy,Neuromuscular Re- education,Patient/Caregiver Education,Self-Care/Home Management,Soft Tissue Mobilization,Therapeutic Activities,Therapeutic Exercises,Vestibular Rehabilitation Next Visit Focus/Plan Next Note Type Treatment Note Next Visit Plan Balance training, increased activity tolerance Plan of Care Dates Plan of Care Start Date 05/14/24 Plan of Care End Date 07/14/24 Electronically Signed by: Tony Higgins, PT 05/14/24 3911 If you are in agreement with this Plan of Care, please return a signed and dated copy. I have reviewed this Plan of Care and certify that the skilled therapy services above are required to meet the patient?s needs. Physician Signature Date Printed Name and Credentials Clinical Instructor Signature Printed Name and Credentials
--- NOTE | 2024-05-16 12:15 | PT.OTN ---
Current Diagnoses Unsteadiness on feet (05/16/24) Other abnormalities of gait and mobility (05/16/24) Weakness (05/16/24) Physical Therapy Treatment Note PT-OP-A Visit Information Start: 01/23/24 15:28 Freq: Status: Active Protocol: Document 05/16/24 11:32 DCW (Rec: 05/16/24 12:15 DCW [id number]) Out-Patient Physical Therapy Visit Information Visit Information Visit Type Treatment Note Visit Start Time 11:32 Visit Stop Time 12:15 Visit Number 14 Number of RECORD TABULATING CLERK Visits 0 Evaluation Information Evaluation Date 01/23/24 PT-OP-B Current Condition Start: 01/23/24 15:28 Freq: Status: Active Protocol: Document 01/23/24 09:45 DCW (Rec: 01/23/24 17:54 DCW [id number]) Current Condition History of Current Condition Onset Date ~Seven month history Current Complaints Weakness, imbalance, deconditioning History of Current Condition Pt is an 83 year old female presenting with declining functional mobility, poor balance, decreased activity tolerance, and instability with gait. Pt admits she has been inactive recently. Symptoms worsened about seven months ago during most recent round of Chemo, which completely wiped me out. Notes her blood work has not been great, H&H very low, has received a few transfusions, helps for a short time. Using SPC when leaving the house. Does notes she gets light- headed when getting out of bed , I have to paise when I stand up so I don't go back down. PT-OP-C Subjective Start: 01/23/24 15:28 Freq: Status: Active Protocol: Document 05/16/24 11:32 DCW (Rec: 05/16/24 12:15 DCW [id number]) OP-PT Subjective Patient Comments Patient Comments Pt notes she had a in the family yesterday, so she is dragging a bit more today. PT-OP-D Balance Start: 01/23/24 15:28 Freq: Status: Active Protocol: Document 05/14/24 11:47 DCW (Rec: 05/14/24 12:12 DCW [id number]) Balance Tests Haines Balance Test Haines Balance Test Score 42/46 Haines Balance Assessment Evaluation Sitting to Standing Ability Independent w/Hands Unsupported Stance Safely- 2 minutes Sitting Unsupported, Feet on Floor Safely- 2 minutes Standing to Sitting Ability Safely, Minimal Hand Use Transfer Ability Safely, Minimal Hand Use Unsupported Stance- Eyes Closed Safely, With Eyes Open Unsupported Stance- Eyes Open Independent, 1 minute Reaching Forward Standing Safely, 5 inches Pick- Up Object From Floor Supervision Look Behind Shoulder - Standing Turns Sideways Only Turning 360 Degrees Turns Bilateral, < 4 secs Unsupported Stance, Alternating Feet on (I)- 8 Steps in > 20 secs Stair Unsupported Tandem Stance Small Step- 30 seconds Unilateral Leg Stance Lifts Leg/Unable to Hold Total Score Haines Total Score (out of 56 points) 42 Haines Impairment Rating 20 to 39% Impaired (Score 34- 44) PT-OP-E Functional Tests Start: 01/23/24 15:28 Freq: Status: Active Protocol: Document 05/14/24 11:47 DCW (Rec: 05/14/24 12:12 DCW [id number]) Functional Tests Dynamic Gait Index (DGI) Score DGI Impairment Rating 20 to <40% Impaired (Score 15- 19) PT-OP-M Strength Start: 01/23/24 15:28 Freq: Status: Active Protocol: Document 01/23/24 09:45 DCW (Rec: 01/23/24 17:44 DCW [id number]) Hip Strength Hip Manual Muscle Testing Right Flexion (L2) 4 Good Abduction 4 Good Adduction 4 Good External Rotation 5 Normal Internal Rotation 5 Normal Left Flexion (L2) 4 Good Abduction 4 Good Adduction 4 Good External Rotation 5 Normal Internal Rotation 5 Normal Knee Strength Knee Manual Muscle Testing Right Flexion (S2) 4 Good Extension (L3) 4 Good Left Flexion (S2) 4 Good Extension (L3) 4 Good Ankle/Foot Strength Ankle and Foot Manual Muscle Testing Right Dorsiflexion (L4) 4 Good Left Dorsiflexion (L4) 4 Good PT-OP-Q Treatments Start: 01/23/24 15:28 Freq: Status: Active Protocol: Document 05/16/24 11:32 DCW (Rec: 05/16/24 12:15 DCW [id number]) Cardio Equipment Recumbent Elliptical (Biodex) Duration (Minutes) 7 Resistance 5 Seat Position 8 Gym Equipment Shuttle Recovery Unilateral Squats Resistance 37# Bilateral Squats Resistance 50# Therapeutic Exercises Standing Exercises Calf Stretch Standing Exercise Name Calf stretch Side bilateral Resistance PILAR Hip Extension Standing Exercise Name Hip Extension Side bilateral Resistance Green loop Other Exercises Resisted Ambulation Other Exercise Name Resisted Side-stepping Resistance Green @ knees Equipment Used @ rail Reps/Minutes 10' x4 Toe taps Other Exercise Name Toe-taps from AirEx Side bilateral Resistance Frequent UE support on rail Equipment Used Cones Comments 3 cones each foot Neuro Re-Education Treatment Balance Activities SLS Details SLS Surface firm Equipment @ rail Tandem Details Tandem Stance Equipment @ rail Foam Details NBOS Equipment AirEx, @ rail Reps/Duration x30s ea Comments EO/EC PT-OP-T Assessment and Plan Start: 01/23/24 15:28 Freq: Status: Active Protocol: Document 05/16/24 11:32 DCW (Rec: 05/16/24 12:15 DCW [id number]) Physical Therapy Assessment Impairments Impairments Activity Tolerance,Balance, Functional Activities, Functional Mobility,Strength Goals Two Impairment Pt exhibits high falls risk, per Haines Balance score of 24/ 56 Short Term Goal (STG) Pt to increase Haines Balance scale score by at least 10 points to 34/56 in order to demonstrate decreasing falls risk STG Duration Met Fdc Goal (LTG) Pt to increase Haines Balance scale score by at least 7 points to 45/56 in order to demonstrate decreasing falls risk LTG Duration 07/14/24 - Improving One Impairment Pt does not have an appropriate home exercise program Short Term Goal (STG) Pt to be independent and compliant with an appropriate HEP STG Duration Met Assessment Summary Assessment Struggled a bit with higher- level activities, has increased difficulty on foam, especially attempting to tap cones. Focus on balance and strengthening. Physical Therapy Plan Frequency and Duration Frequency of Treatment 2x/Week Plan of Care Start Date 05/14/24 Plan of Care End Date 07/14/24 Therapeutic Interventions Therapeutic Interventions Balance Training,Gait Training ,Home Exercise Program,Manual Therapy,Neuromuscular Re- education,Patient/Caregiver Education,Self-Care/Home Management,Soft Tissue Mobilization,Therapeutic Activities,Therapeutic Exercises,Vestibular Rehabilitation Next Visit Focus/Plan Next Note Type Treatment Note Next Visit Plan Balance training, increased activity tolerance
--- NOTE | 2024-06-03 12:16 | PT.OTN ---
Current Diagnoses Unsteadiness on feet (06/03/24) Other abnormalities of gait and mobility (06/03/24) Weakness (06/03/24) Physical Therapy Treatment Note PT-OP-A Visit Information Start: 01/23/24 15:28 Freq: Status: Active Protocol: Document 06/03/24 11:30 DCW (Rec: 06/03/24 12:16 DCW [id number]) Out-Patient Physical Therapy Visit Information Visit Information Visit Type Treatment Note Visit Start Time 11:30 Visit Stop Time 12:15 Visit Number 15 Number of FLAGGER Visits 0 Evaluation Information Evaluation Date 01/23/24 PT-OP-B Current Condition Start: 01/23/24 15:28 Freq: Status: Active Protocol: Document 01/23/24 09:45 DCW (Rec: 01/23/24 17:54 DCW [id number]) Current Condition History of Current Condition Onset Date ~Seven month history Current Complaints Weakness, imbalance, deconditioning History of Current Condition Pt is an 83 year old female presenting with declining functional mobility, poor balance, decreased activity tolerance, and instability with gait. Pt admits she has been inactive recently. Symptoms worsened about seven months ago during most recent round of Chemo, which completely wiped me out. Notes her blood work has not been great, H&H very low, has received a few transfusions, helps for a short time. Using SPC when leaving the house. Does notes she gets light- headed when getting out of bed , I have to paise when I stand up so I don't go back down. PT-OP-C Subjective Start: 01/23/24 15:28 Freq: Status: Active Protocol: Document 06/03/24 11:30 DCW (Rec: 06/03/24 12:16 DCW [id number]) OP-PT Subjective Patient Comments Patient Comments Pt feeling overwhelmed this month, would prefer to start scheduling more visits in June. PT-OP-D Balance Start: 01/23/24 15:28 Freq: Status: Active Protocol: Document 05/14/24 11:47 DCW (Rec: 05/14/24 12:12 DCW [id number]) Balance Tests Haines Balance Test Haines Balance Test Score 42/46 Haines Balance Assessment Evaluation Sitting to Standing Ability Independent w/Hands Unsupported Stance Safely- 2 minutes Sitting Unsupported, Feet on Floor Safely- 2 minutes Standing to Sitting Ability Safely, Minimal Hand Use Transfer Ability Safely, Minimal Hand Use Unsupported Stance- Eyes Closed Safely, With Eyes Open Unsupported Stance- Eyes Open Independent, 1 minute Reaching Forward Standing Safely, 5 inches Pick- Up Object From Floor Supervision Look Behind Shoulder - Standing Turns Sideways Only Turning 360 Degrees Turns Bilateral, < 4 secs Unsupported Stance, Alternating Feet on (I)- 8 Steps in > 20 secs Stair Unsupported Tandem Stance Small Step- 30 seconds Unilateral Leg Stance Lifts Leg/Unable to Hold Total Score Haines Total Score (out of 56 points) 42 Haines Impairment Rating 20 to 39% Impaired (Score 34- 44) PT-OP-E Functional Tests Start: 01/23/24 15:28 Freq: Status: Active Protocol: Document 05/14/24 11:47 DCW (Rec: 05/14/24 12:12 DCW [id number]) Functional Tests Dynamic Gait Index (DGI) Score DGI Impairment Rating 20 to <40% Impaired (Score 15- 19) PT-OP-M Strength Start: 01/23/24 15:28 Freq: Status: Active Protocol: Document 01/23/24 09:45 DCW (Rec: 01/23/24 17:44 DCW [id number]) Hip Strength Hip Manual Muscle Testing Right Flexion (L2) 4 Good Abduction 4 Good Adduction 4 Good External Rotation 5 Normal Internal Rotation 5 Normal Left Flexion (L2) 4 Good Abduction 4 Good Adduction 4 Good External Rotation 5 Normal Internal Rotation 5 Normal Knee Strength Knee Manual Muscle Testing Right Flexion (S2) 4 Good Extension (L3) 4 Good Left Flexion (S2) 4 Good Extension (L3) 4 Good Ankle/Foot Strength Ankle and Foot Manual Muscle Testing Right Dorsiflexion (L4) 4 Good Left Dorsiflexion (L4) 4 Good PT-OP-Q Treatments Start: 01/23/24 15:28 Freq: Status: Active Protocol: Document 06/03/24 11:30 DCW (Rec: 06/03/24 12:16 DCW [id number]) Cardio Equipment Recumbent Elliptical (Biodex) Duration (Minutes) 6 Resistance 5 Seat Position 9 Gym Equipment Shuttle Recovery Unilateral Squats Resistance 37# Bilateral Squats Resistance 75# Therapeutic Exercises Standing Exercises Calf Stretch Standing Exercise Name Calf stretch Side bilateral Resistance PILAR Hip Extension Standing Exercise Name Hip Extension Side bilateral Resistance Green loop Other Exercises Resisted Ambulation Other Exercise Name Resisted Side-stepping Resistance Green @ knees Equipment Used @ rail Reps/Minutes 10' x4 Toe taps Other Exercise Name Toe-taps from AirEx Side bilateral Resistance Frequent UE support on rail Equipment Used Cones Comments 3 cones each foot Neuro Re-Education Treatment Balance Activities Retro Ambulation Details Retro Ambulation Equipment // bars Reps/Duration 10 ft x4 Tandem Details Tandem Stance Equipment @ rail PT-OP-T Assessment and Plan Start: 01/23/24 15:28 Freq: Status: Active Protocol: Document 06/03/24 11:30 DCW (Rec: 06/03/24 12:16 DCW [id number]) Physical Therapy Assessment Impairments Impairments Activity Tolerance,Balance, Functional Activities, Functional Mobility,Strength Goals Two Impairment Pt exhibits high falls risk, per Haines Balance score of 24/ 56 Short Term Goal (STG) Pt to increase Haines Balance scale score by at least 10 points to 34/56 in order to demonstrate decreasing falls risk STG Duration Met Assisted Goal (LTG) Pt to increase Haines Balance scale score by at least 7 points to 45/56 in order to demonstrate decreasing falls risk LTG Duration 07/14/24 - Improving One Impairment Pt does not have an appropriate home exercise program Short Term Goal (STG) Pt to be independent and compliant with an appropriate HEP STG Duration Met Assessment Summary Assessment Showing some improvement with balance challenges, feels like she has been less fearful of falling. Continue to focus on leg strength and static/ dynamic balance challenges. Physical Therapy Plan Frequency and Duration Frequency of Treatment 2x/Week Plan of Care Start Date 05/14/24 Plan of Care End Date 07/14/24 Therapeutic Interventions Therapeutic Interventions Balance Training,Gait Training ,Home Exercise Program,Manual Therapy,Neuromuscular Re- education,Patient/Caregiver Education,Self-Care/Home Management,Soft Tissue Mobilization,Therapeutic Activities,Therapeutic Exercises,Vestibular Rehabilitation Next Visit Focus/Plan Next Note Type Treatment Note Next Visit Plan Balance training, increased activity tolerance
--- NOTE | 2024-07-02 11:33 | PT.OTN ---
Current Diagnoses Unsteadiness on feet (07/02/24) Other abnormalities of gait and mobility (07/02/24) Weakness (07/02/24) Physical Therapy Treatment Note PT-OP-A Visit Information Start: 01/23/24 15:28 Freq: Status: Active Protocol: Document 07/02/24 10:53 DCW (Rec: 07/02/24 11:32 DCW [id number]) Out-Patient Physical Therapy Visit Information Visit Information Visit Type Treatment Note Visit Start Time 10:53 Visit Stop Time 11:32 Visit Number 16 Number of FULL STACK SOFTWARE DEVELOPER Visits 0 Evaluation Information Evaluation Date 01/23/24 PT-OP-B Current Condition Start: 01/23/24 15:28 Freq: Status: Active Protocol: Document 01/23/24 09:45 DCW (Rec: 01/23/24 17:54 DCW [id number]) Current Condition History of Current Condition Onset Date ~Seven month history Current Complaints Weakness, imbalance, deconditioning History of Current Condition Pt is an 83 year old female presenting with declining functional mobility, poor balance, decreased activity tolerance, and instability with gait. Pt admits she has been inactive recently. Symptoms worsened about seven months ago during most recent round of Chemo, which completely wiped me out. Notes her blood work has not been great, H&H very low, has received a few transfusions, helps for a short time. Using SPC when leaving the house. Does notes she gets light- headed when getting out of bed , I have to paise when I stand up so I don't go back down. PT-OP-C Subjective Start: 01/23/24 15:28 Freq: Status: Active Protocol: Document 07/02/24 10:53 DCW (Rec: 07/02/24 11:32 DCW [id number]) OP-PT Subjective Patient Comments Patient Comments My platelets went up a massive amount on Sunday, to triple digits. 111. It's the highest it's been in a year. We're trying to figure out why they went up. PT-OP-D Balance Start: 01/23/24 15:28 Freq: Status: Active Protocol: Document 05/14/24 11:47 DCW (Rec: 05/14/24 12:12 DCW [id number]) Balance Tests Haines Balance Test Haines Balance Test Score 42/46 Haines Balance Assessment Evaluation Sitting to Standing Ability Independent w/Hands Unsupported Stance Safely- 2 minutes Sitting Unsupported, Feet on Floor Safely- 2 minutes Standing to Sitting Ability Safely, Minimal Hand Use Transfer Ability Safely, Minimal Hand Use Unsupported Stance- Eyes Closed Safely, With Eyes Open Unsupported Stance- Eyes Open Independent, 1 minute Reaching Forward Standing Safely, 5 inches Pick- Up Object From Floor Supervision Look Behind Shoulder - Standing Turns Sideways Only Turning 360 Degrees Turns Bilateral, < 4 secs Unsupported Stance, Alternating Feet on (I)- 8 Steps in > 20 secs Stair Unsupported Tandem Stance Small Step- 30 seconds Unilateral Leg Stance Lifts Leg/Unable to Hold Total Score Haines Total Score (out of 56 points) 42 Haines Impairment Rating 20 to 39% Impaired (Score 34- 44) PT-OP-E Functional Tests Start: 01/23/24 15:28 Freq: Status: Active Protocol: Document 05/14/24 11:47 DCW (Rec: 05/14/24 12:12 DCW [id number]) Functional Tests Dynamic Gait Index (DGI) Score DGI Impairment Rating 20 to <40% Impaired (Score 15- 19) PT-OP-M Strength Start: 01/23/24 15:28 Freq: Status: Active Protocol: Document 01/23/24 09:45 DCW (Rec: 01/23/24 17:44 DCW [id number]) Hip Strength Hip Manual Muscle Testing Right Flexion (L2) 4 Good Abduction 4 Good Adduction 4 Good External Rotation 5 Normal Internal Rotation 5 Normal Left Flexion (L2) 4 Good Abduction 4 Good Adduction 4 Good External Rotation 5 Normal Internal Rotation 5 Normal Knee Strength Knee Manual Muscle Testing Right Flexion (S2) 4 Good Extension (L3) 4 Good Left Flexion (S2) 4 Good Extension (L3) 4 Good Ankle/Foot Strength Ankle and Foot Manual Muscle Testing Right Dorsiflexion (L4) 4 Good Left Dorsiflexion (L4) 4 Good PT-OP-Q Treatments Start: 01/23/24 15:28 Freq: Status: Active Protocol: Document 07/02/24 10:53 DCW (Rec: 07/02/24 11:32 DCW [id number]) Gym Equipment Shuttle Recovery Unilateral Squats Resistance 37# Bilateral Squats Resistance 75#->62# Shuttle Balance Red Details WBOS, Staggered Comments VCs to decrease reliance on UEs Neuro Re-Education Treatment Balance Activities SLS Details SLS Surface firm Equipment @ rail Retro Ambulation Details Retro Ambulation Equipment // bars Reps/Duration 10 ft x4 Tandem Details Tandem Ambulation Equipment // bars Foam Details Balloon Volley Equipment // bars Hurdles Details Hurdles Equipment // bars Comments Forward, Lateral PT-OP-T Assessment and Plan Start: 01/23/24 15:28 Freq: Status: Active Protocol: Document 07/02/24 10:53 DCW (Rec: 07/02/24 11:33 DCW [id number]) Physical Therapy Assessment Impairments Impairments Activity Tolerance,Balance, Functional Activities, Functional Mobility,Strength Goals Two Impairment Pt exhibits high falls risk, per Haines Balance score of 24/ 56 Short Term Goal (STG) Pt to increase Haines Balance scale score by at least 10 points to 34/56 in order to demonstrate decreasing falls risk STG Duration Met Residential Goal (LTG) Pt to increase Haines Balance scale score by at least 7 points to 45/56 in order to demonstrate decreasing falls risk LTG Duration 07/14/24 - Improving One Impairment Pt does not have an appropriate home exercise program Short Term Goal (STG) Pt to be independent and compliant with an appropriate HEP STG Duration Met Assessment Summary Assessment Pt doing very well today, typically does better with higher platelet counts. [place] much more stable with all balance activities. Physical Therapy Plan Frequency and Duration Frequency of Treatment 2x/Week Plan of Care Start Date 05/14/24 Plan of Care End Date 07/14/24 Therapeutic Interventions Therapeutic Interventions Balance Training,Gait Training ,Home Exercise Program,Manual Therapy,Neuromuscular Re- education,Patient/Caregiver Education,Self-Care/Home Management,Soft Tissue Mobilization,Therapeutic Activities,Therapeutic Exercises,Vestibular Rehabilitation Next Visit Focus/Plan Next Note Type Treatment Note Next Visit Plan Balance training, increased activity tolerance
--- NOTE | 2024-07-04 11:27 | PT.OTN ---
Current Diagnoses Unsteadiness on feet (07/04/24) Other abnormalities of gait and mobility (07/04/24) Weakness (07/04/24) Physical Therapy Treatment Note PT-OP-A Visit Information Start: 01/23/24 15:28 Freq: Status: Active Protocol: Document 07/04/24 10:47 SP (Rec: 07/04/24 11:33 SP [id number]) Out-Patient Physical Therapy Visit Information Visit Information Visit Type Treatment Note Visit Start Time 10:47 Visit Stop Time 11:27 Visit Number 17 Number of MAINTENANCE MILLWRIGHT Visits 1 Evaluation Information Evaluation Date 01/23/24 PT-OP-B Current Condition Start: 01/23/24 15:28 Freq: Status: Active Protocol: Document 01/23/24 09:45 DCW (Rec: 01/23/24 17:54 DCW [id number]) Current Condition History of Current Condition Onset Date ~Seven month history Current Complaints Weakness, imbalance, deconditioning History of Current Condition Pt is an 83 year old female presenting with declining functional mobility, poor balance, decreased activity tolerance, and instability with gait. Pt admits she has been inactive recently. Symptoms worsened about seven months ago during most recent round of Chemo, which completely wiped me out. Notes her blood work has not been great, H&H very low, has received a few transfusions, helps for a short time. Using SPC when leaving the house. Does notes she gets light- headed when getting out of bed , I have to paise when I stand up so I don't go back down. PT-OP-C Subjective Start: 01/23/24 15:28 Freq: Status: Active Protocol: Document 07/04/24 10:47 SP (Rec: 07/04/24 11:33 SP [id number]) OP-PT Subjective Patient Comments Patient Comments Pt reports today is # 2 visit with her current 15 visit approval. She felt good little tired after last tx. PT-OP-D Balance Start: 01/23/24 15:28 Freq: Status: Active Protocol: Document 05/14/24 11:47 DCW (Rec: 05/14/24 12:12 DCW [id number]) Balance Tests Haines Balance Test Haines Balance Test Score 42/46 Haines Balance Assessment Evaluation Sitting to Standing Ability Independent w/Hands Unsupported Stance Safely- 2 minutes Sitting Unsupported, Feet on Floor Safely- 2 minutes Standing to Sitting Ability Safely, Minimal Hand Use Transfer Ability Safely, Minimal Hand Use Unsupported Stance- Eyes Closed Safely, With Eyes Open Unsupported Stance- Eyes Open Independent, 1 minute Reaching Forward Standing Safely, 5 inches Pick- Up Object From Floor Supervision Look Behind Shoulder - Standing Turns Sideways Only Turning 360 Degrees Turns Bilateral, < 4 secs Unsupported Stance, Alternating Feet on (I)- 8 Steps in > 20 secs Stair Unsupported Tandem Stance Small Step- 30 seconds Unilateral Leg Stance Lifts Leg/Unable to Hold Total Score Haines Total Score (out of 56 points) 42 Haines Impairment Rating 20 to 39% Impaired (Score 34- 44) PT-OP-E Functional Tests Start: 01/23/24 15:28 Freq: Status: Active Protocol: Document 05/14/24 11:47 DCW (Rec: 05/14/24 12:12 DCW [id number]) Functional Tests Dynamic Gait Index (DGI) Score DGI Impairment Rating 20 to <40% Impaired (Score 15- 19) PT-OP-M Strength Start: 01/23/24 15:28 Freq: Status: Active Protocol: Document 01/23/24 09:45 DCW (Rec: 01/23/24 17:44 DCW [id number]) Hip Strength Hip Manual Muscle Testing Right Flexion (L2) 4 Good Abduction 4 Good Adduction 4 Good External Rotation 5 Normal Internal Rotation 5 Normal Left Flexion (L2) 4 Good Abduction 4 Good Adduction 4 Good External Rotation 5 Normal Internal Rotation 5 Normal Knee Strength Knee Manual Muscle Testing Right Flexion (S2) 4 Good Extension (L3) 4 Good Left Flexion (S2) 4 Good Extension (L3) 4 Good Ankle/Foot Strength Ankle and Foot Manual Muscle Testing Right Dorsiflexion (L4) 4 Good Left Dorsiflexion (L4) 4 Good PT-OP-Q Treatments Start: 01/23/24 15:28 Freq: Status: Active Protocol: Document 07/04/24 10:47 SP (Rec: 07/04/24 11:33 SP [id number]) Gym Equipment Shuttle Recovery Unilateral Squats Details cued breath Resistance 37# (teal band) Reps/Time 2x10 each LE Bilateral Squats Details cued breath Resistance 62# (2 navy bands) Reps/Time x10 Gait Training Gait Activity Dynamic gait Description fwd HTs Device Used 0 Level of Assistance CGA-5%A Distance/Duration hallway-50 ft x2 laps Treatment Focus increase stride, midline stability Comments cued arm swing, wt shift into advanced LE /c taller posture. Neuro Re-Education Treatment Balance Activities SLS Details SLS Surface firm Equipment Min finger contact on wall Reps/Duration 3 sec R, 10 sec L Comments cued tall, level shld, lean over stance LE Retro Ambulation Details Retro Ambulation Equipment light finger glide on wall in hallway Reps/Duration 10 ft x4 Tandem Details Tandem Ambulation Equipment light- Moderate finger contact wall in hallway Comments finger glide wall needed Hurdles Details 2 BOBs, 2 wooden blocks (on sides) Equipment facing hallway wall- 1 finger light contact Comments Forward & Lateral Occ cues for foot clearance and enough room for next foot lateral stepping. PT-OP-T Assessment and Plan Start: 01/23/24 15:28 Freq: Status: Active Protocol: Document 07/04/24 10:47 SP (Rec: 07/04/24 11:33 SP [id number]) Physical Therapy Assessment Goals Two Impairment Pt exhibits high falls risk, per Haines Balance score of 24/ 56 Short Term Goal (STG) Pt to increase Haines Balance scale score by at least 10 points to 34/56 in order to demonstrate decreasing falls risk STG Duration Met Senior Living Goal (LTG) Pt to increase Haines Balance scale score by at least 7 points to 45/56 in order to demonstrate decreasing falls risk LTG Duration 07/14/24 - Improving One Impairment Pt does not have an appropriate home exercise program Short Term Goal (STG) Pt to be independent and compliant with an appropriate HEP STG Duration Met Assessment Summary Assessment Pt responded well with progressed balance activities, reduced UE support to finger contact or glide on wall, improved corrections with cues for elongated upright posture , over stance LE. Physical Therapy Plan Frequency and Duration Frequency of Treatment 2x/Week Plan of Care Start Date 05/14/24 Plan of Care End Date 07/14/24 Therapeutic Interventions Therapeutic Interventions Balance Training,Gait Training ,Home Exercise Program,Manual Therapy,Neuromuscular Re- education,Patient/Caregiver Education,Self-Care/Home Management,Soft Tissue Mobilization,Therapeutic Activities,Therapeutic Exercises,Vestibular Rehabilitation Next Visit Focus/Plan Next Note Type Treatment Note Next Visit Plan Continue progress light conact to no contact balance activities in hallway. POC: Balance training, increased activity tolerance
--- NOTE | 2024-07-08 11:34 | PT.OTN ---
Current Diagnoses Unsteadiness on feet (07/08/24) Other abnormalities of gait and mobility (07/08/24) Weakness (07/08/24) Physical Therapy Treatment Note PT-OP-A Visit Information Start: 01/23/24 15:28 Freq: Status: Active Protocol: Document 07/08/24 10:57 NBM (Rec: 07/08/24 11:34 [facility] [id number]) Out-Patient Physical Therapy Visit Information Visit Information Visit Type Treatment Note Visit Start Time 10:55 Visit Stop Time 11:33 Visit Number 18 Number of RESEARCH KENNEL SUPERVISOR Visits 2 Evaluation Information Evaluation Date 01/23/24 PT-OP-B Current Condition Start: 01/23/24 15:28 Freq: Status: Active Protocol: Document 01/23/24 09:45 DCW (Rec: 01/23/24 17:54 DCW [id number]) Current Condition History of Current Condition Onset Date ~Seven month history Current Complaints Weakness, imbalance, deconditioning History of Current Condition Pt is an 83 year old female presenting with declining functional mobility, poor balance, decreased activity tolerance, and instability with gait. Pt admits she has been inactive recently. Symptoms worsened about seven months ago during most recent round of Chemo, which completely wiped me out. Notes her blood work has not been great, H&H very low, has received a few transfusions, helps for a short time. Using SPC when leaving the house. Does notes she gets light- headed when getting out of bed , I have to paise when I stand up so I don't go back down. PT-OP-C Subjective Start: 01/23/24 15:28 Freq: Status: Active Protocol: Document 07/08/24 10:57 NBM (Rec: 07/08/24 11:34 [facility] [id number]) OP-PT Subjective Patient Comments Patient Comments Priyanka reports her platelets are falling again. She's a bit tired. PT-OP-D Balance Start: 01/23/24 15:28 Freq: Status: Active Protocol: Document 05/14/24 11:47 DCW (Rec: 05/14/24 12:12 DCW [id number]) Balance Tests Hianes Balance Test Haines Balance Test Score 42/46 Haines Balance Assessment Evaluation Sitting to Standing Ability Independent w/Hands Unsupported Stance Safely- 2 minutes Sitting Unsupported, Feet on Floor Safely- 2 minutes Standing to Sitting Ability Safely, Minimal Hand Use Transfer Ability Safely, Minimal Hand Use Unsupported Stance- Eyes Closed Safely, With Eyes Open Unsupported Stance- Eyes Open Independent, 1 minute Reaching Forward Standing Safely, 5 inches Pick- Up Object From Floor Supervision Look Behind Shoulder - Standing Turns Sideways Only Turning 360 Degrees Turns Bilateral, < 4 secs Unsupported Stance, Alternating Feet on (I)- 8 Steps in > 20 secs Stair Unsupported Tandem Stance Small Step- 30 seconds Unilateral Leg Stance Lifts Leg/Unable to Hold Total Score Haines Total Score (out of 56 points) 42 Haines Impairment Rating 20 to 39% Impaired (Score 34- 44) PT-OP-E Functional Tests Start: 01/23/24 15:28 Freq: Status: Active Protocol: Document 05/14/24 11:47 DCW (Rec: 05/14/24 12:12 DCW [id number]) Functional Tests Dynamic Gait Index (DGI) Score DGI Impairment Rating 20 to <40% Impaired (Score 15- 19) PT-OP-M Strength Start: 01/23/24 15:28 Freq: Status: Active Protocol: Document 01/23/24 09:45 DCW (Rec: 01/23/24 17:44 DCW [id number]) Hip Strength Hip Manual Muscle Testing Right Flexion (L2) 4 Good Abduction 4 Good Adduction 4 Good External Rotation 5 Normal Internal Rotation 5 Normal Left Flexion (L2) 4 Good Abduction 4 Good Adduction 4 Good External Rotation 5 Normal Internal Rotation 5 Normal Knee Strength Knee Manual Muscle Testing Right Flexion (S2) 4 Good Extension (L3) 4 Good Left Flexion (S2) 4 Good Extension (L3) 4 Good Ankle/Foot Strength Ankle and Foot Manual Muscle Testing Right Dorsiflexion (L4) 4 Good Left Dorsiflexion (L4) 4 Good PT-OP-Q Treatments Start: 01/23/24 15:28 Freq: Status: Active Protocol: Document 07/08/24 10:57 NBM (Rec: 07/08/24 11:34 NBM [id number]) Neuro Re-Education Treatment Balance Activities SLS Details SLS Surface firm Equipment Min finger contact on wall Reps/Duration 2 sec R, 8 sec L Comments cued tall, gluteal activation, level shld, Retro Ambulation Details Retro Ambulation Equipment light finger glide on wall in hallway Reps/Duration light finger 10 ft x 2, no finger touch 10 ft x4 Comments no finger touch cue for larger R step. Tandem Details Tandem Ambulation Equipment light- Moderate finger contact wall in hallway Comments finger glide wall needed Foam Details Balloon Volley Equipment handrail at wall, 2 foam Reps/Duration 3' Comments Pt uses handrail RUE 2x for balance recovery, cues for gluteal activation. Hurdles Details Hurdles Surface tile Equipment handrail in hallway, 6 hurdles Reps/Duration 10 ft x4 fwd, 10 ft ea lat Comments Forward, Lateral PT-OP-T Assessment and Plan Start: 01/23/24 15:28 Freq: Status: Active Protocol: Document 07/08/24 10:57 NB (Rec: 07/08/24 11:34 [facility] [id number]) Physical Therapy Assessment Goals Two Impairment Pt exhibits high falls risk, per Haines Balance score of 24/ 56 Short Term Goal (STG) Pt to increase Haines Balance scale score by at least 10 points to 34/56 in order to demonstrate decreasing falls risk STG Duration Met Prison Goal (LTG) Pt to increase Haines Balance scale score by at least 7 points to 45/56 in order to demonstrate decreasing falls risk LTG Duration 07/14/24 - Improving One Impairment Pt does not have an appropriate home exercise program Short Term Goal (STG) Pt to be independent and compliant with an appropriate HEP STG Duration Met Assessment Summary Assessment Treatment focus on progressing balance. Pt demonstrates improving balance overall with no LOB and no UE support for retrowalking 10ft x4 CGA. She has LOB x3 with inital fwd hurdles attempt step-to without UE support but improves with cueing for gluteal activation. Rest breaks as needed throughout session due to lower platelet count. Physical Therapy Plan Frequency and Duration Frequency of Treatment 2x/Week Plan of Care Start Date 05/14/24 Plan of Care End Date 07/14/24 Therapeutic Interventions Therapeutic Interventions Balance Training,Gait Training ,Home Exercise Program,Manual Therapy,Neuromuscular Re- education,Patient/Caregiver Education,Self-Care/Home Management,Soft Tissue Mobilization,Therapeutic Activities,Therapeutic Exercises,Vestibular Rehabilitation Next Visit Focus/Plan Next Note Type Treatment Note Next Visit Plan Continue progress light conact to no contact balance activities in hallway. POC: Balance training, increased activity tolerance
--- NOTE | 2024-07-11 12:29 | PT-OP ANOTE ---
Pt arrived as scheduled today, noting that she was tired after being in the ER past midnight. After review of concerns from ER visit, including new cardiac findings, pt informed she would need medical clearance prior to continuing with therapy. Pt demonstrated understanding.
--- NOTE | 2024-07-29 17:38 | PT.OTN ---
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 Pt admits she has been inactive recently. Symptoms worsened about seven months ago during most recent round of Chemo, which completely wiped me out. Notes her blood work has not been great, H&H very low, has received a few transfusions, helps for a short time. Using SPC when leaving the house. Does notes she gets light- headed when getting out of bed , I have to paise when I stand up so I don't go back down. PT-OP-C Subjective Start: 01/23/24 15:28 Freq: Status: Active Protocol: Document 07/29/24 17:00 DCW (Rec: 07/29/24 17:37 DCW [id number]) OP-PT Subjective Patient Comments Patient Comments I'm really run down today. PT-OP-D Balance Start: 01/23/24 15:28 Freq: Status: Active Protocol: Document 07/29/24 17:00 DCW (Rec: 07/29/24 17:32 DCW [id number]) Balance Tests Haines Balance Test Haines Balance Test Score 42/46 Haines Balance Assessment Evaluation Sitting to Standing Ability Independent w/Hands Unsupported Stance Safely- 2 minutes Sitting Unsupported, Feet on Floor Safely- 2 minutes Standing to Sitting Ability Safely, Minimal Hand Use Transfer Ability Safely, Minimal Hand Use Unsupported Stance- Eyes Closed 3 seconds Unsupported Stance- Eyes Open Independent, 1 minute Reaching Forward Standing Safely, 5 inches Pick- Up Object From Floor Supervision Look Behind Shoulder - Standing Turns Sideways Only Turning 360 Degrees Turns , < 4 secs Unsupported Stance, Alternating Feet on (I)- 8 Steps in > 20 secs Stair Unsupported Tandem Stance Small Step- 30 seconds Unilateral Leg Stance Lifts Leg/Unable to Hold Total Score Haines Total Score (out of 56 points) 42 Haines Impairment Rating 20 to 39% Impaired (Score 34- 44) PT-OP-E Functional Tests Start: 01/23/24 15:28 Freq: Status: Active Protocol: Document 05/14/24 11:47 DCW (Rec: 05/14/24 12:12 DCW [id number]) Functional Tests Dynamic Gait Index (DGI) Score DGI Impairment Rating 20 to <40% Impaired (Score 15- 19) PT-OP-M Strength Start: 01/23/24 15:28 Freq: Status: Active Protocol: Document 01/23/24 09:45 DCW (Rec: 01/23/24 17:44 DCW [id number]) Hip Strength Hip Manual Muscle Testing Right Flexion (L2) 4 Good Abduction 4 Good Adduction 4 Good External Rotation 5 Normal Internal Rotation 5 Normal Left Flexion (L2) 4 Good Abduction 4 Good Adduction 4 Good External Rotation 5 Normal Internal Rotation 5 Normal Knee Strength Knee Manual Muscle Testing Right Flexion (S2) 4 Good Extension (L3) 4 Good Left Flexion (S2) 4 Good Extension (L3) 4 Good Ankle/Foot Strength Ankle and Foot Manual Muscle Testing Right Dorsiflexion (L4) 4 Good Left Dorsiflexion (L4) 4 Good PT-OP-Q Treatments Start: 01/23/24 15:28 Freq: Status: Active Protocol: Document 07/08/24 10:57 NBM (Rec: 07/08/24 11:34 NBM [id number]) Neuro Re-Education Treatment Balance Activities SLS Details SLS Surface firm Equipment Min finger contact on wall Reps/Duration 2 sec R, 8 sec L Comments cued tall, gluteal activation, level shld, Retro Ambulation Details Retro Ambulation Equipment light finger glide on wall in hallway Reps/Duration light finger 10 ft x 2, no finger touch 10 ft x4 Comments no finger touch cue for larger R step. Tandem Details Tandem Ambulation Equipment light- Moderate finger contact wall in hallway Comments finger glide wall needed Foam Details Balloon Volley Equipment handrail at wall, 2 foam Reps/Duration 3' Comments Pt uses handrail RUE 2x for balance recovery, cues for gluteal activation. Hurdles Details Hurdles Surface tile Equipment handrail in hallway, 6 hurdles Reps/Duration 10 ft x4 fwd, 10 ft ea lat Comments Forward, Lateral PT-OP-T Assessment and Plan Start: 01/23/24 15:28 Freq: Status: Active Protocol: Document 07/29/24 17:00 DCW (Rec: 07/29/24 17:37 DCW [id number]) Physical Therapy Assessment Goals Two Impairment Pt exhibits high falls risk, per Haines Balance score of 24/ 56 Short Term Goal (STG) Pt to increase Haines Balance scale score by at least 10 points to 34/56 in order to demonstrate decreasing falls risk STG Duration Met Plastic Welder Goal (LTG) Pt to increase Haines Balance scale score by at least 7 points to 45/56 in order to demonstrate decreasing falls risk LTG Duration 07/14/24 - Improving One Impairment Pt does not have an appropriate home exercise program Short Term Goal (STG) Pt to be independent and compliant with an appropriate HEP STG Duration Met Assessment Summary Assessment Pt progress continues to vary greatly by variables outside the control of PT. Pt is currently continuing to struggle with changing lab values, as well as a recent ED visit due to hypotension. Pt undergoing further cardiac work-up and testing. At this time, pt will be unlikely to benefit from further physical therapy until other medical issues have stabilized. Pt agrees with this assessment. Pt understands that she will need a new referral in order to return in the future. Physical Therapy Plan Frequency and Duration Frequency of Treatment 2x/Week Plan of Care Start Date 07/29/24 Plan of Care End Date 07/30/24 Therapeutic Interventions Therapeutic Interventions Balance Training,Gait Training ,Home Exercise Program,Manual Therapy,Neuromuscular Re- education,Patient/Caregiver Education,Self-Care/Home Management,Soft Tissue Mobilization,Therapeutic Activities,Therapeutic Exercises,Vestibular Rehabilitation Discharge Physical Therapy Discharge Reasons Change in Medical Status Next Visit Focus/Plan Next Note Type Discharge Summary
--- NOTE | 2024-07-29 17:38 | PT.OPPOC ---
Physical, Occupational & Speech Therapy At [facility] Current Diagnoses Unsteadiness on feet (07/29/24) Other abnormalities of gait and mobility (07/29/24) Weakness (07/29/24) Visit Care Team Role Provider Type Reji Brasher MD Family Provider Physician Primary Care Provider Specialty: Internal Medicine Address: [address] [place] [address], [id number] Email: [email or web address] Lamberto Vance MD Attending Provider Physician Referring Provider Specialty: Oncology Address: [address] [place] [address], [id number] Email: [email or web address] Plan Of Care PT-OP-B Current Condition Start: 01/23/24 15:28 Freq: Status: Active Protocol: Document 01/23/24 09:45 DCW (Rec: 01/23/24 17:54 DCW [id number]) Current Condition History of Current Condition Onset Date ~Seven month history Current Complaints Weakness, imbalance, deconditioning History of Current Condition Pt is an 83 year old female presenting with declining functional mobility, poor balance, decreased activity tolerance, and instability with gait. Pt admits she has been inactive recently. Symptoms worsened about seven months ago during most recent round of Chemo, which completely wiped me out. Notes her blood work has not been great, H&H very low, has received a few transfusions, helps for a short time. Using SPC when leaving the house. Does notes she gets light- headed when getting out of bed , I have to paise when I stand up so I don't go back down. PT-OP-T Assessment and Plan Start: 01/23/24 15:28 Freq: Status: Active Protocol: Document 07/29/24 17:00 DCW (Rec: 07/29/24 17:37 DCW [id number]) Physical Therapy Assessment Goals Two Impairment Pt exhibits high falls risk, per Haines Balance score of 24/ 56 Short Term Goal (STG) Pt to increase Haines Balance scale score by at least 10 points to 34/56 in order to demonstrate decreasing falls risk STG Duration Met Life Skills Worker Goal (LTG) Pt to increase Haines Balance scale score by at least 7 points to 45/56 in order to demonstrate decreasing falls risk LTG Duration 07/14/24 - Improving One Impairment Pt does not have an appropriate home exercise program Short Term Goal (STG) Pt to be independent and compliant with an appropriate HEP STG Duration Met Assessment Summary Assessment Pt progress continues to vary greatly by variables outside the control of PT. Pt is currently continuing to struggle with changing lab values, as well as a recent ED visit due to hypotension. Pt undergoing further cardiac work-up and testing. At this time, pt will be unlikely to benefit from further physical therapy until other medical issues have stabilized. Pt agrees with this assessment. Pt understands that she will need a new referral in order to return in the future. Physical Therapy Plan Frequency and Duration Frequency of Treatment 2x/Week Plan of Care Start Date 07/29/24 Plan of Care End Date 07/30/24 Therapeutic Interventions Therapeutic Interventions Balance Training,Gait Training ,Home Exercise Program,Manual Therapy,Neuromuscular Re- education,Patient/Caregiver Education,Self-Care/Home Management,Soft Tissue Mobilization,Therapeutic Activities,Therapeutic Exercises,Vestibular Rehabilitation Discharge Physical Therapy Discharge Reasons Change in Medical Status Next Visit Focus/Plan Next Note Type Discharge Summary Plan of Care Dates Plan of Care Start Date 07/29/24 Plan of Care End Date 07/30/24 Electronically Signed by: Tony Higgins, PT 07/29/24 1781 If you are in agreement with this Plan of Care, please return a signed and dated copy. I have reviewed this Plan of Care and certify that the skilled therapy services above are required to meet the patient?s needs. Physician Signature Date Printed Name and Credentials Clinical Instructor Signature Printed Name and Credentials
== END 2025-03-31 10:51 | disposition home or self-care (01) ==
LOC: PHYS 17:00
PROVIDERS: Family Provider Internal Medicine; PCP Internal Medicine; Referring Provider Internal Medicine Hematology & Oncology; Visit Provider Internal Medicine Hematology & Oncology
DX: R26.89 Other abnormalities of gait and mobility (principal); R53.1 Weakness; R26.81 Unsteadiness on feet
CPT/HCPCS: 97110; 97112; 97116; 97140; 97163

== ENCOUNTER → 2024-11-10 11:21 | Outpatient (CLI) | payer OTHER, SELFPAY ==
[2022-05-05 13:08] VITALS: BMI 33.9
== END ==
PROVIDERS: Family Provider Internal Medicine; PCP Internal Medicine; Referring Provider Internal Medicine; Visit Provider Surgery
DX: I87.2 Venous insufficiency (chronic) (peripheral) (principal); L97.822 Non-pressure chronic ulcer of other part of left lower leg with fat layer exposed; L97.812 Non-pressure chronic ulcer of other part of right lower leg with fat layer exposed; L89.623 Pressure ulcer of left heel, stage 3; D63.8 Anemia in other chronic diseases classified elsewhere; D69.3 Immune thrombocytopenic purpura; E07.9 Disorder of thyroid, unspecified; Z85.6 Personal history of leukemia
CPT/HCPCS: 11042; 87070; 87077; 87147; 87186; 87205; 99203; 99213

== ENCOUNTER → 2024-11-13 10:39 | Outpatient (CLI) | payer OTHER, SELFPAY ==
[2022-05-05 13:08] VITALS: BMI 33.9
== END ==
PROVIDERS: Family Provider Internal Medicine; PCP Internal Medicine; Referring Provider Internal Medicine; Visit Provider Surgery
DX: I87.2 Venous insufficiency (chronic) (peripheral) (principal); L97.821 Non-pressure chronic ulcer of other part of left lower leg limited to breakdown of skin; L97.812 Non-pressure chronic ulcer of other part of right lower leg with fat layer exposed; L89.623 Pressure ulcer of left heel, stage 3
CPT/HCPCS: 99213

== ENCOUNTER → 2024-11-14 13:44 | Outpatient (CLI) | payer OTHER, SELFPAY ==
[2022-05-05 13:08] VITALS: BMI 33.9
== END ==
PROVIDERS: Family Provider Internal Medicine; PCP Internal Medicine; Referring Provider Internal Medicine; Visit Provider Physician Assistant
DX: I87.2 Venous insufficiency (chronic) (peripheral) (principal); L97.821 Non-pressure chronic ulcer of other part of left lower leg limited to breakdown of skin; L97.811 Non-pressure chronic ulcer of other part of right lower leg limited to breakdown of skin; L89.623 Pressure ulcer of left heel, stage 3; R60.0 Localized edema
CPT/HCPCS: 99213

== ENCOUNTER → 2024-11-18 10:41 | Outpatient (CLI) | payer OTHER, SELFPAY ==
[2022-05-05 13:08] VITALS: BMI 33.9
== END ==
PROVIDERS: Family Provider Internal Medicine; PCP Internal Medicine; Referring Provider Internal Medicine; Visit Provider Surgery
DX: I87.2 Venous insufficiency (chronic) (peripheral) (principal); L97.821 Non-pressure chronic ulcer of other part of left lower leg limited to breakdown of skin; L97.811 Non-pressure chronic ulcer of other part of right lower leg limited to breakdown of skin; L89.623 Pressure ulcer of left heel, stage 3
CPT/HCPCS: 29581; 99213

== ENCOUNTER → 2024-11-20 09:14 | Outpatient (CLI) | payer OTHER, SELFPAY ==
[2022-05-05 13:08] VITALS: BMI 33.9
== END ==
LOC: WC 09:15
PROVIDERS: Family Provider Internal Medicine; PCP Internal Medicine; Referring Provider Internal Medicine; Visit Provider Surgery
DX: L97.822 Non-pressure chronic ulcer of other part of left lower leg with fat layer exposed (principal); L97.812 Non-pressure chronic ulcer of other part of right lower leg with fat layer exposed; I87.2 Venous insufficiency (chronic) (peripheral); R60.0 Localized edema
CPT/HCPCS: 29581

== ENCOUNTER → 2024-11-24 08:44 | Outpatient (CLI) | payer OTHER, SELFPAY ==
[2022-05-05 13:08] VITALS: BMI 33.9
== END ==
PROVIDERS: Family Provider Internal Medicine; PCP Internal Medicine; Referring Provider Internal Medicine; Visit Provider Surgery
DX: I87.2 Venous insufficiency (chronic) (peripheral) (principal); L97.821 Non-pressure chronic ulcer of other part of left lower leg limited to breakdown of skin; L97.811 Non-pressure chronic ulcer of other part of right lower leg limited to breakdown of skin; L89.623 Pressure ulcer of left heel, stage 3; R60.0 Localized edema; Z92.21 Personal history of antineoplastic chemotherapy; D69.6 Thrombocytopenia, unspecified; D69.3 Immune thrombocytopenic purpura; E07.9 Disorder of thyroid, unspecified; Z85.6 Personal history of leukemia
CPT/HCPCS: 99212; 99213

== ENCOUNTER → 2024-12-01 09:06 | Outpatient (CLI) | payer OTHER, SELFPAY ==
[2022-05-05 13:08] VITALS: BMI 33.9
== END ==
LOC: WC 09:07
PROVIDERS: Family Provider Internal Medicine; PCP Internal Medicine; Referring Provider Internal Medicine; Visit Provider Surgery
DX: I87.2 Venous insufficiency (chronic) (peripheral) (principal); L97.821 Non-pressure chronic ulcer of other part of left lower leg limited to breakdown of skin; L97.811 Non-pressure chronic ulcer of other part of right lower leg limited to breakdown of skin; L89.623 Pressure ulcer of left heel, stage 3; L89.322 Pressure ulcer of left buttock, stage 2
CPT/HCPCS: 97602; 99213

== ENCOUNTER → 2024-12-03 09:11 | Outpatient (CLI) | payer OTHER, SELFPAY ==
[2022-05-05 13:08] VITALS: BMI 33.9
== END ==
LOC: WC 09:14
PROVIDERS: Family Provider Internal Medicine; PCP Internal Medicine; Referring Provider Internal Medicine; Visit Provider Surgery
DX: L89.322 Pressure ulcer of left buttock, stage 2 (principal); R60.0 Localized edema; L53.9 Erythematous condition, unspecified
CPT/HCPCS: 99213

== ENCOUNTER → 2024-12-05 09:36 | Outpatient (CLI) | payer OTHER, SELFPAY ==
[2022-05-05 13:08] VITALS: BMI 33.9
== END ==
LOC: WC 09:37
PROVIDERS: Family Provider Internal Medicine; PCP Internal Medicine; Referring Provider Internal Medicine; Visit Provider Physician Assistant
DX: L89.322 Pressure ulcer of left buttock, stage 2 (principal); R60.0 Localized edema; L53.9 Erythematous condition, unspecified
CPT/HCPCS: 99213

== ENCOUNTER → 2024-12-08 11:32 | Outpatient (CLI) | payer OTHER, SELFPAY ==
[2022-05-05 13:08] VITALS: BMI 33.9
== END ==
LOC: WC 11:33
PROVIDERS: Family Provider Internal Medicine; PCP Internal Medicine; Referring Provider Internal Medicine; Visit Provider Surgery
DX: Z87.2 Personal history of diseases of the skin and subcutaneous tissue (principal); I87.2 Venous insufficiency (chronic) (peripheral); L97.812 Non-pressure chronic ulcer of other part of right lower leg with fat layer exposed; L89.623 Pressure ulcer of left heel, stage 3; D69.6 Thrombocytopenia, unspecified
CPT/HCPCS: 99213; 99214

== ENCOUNTER → 2024-12-10 09:27 | Outpatient (CLI) | payer OTHER, SELFPAY ==
[2022-05-05 13:08] VITALS: BMI 33.9
== END ==
LOC: WC 09:28
PROVIDERS: Family Provider Internal Medicine; PCP Internal Medicine; Referring Provider Internal Medicine; Visit Provider Surgery
DX: I87.2 Venous insufficiency (chronic) (peripheral) (principal); L97.811 Non-pressure chronic ulcer of other part of right lower leg limited to breakdown of skin; L89.623 Pressure ulcer of left heel, stage 3
CPT/HCPCS: 99213

== ENCOUNTER → 2024-12-12 09:03 | Outpatient (CLI) | payer OTHER, SELFPAY ==
[2022-05-05 13:08] VITALS: BMI 33.9
== END ==
LOC: WC 09:04
PROVIDERS: Family Provider Internal Medicine; PCP Internal Medicine; Referring Provider Internal Medicine; Visit Provider Physician Assistant
DX: L97.812 Non-pressure chronic ulcer of other part of right lower leg with fat layer exposed (principal); I87.2 Venous insufficiency (chronic) (peripheral); L89.623 Pressure ulcer of left heel, stage 3; L53.9 Erythematous condition, unspecified; Z91.040 Latex allergy status
CPT/HCPCS: 99214

== ENCOUNTER → 2024-12-15 09:08 | Outpatient (CLI) | payer OTHER, SELFPAY ==
[2022-05-05 13:08] VITALS: BMI 33.9
== END ==
LOC: WC 09:08
PROVIDERS: Family Provider Internal Medicine; PCP Internal Medicine; Referring Provider Internal Medicine; Visit Provider Physician Assistant
DX: I87.313 Chronic venous hypertension (idiopathic) with ulcer of bilateral lower extremity (principal); L97.811 Non-pressure chronic ulcer of other part of right lower leg limited to breakdown of skin; L89.623 Pressure ulcer of left heel, stage 3; L53.9 Erythematous condition, unspecified; R60.0 Localized edema
CPT/HCPCS: 99213; 99214

== ENCOUNTER → 2024-12-17 11:39 | Outpatient (CLI) | payer OTHER, SELFPAY ==
[2022-05-05 13:08] VITALS: BMI 33.9
== END ==
PROVIDERS: Family Provider Internal Medicine; PCP Internal Medicine; Referring Provider Internal Medicine; Visit Provider Surgery
DX: I87.2 Venous insufficiency (chronic) (peripheral) (principal); L97.811 Non-pressure chronic ulcer of other part of right lower leg limited to breakdown of skin; L89.623 Pressure ulcer of left heel, stage 3; L53.9 Erythematous condition, unspecified
CPT/HCPCS: 99212

== ENCOUNTER → 2024-12-19 14:20 | Outpatient (CLI) | payer OTHER, SELFPAY ==
[2022-05-05 13:08] VITALS: BMI 33.9
== END ==
LOC: WC 14:21
PROVIDERS: Family Provider Internal Medicine; PCP Internal Medicine; Referring Provider Internal Medicine; Visit Provider Surgery
DX: I87.2 Venous insufficiency (chronic) (peripheral) (principal); L97.812 Non-pressure chronic ulcer of other part of right lower leg with fat layer exposed; L89.623 Pressure ulcer of left heel, stage 3; L53.9 Erythematous condition, unspecified
CPT/HCPCS: 99214

== ENCOUNTER → 2024-12-22 10:05 | Outpatient (CLI) | payer OTHER, SELFPAY ==
[2022-05-05 13:08] VITALS: BMI 33.9
== END ==
LOC: WC 10:06
PROVIDERS: Family Provider Internal Medicine; PCP Internal Medicine; Referring Provider Internal Medicine; Visit Provider Surgery
DX: Z87.2 Personal history of diseases of the skin and subcutaneous tissue (principal)
CPT/HCPCS: 99213; 99214

== ENCOUNTER → 2024-12-29 11:16 | Outpatient (CLI) | payer OTHER, SELFPAY ==
[2022-05-05 13:08] VITALS: BMI 33.9
== END ==
PROVIDERS: Family Provider Internal Medicine; PCP Internal Medicine; Referring Provider Internal Medicine; Visit Provider Surgery
DX: L89.623 Pressure ulcer of left heel, stage 3 (principal); L53.9 Erythematous condition, unspecified
CPT/HCPCS: 11042

== ENCOUNTER → 2025-01-01 12:16 | Outpatient (CLI) | payer OTHER, SELFPAY ==
[2022-05-05 13:08] VITALS: BMI 33.9
== END ==
PROVIDERS: Family Provider Internal Medicine; PCP Internal Medicine; Referring Provider Internal Medicine; Visit Provider Surgery
DX: L89.623 Pressure ulcer of left heel, stage 3 (principal); L53.9 Erythematous condition, unspecified
CPT/HCPCS: 99213

== ENCOUNTER → 2025-01-05 09:27 | Outpatient (CLI) | payer OTHER, SELFPAY ==
[2022-05-05 13:08] VITALS: BMI 33.9
== END ==
LOC: WC 09:32
PROVIDERS: Family Provider Internal Medicine; PCP Internal Medicine; Referring Provider Internal Medicine; Visit Provider Surgery
DX: Z87.2 Personal history of diseases of the skin and subcutaneous tissue (principal)
CPT/HCPCS: 99212; 99213

== ENCOUNTER → 2025-01-12 11:54 | Outpatient (CLI) | payer OTHER, SELFPAY ==
[2022-05-05 13:08] VITALS: BMI 33.9
== END ==
LOC: WC 11:55
PROVIDERS: Family Provider Internal Medicine; PCP Internal Medicine; Referring Provider Internal Medicine; Visit Provider Surgery
DX: L89.623 Pressure ulcer of left heel, stage 3 (principal); D69.6 Thrombocytopenia, unspecified; Z92.21 Personal history of antineoplastic chemotherapy; D64.9 Anemia, unspecified; Z85.6 Personal history of leukemia
CPT/HCPCS: 99212; 99213

== ENCOUNTER → 2025-01-19 10:14 | Outpatient (CLI) | payer OTHER, SELFPAY ==
[2022-05-05 13:08] VITALS: BMI 33.9
== END ==
LOC: WC 10:15
PROVIDERS: Family Provider Internal Medicine; PCP Internal Medicine; Referring Provider Internal Medicine; Visit Provider Surgery
DX: R21 Rash and other nonspecific skin eruption (principal); R60.0 Localized edema; C93.10 Chronic myelomonocytic leukemia not having achieved remission; D63.0 Anemia in neoplastic disease; D69.6 Thrombocytopenia, unspecified; Z79.61 Long term (current) use of immunomodulator; Z87.828 Personal history of other (healed) physical injury and trauma
CPT/HCPCS: 99213; 99214

== ENCOUNTER → 2025-02-19 09:13 | Outpatient (CLI) | payer OTHER, SELFPAY ==
[2022-05-05 13:08] VITALS: BMI 33.9
== END ==
PROVIDERS: Family Provider Internal Medicine; PCP Internal Medicine; Referring Provider Internal Medicine; Visit Provider Surgery
DX: R21 Rash and other nonspecific skin eruption (principal); C93.10 Chronic myelomonocytic leukemia not having achieved remission; D63.0 Anemia in neoplastic disease; D69.6 Thrombocytopenia, unspecified; Z79.61 Long term (current) use of immunomodulator; Z87.891 Personal history of nicotine dependence; Z99.89 Dependence on other enabling machines and devices
CPT/HCPCS: 99212; 99213

== ENCOUNTER 2025-03-13 15:32 | Emergency (ER) | payer OTHER, SELFPAY ==
[2022-05-05 13:08] VITALS: BMI 33.9
[2025-03-13] VITALS (12 sets, daily range): BP systolic 140–214; BP diastolic 62–94; PULSE 53–109; RESP 16–34; TEMP 36.9; O2SAT 90–100; BMI 23.3
--- NOTE | 2025-03-13 15:40 | EKG_ITS ---
[address] [address] Test Date: 2025-03-13 Pat Name: Catarina Charles Department: [facility] Room: Gender: Female Health Care / Medical Job Titles: CHEYANNE : 1940 Requested By: Order Number: [id number] Reading MD: Quentin Dillon MD Measurements Intervals [place] Rate: 50 P: -1 VA: 216 QRS: -22 QRSD: 88 T: 40 QT: 484 QTc: 441 Interpretive Statements Sinus bradycardia with 1st degree AV block Possible Anterior infarct , age undetermined Electronically Signed On 03-15-2025 14:43:38 PDT by Quentin Dillon MD
--- NOTE | 2025-03-13 16:05 | ED.GENADULT ---
HPI - General Adult General Chief complaint: Abdominal Pain Stated complaint: LEFT LOWER ABD PAIN- KIDNEY STONE? Time Seen by Provider: 03/13/25 16:01 Source: patient Mode of arrival: Ambulatory History of Present Illness HPI narrative: 84-year-old woman with a history of hypothyroidism, CML, hypertension who presents with left lower quadrant/flank pain. She believes that she passed a kidney stone about a year ago, thinks she may have passed when again, has not actually seen providers when she has this pain. Pain started abruptly at 10:00 a.m. yesterday morning, she has not noticed obvious hematuria. No fevers. Related Data Home Medications ?Medication ?Instructions ?Recorded ?Confirmed cholecalciferol (vitamin D3) 50 2,000 unit PO Q OTHER DAY #0 caps 01/13/21 01/13/25 mcg (2,000 unit) capsule (Vitamin D3) multivitamin (Daily Multi-Vitamin 1 tab PO Q OTHER DAY 01/13/21 01/13/25 tablet) amlodipine 2.5 mg tablet 2.5 mg PO DAILY 07/09/23 01/13/25 ascorbic acid (vitamin C) 250 mg 500 mg PO 2XW 07/09/23 01/13/25 tablet methylsulfonylmethane 1,000 mg 3,000 mg PO DAILY 07/09/23 01/13/25 tablet vit C 250 mg-vit E 90 mg-zinc 40 1 tab PO BID 07/09/23 01/13/25 mg-copper 1 [id number] capsule (PreserVision AREDS-2) latanoprost 0.005 % eye drops drp EYE-BOTH 07/09/24 01/13/25 Previous Rx's ?Medication ?Instructions ?Recorded Disability Parking #1 ea 05/08/22 carvedilol 3.125 mg tablet 3.125 mg PO BID #180 tabs 08/08/24 levothyroxine 100 mcg tablet 100 mcg PO DAILY #90 tabs 08/08/24 oxycodone-acetaminophen 5 mg-325 1 tab PO Q6H PRN pain #14 tabs 03/13/25 mg tablet tamsulosin 0.4 mg capsule 0.4 mg PO DAILY #20 caps 03/13/25 Allergies Allergy/AdvReac Type Severity Reaction Status Date / Time barium sulfate Allergy Severe SENSITIVITY Verified 03/13/25 15:39 TO ELECTRICAL CURRENT, SEIZURES Sulfa (Sulfonamide Allergy Intermediate HIVES Verified 03/13/25 15:39 Antibiotics) adhesive Allergy Mild RASH Verified 03/13/25 15:39 Review of Systems Review of Systems Narrative: Pertinent positive and negative findings as per HPI Patient History Medical History Venous (peripheral) insufficiency Closed fracture of left hip requiring operative repair Immune thrombocytopenia Polyneuropathy, unspecified Gait instability General weakness Anticoagulation monitoring, INR range 2-3 Do not resuscitate CMML (chronic myelomonocytic leukemia) Stage 3b chronic kidney disease (CKD) Mixed hyperlipidemia 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 Chronic deep vein thrombosis (DVT) of left lower extremity Diabetic retinopathy Essential hypertension Surgical History S/P IVC filter Status post tonsillectomy and adenoidectomy (~194) Status post appendectomy (~2005) Social History details: lives alone, two daughters household members: none caregiver/support person: Yes (She is accompanied by her daughter.) Smoking Status: Never smoker alcohol intake: never Smoking Status: Never smoker alcohol intake frequency: holidays/special occasions only Exam Initial Vital Signs Initial Vital Signs: Vital Signs Temperature 98.4 F 03/13/25 15:35 Pulse Rate 54 L 03/13/25 15:35 Respiratory Rate 16 03/13/25 15:35 Blood Pressure 146/69 H 03/13/25 15:35 Pulse Oximetry 98 03/13/25 15:35 Oxygen Delivery Method Room Air 03/13/25 15:35 General: Frail but in no acute distress able to speak in complete sentences and cooperate fully with exam HEENT: Moist mucous membranes, normal sclera with reactive pupils, Respiratory: Lungs are clear to auscultation, no wheezing no rales no rhonchi. Full and symmetrical air movement Cardiac: Regular rate and rhythm no murmurs no bruits Abdomen: Soft, mild tenderness in the left lower quadrant to left flank area without any rebound or guarding Skin: Thin but otherwise Warm and dry, no rashes Neurologic: Grossly neurologically intact with no obvious asymmetries or abnormalities Extremities: No trauma, well perfused Psych: Cooperative, appropriate insight and affect Course Orders Ordered: ED Orders 03/13/25 15:40 EKG-12 Lead Stat 03/13/25 15:50 UA Complete [Urinalysis and Microscopic] Stat Urine Culture Stat 03/13/25 16:10 Complete Blood Count AUTO DIFF Stat Comprehensive Metabolic Panel Stat Lipase Stat 03/13/25 16:20 CT abdomen pelvis w con Stat Sodium Chloride (Normal Saline 0.9%) 1,000 mls @ 1,000 mls/hr IV BOLUS ONE Stop: 03/13/25 18:57 Last Admin: 03/13/25 18:02 Dose: 1,000 mls/hr Documented By: JERONIMO Ondansetron HCl (Ondansetron 4 Mg/2 Ml Inj) 4 mg IV NOW PRN PRN Reason: Nausea And Vomiting Last Admin: 03/13/25 18:02 Dose: 4 mg Documented By: JERONIMO Ondansetron HCl (Ondansetron 4 Mg Odt) 4 mg PO NOW PRN PRN Reason: Nausea And Vomiting Discontinued Medications Hydromorphone HCl (Hydromorphone Hcl 0.5 Mg/0.5 Ml Syringe) 0.5 mg IV NOW ONE Stop: 03/13/25 17:59 Last Admin: 03/13/25 18:02 Dose: 0.5 mg Documented By: JERONIMO Vital Signs Vital signs: Vital Signs - 8 hr 03/13/25 15:35 Temperature 98.4 F Pulse Rate 54 L Respiratory Rate 16 Blood Pressure 146/69 H Pulse Oximetry 98 Oxygen Delivery Method Room Air Medical Decision Making Lab Data 03/13/25 16:10 03/13/25 16:10 Labs: Lab Results 03/13/25 03/13/25 Range/Units 15:50 16:10 WBC 9.4 (4.5-11.0) X10^3/uL RBC 3.05 L (4.0-5.2) X10^6/uL Hgb 8.8 L (12.0-16.0) g/dL Hct 26.4 L (36-46) % MCV 86.4 (80-100) fL MCH 28.9 (26-34) PG MCHC 33.5 (30-36) % RDW 23.1 H (11.6-14.8) % Plt Count 47 L (150-400) X10^3/uL Neut % (Auto) Not Reportable Lymph % (Auto) Not Reportable [place] % (Auto) Not Reportable Eos % (Auto) Not Reportable Baso % (Auto) Not Reportable Lymph # (Auto) Not Reportable [place] # (Auto) Not Reportable Baso # (Auto) Not Reportable Total Counted 100 Seg Neutrophils % 55.0 (38-70) % Band Neutrophils % 13.0 H (3-7) % Lymphocytes % (Manual) 7.0 L (25-45) % Monocytes % (Manual) 24.0 H (2-11) % Metamyelocytes % 1.0 H (-0) % Neutrophils # (Manual) 6392 H (4567-0663) /uL Plt Morphology Comment RBC Morphology See below Hypochromasia 1+ H Anisocytosis 3+ H Microcytosis 1+ H Macrocytosis 1+ H Spherocytes 1+ H Acanthocytes (Spur) 1+ H Rouleaux 1+ H Schistocytes 1+ H Sodium 131 L (137-145) mmol/L Potassium 4.8 (3.4-5.1) mmol/L Chloride 103 (98-107) mmol/L Carbon Dioxide 21 L (22-32) mmol/L BUN 30 H (7-17) mg/dL Creatinine 1.46 H (0.52-1.04) mg/dL Estimated GFR 35 L (>60) mL/min BUN/Creatinine Ratio 20.5 (6-22) Glucose 131 H (70-99) mg/dL Calcium 8.5 (8.4-10.2) mg/dL Total Bilirubin 1.0 (0.2-1.3) mg/dL AST 24 (14-36) IU/L ALT 11 (<35) IU/L Alkaline Phosphatase 67 (38-126) U/L Total Protein 7.0 (6.3-8.2) g/dL Albumin 3.8 (3.5-5.0) g/dL Globulin 3.2 (1.7-4.1) g/dL Albumin/Globulin Ratio 1.2 (1.0-2.8) Lipase 39 (23-300) U/L Urine Color Yellow Urine Appearance Sl cloudy Urine pH 5.5 (4.5-8.0) Ur Specific [place] 1.020 (1.000-1.035) Urine Protein 1+ H (Negative) Urine Glucose (UA) Negative (Negative) g/dL Urine Ketones Negative (NEGATIVE) Urine Occult Blood Trace-intact (Negative) Urine Nitrate Positive H (Negative) Urine Bilirubin Negative (NEGATIVE) Urine Urobilinogen 0.2 (0.2) E.U./dL Ur Leukocyte Esterase Negative (NEGATIVE) Urine RBC 0-1/hpf (0-5/HPF) Urine WBC 0-1/hpf (0-5/HPF) Ur Squamous Epith Cells 0-1 /hpf (0-5/HPF) Urine Bacteria Many (>30) H (None) Ur Culture Indicated? Specimen cultured Vol Urine Centrifuged 10ml (spun) Imaging Data CT scan - abdomen/pelvis: Radiologist's Impression: PROCEDURE: CT ABDOMEN PELVIS W CON INDICATIONS: LLQ pain TECHNIQUE: After the administration of intravenous contrast, axial sections acquired from the lung bases to the pubic symphysis. Coronal and sagittal reformats were performed. For radiation dose reduction, the following was used: automated exposure control, adjustment of mA and/or kV according to patient size. COMPARISON: [facility], CT, CT ABDOMEN PELVIS WO CON, 09/23/2018, 9:38. [facility], CT, CT PELVIS WITHOUT CONTRAST, 08/08/2024, 18:39. FINDINGS: Image quality: Diagnostic Lower chest: Scattered atelectasis and scarring. Distended main pulmonary artery usually associated with high pulmonary pressures. Cardiac annular, valvular, and coronary calcifications. Mildly patulous distal esophagus. Liver: Liver is mildly enlarged at 19 cm Gallbladder and biliary system: Cholelithiasis. Dilated CBD at 1.3 cm. Pancreas: No ductal dilation. Spleen: Splenomegaly at 16 cm. Adrenals: 2.4 cm left adrenal nodule. Mild bilateral thickening also seen. Kidneys: 4 x 5 mm left UVJ stone with moderate to severe upstream hydroureteronephrosis. Nonobstructing calyceal calculi also seen. Late nephrogram is present. There are renal cysts. Surrounding enlarged left kidney and perinephric fat stranding. Vessels and lymph nodes: The main portal vein is patent. Moderate aortoiliac atherosclerotic calcifications. There are scattered enlarged lymph nodes, for example in the pelvis left external iliac chain measuring 1.6 cm. Left para-aortic node measures 1.4 cm in short axis. Bowel and peritoneum: No bowel obstruction. Prominent distal fluid-filled loops of small bowel are seen. Colonic diverticula are also present. No drainable abscess or ascites. Body wall: Mild diffuse anasarca Pelvis: Under distended urinary bladder. There are adnexal cystic changes. Bones: Left proximal femur fixation hardware. There are degenerative changes. Diffusely heterogeneous marrow attenuation. Nonacute appearing L3 height loss, though new from 2019. IMPRESSION: Moderate to severe left hydroureteronephrosis secondary to an obstructing 4 x 5 mm left UVJ stone. There are CT signs of obstructive uropathy. Nonobstructing lower pole calyceal stones also seen. Splenomegaly. Abdominal pelvic mildly enlarged lymph nodes are present This is suspicious for lymphoma or other malignancy. Cholelithiasis with CBD dilation. Correlate LFTs and possible MRCP. 2.4 cm left adrenal nodule appears slightly larger than prior imaging in 2019. Diffusely heterogeneous marrow attenuation, nonspecific possibly senescent. Attention on follow-up given probable malignancy described above. Adnexal cystic changes are present, nonurgent pelvic ultrasound can further evaluate. Dictated by: Barrie Forbes M.D. on 03/13/2025 at 18:20 MDM Narrative Medical decision making narrative: CC: Left lower quadrant and flank pain for 3 days Complicating co-morbidities: CML, hypertension, prior kidney stones Data collected from: patient, daughter Differential considered: Kidney stone, pyelonephritis, metaplastic process, diverticulitis Exam documented above, pertinent findings include: She is tender in the left lower quadrant to left flank without rebound or guarding Lab Test results independently reviewed as above. Pertinent findings: CBC is close to her baseline with no leukocytosis Chemistries show slight bump in creatinine at 1.46. Liver studies are unremarkable Lipase is unremarkable Imaging studies independently reviewed: CT scan does show a 4-5 mm stone on the left at the ureterovesical junction which is consistent with clinical exam and history Treatments: 1 L of fluid, a total of 0.5 mg of Dilaudid, tamsulosin, 1 oral Percocet Discussion: 84-year-old woman with left lower quadrant/flank pain for the last 3 days yesterday was vomiting much of the day feels quite dehydrated and renal function suggests mild dehydration. CT scan shows obstructing left ureteral stone at the ureterovesical junction. Pain has been adequately controlled, she is able to eat and drink, she has not been vomiting at all today. We talked about anticipated resolution with expectation that she will be able to pass the stone by self. Reviewed reasons to return to the emergency department including uncontrolled pain, fevers or new findings. I did suggest that she follow up with her primary care physician to follow up on some of the incidental findings that do appear to be chronic on her abdominal CT scan and to make sure that the stone has passed and she is doing well. Discussed reasons for Flomax and the fact that she can stop it once the stone has passed. Encouraged her to return with any recurrent issues there is no evidence for hospitalization and she is safe for discharge Discharge Plan Departure Patient Disposition: Home Clinical Impression: Kidney stone on left side Instructions: DI for Kidney Stones Activity Restrictions/Additional Instructions: Thank you for coming in today You do in fact have a kidney stone. It is 4-5 mm in size and almost ready to come out of the ureter and fall into your bladder. Once this happens it will pass out easily with your next urination I have started you on tamsulosin/Flomax. This medicine that can help open up that tissue slightly and encourage that is stone to more easily pass. If you have increasing pain to the point that it can not be controlled with medications given, fevers or new findings you do need to return to the emergency department. I have given you a prescription for Percocet. For pain you can use 1-2 Tylenol or 1 Tylenol +1 Percocet. On the days you do use Percocet, please see remember this is a narcotic and narcotics do cause constipation. I would recommend taking a stool softener any day that you end up using this medication. That can be MiraLax, docusate, prune juice, extra dried fruit or whatever helps with preventing constipation for you Please schedule an appointment with your primary care physician in 1-2 weeks. If you have not passed the kidney stone by that time, you may need follow up with our urologist. Prescriptions: New tamsulosin 0.4 mg capsule 0.4 mg PO DAILY Qty: 20 0RF Rx Instructions: Discontinue after you have passed the kidney stone oxycodone-acetaminophen 5-325 mg tablet 1 tab PO Q6H PRN (Reason: pain) Qty: 14 0RF No Action cholecalciferol (vitamin D3) [Vitamin D3] 50 mcg (2,000 unit) capsule 2,000 unit PO Q OTHER DAY Qty: 0 levothyroxine 100 mcg tablet 100 mcg PO DAILY Qty: 90 3RF carvedilol 3.125 mg tablet 3.125 mg PO BID Qty: 180 3RF Rx Instructions: must administer with a meal/food multivitamin [Daily Multi-Vitamin] Tablet 1 tab PO Q OTHER DAY (DME) Disability Parking See Rx Instructions .Route .MEDSUPPLY Qty: 1 0RF Rx Instructions: As directed ascorbic acid (vitamin C) 250 mg tablet 500 mg PO 2XW PreserVision AREDS-2 250-90-40-1 mg capsule 1 tab PO BID amlodipine 2.5 mg tablet 2.5 mg PO DAILY methylsulfonylmethane 1,000 mg tablet 3,000 mg PO DAILY latanoprost 0.005 % drops EYE-BOTH Referrals: Reji Brasher MD [Primary Care Provider, Internal Medicine] Stand Alone Forms: Patient Portal/API
[2025-03-13 16:06] LABS: Appearance Urine UA SL CLOUDY; Bilirubin Urine UA NEGATIVE (NEGATIVE); Color Urine UA YELLOW; Glucose Urine UA NEGATIVE (Negative); Ketones Urine UA NEGATIVE (NEGATIVE); Leukocyte Esterase Urine UA NEGATIVE (NEGATIVE); Nitrite Urine UA POSITIVE (Negative); Occult Blood Urine UA TRACE-INTACT (Negative); Protein Urine UA 1+ (Negative); Specific Gravity Urine UA 1.020 (1.000-1.035); Urobilinogen Urine UA 0.2 E.U./dL (0.2); pH Urine UA 5.5 (4.5-8.0)
[2025-03-13 16:13] LABS: Culture Indicated Urine Specimen Cultured
--- NOTE | 2025-03-13 16:20 | DI.CT.S_ITS ---
PROCEDURE: CT ABDOMEN PELVIS W CON INDICATIONS: LLQ pain TECHNIQUE: After the administration of intravenous contrast, axial sections acquired from the lung bases to the pubic symphysis. Coronal and sagittal reformats were performed. For radiation dose reduction, the following was used: automated exposure control, adjustment of mA and/or kV according to patient size. COMPARISON: [facility], CT, CT ABDOMEN PELVIS WO CON, 09/23/2018, 9:38. [facility], CT, CT PELVIS WITHOUT CONTRAST, 08/08/2024, 18:39. FINDINGS: Image quality: Diagnostic Lower chest: Scattered atelectasis and scarring. Distended main pulmonary artery usually associated with high pulmonary pressures. Cardiac annular, valvular, and coronary calcifications. Mildly patulous distal esophagus. Liver: Liver is mildly enlarged at 19 cm Gallbladder and biliary system: Cholelithiasis. Dilated CBD at 1.3 cm. Pancreas: No ductal dilation. Spleen: Splenomegaly at 16 cm. Adrenals: 2.4 cm left adrenal nodule. Mild bilateral thickening also seen. Kidneys: 4 x 5 mm left UVJ stone with moderate to severe upstream hydroureteronephrosis. Nonobstructing calyceal calculi also seen. Late nephrogram is present. There are renal cysts. Surrounding enlarged left kidney and perinephric fat stranding. Vessels and lymph nodes: The main portal vein is patent. Moderate aortoiliac atherosclerotic calcifications. There are scattered enlarged lymph nodes, for example in the pelvis left external iliac chain measuring 1.6 cm. Left para-aortic node measures 1.4 cm in short axis. Bowel and peritoneum: No bowel obstruction. Prominent distal fluid-filled loops of small bowel are seen. Colonic diverticula are also present. No drainable abscess or ascites. Body wall: Mild diffuse anasarca Pelvis: Under distended urinary bladder. There are adnexal cystic changes. Bones: Left proximal femur fixation hardware. There are degenerative changes. Diffusely heterogeneous marrow attenuation. Nonacute appearing L3 height loss, though new from 2019. IMPRESSION: Moderate to severe left hydroureteronephrosis secondary to an obstructing 4 x 5 mm left UVJ stone. There are CT signs of obstructive uropathy. Nonobstructing lower pole calyceal stones also seen. Splenomegaly. Abdominal pelvic mildly enlarged lymph nodes are present This is suspicious for lymphoma or other malignancy. Cholelithiasis with CBD dilation. Correlate LFTs and possible MRCP. 2.4 cm left adrenal nodule appears slightly larger than prior imaging in 2019. Diffusely heterogeneous marrow attenuation, nonspecific possibly senescent. Attention on follow-up given probable malignancy described above. Adnexal cystic changes are present, nonurgent pelvic ultrasound can further evaluate. Dictated by: Barrie Forbes M.D. on 03/13/2025 at 18:20 Approved by: Barrie Forbes M.D. on 03/13/2025 at 18:28
[2025-03-13 16:30] LABS: Hematocrit 26.4 % (36-46); Hemoglobin 8.8 g/dL (12.0-16.0); Mean Corpuscular HGB Conc 33.5 % (30-36); Mean Corpuscular Hemoglobin 28.9 PG (26-34); Mean Corpuscular Volume 86.4 fL (80-100); Platelet Count 47 X10^3/uL (150-400)
[2025-03-13 16:36] LABS: Alanine Aminotransferase 11 IU/L (<35); Albumin 3.8 g/dL (3.5-5.0); Albumin Globulin Ratio 1.2 (1.0-2.8); Alkaline Phosphatase 67 U/L (38-126); Blood Urea Nitrogen 30 mg/dL (7-17); Calcium 8.5 mg/dL (8.4-10.2); Carbon Dioxide 21 mmol/L (22-32); Chloride 103 mmol/L (98-107); Estimated Glomerular Filt Rate 35 mL/min (>60); Globulin 3.2 g/dL (1.7-4.1); Glucose 131 mg/dL (70-99); HEMOLYSIS < 15 (0-50); Lipase 39 U/L (23-300); Potassium 4.8 mmol/L (3.4-5.1); Sodium 131 mmol/L (137-145); Total Protein 7.0 g/dL (6.3-8.2)
[2025-03-13 16:42] LABS: Add Manual Diff / Slide Review YES
[2025-03-13 16:45] LABS: Band Neutrophils Percent 13.0 % (3-7); Lymphocytes Percent Manual 7.0 % (25-45); Metamyelocytes Percent 1.0 % (-0); Monocytes Percent Manual 24.0 % (2-11); Neutrophils Absolute Manual 6392 /uL (3000-5900); Segmented Neutrophils Percent 55.0 % (38-70); Total Cells Counted 100
[2025-03-13 16:47] LABS: Anisocytosis 3+; Macrocytosis 1+; Microcytosis 1+
[2025-03-13 16:48] LABS: Schistocytes 1+
[2025-03-13 16:49] LABS: Acanthocytes 1+
[2025-03-13 16:50] LABS: Hypochromasia 1+; Rouleaux 1+; Spherocytes 1+
[2025-03-13] MEDS: SODIUM CHLORIDE 0.9% 1,000 ML 1000 ML IV (18:02)
[2025-03-13] MEDS: ONDANSETRON 4 MG/2 ML INJ IV (18:02)
--- NOTE | 2025-03-13 19:02 | EKG_ITS ---
[address] [address] Test Date: 2025-03-13 Pat Name: Catarina Charles Department: Room: Gender: Female Claims Investigator: BRITTNI : 1940 Requested By: Order Number: [id number] Reading MD: Quentin Dillon MD Measurements Intervals [place]oso Rate: 72 P: -29 AR: 240 QRS: -27 QRSD: 88 T: 37 QT: 408 QTc: 446 Interpretive Statements Sinus rhythm with 1st degree AV block with frequent and consecutive premature ventricular complexes Electronically Signed On 03-15-2025 14:43:42 PDT by Quentin Dillon MD
[2025-03-13] MEDS: TAMSULOSIN 0.4 MG CAPSULE PO (19:51)
== END 2025-03-13 20:44 | disposition home or self-care (01) ==
PROVIDERS: Emergency Provider Emergency Medicine; Family Provider Internal Medicine; PCP Internal Medicine
DX: N20.0 Calculus of kidney (principal); Z87.442 Personal history of urinary calculi
CPT/HCPCS: 36415; 74177; 80053; 81001; 83690; 85007; 85025; 87077; 87086; 87186; 93005; 96361; 96374; 96375; 99284; J1171; J2405; Q9967

== ENCOUNTER 2025-04-12 18:14 | Emergency (ER) | payer OTHER, SELFPAY ==
[2022-05-05 13:08] VITALS: BMI 33.9
[2025-04-12] VITALS (17 sets, daily range): BP systolic 170–232; BP diastolic 69–104; PULSE 60–69; RESP 17–24; TEMP 36.6; O2SAT 92–100; BMI 24.7
--- NOTE | 2025-04-12 18:30 | DI.CT.S_ITS ---
PROCEDURE: CT ABDOMEN PELVIS WO CON INDICATIONS: hx of kidney stone TECHNIQUE: Axial sections were acquired from the lung bases to the pubic symphysis. Coronal and sagittal reformats were performed. For radiation dose reduction, the following was used: automated exposure control, adjustment of mA and/or kV according to patient size. COMPARISON: [facility], CT, CT ABDOMEN PELVIS WO CON, 09/23/2018, 9:38. FINDINGS: Image quality: Diagnostic. Lower Chest: Pulmonary artery measuring 3.5 cm in caliber. URINARY: Right Kidney: No stones or hydronephrosis. Right Ureter: No hydroureter. Left Kidney: Multiple nonobstructing calculi with the largest conglomerate in the inferior pole. Moderate to severe hydronephrosis. Left Ureter: Left UVJ 7 mm obstructing calculus with moderate upstream hydroureter. Bladder: Normal wall thickness. No stones. ABDOMEN: Liver: No contour-deforming solid mass. Gallbladder: Questionable sludge and pericholecystic fluid. Biliary ducts: No biliary dilation. Pancreas: No ductal dilation. Spleen: Size is within normal limits. Adrenal Glands: No adrenal nodules. Stomach and Bowel: Normal colonic caliber, without significant wall thickening. Peritoneum: No abnormal intraperitoneal fluid. No free air. Ventral Wall: No hernia. Abdominal Nodes: No enlarged retroperitoneal or mesenteric lymph nodes. Vessels: Aorta and inferior vena cava are normal in size. Dense aorto bi iliac atherosclerotic calcifications. Infrarenal IVC filter. PELVIS: Pelvic Organs: Unremarkable. Pelvic Nodes: Unremarkable. Miscellaneous: No inguinal hernias are seen. Bones: Left proximal femur internal fixation. No acute osseous abnormality visualized. Multilevel degenerative changes of the visualized spine without acute vertebral body compression fracture. IMPRESSION: Left UVJ 7 mm obstructing calculus with moderate to severe upstream hydroureteronephrosis. Additional nonobstructing left nephrolithiasis. Questionable gallbladder sludge and pericholecystic fluid. Findings are nonspecific, but can be seen in the setting of cholecystitis. If there is clinical concern, consider further evaluation with right upper quadrant ultrasound. Dilated main pulmonary artery measuring up to 3.5 cm in caliber, which can be seen in the setting of pulmonary hypertension. Approved by: Ariana Calderon M.D.,Ph.D. on 04/12/2025 at 20:06
[2025-04-12] MEDS: LACTATED RINGERS 1,000 ML 1000 ML IV (19:13)
[2025-04-12 19:29] LABS: Hematocrit 24.9 % (36-46); Hemoglobin 8.1 g/dL (12.0-16.0); Mean Corpuscular HGB Conc 32.6 % (30-36); Mean Corpuscular Hemoglobin 27.5 PG (26-34); Mean Corpuscular Volume 84.4 fL (80-100)
[2025-04-12 19:30] LABS: Add Manual Diff / Slide Review YES
[2025-04-12 19:32] LABS: Alanine Aminotransferase 10 IU/L (<35); Albumin 3.5 g/dL (3.5-5.0); Albumin Globulin Ratio 1.0 (1.0-2.8); Alkaline Phosphatase 85 U/L (38-126); Blood Urea Nitrogen 27 mg/dL (7-17); Calcium 8.1 mg/dL (8.4-10.2); Carbon Dioxide 20 mmol/L (22-32); Chloride 102 mmol/L (98-107); Estimated Glomerular Filt Rate 30 mL/min (>60); Globulin 3.4 g/dL (1.7-4.1); Glucose 136 mg/dL (70-99); HEMOLYSIS < 15 (0-50); Lipase 43 U/L (23-300); Potassium 5.1 mmol/L (3.4-5.1); Sodium 131 mmol/L (137-145); Total Protein 6.9 g/dL (6.3-8.2)
--- NOTE | 2025-04-12 20:17 | ED.ABDPAIN ---
HPI - Abdominal Pain General Chief Complaint: Abdominal Pain Stated Complaint: passing kidney stone t-2 Time Seen by Provider: 04/12/25 18:17 Source: patient Mode of arrival: Wheelchair History of Present Illness HPI narrative: 84-year-old female history of appendectomy, hypothyroidism, CML, hypotension, kidney stone, presents with left flank pain started on Sunday preceding in intensity despite taking Tylenol every 4 hours. Reminded her of the kidney stone that she passed a month ago. She denies any fever, chills, hematuria, urinary symptoms but did have dry heaving but no vomiting, chest pain, shortness of breath, constipation, or diarrhea. Other than what is stated 14 point review of system is negative. Related Data Home Medications ?Medication ?Instructions ?Recorded ?Confirmed cholecalciferol (vitamin D3) 50 2,000 unit PO Q OTHER DAY #0 caps 01/13/21 01/13/25 mcg (2,000 unit) capsule (Vitamin D3) multivitamin (Daily Multi-Vitamin 1 tab PO Q OTHER DAY 01/13/21 01/13/25 tablet) amlodipine 2.5 mg tablet 2.5 mg PO DAILY 07/09/23 01/13/25 ascorbic acid (vitamin C) 250 mg 500 mg PO 2XW 07/09/23 01/13/25 tablet methylsulfonylmethane 1,000 mg 3,000 mg PO DAILY 07/09/23 01/13/25 tablet vit C 250 mg-vit E 90 mg-zinc 40 1 tab PO BID 07/09/23 01/13/25 mg-copper 1 ne-gdmpkk-reafue capsule (PreserVision AREDS-2) latanoprost 0.005 % eye drops drp EYE-BOTH 07/09/24 01/13/25 Previous Rx's ?Medication ?Instructions ?Recorded Disability Parking #1 ea 05/08/22 carvedilol 3.125 mg tablet 3.125 mg PO BID #180 tabs 08/08/24 levothyroxine 100 mcg tablet 100 mcg PO DAILY #90 tabs 08/08/24 oxycodone-acetaminophen 5 mg-325 1 tab PO Q6H PRN pain #14 tabs 03/13/25 mg tablet tamsulosin 0.4 mg capsule 0.4 mg PO DAILY #20 caps 03/13/25 hydrocodone 5 mg-acetaminophen 325 1 tab PO Q6H PRN pain #20 tabs 04/12/25 mg tablet tamsulosin 0.4 mg capsule (Flomax) 0.4 mg PO DAILY #30 caps 04/12/25 Allergies Allergy/AdvReac Type Severity Reaction Status Date / Time barium sulfate Allergy Severe SENSITIVITY Verified 04/12/25 18:17 TO ELECTRICAL CURRENT, SEIZURES Sulfa (Sulfonamide Allergy Intermediate HIVES Verified 04/12/25 18:17 Antibiotics) adhesive Allergy Mild RASH Verified 04/12/25 18:17 Review of Systems Review of Systems ROS Unobtainable: All systems reviewed & are unremarkable except as noted in HPI and below Patient History Medical History Venous (peripheral) insufficiency Closed fracture of left hip requiring operative repair Immune thrombocytopenia Polyneuropathy, unspecified Gait instability General weakness Anticoagulation monitoring, INR range 2-3 Do not resuscitate CMML (chronic myelomonocytic leukemia) Stage 3b chronic kidney disease (CKD) Mixed hyperlipidemia 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 Well-developed patient, in mild distress. HEAD: Atraumatic. Normocephalic. EYES: Pupils equal round and reactive. Extraocular motions intact. No scleral icterus. No injection or drainage. ENT: Nose without bleeding, purulent drainage. Throat without erythema, tonsillar hypertrophy or exudate. Airway patent. NECK: Trachea midline. Non tender CARDIOVASCULAR: Regular rate and rhythm without murmurs, gallops, or rubs. RESPIRATORY: Clear to auscultation. Breath sounds equal bilaterally. No wheezes, rales, or rhonchi. GASTROINTESTINAL: Abdomen soft, non-tender, nondistended. EXTREMITIES: No edema or joint tenderness. BACK: Nontender without deformity or crepitance. No flank tenderness. NEURO: AOx3. SKIN: No rash or erythema of visible areas Initial Vital Signs Initial Vital Signs: Vital Signs Temperature 97.9 F 04/12/25 18:18 Pulse Rate 63 04/12/25 18:18 Respiratory Rate 17 04/12/25 18:18 Blood Pressure 205/77 H 04/12/25 18:18 Pulse Oximetry 100 04/12/25 18:18 Oxygen Delivery Method Room Air 04/12/25 18:18 Course Orders Ordered: ED Orders 04/12/25 18:30 CT abdomen pelvis wo con Stat EKG-12 Lead Stat 04/12/25 19:07 Urine Microscopic Stat 04/12/25 19:14 Complete Blood Count AUTO DIFF Stat Comprehensive Metabolic Panel Stat Lipase Stat Ondansetron HCl (Ondansetron 4 Mg/2 Ml Inj) 4 mg IV NOW PRN PRN Reason: Nausea And Vomiting Ondansetron HCl (Ondansetron 4 Mg Odt) 4 mg PO NOW PRN PRN Reason: Nausea And Vomiting Discontinued Medications Lactated Ringer's (Lactated Ringers) 1,000 mls @ 1,000 mls/hr IV BOLUS ONE Stop: 04/12/25 19:29 Last Admin: 04/12/25 19:13 Dose: 1,000 mls/hr Documented By: CYNTHIA Vital Signs Vital signs: Vital Signs - 8 hr 04/12/25 18:18 04/12/25 19:07 04/12/25 19:11 Temperature 97.9 F Pulse Rate 63 61 Respiratory Rate 17 Blood Pressure 205/77 H 190/83 H Pulse Oximetry 100 94 Oxygen Delivery Method Room Air 04/12/25 19:11 04/12/25 19:30 04/12/25 19:31 Temperature Pulse Rate 60 64 Respiratory Rate 20 Blood Pressure 194/73 H Pulse Oximetry 97 95 Oxygen Delivery Method 04/12/25 19:31 04/12/25 20:00 Temperature Pulse Rate 62 63 Respiratory Rate 20 21 Blood Pressure Pulse Oximetry 96 Oxygen Delivery Method MDM - Abdominal Pain Lab Data 04/12/25 19:14 04/12/25 19:14 Labs: Lab Results 04/12/25 Range/Units 19:14 WBC 11.3 H (4.5-11.0) X10^3/uL RBC 2.95 L (4.0-5.2) X10^6/uL Hgb 8.1 L (12.0-16.0) g/dL Hct 24.9 L (36-46) % MCV 84.4 (80-100) fL MCH 27.5 (26-34) PG MCHC 32.6 (30-36) % RDW 23.0 H (11.6-14.8) % Neut % (Auto) Not Reportable Lymph % (Auto) Not Reportable [place] % (Auto) Not Reportable Eos % (Auto) Not Reportable Baso % (Auto) Not Reportable Lymph # (Auto) Not Reportable [place] # (Auto) Not Reportable Baso # (Auto) Not Reportable Sodium 131 L (137-145) mmol/L Potassium 5.1 (3.4-5.1) mmol/L Chloride 102 (98-107) mmol/L Carbon Dioxide 20 L (22-32) mmol/L BUN 27 H (7-17) mg/dL Creatinine 1.67 H (0.52-1.04) mg/dL Estimated GFR 30 L (>60) mL/min BUN/Creatinine Ratio 16.2 (6-22) Glucose 136 H (70-99) mg/dL Calcium 8.1 L (8.4-10.2) mg/dL Total Bilirubin 0.6 (0.2-1.3) mg/dL AST 19 (14-36) IU/L ALT 10 (<35) IU/L Alkaline Phosphatase 85 (38-126) U/L Total Protein 6.9 (6.3-8.2) g/dL Albumin 3.5 (3.5-5.0) g/dL Globulin 3.4 (1.7-4.1) g/dL Albumin/Globulin Ratio 1.0 (1.0-2.8) Lipase 43 (23-300) U/L Point of care testing: Urine Dip Bedside Urine Glucose Negative Bedside Urine Bilirubin - Negative Bedside Urine Ketone - Negative Urine Specific [place] 1.010 Bedside Urine Occult Blood ++ Bedside Urine pH 6.0 Bedside Urine Protein +/- 15 Bedside Urine Urobilinogen - Negative Bedside Urine Nitrite - Negative Bedside Urine Leukocytes - Negative Esterase Imaging Data CT scan - abdomen/pelvis: Radiologist's Impression: [address] [address] [address] Scan Report Signed Patient: Catarina Charles MR#: [id number] : 1940 Acct:[id number] Age/Sex: 84 / F Date of Service: 04/12/25 Loc: ED Accession Number: [id number] Procedure: CT abdomen pelvis wo con Ordering Provider: Quentin Serrato D.O. PROCEDURE: CT ABDOMEN PELVIS WO CON INDICATIONS: hx of kidney stone TECHNIQUE: Axial sections were acquired from the lung bases to the pubic symphysis. Coronal and sagittal reformats were performed. For radiation dose reduction, the following was used: automated exposure control, adjustment of mA and/or kV according to patient size. COMPARISON: [facility], CT, CT ABDOMEN PELVIS WO CON, 09/23/2018, 9:38. FINDINGS: Image quality: Diagnostic. Lower Chest: Pulmonary artery measuring 3.5 cm in caliber. URINARY: Right Kidney: No stones or hydronephrosis. Right Ureter: No hydroureter. Left Kidney: Multiple nonobstructing calculi with the largest conglomerate in the inferior pole. Moderate to severe hydronephrosis. Left Ureter: Left UVJ 7 mm obstructing calculus with moderate upstream hydroureter. Bladder: Normal wall thickness. No stones. ABDOMEN: Liver: No contour-deforming solid mass. Gallbladder: Questionable sludge and pericholecystic fluid. Biliary ducts: No biliary dilation. Pancreas: No ductal dilation. Spleen: Size is within normal limits. Adrenal Glands: No adrenal nodules. Stomach and Bowel: Normal colonic caliber, without significant wall thickening. Peritoneum: No abnormal intraperitoneal fluid. No free air. Ventral Wall: No hernia. Abdominal Nodes: No enlarged retroperitoneal or mesenteric lymph nodes. Vessels: Aorta and inferior vena cava are normal in size. Dense aorto bi iliac atherosclerotic calcifications. Infrarenal IVC filter. PELVIS: Pelvic Organs: Unremarkable. Pelvic Nodes: Unremarkable. Miscellaneous: No inguinal hernias are seen. Bones: Left proximal femur internal fixation. No acute osseous abnormality visualized. Multilevel degenerative changes of the visualized spine without acute vertebral body compression fracture. IMPRESSION: Left UVJ 7 mm obstructing calculus with moderate to severe upstream hydroureteronephrosis. Additional nonobstructing left nephrolithiasis. Questionable gallbladder sludge and pericholecystic fluid. Findings are nonspecific, but can be seen in the setting of cholecystitis. If there is clinical concern, consider further evaluation with right upper quadrant ultrasound. Dilated main pulmonary artery measuring up to 3.5 cm in caliber, which can be seen in the setting of pulmonary hypertension. Approved by: Ariana Calderon M.D.,Ph.D. on 04/12/2025 at 20:06 MDM Narrative Medical decision making narrative: All lab work, vital signs, nurse triage note, medication list, previous ER visits, and all imaging studies reviewed. Urine did not show any UTI WBC 11.3 hemoglobin 8 platelets clumped sodium 131 potassium 5.1 chloride 102 CO2 20 BUN 27 creatinine 1.67 glucose 136 LFTs normal lipase 43 Left UVJ 7 mm obstructing calculus with moderate to severe upstream hydroureteronephrosis. Additional nonobstructing left nephrolithiasis. Questionable gallbladder sludge and pericholecystic fluid. Findings are nonspecific but can be seen in the setting of cholecystitis. Dilated main pulmonary artery measuring up to 3.5 cm in caliber which can be seen in the setting of pulmonary hypertension. Patient given fluids Toradol and Dilaudid here. Along with Flomax and strainer patient will be discharged on Flomax [place] and to follow up with Urology this week and to call office for appointment. Differential diagnosis kidney stone kidney infection UTI radiculitis constipation pancreatitis cholecystitis Discharge Plan Departure Patient Disposition: Home Clinical Impression: Kidney stone Instructions: DI for Kidney Stones Activity Restrictions/Additional Instructions: Return with new or worsening symptoms. Keep hydrated. Follow up with urology call office for appointment on Sunday Take medicine as directed. Prescriptions: New hydrocodone-acetaminophen 5-325 mg tablet 1 tab PO Q6H PRN (Reason: pain) Qty: 20 0RF tamsulosin [Flomax] 0.4 mg capsule 0.4 mg PO DAILY Qty: 30 0RF No Action cholecalciferol (vitamin D3) [Vitamin D3] 50 mcg (2,000 unit) capsule 2,000 unit PO Q OTHER DAY Qty: 0 levothyroxine 100 mcg tablet 100 mcg PO DAILY Qty: 90 3RF carvedilol 3.125 mg tablet 3.125 mg PO BID Qty: 180 3RF Rx Instructions: must administer with a meal/food multivitamin [Daily Multi-Vitamin] Tablet 1 tab PO Q OTHER DAY (DME) Disability Parking See Rx Instructions .Route .MEDSUPPLY Qty: 1 0RF Rx Instructions: As directed ascorbic acid (vitamin C) 250 mg tablet 500 mg PO 2XW PreserVision AREDS-2 250-90-40-1 mg capsule 1 tab PO BID amlodipine 2.5 mg tablet 2.5 mg PO DAILY methylsulfonylmethane 1,000 mg tablet 3,000 mg PO DAILY latanoprost 0.005 % drops EYE-BOTH tamsulosin 0.4 mg capsule 0.4 mg PO DAILY Qty: 20 0RF Rx Instructions: Discontinue after you have passed the kidney stone oxycodone-acetaminophen 5-325 mg tablet 1 tab PO Q6H PRN (Reason: pain) Qty: 14 0RF Referrals: Reji Brasher MD [Primary Care Provider, Internal Medicine] Tomás Yao DO [Physician, Urology] Stand Alone Forms: Patient Portal/API
[2025-04-12 20:31] LABS: Band Neutrophils Percent 5.0 % (3-7); Basophils Percent Manual 1.0 % (0-1); Lymphocytes Percent Manual 16.0 % (25-45); Metamyelocytes Percent 1.0 % (-0); Monocytes Percent Manual 20.0 % (2-11); Neutrophils Absolute Manual 7006 /uL (3000-5900); Segmented Neutrophils Percent 57.0 % (38-70); Total Cells Counted 100
[2025-04-12 20:33] LABS: Poikilocytosis 1+
[2025-04-12 20:34] LABS: Anisocytosis 1+; Ovalocytes 1+; Schistocytes 1+
[2025-04-12 20:50] LABS: Culture Indicated Urine Specimen Cultured
[2025-04-12] MEDS: TAMSULOSIN 0.4 MG CAPSULE PO (20:53)
[2025-04-12] MEDS: ONDANSETRON 4 MG/2 ML INJ IV (20:56)
== END 2025-04-12 23:24 | disposition home or self-care (01) ==
PROVIDERS: Emergency Provider Family Medicine; Family Provider Internal Medicine; PCP Internal Medicine
DX: N20.0 Calculus of kidney (principal)
CPT/HCPCS: 36415; 74176; 80053; 81003; 81015; 83690; 85007; 85025; 87077; 87086; 87186; 96361; 96374; 96375; 99284; J1171; J2405; J7120

== ENCOUNTER → 2025-04-22 12:56 | Outpatient (CLI) | payer OTHER, SELFPAY ==
[2025-04-15 13:18] VITALS: BMI 33.9
[2025-05-05 16:09] LABS: Uric Acid 100 % (.)
== END ==
PROVIDERS: Family Provider Internal Medicine; PCP Internal Medicine; Visit Provider Urology
DX: N20.2 Calculus of kidney with calculus of ureter (principal); R39.9 Unspecified symptoms and signs involving the genitourinary system; Z87.442 Personal history of urinary calculi
CPT/HCPCS: 81002; 82365; 87077; 87086; 87186; 99214

== ENCOUNTER → 2025-04-23 08:18 | Outpatient (CLI) | payer OTHER, SELFPAY ==
[2025-04-15 13:18] VITALS: BMI 33.9
[2025-05-04 18:08] LABS: Uric Acid 90 % (.)
== END ==
PROVIDERS: Family Provider Internal Medicine; PCP Internal Medicine; Visit Provider Urology
DX: N20.1 Calculus of ureter (principal); Z87.442 Personal history of urinary calculi
CPT/HCPCS: 82365